=== PATIENT | male | born 1955 | race Caucasian/White ===

== ENCOUNTER 2019-03-30 08:07 | Outpatient (RCR) | payer BC, SELFPAY ==
--- NOTE | 2019-03-30 10:40 | PTOPEVAL ---
Thank you for referring this patient to [facility]. Please review, sign, date and return this plan of care [facility]. I agree with and certify that the following plan of care is medically necessary. Referring Physician Date Admitting Provider: Attending Provider: PHYSICIAN NOT ON STAFF Referring Provider: *PT Outpatient Evaluation Start: 03/30/19 08:18 Freq: Status: Active Protocol: Document 03/30/19 08:18 JOSE ROBERTOELMER (Rec: 03/30/19 09:00 CLARIBEL [email or web address]) Therapy Assessment Status Assessment Status Assessment Status Evaluation Evaluation Information Problem Diagnosis right sided low back pain Onset 02/12/19 Subjective Information Pt. reports that on 02/12/19 Query Text:As Reported By Patient/ he woke up with initial back Family pain that had gotten progressively worse. He describes pain from the right side down the entire right leg . He does note constant numbness. Pain Assessment Pain Scale Pain Scale Used Numeric (1 - 10) Self Report Pain Assessment Right Leg(s) Reported Pain Level 6 Pain Frequency Continuous Current Pain Intensity 6 Lowest Pain Intensity 6 Greatest Pain Intensity 10 Other Pain Aggravating Factors nothing particular activity increases pain, as pain is constant Pain Relief Interventions Used By Inactivity/Rest Patient Pain Score Pain Score 6: Self Report Lower Extremity Muscle Strength Testing General Lower Extremity Strength Gross Lower Extremity Strength right hip flexion 3+/5, left hip flexion 5/5, right knee flexion 3+/5, left knee flexion 5/5, right knee extension 3+/5, left knee extension 5/5, bilateral ankle dorsiflexion 5/5, right ankle PF 3+/5, left ankle PF 5/5 Posture Posture Standing Position Thoracic Spine Posture Increased Kyphosis Lumbar Spine Posture Flattened,Flexed Special Test-Spine Lumbar Spine Special Tests Crossed Straight Leg Raise Test Positive Left Straight Leg Raise Test Positive Right Reflexes Reflexes Location Left Patellar Tendon (L3,L4) Normal +2 Gastrocnemius (S1,S2) Normal +2 Right Patellar Tendon (L3,L4) Dull/Diminished +1 Gastrocnemius (S1,S2) Normal +2 Gait Assessment Gait Assessment Ambulation Assistive Dev
== END 2019-03-30 15:22 | disposition home or self-care (01) ==
LOC: CHSPT 08:07
DX: M54.41 Lumbago with sciatica, right side (principal)
CPT/HCPCS: 97110; 97161

== ENCOUNTER 2020-02-18 10:05 | Outpatient (CLI) | payer BC, SELFPAY ==
[2020-02-18 10:20] LABS: Basophils Absolute Auto 0.03 K/mm3 (0.00-0.10); Basophils Percent Auto 0.5 % (0.0-1.0); Eosinophils Absolute Auto 0.15 K/mm3 (0.02-0.50); Eosinophils Percent Auto 2.3 % (1.0-6.0); Hematocrit 47.5 % (40.0-54.0); Immature Granulocyte Absolute 0.01 K/mm3 (0.00-0.00); Immature Granulocyte Percent A 0.2 % (0.0-0.0); Immature Platelet Fraction Pct 7.8 % (1.0-7.0); Lymphocytes Absolute Auto 2.97 K/mm3 (1.10-4.50); Lymphocytes Percent Auto 45.1 % (18.0-42.0); Mean Corpuscular HGB Conc 33.7 g/dL (32.0-36.0); Mean Corpuscular Hemoglobin 30.8 pg (27.0-31.0); Mean Corpuscular Volume 91.5 fL (78.0-102.0); Mean Platelet Volume 11.5 fl (8.7-11.0); Monocytes Absolute Auto 0.54 K/mm3 (0.10-0.90); Monocytes Percent Auto 8.2 % (2.0-11.0); Neutrophils Absolute Auto 2.9 K/mm3 (1.7-7.2); Neutrophils Percent Auto 43.7 % (50.0-70.0); Platelet Count Result 74 K/mm3 (150-420); Red Blood Count 5.19 M/mm3 (4.70-6.10); Red Cell Distribution Width 12.3 % (11.6-14.4); White Blood Count 6.6 K/mm3 (4.8-10.8)
[2020-02-18 10:35] LABS: INR 1.1; Prothrombin Time 11.8 Seconds (9.64-11.0)
[2020-02-18 11:07] LABS: Alanine Aminotransferase 46 U/L (16-63); Alkaline Phosphatase 88 U/L (46-116); Anion Gap 8 mmol/L (8-16); Aspartate Amino Transferase 30 U/L (15-37); Bilirubin,Total 0.8 mg/dL (0.00-1.00); Blood Urea Nitrogen 12 mg/dL (7-18); Calcium 9.2 mg/dL (8.5-10.1); Carbon Dioxide 29 mmol/L (21-32); Chloride 102 mmol/L (98-108); Estimated Glomerular Filt Rate > 60; Glucose 132 mg/dL (70-99); Osmolality Calculated 289 mOsm/kg (285-295); Potassium 4.1 mmol/L (3.5-5.1); Sodium 139 mmol/L (136-145); Total Protein 8.4 g/dL (6.4-8.2)
[2020-02-24 23:26] LABS: Alpha Fetoprotein Tumor Marker 9.6 ng/mL (<6.1)
== END 2020-02-18 10:06 | disposition home or self-care (01) ==
DX: B19.20 Unspecified viral hepatitis C without hepatic coma (principal)
CPT/HCPCS: 36415; 80053; 82105; 85025; 85055; 85610

== ENCOUNTER 2020-03-08 08:01 | Outpatient (RCR) | payer BC, SELFPAY ==
--- NOTE | 2020-03-08 08:54 | PTOPEVAL ---
Thank you for referring Rowdy Jesus to [facility].? The patient is scheduled to be seen for therapy? ____x/week for ___ weeks. Please review, sign, date and return this plan of care MARCELINO. I agree with and certify that the following plan of care is medically necessary. Referring Physician Date Admitting Provider: Attending Provider: PHYSICIAN NOT ON STAFF Referring Provider: *PT Outpatient Evaluation Start: 03/08/20 08:06 Freq: Status: Active Protocol: Document 03/08/20 08:05 REMINGTON (Rec: 03/08/20 08:53 RUST [email or web address]) Therapy Assessment Status Assessment Status Assessment Status Evaluation Evaluation Information Problem Diagnosis low back pain Onset 03/03/20 Additional Evaluation Detail oswestry = 62% Subjective Information patient reports he was here Query Text:As Reported By Patient/ around this time last year for Family back pain. he reports he eventually had surgery for an HNP in april of this year. he reports he had extensive nerve damage in the R leg that took a while to begin to recover. he reports prior to surgery he was getting so bad he was falling. he reports now (about 2 weeks ago), he was pulling a garbage can out to his gate and somehow caused new back pain. he reports he is strugglign still with getting out of bed. he reports his pain is reduced with standing and walking. he reports he has increased pain in the back with sitting too long, standing, walking, and driving. however, increased time standing and walking will loosen up his back. he reports he has pain in the upper thigh/groin of the R hip . he reports he has noticed some progression of pain down the R LE. Prior Level of Function Comments Additional Prior Level of Function he reports a long history of Comments back pain, but has been improving up until recently since his surgery back in april of this year. Pain Assessment
--- NOTE | 2020-04-20 13:22 | PCPTNOTE ---
04/20/20 - patient has been called and reports he is not coming back to therapy and would like to be DC'd. as of this date, all progress towards goals will be taken from his most recent evaluation/note. REMINGTON
== END 2020-03-14 14:55 | disposition home or self-care (01) ==
LOC: CHSPT 08:01
DX: M54.9 Dorsalgia, unspecified (principal)
CPT/HCPCS: 97014; 97110; 97140; 97161; G0283

== ENCOUNTER 2020-08-29 07:51 | Outpatient (RCR) | payer BC, SELFPAY ==
--- NOTE | 2020-08-29 14:12 | PTOPEVAL ---
Thank you for referring Rowdy Sherry Jesus to [facility].? The patient is scheduled to be seen for therapy? ____x/week for ___ weeks. Please review, sign, date and return this plan of care MARCELINO. I agree with and certify that the following plan of care is medically necessary. Referring Physician Date Admitting Provider: Attending Provider: ROWDY VELASQUEZ Referring Provider: [facility] Evaluation Start: 08/29/20 08:00 Freq: Status: Active Protocol: Document 08/29/20 08:00 ACR (Rec: 08/29/20 09:08 ACR [email or web address]) Evaluation Information Problem Diagnosis LBP Onset 05/11/19 Subjective Information Patient states that he got Query Text:As Reported By Patient/ surgery in April for a Family herniated disc and has been having difficulty since. 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 Patient states the epidural helped him a bit. Patient states that before the herniated disc repair, he had radicular symptoms down the R leg, and still has some numbness in the lower leg. He states that he fell right before the surgery and thinks he overstretched something in his knee, but the MD said there was nothing wrong with it. He states that he has difficulty with walking and standing too long. He also has difficulty getting out of a chair, navigating stairs, and has spasms in both bottock. Prior Level of Function Activity Level (Last 3 Months) Occupation retired Hand Dominance Right Activity of Daily Living Ability Independent Indoor/Home Mobility Independent Community Mobility Independent Stairs Ability Independent Functional Cognition (Planning, Shopping Independent , Taking Medications) Cooking Yes Cleaning Yes Laundry Yes Shopping Yes Driving Yes Pain Assessment Timing of Pain Assessment Timing of Pain Assessment Assessment Pain Scale Pain Scale Used Numeric (1 - 10)
--- NOTE | 2020-11-07 08:49 | PCPTNOTE ---
Patient is a 65 year old male that participated in 2 vists for LBP s/p herniated disc surgery. The patient was called and he states he continues to do his HEP and his pain has gotten a lot better. So, the patient will be discharged from therapy at this time. Please refer to last therapy note for discharge status. Thank you, CHILO MadisonT
== END 2020-09-27 09:33 | disposition home or self-care (01) ==
LOC: CHSPT 07:51
DX: M54.9 Dorsalgia, unspecified (principal); M54.16 Radiculopathy, lumbar region
CPT/HCPCS: 97014; 97110; 97161; G0283

== ENCOUNTER 2020-12-20 09:26 | Outpatient (CLI) | payer BC, SELFPAY ==
[2020-12-20 09:45] LABS: Basophils Absolute Auto 0.04 K/mm3 (0.00-0.10); Basophils Percent Auto 0.6 % (0.0-1.0); Eosinophils Absolute Auto 0.14 K/mm3 (0.02-0.50); Eosinophils Percent Auto 2.2 % (1.0-6.0); Hematocrit 48.3 % (40.0-54.0); Hemoglobin 16.2 g/dL (14.0-18.0); Immature Granulocyte Absolute 0.02 K/mm3 (0.00-0.00); Immature Granulocyte Percent A 0.3 % (0.0-0.0); Lymphocytes Percent Auto 38.8 % (18.0-42.0); Mean Corpuscular HGB Conc 33.5 g/dL (32.0-36.0); Mean Corpuscular Hemoglobin 30.3 pg (27.0-31.0); Mean Corpuscular Volume 90.4 fL (78.0-102.0); Mean Platelet Volume 11.5 fl (8.7-11.0); Monocytes Absolute Auto 0.42 K/mm3 (0.10-0.90); Monocytes Percent Auto 6.5 % (2.0-11.0); Neutrophils Absolute Auto 3.3 K/mm3 (1.7-7.2); Neutrophils Percent Auto 51.6 % (50.0-70.0); Platelet Count Result 78 K/mm3 (150-420); Red Blood Count 5.34 M/mm3 (4.70-6.10); Red Cell Distribution Width 12.2 % (11.6-14.4); White Blood Count 6.5 K/mm3 (4.8-10.8)
[2020-12-20 09:57] LABS: INR 1.1; Prothrombin Time 11.6 Seconds (9.50-12.10)
[2020-12-20 10:28] LABS: Anion Gap 10 mmol/L (8-16); Blood Urea Nitrogen 10 mg/dL (7-18); Calcium 9.2 mg/dL (8.5-10.1); Carbon Dioxide 28 mmol/L (21-32); Chloride 101 mmol/L (98-108); Estimated Glomerular Filt Rate > 60; Glucose 140 mg/dL (70-99); Osmolality Calculated 289 mOsm/kg (285-295); Potassium 4.1 mmol/L (3.5-5.1); Sodium 139 mmol/L (136-145)
[2020-12-24 18:51] LABS: Alpha Fetoprotein Tumor Marker 8.6 ng/mL (<6.1)
== END 2020-12-20 09:27 | disposition home or self-care (01) ==
DX: K74.60 Unspecified cirrhosis of liver (principal)
CPT/HCPCS: 36415; 80048; 82105; 85025; 85055; 85610

== ENCOUNTER 2021-02-08 07:43 | Outpatient (CLI) | payer BC, SELFPAY ==
--- NOTE | ~2021-02-08 | US_ITS ---
EXAMINATION: US abdomen limited DATE: 02/08/2021 08:22 INDICATION: Cirrhosis of the liver. TECHNIQUE: Multiple grayscale and Doppler ultrasound images of the abdomen were obtained. COMPARISON: None FINDINGS: The spleen is normal in size. Calcifications in the spleen are consistent with old granulom atous disease. The liver demonstrates coarsened echotexture and surface nodularity, consistent with c irrhosis. There are multiple hypoechoic masses in the liver measuring up to 2.6 cm. There is normal f low in main portal vein. The gallbladder is normal in size. No gallstones or gallbladder wall thicken ing. There is no sonographic Morel sign. The common duct is normal and measures 5 mm. IMPRESSION: 1. Multiple liver masses measuring up to 2.6 cm, which is indeterminate for malignancy. Abdomen MRI w ithout and with contrast is recommended. 2. Cirrhosis of the liver. Reviewed, dictated and finalized at location A. IMPRESSION: 1. Multiple liver masses measuring up to 2.6 cm, which is indeterminate for mal ignancy. Abdomen MRI without and with contrast is recommended. 2. Cirrhosis of the liver.
== END 2021-02-08 07:44 | disposition home or self-care (01) ==
LOC: CHSIMG 07:47
DX: K74.69 Other cirrhosis of liver (principal)
CPT/HCPCS: 76705

== ENCOUNTER 2021-05-22 10:20 | Outpatient (CLI) | payer BC, SELFPAY ==
[2021-05-22 10:44] LABS: Basophils Absolute Auto 0.04 K/mm3 (0.00-0.10); Basophils Percent Auto 0.5 % (0.0-1.0); Eosinophils Absolute Auto 0.15 K/mm3 (0.02-0.50); Hematocrit 48.6 % (40.0-54.0); Hemoglobin 16.4 g/dL (14.0-18.0); Immature Granulocyte Absolute 0.02 K/mm3 (0.00-0.00); Immature Granulocyte Percent A 0.3 % (0.0-0.0); Immature Platelet Fraction Pct 9.1 % (1.0-7.0); Lymphocytes Absolute Auto 2.87 K/mm3 (1.10-4.50); Lymphocytes Percent Auto 39.2 % (18.0-42.0); Mean Corpuscular HGB Conc 33.7 g/dL (32.0-36.0); Mean Corpuscular Hemoglobin 30.1 pg (27.0-31.0); Mean Corpuscular Volume 89.2 fL (78.0-102.0); Mean Platelet Volume 11.8 fl (8.7-11.0); Monocytes Absolute Auto 0.58 K/mm3 (0.10-0.90); Monocytes Percent Auto 7.9 % (2.0-11.0); Neutrophils Absolute Auto 3.7 K/mm3 (1.7-7.2); Neutrophils Percent Auto 50.1 % (50.0-70.0); Platelet Count Result 95 K/mm3 (150-420); Red Blood Count 5.45 M/mm3 (4.70-6.10); Red Cell Distribution Width 12.1 % (11.6-14.4); White Blood Count 7.3 K/mm3 (4.8-10.8)
[2021-05-22 10:55] LABS: INR 1.1; Prothrombin Time 11.5 Seconds (9.50-12.10)
[2021-05-22 11:21] LABS: Alanine Aminotransferase 36 U/L (16-63); Alkaline Phosphatase 76 U/L (46-116); Anion Gap 10 mmol/L (8-16); Aspartate Amino Transferase 27 U/L (15-37); Bilirubin,Total 0.7 mg/dL (0.00-1.00); Blood Urea Nitrogen 16 mg/dL (7-18); Calcium 9.6 mg/dL (8.5-10.1); Carbon Dioxide 26 mmol/L (21-32); Chloride 97 mmol/L (98-108); Estimated Glomerular Filt Rate > 60; Glucose 124 mg/dL (70-99); Osmolality Calculated 278 mOsm/kg (285-295); Potassium 4.2 mmol/L (3.5-5.1); Sodium 133 mmol/L (136-145); Total Protein 8.5 g/dL (6.4-8.2)
[2021-05-26 20:57] LABS: Alpha Fetoprotein Tumor Marker 7.2 ng/mL (<6.1)
== END 2021-05-22 10:21 | disposition home or self-care (01) ==
LOC: CHSLAB 10:24
PROVIDERS: Visit Provider Internal Medicine Gastroenterology
DX: B18.2 Chronic viral hepatitis C (principal)
CPT/HCPCS: 36415; 80053; 82105; 85025; 85055; 85610

== ENCOUNTER 2021-07-19 08:04 | Outpatient (CLI) | payer BC, SELFPAY ==
[2021-07-19 08:22] LABS: Basophils Absolute Auto 0.03 K/mm3 (0.00-0.10); Basophils Percent Auto 0.4 % (0.0-1.0); Eosinophils Absolute Auto 0.14 K/mm3 (0.02-0.50); Eosinophils Percent Auto 2.1 % (1.0-6.0); Hematocrit 45.6 % (40.0-54.0); Hemoglobin 15.5 g/dL (14.0-18.0); Immature Granulocyte Absolute 0.03 K/mm3 (0.00-0.00); Immature Granulocyte Percent A 0.4 % (0.0-0.0); Lymphocytes Absolute Auto 2.62 K/mm3 (1.10-4.50); Lymphocytes Percent Auto 38.9 % (18.0-42.0); Mean Corpuscular Hemoglobin 30.6 pg (27.0-31.0); Mean Corpuscular Volume 89.9 fL (78.0-102.0); Mean Platelet Volume 11.7 fl (8.7-11.0); Monocytes Absolute Auto 0.35 K/mm3 (0.10-0.90); Monocytes Percent Auto 5.2 % (2.0-11.0); Neutrophils Absolute Auto 3.6 K/mm3 (1.7-7.2); Platelet Count Result 86 K/mm3 (150-420); Red Blood Count 5.07 M/mm3 (4.70-6.10); Red Cell Distribution Width 12.4 % (11.6-14.4); White Blood Count 6.7 K/mm3 (4.8-10.8)
[2021-07-19 08:39] LABS: INR 1.2; Prothrombin Time 12.2 Seconds (9.50-12.10)
[2021-07-19 09:04] LABS: Alanine Aminotransferase 32 U/L (16-63); Alkaline Phosphatase 63 U/L (46-116); Anion Gap 9 mmol/L (8-16); Aspartate Amino Transferase 44 U/L (15-37); Bilirubin,Total 0.7 mg/dL (0.00-1.00); Blood Urea Nitrogen 16 mg/dL (7-18); Calcium 9.1 mg/dL (8.5-10.1); Carbon Dioxide 28 mmol/L (21-32); Chloride 99 mmol/L (98-108); Estimated Glomerular Filt Rate 59; Glucose 180 mg/dL (70-99); Osmolality Calculated 288 mOsm/kg (285-295); Potassium 4.2 mmol/L (3.5-5.1); Sodium 136 mmol/L (136-145)
[2021-07-23 15:52] LABS: Alpha Fetoprotein Tumor Marker 6.6 ng/mL (<6.1)
== END 2021-07-19 08:05 | disposition home or self-care (01) ==
LOC: CHSLAB 08:10
DX: C22.0 Liver cell carcinoma (principal)
CPT/HCPCS: 36415; 80053; 82105; 85025; 85610

== ENCOUNTER 2022-04-09 07:55 | Outpatient (CLI) | payer BC, SELFPAY ==
[2022-04-09 08:35] LABS: Basophils Absolute Auto 0.04 K/mm3 (0.00-0.10); Basophils Percent Auto 0.5 % (0.0-1.0); Eosinophils Absolute Auto 0.28 K/mm3 (0.02-0.50); Eosinophils Percent Auto 3.7 % (1.0-6.0); Hematocrit 41.1 % (40.0-54.0); Hemoglobin 13.7 g/dL (14.0-18.0); Immature Granulocyte Absolute 0.03 K/mm3 (0.00-0.00); Immature Granulocyte Percent A 0.4 % (0.0-0.0); Lymphocytes Absolute Auto 2.01 K/mm3 (1.10-4.50); Lymphocytes Percent Auto 26.4 % (18.0-42.0); Mean Corpuscular HGB Conc 33.3 g/dL (32.0-36.0); Mean Corpuscular Hemoglobin 29.8 pg (27.0-31.0); Mean Corpuscular Volume 89.5 fL (78.0-102.0); Mean Platelet Volume 10.2 fl (8.7-11.0); Monocytes Absolute Auto 0.48 K/mm3 (0.10-0.90); Monocytes Percent Auto 6.3 % (2.0-11.0); Neutrophils Absolute Auto 4.8 K/mm3 (1.7-7.2); Neutrophils Percent Auto 62.7 % (50.0-70.0); Platelet Count Result 160 K/mm3 (150-420); Red Blood Count 4.59 M/mm3 (4.70-6.10); White Blood Count 7.6 K/mm3 (4.8-10.8)
[2022-04-09 08:52] LABS: Total Protein Urine Random 69.4 mg/dL (0.0-11.9)
[2022-04-09 09:08] LABS: Creatinine Urine 459.05 mg/dL (40-278); Ur Ttl Prot Creatinine Ratio 0.15 mg/mg (0-0.20)
[2022-04-09 09:12] LABS: Alanine Aminotransferase 34 U/L (16-63); Albumin Level 4.2 g/dL (3.4-5.0); Alkaline Phosphatase 91 U/L (46-116); Anion Gap 7 mmol/L (8-16); Aspartate Amino Transferase 15 U/L (15-37); Bilirubin,Total 0.5 mg/dL (0.00-1.00); Blood Urea Nitrogen 20 mg/dL (7-18); Calcium 9.5 mg/dL (8.5-10.1); Carbon Dioxide 30 mmol/L (21-32); Chloride 104 mmol/L (98-108); Cholesterol 179 mg/dL (0-200); Estimated Glomerular Filt Rate 45; GGT 56 U/L (15-85); Glucose 121 mg/dL (70-99); HDL Direct 45 mg/dL (40-60); LDL Cholesterol Calculated 108 mg/dL (<130); Magnesium 1.4 mg/dL (1.8-2.4); Osmolality Calculated 295 mOsm/kg (285-295); Phosphorus 3.7 mg/dL (2.6-4.7); Potassium 4.1 mmol/L (3.5-5.1); Sodium 141 mmol/L (136-145); Total Protein 7.4 g/dL (6.4-8.2); Triglycerides 131 mg/dL (0-150)
[2022-04-12 06:54] LABS: Hepatitis C RNA, Quant PCR <15 IU/mL
[2022-04-12 17:36] LABS: Hepatitis B DNA PCR <1.00 Log IU/mL; Hepatitis B DNA PCR <10 IU/mL
[2022-04-12 17:57] LABS: HIV 1 RNA PCR Not Detected Copies/mL; HIV 1 RNA PCR Not Detected Log cps/mL
== END 2022-04-09 07:56 | disposition home or self-care (01) ==
LOC: CHSLAB 08:00
DX: Z79.899 Other long term (current) drug therapy (principal); Z77.21 Contact with and (suspected) exposure to potentially hazardous body fluids; Z94.4 Liver transplant status
CPT/HCPCS: 36415; 80053; 80061; 80197; 82570; 82977; 83735; 84100; 84156; 85025; 87517; 87522; 87536

== ENCOUNTER 2022-05-28 07:41 | Outpatient (CLI) | payer MEDICARE, SELFPAY ==
[2022-05-28 08:17] LABS: Hematocrit 42.7 % (40.0-54.0); Hemoglobin 14.2 g/dL (14.0-18.0); Immature Platelet Fraction Pct 3.6 % (1.0-7.0); Mean Corpuscular HGB Conc 33.3 g/dL (32.0-36.0); Mean Corpuscular Hemoglobin 28.8 pg (27.0-31.0); Mean Corpuscular Volume 86.6 fL (78.0-102.0); Mean Platelet Volume 10.6 fl (8.7-11.0); Platelet Count Result 126 K/mm3 (150-420); Red Blood Count 4.93 M/mm3 (4.70-6.10); Red Cell Distribution Width 12.6 % (11.6-14.4); White Blood Count 4.9 K/mm3 (4.8-10.8)
[2022-05-28 08:46] LABS: Band Neutrophils Percent 1 % (0-6); Neutrophils Absolute Manual 3.28 K/mm3 (1.3-6.7); Neutrophils Percent Manual 66 % (46-73); Total Cells Counted 100
[2022-05-28 08:47] LABS: Eosinophils Absolute Manual 0.14 K/mm3 (0.02-0.5); Eosinophils Percent Manual 3 % (1-6); Lymphocytes Absolute Manual 1.17 K/mm3 (1.1-4.5); Lymphocytes Percent Manual 24 % (18-44); Metamyelocytes Percent 1 %; Monocytes Absolute Manual 0.24 K/mm3 (0.1-0.90); Monocytes Percent Manual 5 % (3-9); Platelet Estimate Adequate (Adequate)
[2022-05-28 08:55] LABS: Alanine Aminotransferase 24 U/L (16-63); Albumin Level 4.1 g/dL (3.4-5.0); Alkaline Phosphatase 97 U/L (46-116); Anion Gap 7 mmol/L (8-16); Aspartate Amino Transferase 17 U/L (15-37); Bilirubin,Total 0.5 mg/dL (0.00-1.00); Blood Urea Nitrogen 15 mg/dL (7-18); Calcium 9.3 mg/dL (8.5-10.1); Carbon Dioxide 30 mmol/L (21-32); Chloride 106 mmol/L (98-108); Estimated Glomerular Filt Rate 52; GGT 31 U/L (15-85); Glucose 120 mg/dL (70-99); Magnesium 1.7 mg/dL (1.8-2.4); Osmolality Calculated 297 mOsm/kg (285-295); Phosphorus 3.8 mg/dL (2.6-4.7); Sodium 143 mmol/L (136-145); Total Protein 7.2 g/dL (6.4-8.2)
[2022-05-30 13:45] LABS: Tacrolimus Prograf 4.6 mcg/L
[2022-06-02 16:53] LABS: Alpha Fetoprotein Tumor Marker 4.8 ng/mL (<6.1)
== END 2022-05-28 07:42 | disposition home or self-care (01) ==
LOC: CHSLAB 07:50
DX: Z94.4 Liver transplant status (principal); Z85.05 Personal history of malignant neoplasm of liver; Z79.899 Other long term (current) drug therapy
CPT/HCPCS: 36415; 80053; 80197; 82105; 82977; 83735; 84100; 85025; 85055

== ENCOUNTER 2022-06-04 07:32 | Outpatient (RCR) | payer BC, MEDICARE, SELFPAY ==
[2022-03-12 08:24] LABS: Hematocrit 37.4 % (40.0-54.0); Hemoglobin 12.7 g/dL (14.0-18.0); Mean Corpuscular Hemoglobin 30.6 pg (27.0-31.0); Mean Corpuscular Volume 90.1 fL (78.0-102.0); Platelet Count Result 183 K/mm3 (150-420); Red Blood Count 4.15 M/mm3 (4.70-6.10); Red Cell Distribution Width 13.3 % (11.6-14.4); White Blood Count 12.6 K/mm3 (4.8-10.8)
[2022-03-12 09:03] LABS: Band Neutrophils Percent 0 % (0-6); Eosinophils Absolute Manual 0.37 K/mm3 (0.02-0.5); Eosinophils Percent Manual 3 % (1-6); Lymphocytes Absolute Manual 2.52 K/mm3 (1.1-4.5); Lymphocytes Percent Manual 20 % (18-44); Monocytes Absolute Manual 1.26 K/mm3 (0.1-0.90); Monocytes Percent Manual 10 % (3-9); Neutrophils Absolute Manual 8.44 K/mm3 (1.3-6.7); Neutrophils Percent Manual 67 % (46-73); Platelet Estimate Adequate (Adequate); Total Cells Counted 100
[2022-03-12 09:12] LABS: Alanine Aminotransferase 178 U/L (16-63); Albumin Level 3.8 g/dL (3.4-5.0); Alkaline Phosphatase 154 U/L (46-116); Anion Gap 9 mmol/L (8-16); Aspartate Amino Transferase 50 U/L (15-37); Bilirubin,Total 0.7 mg/dL (0.00-1.00); Blood Urea Nitrogen 22 mg/dL (7-18); Calcium 9.2 mg/dL (8.5-10.1); Carbon Dioxide 29 mmol/L (21-32); Chloride 103 mmol/L (98-108); Estimated Glomerular Filt Rate > 60; GGT 318 U/L (15-85); Glucose 133 mg/dL (70-99); Magnesium 1.4 mg/dL (1.8-2.4); Osmolality Calculated 297 mOsm/kg (285-295); Phosphorus 4.3 mg/dL (2.6-4.7); Potassium 4.3 mmol/L (3.5-5.1); Sodium 141 mmol/L (136-145); Total Protein 7.1 g/dL (6.4-8.2)
[2022-03-14 08:21] LABS: Basophils Absolute Auto 0.12 K/mm3 (0.00-0.10); Eosinophils Absolute Auto 0.19 K/mm3 (0.02-0.50); Eosinophils Percent Auto 1.5 % (1.0-6.0); Hematocrit 37.9 % (40.0-54.0); Hemoglobin 12.5 g/dL (14.0-18.0); Immature Granulocyte Absolute 0.16 K/mm3 (0.00-0.00); Immature Granulocyte Percent A 1.3 % (0.0-0.0); Lymphocytes Absolute Auto 2.66 K/mm3 (1.10-4.50); Lymphocytes Percent Auto 21.4 % (18.0-42.0); Mean Corpuscular Hemoglobin 30.7 pg (27.0-31.0); Mean Corpuscular Volume 93.1 fL (78.0-102.0); Mean Platelet Volume 10.3 fl (8.7-11.0); Monocytes Absolute Auto 0.87 K/mm3 (0.10-0.90); Neutrophils Absolute Auto 8.5 K/mm3 (1.7-7.2); Neutrophils Percent Auto 67.8 % (50.0-70.0); Platelet Count Result 206 K/mm3 (150-420); Red Blood Count 4.07 M/mm3 (4.70-6.10); Red Cell Distribution Width 13.4 % (11.6-14.4); White Blood Count 12.5 K/mm3 (4.8-10.8)
[2022-03-14 08:57] LABS: Alanine Aminotransferase 142 U/L (16-63); Albumin Level 3.8 g/dL (3.4-5.0); Alkaline Phosphatase 150 U/L (46-116); Anion Gap 10 mmol/L (8-16); Aspartate Amino Transferase 39 U/L (15-37); Bilirubin,Total 0.6 mg/dL (0.00-1.00); Blood Urea Nitrogen 21 mg/dL (7-18); Carbon Dioxide 30 mmol/L (21-32); Chloride 103 mmol/L (98-108); Estimated Glomerular Filt Rate 59; GGT 243 U/L (15-85); Glucose 157 mg/dL (70-99); Magnesium 1.4 mg/dL (1.8-2.4); Osmolality Calculated 302 mOsm/kg (285-295); Phosphorus 3.9 mg/dL (2.6-4.7); Potassium 4.4 mmol/L (3.5-5.1); Sodium 143 mmol/L (136-145); Total Protein 7.1 g/dL (6.4-8.2)
[2022-03-15 13:12] LABS: Tacrolimus Prograf 6.5 mcg/L
[2022-03-19 07:54] LABS: Basophils Absolute Auto 0.15 K/mm3 (0.00-0.10); Basophils Percent Auto 1.5 % (0.0-1.0); Eosinophils Absolute Auto 0.35 K/mm3 (0.02-0.50); Eosinophils Percent Auto 3.6 % (1.0-6.0); Hemoglobin 12.9 g/dL (14.0-18.0); Immature Granulocyte Absolute 0.05 K/mm3 (0.00-0.00); Immature Granulocyte Percent A 0.5 % (0.0-0.0); Lymphocytes Absolute Auto 2.38 K/mm3 (1.10-4.50); Lymphocytes Percent Auto 24.5 % (18.0-42.0); Mean Corpuscular HGB Conc 33.9 g/dL (32.0-36.0); Mean Corpuscular Hemoglobin 30.8 pg (27.0-31.0); Mean Corpuscular Volume 90.7 fL (78.0-102.0); Monocytes Absolute Auto 0.74 K/mm3 (0.10-0.90); Monocytes Percent Auto 7.6 % (2.0-11.0); Neutrophils Percent Auto 62.3 % (50.0-70.0); Platelet Count Result 203 K/mm3 (150-420); Red Blood Count 4.19 M/mm3 (4.70-6.10); Red Cell Distribution Width 13.2 % (11.6-14.4); White Blood Count 9.7 K/mm3 (4.8-10.8)
[2022-03-19 09:08] LABS: GGT 154 U/L (15-85); Phosphorus 4.1 mg/dL (2.6-4.7)
[2022-03-19 09:31] LABS: Magnesium 1.5 mg/dL (1.8-2.4)
[2022-03-21 07:57] LABS: Alanine Aminotransferase 78 U/L (16-63); Albumin Level 4.2 g/dL (3.4-5.0); Alkaline Phosphatase 119 U/L (46-116); Anion Gap 15 mmol/L (8-16); Aspartate Amino Transferase 25 U/L (15-37); Bilirubin,Total 0.6 mg/dL (0.00-1.00); Blood Urea Nitrogen 26 mg/dL (7-18); Calcium 9.3 mg/dL (8.5-10.1); Carbon Dioxide 24 mmol/L (21-32); Chloride 102 mmol/L (98-108); Estimated Glomerular Filt Rate 46; Glucose 168 mg/dL (70-99); Osmolality Calculated 300 mOsm/kg (285-295); Potassium 4.4 mmol/L (3.5-5.1); Sodium 141 mmol/L (136-145); Total Protein 7.5 g/dL (6.4-8.2)
[2022-03-21 16:02] LABS: Tacrolimus Prograf 8.8 mcg/L
[2022-03-22 08:25] LABS: Basophils Absolute Auto 0.11 K/mm3 (0.00-0.10); Basophils Percent Auto 1.2 % (0.0-1.0); Eosinophils Absolute Auto 0.23 K/mm3 (0.02-0.50); Eosinophils Percent Auto 2.5 % (1.0-6.0); Hematocrit 38.9 % (40.0-54.0); Hemoglobin 13.5 g/dL (14.0-18.0); Immature Granulocyte Absolute 0.05 K/mm3 (0.00-0.00); Immature Granulocyte Percent A 0.5 % (0.0-0.0); Lymphocytes Absolute Auto 2.49 K/mm3 (1.10-4.50); Lymphocytes Percent Auto 26.9 % (18.0-42.0); Mean Corpuscular HGB Conc 34.7 g/dL (32.0-36.0); Mean Corpuscular Volume 89.2 fL (78.0-102.0); Mean Platelet Volume 10.2 fl (8.7-11.0); Monocytes Absolute Auto 0.67 K/mm3 (0.10-0.90); Monocytes Percent Auto 7.2 % (2.0-11.0); Neutrophils Absolute Auto 5.7 K/mm3 (1.7-7.2); Neutrophils Percent Auto 61.7 % (50.0-70.0); Platelet Count Result 210 K/mm3 (150-420); Red Blood Count 4.36 M/mm3 (4.70-6.10); Red Cell Distribution Width 12.9 % (11.6-14.4); White Blood Count 9.3 K/mm3 (4.8-10.8)
[2022-03-22 09:14] LABS: Alanine Aminotransferase 38 U/L (16-63); Albumin Level 4.3 g/dL (3.4-5.0); Alkaline Phosphatase 116 U/L (46-116); Anion Gap 12 mmol/L (8-16); Aspartate Amino Transferase 21 U/L (15-37); Bilirubin,Total 0.7 mg/dL (0.00-1.00); Blood Urea Nitrogen 23 mg/dL (7-18); Calcium 9.5 mg/dL (8.5-10.1); Carbon Dioxide 26 mmol/L (21-32); Chloride 101 mmol/L (98-108); Estimated Glomerular Filt Rate 46; GGT 122 U/L (15-85); Glucose 159 mg/dL (70-99); Magnesium 1.2 mg/dL (1.8-2.4); Osmolality Calculated 294 mOsm/kg (285-295); Phosphorus 3.9 mg/dL (2.6-4.7); Potassium 4.2 mmol/L (3.5-5.1); Sodium 139 mmol/L (136-145); Total Protein 7.7 g/dL (6.4-8.2)
[2022-03-25 02:21] LABS: Tacrolimus Prograf 8.7 mcg/L
[2022-03-26 08:15] LABS: Basophils Absolute Auto 0.06 K/mm3 (0.00-0.10); Basophils Percent Auto 0.7 % (0.0-1.0); Eosinophils Absolute Auto 0.19 K/mm3 (0.02-0.50); Eosinophils Percent Auto 2.2 % (1.0-6.0); Hematocrit 39.1 % (40.0-54.0); Hemoglobin 13.3 g/dL (14.0-18.0); Immature Granulocyte Absolute 0.02 K/mm3 (0.00-0.00); Immature Granulocyte Percent A 0.2 % (0.0-0.0); Lymphocytes Absolute Auto 1.68 K/mm3 (1.10-4.50); Lymphocytes Percent Auto 19.4 % (18.0-42.0); Mean Corpuscular Hemoglobin 30.6 pg (27.0-31.0); Mean Corpuscular Volume 89.9 fL (78.0-102.0); Mean Platelet Volume 10.1 fl (8.7-11.0); Monocytes Absolute Auto 0.54 K/mm3 (0.10-0.90); Monocytes Percent Auto 6.2 % (2.0-11.0); Neutrophils Absolute Auto 6.2 K/mm3 (1.7-7.2); Neutrophils Percent Auto 71.3 % (50.0-70.0); Platelet Count Result 185 K/mm3 (150-420); Red Blood Count 4.35 M/mm3 (4.70-6.10); Red Cell Distribution Width 12.9 % (11.6-14.4); White Blood Count 8.7 K/mm3 (4.8-10.8)
[2022-03-26 08:50] LABS: Alanine Aminotransferase 42 U/L (16-63); Albumin Level 4.2 g/dL (3.4-5.0); Alkaline Phosphatase 103 U/L (46-116); Anion Gap 13 mmol/L (8-16); Aspartate Amino Transferase 19 U/L (15-37); Bilirubin,Total 0.5 mg/dL (0.00-1.00); Blood Urea Nitrogen 23 mg/dL (7-18); Calcium 9.4 mg/dL (8.5-10.1); Carbon Dioxide 26 mmol/L (21-32); Chloride 103 mmol/L (98-108); Estimated Glomerular Filt Rate 46; GGT 96 U/L (15-85); Glucose 141 mg/dL (70-99); Magnesium 1.2 mg/dL (1.8-2.4); Osmolality Calculated 299 mOsm/kg (285-295); Phosphorus 4.1 mg/dL (2.6-4.7); Potassium 3.9 mmol/L (3.5-5.1); Sodium 142 mmol/L (136-145); Total Protein 7.4 g/dL (6.4-8.2)
[2022-03-29 08:04] LABS: Basophils Absolute Auto 0.06 K/mm3 (0.00-0.10); Basophils Percent Auto 0.7 % (0.0-1.0); Eosinophils Absolute Auto 0.34 K/mm3 (0.02-0.50); Eosinophils Percent Auto 3.8 % (1.0-6.0); Hematocrit 39.8 % (40.0-54.0); Hemoglobin 13.5 g/dL (14.0-18.0); Immature Granulocyte Absolute 0.04 K/mm3 (0.00-0.00); Immature Granulocyte Percent A 0.4 % (0.0-0.0); Lymphocytes Absolute Auto 2.46 K/mm3 (1.10-4.50); Lymphocytes Percent Auto 27.5 % (18.0-42.0); Mean Corpuscular HGB Conc 33.9 g/dL (32.0-36.0); Mean Corpuscular Volume 91.3 fL (78.0-102.0); Mean Platelet Volume 10.2 fl (8.7-11.0); Monocytes Absolute Auto 0.59 K/mm3 (0.10-0.90); Monocytes Percent Auto 6.6 % (2.0-11.0); Neutrophils Absolute Auto 5.4 K/mm3 (1.7-7.2); Platelet Count Result 149 K/mm3 (150-420); Red Blood Count 4.36 M/mm3 (4.70-6.10); White Blood Count 8.9 K/mm3 (4.8-10.8)
[2022-03-29 08:04] LABS: Tacrolimus Prograf 7.6 mcg/L
[2022-03-29 08:57] LABS: Alanine Aminotransferase 44 U/L (16-63); Albumin Level 4.2 g/dL (3.4-5.0); Alkaline Phosphatase 94 U/L (46-116); Anion Gap 9 mmol/L (8-16); Aspartate Amino Transferase 20 U/L (15-37); Bilirubin,Total 0.5 mg/dL (0.00-1.00); Blood Urea Nitrogen 21 mg/dL (7-18); Calcium 9.6 mg/dL (8.5-10.1); Carbon Dioxide 31 mmol/L (21-32); Chloride 104 mmol/L (98-108); Estimated Glomerular Filt Rate 55; GGT 82 U/L (15-85); Glucose 123 mg/dL (70-99); Magnesium 1.3 mg/dL (1.8-2.4); Osmolality Calculated 302 mOsm/kg (285-295); Phosphorus 3.8 mg/dL (2.6-4.7); Sodium 144 mmol/L (136-145); Total Protein 7.4 g/dL (6.4-8.2)
[2022-04-01 16:18] LABS: Tacrolimus Prograf 6.9 mcg/L
[2022-04-02 08:13] LABS: Basophils Absolute Auto 0.03 K/mm3 (0.00-0.10); Basophils Percent Auto 0.3 % (0.0-1.0); Eosinophils Percent Auto 4.6 % (1.0-6.0); Hematocrit 39.6 % (40.0-54.0); Hemoglobin 13.6 g/dL (14.0-18.0); Immature Granulocyte Absolute 0.03 K/mm3 (0.00-0.00); Immature Granulocyte Percent A 0.3 % (0.0-0.0); Immature Platelet Fraction Pct 2.7 % (1.0-7.0); Lymphocytes Absolute Auto 1.96 K/mm3 (1.10-4.50); Lymphocytes Percent Auto 22.8 % (18.0-42.0); Mean Corpuscular HGB Conc 34.3 g/dL (32.0-36.0); Mean Corpuscular Hemoglobin 30.8 pg (27.0-31.0); Mean Corpuscular Volume 89.6 fL (78.0-102.0); Mean Platelet Volume 10.3 fl (8.7-11.0); Monocytes Absolute Auto 0.56 K/mm3 (0.10-0.90); Monocytes Percent Auto 6.5 % (2.0-11.0); Neutrophils Absolute Auto 5.6 K/mm3 (1.7-7.2); Neutrophils Percent Auto 65.5 % (50.0-70.0); Platelet Count Result 133 K/mm3 (150-420); Red Blood Count 4.42 M/mm3 (4.70-6.10); Red Cell Distribution Width 12.9 % (11.6-14.4); White Blood Count 8.6 K/mm3 (4.8-10.8)
[2022-04-02 09:50] LABS: Alanine Aminotransferase 37 U/L (16-63); Albumin Level 4.2 g/dL (3.4-5.0); Alkaline Phosphatase 96 U/L (46-116); Anion Gap 11 mmol/L (8-16); Aspartate Amino Transferase 18 U/L (15-37); Bilirubin,Total 0.5 mg/dL (0.00-1.00); Blood Urea Nitrogen 24 mg/dL (7-18); Calcium 9.3 mg/dL (8.5-10.1); Carbon Dioxide 29 mmol/L (21-32); Chloride 101 mmol/L (98-108); Estimated Glomerular Filt Rate 44; GGT 70 U/L (15-85); Glucose 166 mg/dL (70-99); Magnesium 1.4 mg/dL (1.8-2.4); Osmolality Calculated 300 mOsm/kg (285-295); Phosphorus 3.7 mg/dL (2.6-4.7); Sodium 141 mmol/L (136-145); Total Protein 7.3 g/dL (6.4-8.2)
[2022-04-04 22:11] LABS: Tacrolimus Prograf 6.4 mcg/L
[2022-04-05 07:55] LABS: Basophils Absolute Auto 0.04 K/mm3 (0.00-0.10); Basophils Percent Auto 0.5 % (0.0-1.0); Eosinophils Absolute Auto 0.44 K/mm3 (0.02-0.50); Eosinophils Percent Auto 5.2 % (1.0-6.0); Hematocrit 40.9 % (40.0-54.0); Hemoglobin 13.7 g/dL (14.0-18.0); Immature Granulocyte Absolute 0.03 K/mm3 (0.00-0.00); Immature Granulocyte Percent A 0.4 % (0.0-0.0); Lymphocytes Absolute Auto 2.88 K/mm3 (1.10-4.50); Lymphocytes Percent Auto 33.8 % (18.0-42.0); Mean Corpuscular HGB Conc 33.5 g/dL (32.0-36.0); Mean Corpuscular Volume 89.7 fL (78.0-102.0); Monocytes Absolute Auto 0.58 K/mm3 (0.10-0.90); Monocytes Percent Auto 6.8 % (2.0-11.0); Neutrophils Absolute Auto 4.6 K/mm3 (1.7-7.2); Neutrophils Percent Auto 53.3 % (50.0-70.0); Platelet Count Result 145 K/mm3 (150-420); Red Blood Count 4.56 M/mm3 (4.70-6.10); Red Cell Distribution Width 13.1 % (11.6-14.4); White Blood Count 8.5 K/mm3 (4.8-10.8)
[2022-04-05 08:49] LABS: Alanine Aminotransferase 37 U/L (16-63); Albumin Level 4.2 g/dL (3.4-5.0); Alkaline Phosphatase 100 U/L (46-116); Anion Gap 8 mmol/L (8-16); Aspartate Amino Transferase 17 U/L (15-37); Bilirubin,Total 0.5 mg/dL (0.00-1.00); Blood Urea Nitrogen 17 mg/dL (7-18); Calcium 9.6 mg/dL (8.5-10.1); Carbon Dioxide 31 mmol/L (21-32); Chloride 102 mmol/L (98-108); Estimated Glomerular Filt Rate 51; GGT 64 U/L (15-85); Glucose 133 mg/dL (70-99); Magnesium 1.5 mg/dL (1.8-2.4); Osmolality Calculated 295 mOsm/kg (285-295); Potassium 3.9 mmol/L (3.5-5.1); Sodium 141 mmol/L (136-145); Total Protein 7.5 g/dL (6.4-8.2)
[2022-04-07 07:49] LABS: Tacrolimus Prograf 6.4 mcg/L
[2022-04-12 08:28] LABS: Basophils Absolute Auto 0.05 K/mm3 (0.00-0.10); Basophils Percent Auto 0.6 % (0.0-1.0); Eosinophils Absolute Auto 0.23 K/mm3 (0.02-0.50); Eosinophils Percent Auto 2.9 % (1.0-6.0); Hematocrit 40.8 % (40.0-54.0); Hemoglobin 13.9 g/dL (14.0-18.0); Immature Granulocyte Absolute 0.03 K/mm3 (0.00-0.00); Immature Granulocyte Percent A 0.4 % (0.0-0.0); Lymphocytes Absolute Auto 2.36 K/mm3 (1.10-4.50); Lymphocytes Percent Auto 29.6 % (18.0-42.0); Mean Corpuscular HGB Conc 34.1 g/dL (32.0-36.0); Mean Corpuscular Hemoglobin 30.4 pg (27.0-31.0); Mean Corpuscular Volume 89.3 fL (78.0-102.0); Mean Platelet Volume 10.2 fl (8.7-11.0); Monocytes Absolute Auto 0.56 K/mm3 (0.10-0.90); Neutrophils Absolute Auto 4.7 K/mm3 (1.7-7.2); Neutrophils Percent Auto 59.5 % (50.0-70.0); Platelet Count Result 159 K/mm3 (150-420); Red Blood Count 4.57 M/mm3 (4.70-6.10); Red Cell Distribution Width 13.2 % (11.6-14.4)
[2022-04-12 09:54] LABS: Alanine Aminotransferase 30 U/L (16-63); Albumin Level 4.3 g/dL (3.4-5.0); Alkaline Phosphatase 89 U/L (46-116); Anion Gap 11 mmol/L (8-16); Aspartate Amino Transferase 16 U/L (15-37); Bilirubin,Total 0.6 mg/dL (0.00-1.00); Blood Urea Nitrogen 14 mg/dL (7-18); Calcium 9.5 mg/dL (8.5-10.1); Carbon Dioxide 27 mmol/L (21-32); Chloride 105 mmol/L (98-108); Estimated Glomerular Filt Rate 49; GGT 50 U/L (15-85); Glucose 127 mg/dL (70-99); Magnesium 1.5 mg/dL (1.8-2.4); Osmolality Calculated 298 mOsm/kg (285-295); Phosphorus 4.1 mg/dL (2.6-4.7); Potassium 4.1 mmol/L (3.5-5.1); Sodium 143 mmol/L (136-145); Total Protein 7.4 g/dL (6.4-8.2)
[2022-04-14 18:04] LABS: Tacrolimus Prograf 4.7 mcg/L
[2022-04-16 08:02] LABS: Basophils Absolute Auto 0.03 K/mm3 (0.00-0.10); Basophils Percent Auto 0.4 % (0.0-1.0); Eosinophils Absolute Auto 0.17 K/mm3 (0.02-0.50); Eosinophils Percent Auto 2.2 % (1.0-6.0); Hematocrit 40.7 % (40.0-54.0); Hemoglobin 13.8 g/dL (14.0-18.0); Immature Granulocyte Absolute 0.05 K/mm3 (0.00-0.00); Immature Granulocyte Percent A 0.7 % (0.0-0.0); Lymphocytes Absolute Auto 2.17 K/mm3 (1.10-4.50); Lymphocytes Percent Auto 28.4 % (18.0-42.0); Mean Corpuscular HGB Conc 33.9 g/dL (32.0-36.0); Mean Corpuscular Hemoglobin 30.2 pg (27.0-31.0); Mean Corpuscular Volume 89.1 fL (78.0-102.0); Mean Platelet Volume 10.1 fl (8.7-11.0); Monocytes Absolute Auto 0.48 K/mm3 (0.10-0.90); Monocytes Percent Auto 6.3 % (2.0-11.0); Neutrophils Absolute Auto 4.7 K/mm3 (1.7-7.2); Platelet Count Result 161 K/mm3 (150-420); Red Blood Count 4.57 M/mm3 (4.70-6.10); White Blood Count 7.6 K/mm3 (4.8-10.8)
[2022-04-16 08:53] LABS: Alanine Aminotransferase 26 U/L (16-63); Albumin Level 4.3 g/dL (3.4-5.0); Alkaline Phosphatase 87 U/L (46-116); Anion Gap 9 mmol/L (8-16); Aspartate Amino Transferase 17 U/L (15-37); Bilirubin,Total 0.5 mg/dL (0.00-1.00); Blood Urea Nitrogen 19 mg/dL (7-18); Calcium 9.5 mg/dL (8.5-10.1); Carbon Dioxide 28 mmol/L (21-32); Chloride 105 mmol/L (98-108); Estimated Glomerular Filt Rate 52; GGT 46 U/L (15-85); Glucose 137 mg/dL (70-99); Magnesium 1.5 mg/dL (1.8-2.4); Osmolality Calculated 298 mOsm/kg (285-295); Phosphorus 3.9 mg/dL (2.6-4.7); Potassium 4.1 mmol/L (3.5-5.1); Sodium 142 mmol/L (136-145); Total Protein 7.3 g/dL (6.4-8.2)
[2022-04-19 08:26] LABS: Basophils Absolute Auto 0.05 K/mm3 (0.00-0.10); Basophils Percent Auto 0.7 % (0.0-1.0); Eosinophils Absolute Auto 0.15 K/mm3 (0.02-0.50); Hemoglobin 13.7 g/dL (14.0-18.0); Immature Granulocyte Absolute 0.22 K/mm3 (0.00-0.00); Lymphocytes Absolute Auto 1.66 K/mm3 (1.10-4.50); Lymphocytes Percent Auto 22.4 % (18.0-42.0); Mean Corpuscular HGB Conc 32.6 g/dL (32.0-36.0); Mean Corpuscular Volume 88.8 fL (78.0-102.0); Mean Platelet Volume 10.4 fl (8.7-11.0); Monocytes Absolute Auto 0.48 K/mm3 (0.10-0.90); Monocytes Percent Auto 6.5 % (2.0-11.0); Neutrophils Absolute Auto 4.9 K/mm3 (1.7-7.2); Neutrophils Percent Auto 65.4 % (50.0-70.0); Platelet Count Result 159 K/mm3 (150-420); Red Blood Count 4.73 M/mm3 (4.70-6.10); Red Cell Distribution Width 12.8 % (11.6-14.4); White Blood Count 7.4 K/mm3 (4.8-10.8)
[2022-04-19 09:23] LABS: Alanine Aminotransferase 28 U/L (16-63); Albumin Level 4.2 g/dL (3.4-5.0); Alkaline Phosphatase 88 U/L (46-116); Anion Gap 9 mmol/L (8-16); Aspartate Amino Transferase 18 U/L (15-37); Bilirubin,Total 0.5 mg/dL (0.00-1.00); Blood Urea Nitrogen 16 mg/dL (7-18); Calcium 9.2 mg/dL (8.5-10.1); Carbon Dioxide 27 mmol/L (21-32); Chloride 104 mmol/L (98-108); Estimated Glomerular Filt Rate 52; GGT 44 U/L (15-85); Glucose 126 mg/dL (70-99); Magnesium 1.7 mg/dL (1.8-2.4); Osmolality Calculated 293 mOsm/kg (285-295); Phosphorus 3.8 mg/dL (2.6-4.7); Potassium 4.2 mmol/L (3.5-5.1); Sodium 140 mmol/L (136-145); Total Protein 7.3 g/dL (6.4-8.2)
[2022-04-23 08:03] LABS: Basophils Absolute Auto 0.03 K/mm3 (0.00-0.10); Basophils Percent Auto 0.4 % (0.0-1.0); Eosinophils Absolute Auto 0.15 K/mm3 (0.02-0.50); Eosinophils Percent Auto 2.2 % (1.0-6.0); Hematocrit 41.1 % (40.0-54.0); Hemoglobin 13.8 g/dL (14.0-18.0); Immature Granulocyte Absolute 0.19 K/mm3 (0.00-0.00); Immature Granulocyte Percent A 2.8 % (0.0-0.0); Lymphocytes Absolute Auto 1.65 K/mm3 (1.10-4.50); Lymphocytes Percent Auto 23.9 % (18.0-42.0); Mean Corpuscular HGB Conc 33.6 g/dL (32.0-36.0); Mean Corpuscular Hemoglobin 29.9 pg (27.0-31.0); Mean Corpuscular Volume 89.2 fL (78.0-102.0); Mean Platelet Volume 10.3 fl (8.7-11.0); Monocytes Absolute Auto 0.46 K/mm3 (0.10-0.90); Monocytes Percent Auto 6.7 % (2.0-11.0); Neutrophils Absolute Auto 4.4 K/mm3 (1.7-7.2); Platelet Count Result 142 K/mm3 (150-420); Red Blood Count 4.61 M/mm3 (4.70-6.10); Red Cell Distribution Width 12.9 % (11.6-14.4); White Blood Count 6.9 K/mm3 (4.8-10.8)
[2022-04-23 08:33] LABS: Alanine Aminotransferase 23 U/L (16-63); Albumin Level 4.2 g/dL (3.4-5.0); Alkaline Phosphatase 88 U/L (46-116); Anion Gap 10 mmol/L (8-16); Aspartate Amino Transferase 18 U/L (15-37); Bilirubin,Total 0.7 mg/dL (0.00-1.00); Blood Urea Nitrogen 14 mg/dL (7-18); Calcium 9.2 mg/dL (8.5-10.1); Carbon Dioxide 26 mmol/L (21-32); Chloride 104 mmol/L (98-108); Estimated Glomerular Filt Rate 48; GGT 40 U/L (15-85); Glucose 144 mg/dL (70-99); Magnesium 1.5 mg/dL (1.8-2.4); Osmolality Calculated 293 mOsm/kg (285-295); Phosphorus 3.5 mg/dL (2.6-4.7); Potassium 4.1 mmol/L (3.5-5.1); Sodium 140 mmol/L (136-145); Total Protein 7.3 g/dL (6.4-8.2)
[2022-04-25 09:09] LABS: Tacrolimus Prograf 6.7 mcg/L
[2022-04-30 08:14] LABS: Hematocrit 41.2 % (40.0-54.0); Hemoglobin 14.1 g/dL (14.0-18.0); Immature Platelet Fraction Pct 4.1 % (1.0-7.0); Mean Corpuscular HGB Conc 34.2 g/dL (32.0-36.0); Mean Corpuscular Volume 87.7 fL (78.0-102.0); Mean Platelet Volume 10.6 fl (8.7-11.0); Platelet Count Result 142 K/mm3 (150-420); Red Cell Distribution Width 12.7 % (11.6-14.4); White Blood Count 5.9 K/mm3 (4.8-10.8)
[2022-04-30 08:32] LABS: Band Neutrophils Percent 1 % (0-6); Neutrophils Absolute Manual 2.95 K/mm3 (1.3-6.7); Neutrophils Percent Manual 49 % (46-73); Total Cells Counted 100
[2022-04-30 08:33] LABS: Eosinophils Absolute Manual 0.23 K/mm3 (0.02-0.5); Eosinophils Percent Manual 4 % (1-6); Lymphocytes Absolute Manual 2.24 K/mm3 (1.1-4.5); Lymphocytes Percent Manual 38 % (18-44); Monocytes Absolute Manual 0.47 K/mm3 (0.1-0.90); Monocytes Percent Manual 8 % (3-9); Platelet Estimate Adequate (Adequate)
[2022-04-30 09:02] LABS: Alanine Aminotransferase 22 U/L (16-63); Albumin Level 4.2 g/dL (3.4-5.0); Alkaline Phosphatase 98 U/L (46-116); Anion Gap 9 mmol/L (8-16); Aspartate Amino Transferase 18 U/L (15-37); Bilirubin,Total 0.5 mg/dL (0.00-1.00); Blood Urea Nitrogen 19 mg/dL (7-18); Carbon Dioxide 26 mmol/L (21-32); Chloride 103 mmol/L (98-108); Estimated Glomerular Filt Rate 48; GGT 36 U/L (15-85); Glucose 126 mg/dL (70-99); Magnesium 1.4 mg/dL (1.8-2.4); Osmolality Calculated 290 mOsm/kg (285-295); Phosphorus 3.6 mg/dL (2.6-4.7); Potassium 3.9 mmol/L (3.5-5.1); Sodium 138 mmol/L (136-145); Total Protein 7.3 g/dL (6.4-8.2)
[2022-05-02 19:56] LABS: Tacrolimus Prograf 11.4 mcg/L
[2022-05-07 08:08] LABS: Hematocrit 42.2 % (40.0-54.0); Hemoglobin 14.1 g/dL (14.0-18.0); Mean Corpuscular HGB Conc 33.4 g/dL (32.0-36.0); Mean Corpuscular Hemoglobin 29.3 pg (27.0-31.0); Mean Corpuscular Volume 87.6 fL (78.0-102.0); Mean Platelet Volume 10.6 fl (8.7-11.0); Platelet Count Result 148 K/mm3 (150-420); Red Blood Count 4.82 M/mm3 (4.70-6.10); Red Cell Distribution Width 12.8 % (11.6-14.4); White Blood Count 6.9 K/mm3 (4.8-10.8)
[2022-05-07 08:27] LABS: Band Neutrophils Percent 1 % (0-6); Basophils Absolute Manual 0.06 K/mm3 (0-0.1); Basophils Percent Manual 1 % (0-1); Eosinophils Absolute Manual 0.06 K/mm3 (0.02-0.5); Eosinophils Percent Manual 1 % (1-6); Lymphocytes Absolute Manual 2.62 K/mm3 (1.1-4.5); Lymphocytes Percent Manual 38 % (18-44); Monocytes Absolute Manual 0.69 K/mm3 (0.1-0.90); Monocytes Percent Manual 10 % (3-9); Neutrophils Absolute Manual 3.45 K/mm3 (1.3-6.7); Neutrophils Percent Manual 49 % (46-73); Platelet Estimate Adequate (Adequate); Total Cells Counted 100
[2022-05-07 09:00] LABS: Alanine Aminotransferase 27 U/L (16-63); Alkaline Phosphatase 97 U/L (46-116); Anion Gap 12 mmol/L (8-16); Aspartate Amino Transferase 21 U/L (15-37); Bilirubin,Total 0.6 mg/dL (0.00-1.00); Blood Urea Nitrogen 16 mg/dL (7-18); Calcium 8.9 mg/dL (8.5-10.1); Carbon Dioxide 25 mmol/L (21-32); Chloride 103 mmol/L (98-108); Estimated Glomerular Filt Rate 52; GGT 32 U/L (15-85); Glucose 141 mg/dL (70-99); Magnesium 1.4 mg/dL (1.8-2.4); Osmolality Calculated 293 mOsm/kg (285-295); Phosphorus 3.8 mg/dL (2.6-4.7); Sodium 140 mmol/L (136-145); Total Protein 6.9 g/dL (6.4-8.2)
[2022-05-10] LABS: Tacrolimus Prograf 10.4 mcg/L
[2022-05-14 07:55] LABS: Hematocrit 42.4 % (40.0-54.0); Hemoglobin 14.3 g/dL (14.0-18.0); Mean Corpuscular HGB Conc 33.7 g/dL (32.0-36.0); Mean Corpuscular Hemoglobin 29.6 pg (27.0-31.0); Mean Corpuscular Volume 87.8 fL (78.0-102.0); Mean Platelet Volume 10.5 fl (8.7-11.0); Platelet Count Result 146 K/mm3 (150-420); Red Blood Count 4.83 M/mm3 (4.70-6.10); Red Cell Distribution Width 12.9 % (11.6-14.4); White Blood Count 7.4 K/mm3 (4.8-10.8)
[2022-05-14 08:24] LABS: Band Neutrophils Percent 1 % (0-6); Eosinophils Absolute Manual 0.14 K/mm3 (0.02-0.5); Eosinophils Percent Manual 2 % (1-6); Lymphocytes Absolute Manual 2.88 K/mm3 (1.1-4.5); Lymphocytes Percent Manual 39 % (18-44); Monocytes Absolute Manual 0.51 K/mm3 (0.1-0.90); Monocytes Percent Manual 7 % (3-9); Neutrophils Absolute Manual 3.84 K/mm3 (1.3-6.7); Neutrophils Percent Manual 51 % (46-73); Platelet Estimate Adequate (Adequate); Total Cells Counted 100
[2022-05-14 08:29] LABS: Alanine Aminotransferase 22 U/L (16-63); Albumin Level 4.1 g/dL (3.4-5.0); Alkaline Phosphatase 94 U/L (46-116); Anion Gap 10 mmol/L (8-16); Aspartate Amino Transferase 18 U/L (15-37); Bilirubin,Total 0.5 mg/dL (0.00-1.00); Blood Urea Nitrogen 17 mg/dL (7-18); Calcium 9.2 mg/dL (8.5-10.1); Carbon Dioxide 28 mmol/L (21-32); Chloride 105 mmol/L (98-108); Estimated Glomerular Filt Rate 52; GGT 30 U/L (15-85); Glucose 128 mg/dL (70-99); Magnesium 1.5 mg/dL (1.8-2.4); Osmolality Calculated 299 mOsm/kg (285-295); Phosphorus 3.5 mg/dL (2.6-4.7); Sodium 143 mmol/L (136-145); Total Protein 7.1 g/dL (6.4-8.2)
[2022-05-16 19:33] LABS: Tacrolimus Prograf 6.7 mcg/L
[2022-05-21 08:01] LABS: Hematocrit 43.4 % (40.0-54.0); Hemoglobin 14.5 g/dL (14.0-18.0); Mean Corpuscular HGB Conc 33.4 g/dL (32.0-36.0); Mean Corpuscular Hemoglobin 29.4 pg (27.0-31.0); Mean Corpuscular Volume 87.9 fL (78.0-102.0); Mean Platelet Volume 10.5 fl (8.7-11.0); Platelet Count Result 150 K/mm3 (150-420); Red Blood Count 4.94 M/mm3 (4.70-6.10); Red Cell Distribution Width 12.7 % (11.6-14.4); White Blood Count 6.4 K/mm3 (4.8-10.8)
[2022-05-21 08:31] LABS: Alanine Aminotransferase 25 U/L (16-63); Albumin Level 4.2 g/dL (3.4-5.0); Alkaline Phosphatase 102 U/L (46-116); Anion Gap 11 mmol/L (8-16); Aspartate Amino Transferase 19 U/L (15-37); Bilirubin,Total 0.5 mg/dL (0.00-1.00); Blood Urea Nitrogen 14 mg/dL (7-18); Calcium 9.5 mg/dL (8.5-10.1); Carbon Dioxide 27 mmol/L (21-32); Chloride 106 mmol/L (98-108); Estimated Glomerular Filt Rate 49; GGT 32 U/L (15-85); Glucose 129 mg/dL (70-99); Magnesium 1.8 mg/dL (1.8-2.4); Osmolality Calculated 300 mOsm/kg (285-295); Phosphorus 3.8 mg/dL (2.6-4.7); Potassium 4.1 mmol/L (3.5-5.1); Sodium 144 mmol/L (136-145); Total Protein 7.2 g/dL (6.4-8.2)
[2022-05-21 08:32] LABS: Band Neutrophils Percent 0 % (0-6); Eosinophils Absolute Manual 0.06 K/mm3 (0.02-0.5); Eosinophils Percent Manual 1 % (1-6); Lymphocytes Absolute Manual 1.92 K/mm3 (1.1-4.5); Lymphocytes Percent Manual 30 % (18-44); Monocytes Absolute Manual 0.51 K/mm3 (0.1-0.90); Monocytes Percent Manual 8 % (3-9); Neutrophils Absolute Manual 3.64 K/mm3 (1.3-6.7); Neutrophils Percent Manual 57 % (46-73); Platelet Estimate Adequate (Adequate); Total Cells Counted 100
[2022-05-23 14:27] LABS: Tacrolimus Prograf 4.2 mcg/L
[2022-06-04 08:03] LABS: Hematocrit 42.2 % (40.0-54.0); Hemoglobin 14.1 g/dL (14.0-18.0); Immature Platelet Fraction Pct 2.8 % (1.0-7.0); Mean Corpuscular HGB Conc 33.4 g/dL (32.0-36.0); Mean Corpuscular Volume 86.7 fL (78.0-102.0); Mean Platelet Volume 10.3 fl (8.7-11.0); Platelet Count Result 129 K/mm3 (150-420); Red Blood Count 4.87 M/mm3 (4.70-6.10); Red Cell Distribution Width 12.8 % (11.6-14.4); White Blood Count 3.6 K/mm3 (4.8-10.8)
[2022-06-04 08:34] LABS: Band Neutrophils Percent 2 % (0-6); Eosinophils Absolute Manual 0.18 K/mm3 (0.02-0.5); Eosinophils Percent Manual 5 % (1-6); Lymphocytes Absolute Manual 1.29 K/mm3 (1.1-4.5); Lymphocytes Percent Manual 36 % (18-44); Metamyelocytes Percent 1 %; Monocytes Absolute Manual 0.21 K/mm3 (0.1-0.90); Monocytes Percent Manual 6 % (3-9); Neutrophils Absolute Manual 1.87 K/mm3 (1.3-6.7); Neutrophils Percent Manual 50 % (46-73); Platelet Estimate Adequate (Adequate); Total Cells Counted 100
[2022-06-04 08:41] LABS: Alanine Aminotransferase 12 U/L (16-63); Albumin Level 4.2 g/dL (3.4-5.0); Alkaline Phosphatase 97 U/L (46-116); Anion Gap 9 mmol/L (8-16); Aspartate Amino Transferase 21 U/L (15-37); Bilirubin,Total 0.5 mg/dL (0.00-1.00); Blood Urea Nitrogen 13 mg/dL (7-18); Calcium 9.1 mg/dL (8.5-10.1); Carbon Dioxide 27 mmol/L (21-32); Chloride 102 mmol/L (98-108); Estimated Glomerular Filt Rate 52; GGT 32 U/L (15-85); Glucose 128 mg/dL (70-99); Magnesium 1.5 mg/dL (1.8-2.4); Osmolality Calculated 288 mOsm/kg (285-295); Phosphorus 3.7 mg/dL (2.6-4.7); Potassium 3.9 mmol/L (3.5-5.1); Sodium 138 mmol/L (136-145); Total Protein 7.3 g/dL (6.4-8.2)
[2022-06-07 06:30] LABS: Tacrolimus Prograf 6.2 mcg/L
== END 2022-06-10 23:59 | disposition home or self-care (01) ==
LOC: CHSLAB 07:32
PROVIDERS: PCP Family Medicine
DX: Z94.4 Liver transplant status (principal); Z79.899 Other long term (current) drug therapy
CPT/HCPCS: 36415; 80053; 80197; 82977; 83735; 84100; 85025; 85055

== ENCOUNTER 2022-06-18 07:36 | Outpatient (CLI) | payer MEDICARE, SELFPAY ==
[2022-06-18 07:54] LABS: Basophils Absolute Auto 0.04 K/mm3 (0.00-0.10); Basophils Percent Auto 0.6 % (0.0-1.0); Eosinophils Absolute Auto 0.13 K/mm3 (0.02-0.50); Eosinophils Percent Auto 2.1 % (1.0-6.0); Hematocrit 43.7 % (37.0-46.0); Hemoglobin 14.4 g/dL (12.4-15.3); Immature Granulocyte Absolute 0.05 K/mm3 (0.00-0.00); Immature Granulocyte Percent A 0.8 % (0.0-0.0); Lymphocytes Absolute Auto 2.33 K/mm3 (1.10-4.50); Lymphocytes Percent Auto 37.6 % (18.0-42.0); Mean Platelet Volume 10.1 fl (8.7-11.0); Monocytes Absolute Auto 0.67 K/mm3 (0.10-0.90); Monocytes Percent Auto 10.8 % (2.0-11.0); Neutrophils Percent Auto 48.1 % (50.0-70.0); Platelet Count Result 167 K/mm3 (150-420); Red Blood Count 5.14 M/mm3 (4.70-6.10); Red Cell Distribution Width 12.2 % (11.6-14.4); White Blood Count 6.2 K/mm3 (4.8-10.8)
[2022-06-18 08:03] LABS: Hemoglobin A1C 5.5 % (<5.7)
[2022-06-18 08:21] LABS: Alanine Aminotransferase 27 U/L (16-63); Albumin Level 4.2 g/dL (3.4-5.0); Alkaline Phosphatase 98 U/L (46-116); Anion Gap 12 mmol/L (8-16); Aspartate Amino Transferase 20 U/L (15-37); Bilirubin,Total 0.6 mg/dL (0.00-1.00); Blood Urea Nitrogen 12 mg/dL (7-18); Calcium 9.5 mg/dL (8.5-10.1); Carbon Dioxide 28 mmol/L (21-32); Chloride 103 mmol/L (98-108); Estimated Glomerular Filt Rate 49; GGT 32 U/L (15-85); Glucose 121 mg/dL (70-99); Magnesium 1.7 mg/dL (1.8-2.4); Osmolality Calculated 296 mOsm/kg (285-295); Phosphorus 3.6 mg/dL (2.6-4.7); Potassium 4.1 mmol/L (3.5-5.1); Sodium 143 mmol/L (136-145)
[2022-06-20 18:39] LABS: Tacrolimus Prograf 4.8 mcg/L
== END 2022-06-18 07:37 | disposition home or self-care (01) ==
LOC: CHSLAB 07:39
DX: Z79.899 Other long term (current) drug therapy (principal); Z94.4 Liver transplant status
CPT/HCPCS: 36415; 80053; 80197; 82977; 83036; 83735; 84100; 85025

== ENCOUNTER 2022-07-02 07:29 | Outpatient (CLI) | payer MEDICARE, SELFPAY ==
[2022-07-02 07:49] LABS: Basophils Absolute Auto 0.03 K/mm3 (0.00-0.10); Basophils Percent Auto 0.4 % (0.0-1.0); Eosinophils Absolute Auto 0.18 K/mm3 (0.02-0.50); Eosinophils Percent Auto 2.6 % (1.0-6.0); Hematocrit 42.6 % (37.0-46.0); Hemoglobin 14.3 g/dL (12.4-15.3); Immature Granulocyte Absolute 0.02 K/mm3 (0.00-0.00); Immature Granulocyte Percent A 0.3 % (0.0-0.0); Immature Platelet Fraction Pct 5.8 % (1.0-7.0); Lymphocytes Absolute Auto 1.74 K/mm3 (1.10-4.50); Lymphocytes Percent Auto 24.7 % (18.0-42.0); Mean Corpuscular HGB Conc 33.6 g/dL (32.0-36.0); Mean Corpuscular Hemoglobin 28.9 pg (27.0-31.0); Mean Corpuscular Volume 86.1 fL (78.0-102.0); Monocytes Absolute Auto 0.68 K/mm3 (0.10-0.90); Monocytes Percent Auto 9.7 % (2.0-11.0); Neutrophils Absolute Auto 4.4 K/mm3 (1.7-7.2); Neutrophils Percent Auto 62.3 % (50.0-70.0); Platelet Count Result 120 K/mm3 (150-420); Red Blood Count 4.95 M/mm3 (4.70-6.10); Red Cell Distribution Width 12.4 % (11.6-14.4)
[2022-07-02 07:53] LABS: Creatinine Urine 180.67 mg/dL (40-278); Total Protein Urine Random 29.3 mg/dL (0.0-11.9); Ur Ttl Prot Creatinine Ratio 0.16 mg/mg (0-0.20)
[2022-07-02 08:33] LABS: Alanine Aminotransferase 24 U/L (16-63); Albumin Level 4.1 g/dL (3.4-5.0); Alkaline Phosphatase 105 U/L (46-116); Anion Gap 8 mmol/L (8-16); Aspartate Amino Transferase 19 U/L (15-37); Bilirubin,Total 0.4 mg/dL (0.00-1.00); Blood Urea Nitrogen 19 mg/dL (7-18); Calcium 9.5 mg/dL (8.5-10.1); Carbon Dioxide 30 mmol/L (21-32); Chloride 106 mmol/L (98-108); Estimated Glomerular Filt Rate 54; GGT 32 U/L (15-85); Glucose 123 mg/dL (70-99); Magnesium 1.8 mg/dL (1.8-2.4); Osmolality Calculated 301 mOsm/kg (285-295); Phosphorus 4.1 mg/dL (2.6-4.7); Potassium 4.1 mmol/L (3.5-5.1); Sodium 144 mmol/L (136-145); Total Protein 7.4 g/dL (6.4-8.2)
[2022-07-04 20:56] LABS: Tacrolimus Prograf 4.8 mcg/L
== END 2022-07-02 07:30 | disposition home or self-care (01) ==
LOC: CHSLAB 07:33
DX: Z94.4 Liver transplant status (principal); Z79.69 Long term (current) use of other immunomodulators and immunosuppressants
CPT/HCPCS: 36415; 80053; 80197; 82570; 82977; 83735; 84100; 84156; 85025; 85055

== ENCOUNTER 2022-08-13 07:39 | Outpatient (RCR) | payer MEDICARE, SELFPAY ==
[2022-06-11 07:54] LABS: Hematocrit 45.2 % (37.0-46.0); Hemoglobin 14.5 g/dL (12.4-15.3); Mean Corpuscular HGB Conc 32.1 g/dL (32.0-36.0); Mean Corpuscular Hemoglobin 27.7 pg (27.0-31.0); Mean Corpuscular Volume 86.3 fL (78.0-102.0); Mean Platelet Volume 10.3 fl (8.7-11.0); Platelet Count Result 141 K/mm3 (150-420); Red Blood Count 5.24 M/mm3 (4.70-6.10); Red Cell Distribution Width 12.6 % (11.6-14.4); White Blood Count 4.2 K/mm3 (4.8-10.8)
[2022-06-11 08:56] LABS: Alanine Aminotransferase 23 U/L (16-63); Albumin Level 4.5 g/dL (3.4-5.0); Alkaline Phosphatase 104 U/L (46-116); Anion Gap 7 mmol/L (8-16); Aspartate Amino Transferase 22 U/L (15-37); Bilirubin,Total 0.4 mg/dL (0.00-1.00); Blood Urea Nitrogen 17 mg/dL (7-18); Calcium 9.2 mg/dL (8.5-10.1); Carbon Dioxide 30 mmol/L (21-32); Chloride 104 mmol/L (98-108); Estimated Glomerular Filt Rate 54; GGT 35 U/L (15-85); Glucose 132 mg/dL (70-99); Magnesium 1.5 mg/dL (1.8-2.4); Osmolality Calculated 295 mOsm/kg (285-295); Phosphorus 3.3 mg/dL (2.6-4.7); Potassium 3.8 mmol/L (3.5-5.1); Sodium 141 mmol/L (136-145); Total Protein 7.9 g/dL (6.4-8.2)
[2022-06-11 08:57] LABS: Band Neutrophils Percent 0 % (0-6); Basophils Absolute Manual 0.04 K/mm3 (0-0.1); Basophils Percent Manual 1 % (0-1); Eosinophils Absolute Manual 0.12 K/mm3 (0.02-0.5); Eosinophils Percent Manual 3 % (1-6); Lymphocytes Absolute Manual 1.51 K/mm3 (1.1-4.5); Lymphocytes Percent Manual 36 % (18-44); Monocytes Absolute Manual 0.67 K/mm3 (0.1-0.90); Monocytes Percent Manual 16 % (3-9); Neutrophils Absolute Manual 1.84 K/mm3 (1.3-6.7); Neutrophils Percent Manual 44 % (46-73); Total Cells Counted 100
[2022-06-11 09:39] LABS: Platelet Estimate Adequate (Adequate)
[2022-06-13 20:46] LABS: Tacrolimus Prograf 5.7 mcg/L
[2022-07-16 08:09] LABS: Basophils Absolute Auto 0.03 K/mm3 (0.00-0.10); Basophils Percent Auto 0.6 % (0.0-1.0); Eosinophils Absolute Auto 0.11 K/mm3 (0.02-0.50); Eosinophils Percent Auto 2.1 % (1.0-6.0); Hematocrit 41.5 % (37.0-46.0); Hemoglobin 13.8 g/dL (12.4-15.3); Immature Granulocyte Absolute 0.02 K/mm3 (0.00-0.00); Immature Granulocyte Percent A 0.4 % (0.0-0.0); Immature Platelet Fraction Pct 3.5 % (1.0-7.0); Lymphocytes Absolute Auto 1.42 K/mm3 (1.10-4.50); Lymphocytes Percent Auto 27.4 % (18.0-42.0); Mean Corpuscular HGB Conc 33.3 g/dL (32.0-36.0); Mean Corpuscular Hemoglobin 27.9 pg (27.0-31.0); Mean Platelet Volume 10.5 fl (8.7-11.0); Monocytes Absolute Auto 0.57 K/mm3 (0.10-0.90); Neutrophils Percent Auto 58.5 % (50.0-70.0); Platelet Count Result 115 K/mm3 (150-420); Red Blood Count 4.94 M/mm3 (4.70-6.10); White Blood Count 5.2 K/mm3 (4.8-10.8)
[2022-07-16 08:40] LABS: Alanine Aminotransferase 26 U/L (16-63); Albumin Level 4.2 g/dL (3.4-5.0); Alkaline Phosphatase 103 U/L (46-116); Anion Gap 6 mmol/L (8-16); Aspartate Amino Transferase 21 U/L (15-37); Bilirubin,Total 0.7 mg/dL (0.00-1.00); Blood Urea Nitrogen 17 mg/dL (7-18); Calcium 9.3 mg/dL (8.5-10.1); Carbon Dioxide 27 mmol/L (21-32); Chloride 106 mmol/L (98-108); Estimated Glomerular Filt Rate 50; GGT 29 U/L (15-85); Glucose 120 mg/dL (70-99); Magnesium 1.5 mg/dL (1.8-2.4); Osmolality Calculated 290 mOsm/kg (285-295); Phosphorus 3.7 mg/dL (2.6-4.7); Sodium 139 mmol/L (136-145); Total Protein 7.7 g/dL (6.4-8.2)
[2022-07-30 08:12] LABS: Basophils Absolute Auto 0.02 K/mm3 (0.00-0.10); Basophils Percent Auto 0.4 % (0.0-1.0); Eosinophils Absolute Auto 0.08 K/mm3 (0.02-0.50); Eosinophils Percent Auto 1.5 % (1.0-6.0); Hematocrit 42.5 % (37.0-46.0); Hemoglobin 14.3 g/dL (12.4-15.3); Immature Granulocyte Absolute 0.01 K/mm3 (0.00-0.00); Immature Granulocyte Percent A 0.2 % (0.0-0.0); Immature Platelet Fraction Pct 4.5 % (1.0-7.0); Lymphocytes Absolute Auto 1.28 K/mm3 (1.10-4.50); Lymphocytes Percent Auto 23.9 % (18.0-42.0); Mean Corpuscular HGB Conc 33.6 g/dL (32.0-36.0); Mean Corpuscular Hemoglobin 28.2 pg (27.0-31.0); Mean Corpuscular Volume 83.8 fL (78.0-102.0); Mean Platelet Volume 10.6 fl (8.7-11.0); Monocytes Absolute Auto 0.63 K/mm3 (0.10-0.90); Monocytes Percent Auto 11.8 % (2.0-11.0); Neutrophils Absolute Auto 3.3 K/mm3 (1.7-7.2); Neutrophils Percent Auto 62.2 % (50.0-70.0); Platelet Count Result 128 K/mm3 (150-420); Red Blood Count 5.07 M/mm3 (4.70-6.10); Red Cell Distribution Width 13.7 % (11.6-14.4); White Blood Count 5.4 K/mm3 (4.8-10.8)
[2022-07-30 08:44] LABS: Alanine Aminotransferase 27 U/L (16-63); Albumin Level 4.4 g/dL (3.4-5.0); Alkaline Phosphatase 114 U/L (46-116); Anion Gap 9 mmol/L (8-16); Aspartate Amino Transferase 19 U/L (15-37); Bilirubin,Total 0.7 mg/dL (0.00-1.00); Blood Urea Nitrogen 16 mg/dL (7-18); Calcium 9.4 mg/dL (8.5-10.1); Carbon Dioxide 29 mmol/L (21-32); Chloride 105 mmol/L (98-108); Estimated Glomerular Filt Rate 51; GGT 30 U/L (15-85); Glucose 132 mg/dL (70-99); Magnesium 1.7 mg/dL (1.8-2.4); Osmolality Calculated 299 mOsm/kg (285-295); Phosphorus 3.6 mg/dL (2.6-4.7); Potassium 4.4 mmol/L (3.5-5.1); Sodium 143 mmol/L (136-145); Total Protein 8.3 g/dL (6.4-8.2)
[2022-08-01 19:50] LABS: Tacrolimus Prograf 5.1 mcg/L
[2022-08-13 07:58] LABS: Basophils Absolute Auto 0.03 K/mm3 (0.00-0.10); Basophils Percent Auto 0.5 % (0.0-1.0); Eosinophils Absolute Auto 0.11 K/mm3 (0.02-0.50); Eosinophils Percent Auto 1.8 % (1.0-6.0); Hematocrit 42.6 % (37.0-46.0); Hemoglobin 14.6 g/dL (12.4-15.3); Immature Granulocyte Absolute 0.03 K/mm3 (0.00-0.00); Immature Granulocyte Percent A 0.5 % (0.0-0.0); Immature Platelet Fraction Pct 3.7 % (1.0-7.0); Lymphocytes Absolute Auto 2.05 K/mm3 (1.10-4.50); Lymphocytes Percent Auto 33.3 % (18.0-42.0); Mean Corpuscular HGB Conc 34.3 g/dL (32.0-36.0); Mean Corpuscular Hemoglobin 28.7 pg (27.0-31.0); Mean Corpuscular Volume 83.9 fL (78.0-102.0); Mean Platelet Volume 10.2 fl (8.7-11.0); Monocytes Absolute Auto 0.65 K/mm3 (0.10-0.90); Monocytes Percent Auto 10.6 % (2.0-11.0); Neutrophils Absolute Auto 3.3 K/mm3 (1.7-7.2); Neutrophils Percent Auto 53.3 % (50.0-70.0); Platelet Count Result 136 K/mm3 (150-420); Red Blood Count 5.08 M/mm3 (4.70-6.10); Red Cell Distribution Width 13.8 % (11.6-14.4); White Blood Count 6.2 K/mm3 (4.8-10.8)
[2022-08-13 08:37] LABS: Alanine Aminotransferase 15 U/L (16-63); Albumin Level 4.4 g/dL (3.4-5.0); Alkaline Phosphatase 114 U/L (46-116); Anion Gap 10 mmol/L (8-16); Aspartate Amino Transferase 21 U/L (15-37); Bilirubin,Total 0.7 mg/dL (0.00-1.00); Blood Urea Nitrogen 18 mg/dL (7-18); Calcium 9.4 mg/dL (8.5-10.1); Carbon Dioxide 28 mmol/L (21-32); Chloride 103 mmol/L (98-108); Estimated Glomerular Filt Rate 53; GGT 31 U/L (15-85); Glucose 128 mg/dL (70-99); Magnesium 1.7 mg/dL (1.8-2.4); Osmolality Calculated 295 mOsm/kg (285-295); Phosphorus 3.4 mg/dL (2.6-4.7); Potassium 4.1 mmol/L (3.5-5.1); Sodium 141 mmol/L (136-145); Total Protein 7.9 g/dL (6.4-8.2)
[2022-08-16 08:57] LABS: Tacrolimus Prograf 6.8 mcg/L
== END 2022-09-09 23:59 | disposition home or self-care (01) ==
LOC: CHSLAB 07:39
DX: Z94.4 Liver transplant status (principal); Z79.899 Other long term (current) drug therapy
CPT/HCPCS: 36415; 80053; 80197; 82977; 83735; 84100; 85025; 85055

== ENCOUNTER 2022-08-27 08:05 | Outpatient (CLI) | payer MEDICARE, SELFPAY ==
[2022-08-27 08:29] LABS: Basophils Absolute Auto 0.03 K/mm3 (0.00-0.10); Basophils Percent Auto 0.5 % (0.0-1.0); Eosinophils Absolute Auto 0.09 K/mm3 (0.02-0.50); Eosinophils Percent Auto 1.5 % (1.0-6.0); Hematocrit 41.5 % (37.0-46.0); Hemoglobin 13.9 g/dL (12.4-15.3); Immature Granulocyte Absolute 0.02 K/mm3 (0.00-0.00); Immature Granulocyte Percent A 0.3 % (0.0-0.0); Immature Platelet Fraction Pct 3.5 % (1.0-7.0); Lymphocytes Absolute Auto 2.07 K/mm3 (1.10-4.50); Lymphocytes Percent Auto 34.2 % (18.0-42.0); Mean Corpuscular HGB Conc 33.5 g/dL (32.0-36.0); Mean Corpuscular Volume 83.7 fL (78.0-102.0); Mean Platelet Volume 10.2 fl (8.7-11.0); Monocytes Percent Auto 9.9 % (2.0-11.0); Neutrophils Absolute Auto 3.3 K/mm3 (1.7-7.2); Neutrophils Percent Auto 53.6 % (50.0-70.0); Platelet Count Result 137 K/mm3 (150-420); Red Blood Count 4.96 M/mm3 (4.70-6.10); Red Cell Distribution Width 14.2 % (11.6-14.4); White Blood Count 6.1 K/mm3 (4.8-10.8)
[2022-08-27 09:02] LABS: Alanine Aminotransferase 23 U/L (16-63); Albumin Level 4.3 g/dL (3.4-5.0); Alkaline Phosphatase 115 U/L (46-116); Anion Gap 10 mmol/L (8-16); Aspartate Amino Transferase 30 U/L (15-37); Bilirubin,Total 0.5 mg/dL (0.00-1.00); Blood Urea Nitrogen 18 mg/dL (7-18); Calcium 9.2 mg/dL (8.5-10.1); Carbon Dioxide 26 mmol/L (21-32); Chloride 105 mmol/L (98-108); Estimated Glomerular Filt Rate 52; GGT 30 U/L (15-85); Glucose 121 mg/dL (70-99); Magnesium 1.9 mg/dL (1.8-2.4); Osmolality Calculated 294 mOsm/kg (285-295); Phosphorus 3.2 mg/dL (2.6-4.7); Potassium 4.5 mmol/L (3.5-5.1); Sodium 141 mmol/L (136-145); Total Protein 7.6 g/dL (6.4-8.2)
[2022-08-30 16:58] LABS: Tacrolimus Prograf 4.8 mcg/L
[2022-09-03 15:08] LABS: Alpha Fetoprotein Tumor Marker 5.3 ng/mL (<6.1)
== END 2022-08-27 08:06 | disposition home or self-care (01) ==
LOC: CHSLAB 08:11
DX: C22.0 Liver cell carcinoma (principal); Z94.4 Liver transplant status; Z79.899 Other long term (current) drug therapy
CPT/HCPCS: 36415; 80053; 80197; 82105; 82977; 83735; 84100; 85025; 85055

== ENCOUNTER 2022-10-22 07:57 | Outpatient (CLI) | payer MEDICARE, SELFPAY ==
[2022-10-22 08:25] LABS: Basophils Absolute Auto 0.03 K/mm3 (0.00-0.10); Basophils Percent Auto 0.4 % (0.0-1.0); Eosinophils Percent Auto 1.5 % (1.0-6.0); Hematocrit 45.7 % (37.0-46.0); Hemoglobin 15.3 g/dL (12.4-15.3); Immature Granulocyte Absolute 0.04 K/mm3 (0.00-0.00); Immature Granulocyte Percent A 0.6 % (0.0-0.0); Immature Platelet Fraction Pct 4.3 % (1.0-7.0); Lymphocytes Absolute Auto 2.26 K/mm3 (1.10-4.50); Lymphocytes Percent Auto 32.9 % (18.0-42.0); Mean Corpuscular HGB Conc 33.5 g/dL (32.0-36.0); Mean Corpuscular Hemoglobin 28.1 pg (27.0-31.0); Mean Corpuscular Volume 83.9 fL (78.0-102.0); Mean Platelet Volume 10.7 fl (8.7-11.0); Monocytes Absolute Auto 0.53 K/mm3 (0.10-0.90); Monocytes Percent Auto 7.7 % (2.0-11.0); Neutrophils Absolute Auto 3.9 K/mm3 (1.7-7.2); Neutrophils Percent Auto 56.9 % (50.0-70.0); Platelet Count Result 132 K/mm3 (150-420); Red Blood Count 5.45 M/mm3 (4.70-6.10); White Blood Count 6.9 K/mm3 (4.8-10.8)
[2022-10-22 09:20] LABS: Alanine Aminotransferase 27 U/L (16-63); Albumin Level 4.3 g/dL (3.4-5.0); Alkaline Phosphatase 96 U/L (46-116); Anion Gap 9 mmol/L (8-16); Aspartate Amino Transferase 16 U/L (15-37); Bilirubin,Total 0.5 mg/dL (0.00-1.00); Blood Urea Nitrogen 15 mg/dL (7-18); Calcium 9.3 mg/dL (8.5-10.1); Carbon Dioxide 29 mmol/L (21-32); Chloride 104 mmol/L (98-108); Cholesterol 186 mg/dL (0-200); Estimated Glomerular Filt Rate 55; GGT 34 U/L (15-85); Glucose 109 mg/dL (70-99); HDL Direct 45 mg/dL (40-60); LDL Cholesterol Calculated 113 mg/dL (<130); Magnesium 1.7 mg/dL (1.8-2.4); Osmolality Calculated 295 mOsm/kg (285-295); Phosphorus 3.5 mg/dL (2.6-4.7); Potassium 4.1 mmol/L (3.5-5.1); Sodium 142 mmol/L (136-145); Total Protein 7.7 g/dL (6.4-8.2); Triglycerides 142 mg/dL (0-150)
[2022-10-22 09:21] LABS: Thyroid Stimulating Hormone Reflex 3.12 u/IU/mL (0.36-3.74)
[2022-10-25 00:19] LABS: Tacrolimus Prograf 5.3 mcg/L
== END 2022-10-22 07:58 | disposition home or self-care (01) ==
LOC: CHSLAB 08:00
PROVIDERS: PCP Family Medicine; Visit Provider Family Medicine
DX: I10 Essential (primary) hypertension (principal); E11.9 Type 2 diabetes mellitus without complications; Z94.4 Liver transplant status; Z79.899 Other long term (current) drug therapy
CPT/HCPCS: 36415; 80053; 80061; 80197; 82977; 83735; 84100; 84443; 85025; 85055

== ENCOUNTER 2022-12-03 07:49 | Outpatient (RCR) | payer MEDICARE, SELFPAY ==
[2022-09-10 07:39] LABS: Basophils Absolute Auto 0.02 K/mm3 (0.00-0.10); Basophils Percent Auto 0.4 % (0.0-1.0); Eosinophils Absolute Auto 0.11 K/mm3 (0.02-0.50); Eosinophils Percent Auto 1.9 % (1.0-6.0); Hematocrit 42.4 % (37.0-46.0); Hemoglobin 14.2 g/dL (12.4-15.3); Immature Granulocyte Absolute 0.03 K/mm3 (0.00-0.00); Immature Granulocyte Percent A 0.5 % (0.0-0.0); Immature Platelet Fraction Pct 4.5 % (1.0-7.0); Lymphocytes Absolute Auto 1.95 K/mm3 (1.10-4.50); Lymphocytes Percent Auto 34.3 % (18.0-42.0); Mean Corpuscular HGB Conc 33.5 g/dL (32.0-36.0); Mean Corpuscular Hemoglobin 28.3 pg (27.0-31.0); Mean Corpuscular Volume 84.6 fL (78.0-102.0); Mean Platelet Volume 10.3 fl (8.7-11.0); Monocytes Absolute Auto 0.46 K/mm3 (0.10-0.90); Monocytes Percent Auto 8.1 % (2.0-11.0); Neutrophils Absolute Auto 3.1 K/mm3 (1.7-7.2); Neutrophils Percent Auto 54.8 % (50.0-70.0); Platelet Count Result 122 K/mm3 (150-420); Red Blood Count 5.01 M/mm3 (4.70-6.10); Red Cell Distribution Width 13.7 % (11.6-14.4); White Blood Count 5.7 K/mm3 (4.8-10.8)
[2022-09-10 09:46] LABS: Albumin Level 4.2 g/dL (3.4-5.0); Alkaline Phosphatase 106 U/L (46-116); Anion Gap 9 mmol/L (8-16); Aspartate Amino Transferase 24 U/L (15-37); Blood Urea Nitrogen 15 mg/dL (7-18); Carbon Dioxide 29 mmol/L (21-32); Chloride 103 mmol/L (98-108); Estimated Glomerular Filt Rate 52; Glucose 122 mg/dL (70-99); Magnesium 1.5 mg/dL (1.8-2.4); Osmolality Calculated 293 mOsm/kg (285-295); Phosphorus 3.3 mg/dL (2.6-4.7); Sodium 141 mmol/L (136-145); Total Protein 7.4 g/dL (6.4-8.2)
[2022-09-10 10:05] LABS: Alanine Aminotransferase 30 U/L (16-63); Bilirubin,Total 0.6 mg/dL (0.00-1.00); GGT 31 U/L (15-85)
[2022-09-13 21:04] LABS: Tacrolimus Prograf 9.9 mcg/L
[2022-09-20 14:50] LABS: Tacrolimus Prograf 5.2 mcg/L
[2022-09-24 08:11] LABS: Basophils Absolute Auto 0.04 K/mm3 (0.00-0.10); Basophils Percent Auto 0.6 % (0.0-1.0); Eosinophils Absolute Auto 0.11 K/mm3 (0.02-0.50); Eosinophils Percent Auto 1.7 % (1.0-6.0); Hematocrit 45.7 % (37.0-46.0); Hemoglobin 15.1 g/dL (12.4-15.3); Immature Granulocyte Absolute 0.03 K/mm3 (0.00-0.00); Immature Granulocyte Percent A 0.5 % (0.0-0.0); Lymphocytes Absolute Auto 2.26 K/mm3 (1.10-4.50); Lymphocytes Percent Auto 34.1 % (18.0-42.0); Mean Corpuscular Volume 84.8 fL (78.0-102.0); Mean Platelet Volume 10.1 fl (8.7-11.0); Monocytes Absolute Auto 0.56 K/mm3 (0.10-0.90); Monocytes Percent Auto 8.4 % (2.0-11.0); Neutrophils Absolute Auto 3.6 K/mm3 (1.7-7.2); Neutrophils Percent Auto 54.7 % (50.0-70.0); Platelet Count Result 126 K/mm3 (150-420); Red Blood Count 5.39 M/mm3 (4.70-6.10); Red Cell Distribution Width 13.4 % (11.6-14.4); White Blood Count 6.6 K/mm3 (4.8-10.8)
[2022-09-24 09:01] LABS: Alanine Aminotransferase 27 U/L (16-63); Albumin Level 4.3 g/dL (3.4-5.0); Alkaline Phosphatase 108 U/L (46-116); Anion Gap 11 mmol/L (8-16); Aspartate Amino Transferase 23 U/L (15-37); Bilirubin,Total 0.6 mg/dL (0.00-1.00); Blood Urea Nitrogen 18 mg/dL (7-18); Calcium 9.2 mg/dL (8.5-10.1); Carbon Dioxide 28 mmol/L (21-32); Chloride 103 mmol/L (98-108); Estimated Glomerular Filt Rate 52; GGT 31 U/L (15-85); Glucose 113 mg/dL (70-99); Magnesium 1.8 mg/dL (1.8-2.4); Osmolality Calculated 296 mOsm/kg (285-295); Phosphorus 3.4 mg/dL (2.6-4.7); Potassium 4.1 mmol/L (3.5-5.1); Sodium 142 mmol/L (136-145); Total Protein 7.7 g/dL (6.4-8.2)
[2022-09-27 07:13] LABS: Tacrolimus Prograf 5.5 mcg/L
[2022-10-08 08:36] LABS: Basophils Absolute Auto 0.02 K/mm3 (0.00-0.10); Basophils Percent Auto 0.3 % (0.0-1.0); Eosinophils Absolute Auto 0.09 K/mm3 (0.02-0.50); Eosinophils Percent Auto 1.4 % (1.0-6.0); Hematocrit 44.1 % (37.0-46.0); Hemoglobin 14.7 g/dL (12.4-15.3); Immature Granulocyte Absolute 0.02 K/mm3 (0.00-0.00); Immature Granulocyte Percent A 0.3 % (0.0-0.0); Immature Platelet Fraction Pct 4.3 % (1.0-7.0); Lymphocytes Absolute Auto 1.95 K/mm3 (1.10-4.50); Lymphocytes Percent Auto 31.1 % (18.0-42.0); Mean Corpuscular HGB Conc 33.3 g/dL (32.0-36.0); Mean Corpuscular Hemoglobin 27.9 pg (27.0-31.0); Mean Corpuscular Volume 83.8 fL (78.0-102.0); Mean Platelet Volume 10.9 fl (8.7-11.0); Monocytes Absolute Auto 0.52 K/mm3 (0.10-0.90); Monocytes Percent Auto 8.3 % (2.0-11.0); Neutrophils Absolute Auto 3.7 K/mm3 (1.7-7.2); Neutrophils Percent Auto 58.6 % (50.0-70.0); Platelet Count Result 123 K/mm3 (150-420); Red Blood Count 5.26 M/mm3 (4.70-6.10); Red Cell Distribution Width 13.2 % (11.6-14.4); White Blood Count 6.3 K/mm3 (4.8-10.8)
[2022-10-08 09:31] LABS: Alanine Aminotransferase 23 U/L (16-63); Albumin Level 4.1 g/dL (3.4-5.0); Alkaline Phosphatase 102 U/L (46-116); Anion Gap 8 mmol/L (8-16); Aspartate Amino Transferase 17 U/L (15-37); Bilirubin,Total 0.5 mg/dL (0.00-1.00); Blood Urea Nitrogen 18 mg/dL (7-18); Calcium 9.2 mg/dL (8.5-10.1); Carbon Dioxide 28 mmol/L (21-32); Chloride 105 mmol/L (98-108); Estimated Glomerular Filt Rate 56; GGT 33 U/L (15-85); Glucose 123 mg/dL (70-99); Magnesium 1.6 mg/dL (1.8-2.4); Osmolality Calculated 294 mOsm/kg (285-295); Phosphorus 3.4 mg/dL (2.6-4.7); Potassium 4.2 mmol/L (3.5-5.1); Sodium 141 mmol/L (136-145); Total Protein 7.5 g/dL (6.4-8.2)
[2022-10-11 13:11] LABS: Tacrolimus Prograf 4.7 mcg/L
[2022-11-05 07:35] LABS: Basophils Absolute Auto 0.02 K/mm3 (0.00-0.10); Basophils Percent Auto 0.3 % (0.0-1.0); Eosinophils Absolute Auto 0.11 K/mm3 (0.02-0.50); Eosinophils Percent Auto 1.7 % (1.0-6.0); Hematocrit 44.6 % (37.0-46.0); Hemoglobin 14.8 g/dL (12.4-15.3); Immature Granulocyte Absolute 0.03 K/mm3 (0.00-0.00); Immature Granulocyte Percent A 0.5 % (0.0-0.0); Lymphocytes Absolute Auto 2.16 K/mm3 (1.10-4.50); Lymphocytes Percent Auto 33.1 % (18.0-42.0); Mean Corpuscular HGB Conc 33.2 g/dL (32.0-36.0); Mean Corpuscular Volume 84.3 fL (78.0-102.0); Mean Platelet Volume 10.7 fl (8.7-11.0); Monocytes Absolute Auto 0.56 K/mm3 (0.10-0.90); Monocytes Percent Auto 8.6 % (2.0-11.0); Neutrophils Absolute Auto 3.6 K/mm3 (1.7-7.2); Neutrophils Percent Auto 55.8 % (50.0-70.0); Platelet Count Result 117 K/mm3 (150-420); Red Blood Count 5.29 M/mm3 (4.70-6.10); Red Cell Distribution Width 13.1 % (11.6-14.4); White Blood Count 6.5 K/mm3 (4.8-10.8)
[2022-11-05 08:23] LABS: Alanine Aminotransferase 28 U/L (16-63); Albumin Level 4.4 g/dL (3.4-5.0); Alkaline Phosphatase 100 U/L (46-116); Anion Gap 8 mmol/L (8-16); Aspartate Amino Transferase 21 U/L (15-37); Bilirubin,Total 0.5 mg/dL (0.00-1.00); Blood Urea Nitrogen 16 mg/dL (7-18); Carbon Dioxide 28 mmol/L (21-32); Chloride 105 mmol/L (98-108); Estimated Glomerular Filt Rate 54; GGT 31 U/L (15-85); Glucose 119 mg/dL (70-99); Magnesium 1.8 mg/dL (1.8-2.4); Osmolality Calculated 294 mOsm/kg (285-295); Phosphorus 3.4 mg/dL (2.6-4.7); Potassium 4.1 mmol/L (3.5-5.1); Sodium 141 mmol/L (136-145); Total Protein 7.4 g/dL (6.4-8.2)
[2022-11-08 07:19] LABS: Tacrolimus Prograf 4.5 mcg/L
[2022-11-19 07:48] LABS: Basophils Absolute Auto 0.01 K/mm3 (0.00-0.10); Basophils Percent Auto 0.2 % (0.0-1.0); Eosinophils Absolute Auto 0.09 K/mm3 (0.02-0.50); Eosinophils Percent Auto 1.4 % (1.0-6.0); Hematocrit 44.6 % (37.0-46.0); Immature Granulocyte Absolute 0.02 K/mm3 (0.00-0.00); Immature Granulocyte Percent A 0.3 % (0.0-0.0); Immature Platelet Fraction Pct 5.4 % (1.0-7.0); Lymphocytes Absolute Auto 2.16 K/mm3 (1.10-4.50); Lymphocytes Percent Auto 32.7 % (18.0-42.0); Mean Corpuscular HGB Conc 33.6 g/dL (32.0-36.0); Mean Corpuscular Hemoglobin 28.1 pg (27.0-31.0); Mean Corpuscular Volume 83.7 fL (78.0-102.0); Mean Platelet Volume 10.9 fl (8.7-11.0); Monocytes Absolute Auto 0.56 K/mm3 (0.10-0.90); Monocytes Percent Auto 8.5 % (2.0-11.0); Neutrophils Absolute Auto 3.8 K/mm3 (1.7-7.2); Neutrophils Percent Auto 56.9 % (50.0-70.0); Platelet Count Result 132 K/mm3 (150-420); Red Blood Count 5.33 M/mm3 (4.70-6.10); Red Cell Distribution Width 13.2 % (11.6-14.4); White Blood Count 6.6 K/mm3 (4.8-10.8)
[2022-11-19 08:31] LABS: Alanine Aminotransferase 28 U/L (16-63); Albumin Level 4.2 g/dL (3.4-5.0); Alkaline Phosphatase 100 U/L (46-116); Anion Gap 10 mmol/L (8-16); Aspartate Amino Transferase 20 U/L (15-37); Bilirubin,Total 0.5 mg/dL (0.00-1.00); Blood Urea Nitrogen 16 mg/dL (7-18); Calcium 9.2 mg/dL (8.5-10.1); Carbon Dioxide 28 mmol/L (21-32); Chloride 105 mmol/L (98-108); Estimated Glomerular Filt Rate 50; GGT 33 U/L (15-85); Glucose 127 mg/dL (70-99); Magnesium 1.9 mg/dL (1.8-2.4); Osmolality Calculated 299 mOsm/kg (285-295); Phosphorus 3.4 mg/dL (2.6-4.7); Potassium 4.3 mmol/L (3.5-5.1); Sodium 143 mmol/L (136-145); Total Protein 7.3 g/dL (6.4-8.2)
[2022-11-21 22:34] LABS: Tacrolimus Prograf 4.5 mcg/L
[2022-12-03 08:07] LABS: Basophils Absolute Auto 0.02 K/mm3 (0.00-0.10); Basophils Percent Auto 0.3 % (0.0-1.0); Eosinophils Absolute Auto 0.09 K/mm3 (0.02-0.50); Eosinophils Percent Auto 1.2 % (1.0-6.0); Hematocrit 44.2 % (37.0-46.0); Hemoglobin 14.6 g/dL (12.4-15.3); Immature Granulocyte Absolute 0.03 K/mm3 (0.00-0.00); Immature Granulocyte Percent A 0.4 % (0.0-0.0); Immature Platelet Fraction Pct 5.4 % (1.0-7.0); Lymphocytes Absolute Auto 2.21 K/mm3 (1.10-4.50); Lymphocytes Percent Auto 30.3 % (18.0-42.0); Mean Corpuscular Volume 84.8 fL (78.0-102.0); Mean Platelet Volume 10.7 fl (8.7-11.0); Monocytes Absolute Auto 0.57 K/mm3 (0.10-0.90); Monocytes Percent Auto 7.8 % (2.0-11.0); Neutrophils Absolute Auto 4.4 K/mm3 (1.7-7.2); Platelet Count Result 132 K/mm3 (150-420); Red Blood Count 5.21 M/mm3 (4.70-6.10); Red Cell Distribution Width 13.3 % (11.6-14.4); White Blood Count 7.3 K/mm3 (4.8-10.8)
[2022-12-03 08:49] LABS: Alanine Aminotransferase 15 U/L (16-63); Albumin Level 4.2 g/dL (3.4-5.0); Alkaline Phosphatase 93 U/L (46-116); Anion Gap 10 mmol/L (8-16); Aspartate Amino Transferase 19 U/L (15-37); Bilirubin,Total 0.7 mg/dL (0.00-1.00); Blood Urea Nitrogen 18 mg/dL (7-18); Calcium 9.3 mg/dL (8.5-10.1); Carbon Dioxide 27 mmol/L (21-32); Chloride 106 mmol/L (98-108); Estimated Glomerular Filt Rate 53; GGT 30 U/L (15-85); Glucose 110 mg/dL (70-99); Magnesium 1.9 mg/dL (1.8-2.4); Osmolality Calculated 298 mOsm/kg (285-295); Phosphorus 3.2 mg/dL (2.6-4.7); Potassium 4.2 mmol/L (3.5-5.1); Sodium 143 mmol/L (136-145); Total Protein 7.3 g/dL (6.4-8.2)
== END 2022-12-09 23:59 | disposition home or self-care (01) ==
LOC: CHSLAB 07:49
PROVIDERS: PCP Family Medicine
DX: Z51.81 Encounter for therapeutic drug level monitoring (principal); Z94.4 Liver transplant status; Z79.899 Other long term (current) drug therapy
CPT/HCPCS: 36415; 80053; 80197; 82977; 83735; 84100; 85025; 85055

== ENCOUNTER 2023-02-25 07:45 | Outpatient (CLI) | payer MEDICARE, SELFPAY ==
[2023-02-25 08:06] LABS: Basophils Absolute Auto 0.03 K/mm3 (0.00-0.10); Basophils Percent Auto 0.4 % (0.0-1.0); Eosinophils Absolute Auto 0.11 K/mm3 (0.02-0.50); Eosinophils Percent Auto 1.5 % (1.0-6.0); Hematocrit 44.4 % (37.0-46.0); Hemoglobin 14.9 g/dL (12.4-15.3); Immature Granulocyte Absolute 0.02 K/mm3 (0.00-0.00); Immature Granulocyte Percent A 0.3 % (0.0-0.0); Immature Platelet Fraction Pct 5.6 % (1.0-7.0); Lymphocytes Absolute Auto 2.05 K/mm3 (1.10-4.50); Lymphocytes Percent Auto 28.3 % (18.0-42.0); Mean Corpuscular HGB Conc 33.6 g/dL (32.0-36.0); Mean Corpuscular Hemoglobin 28.7 pg (27.0-31.0); Mean Corpuscular Volume 85.5 fL (78.0-102.0); Mean Platelet Volume 10.7 fl (8.7-11.0); Monocytes Absolute Auto 0.59 K/mm3 (0.10-0.90); Monocytes Percent Auto 8.1 % (2.0-11.0); Neutrophils Absolute Auto 4.5 K/mm3 (1.7-7.2); Neutrophils Percent Auto 61.4 % (50.0-70.0); Platelet Count Result 135 K/mm3 (150-420); Red Blood Count 5.19 M/mm3 (4.70-6.10); Red Cell Distribution Width 13.1 % (11.6-14.4); White Blood Count 7.3 K/mm3 (4.8-10.8)
[2023-02-25 08:40] LABS: Alanine Aminotransferase 24 U/L (16-63); Albumin Level 4.1 g/dL (3.4-5.0); Alkaline Phosphatase 94 U/L (46-116); Anion Gap 11 mmol/L (8-16); Aspartate Amino Transferase 17 U/L (15-37); Bilirubin,Total 0.5 mg/dL (0.00-1.00); Blood Urea Nitrogen 17 mg/dL (7-18); Calcium 9.5 mg/dL (8.5-10.1); Carbon Dioxide 26 mmol/L (21-32); Chloride 104 mmol/L (98-108); Estimated Glomerular Filt Rate 55; GGT 28 U/L (15-85); Glucose 133 mg/dL (70-99); Magnesium 1.8 mg/dL (1.8-2.4); Osmolality Calculated 295 mOsm/kg (285-295); Phosphorus 3.7 mg/dL (2.6-4.7); Sodium 141 mmol/L (136-145); Total Protein 7.3 g/dL (6.4-8.2)
[2023-02-27 15:48] LABS: Tacrolimus Prograf 4.8 mcg/L
[2023-03-01 08:21] LABS: Hepatitis B DNA PCR Not Detected
[2023-03-01 08:22] LABS: Hepatitis B DNA PCR Not Detected
== END 2023-02-25 07:46 | disposition home or self-care (01) ==
LOC: CHSLAB 07:50
PROVIDERS: PCP Family Medicine
DX: Z79.899 Other long term (current) drug therapy (principal); Z94.4 Liver transplant status; Z77.21 Contact with and (suspected) exposure to potentially hazardous body fluids; C22.9 Malignant neoplasm of liver, not specified as primary or secondary
CPT/HCPCS: 36415; 80053; 80197; 82105; 82977; 83735; 84100; 85025; 85055; 87517

== ENCOUNTER 2023-03-11 07:52 | Outpatient (RCR) | payer MEDICARE, SELFPAY ==
[2022-12-17 08:21] LABS: Basophils Absolute Auto 0.04 K/mm3 (0.00-0.10); Basophils Percent Auto 0.6 % (0.0-1.0); Eosinophils Absolute Auto 0.08 K/mm3 (0.02-0.50); Eosinophils Percent Auto 1.1 % (1.0-6.0); Hematocrit 44.3 % (37.0-46.0); Hemoglobin 14.9 g/dL (12.4-15.3); Immature Granulocyte Absolute 0.03 K/mm3 (0.00-0.00); Immature Granulocyte Percent A 0.4 % (0.0-0.0); Immature Platelet Fraction Pct 4.9 % (1.0-7.0); Lymphocytes Percent Auto 31.6 % (18.0-42.0); Mean Corpuscular HGB Conc 33.6 g/dL (32.0-36.0); Mean Corpuscular Hemoglobin 28.5 pg (27.0-31.0); Mean Corpuscular Volume 84.7 fL (78.0-102.0); Monocytes Absolute Auto 0.53 K/mm3 (0.10-0.90); Monocytes Percent Auto 7.6 % (2.0-11.0); Neutrophils Absolute Auto 4.1 K/mm3 (1.7-7.2); Neutrophils Percent Auto 58.7 % (50.0-70.0); Platelet Count Result 127 K/mm3 (150-420); Red Blood Count 5.23 M/mm3 (4.70-6.10); Red Cell Distribution Width 13.3 % (11.6-14.4)
[2022-12-17 08:33] LABS: Alanine Aminotransferase 26 U/L (16-63); Albumin Level 4.2 g/dL (3.4-5.0); Alkaline Phosphatase 107 U/L (46-116); Anion Gap 9 mmol/L (8-16); Aspartate Amino Transferase 16 U/L (15-37); Bilirubin,Total 0.7 mg/dL (0.00-1.00); Blood Urea Nitrogen 13 mg/dL (7-18); Calcium 9.3 mg/dL (8.5-10.1); Carbon Dioxide 29 mmol/L (21-32); Chloride 105 mmol/L (98-108); Estimated Glomerular Filt Rate 51; GGT 32 U/L (15-85); Glucose 124 mg/dL (70-99); Magnesium 1.6 mg/dL (1.8-2.4); Osmolality Calculated 297 mOsm/kg (285-295); Phosphorus 3.5 mg/dL (2.6-4.7); Potassium 3.9 mmol/L (3.5-5.1); Sodium 143 mmol/L (136-145); Total Protein 7.4 g/dL (6.4-8.2)
[2022-12-19 19:19] LABS: Tacrolimus Prograf 5.7 mcg/L
[2022-12-31 07:46] LABS: Basophils Absolute Auto 0.04 K/mm3 (0.00-0.10); Basophils Percent Auto 0.5 % (0.0-1.0); Eosinophils Absolute Auto 0.11 K/mm3 (0.02-0.50); Eosinophils Percent Auto 1.5 % (1.0-6.0); Hematocrit 44.7 % (37.0-46.0); Hemoglobin 14.9 g/dL (12.4-15.3); Immature Granulocyte Absolute 0.03 K/mm3 (0.00-0.00); Immature Granulocyte Percent A 0.4 % (0.0-0.0); Lymphocytes Absolute Auto 2.41 K/mm3 (1.10-4.50); Lymphocytes Percent Auto 32.9 % (18.0-42.0); Mean Corpuscular HGB Conc 33.3 g/dL (32.0-36.0); Mean Corpuscular Hemoglobin 28.2 pg (27.0-31.0); Mean Corpuscular Volume 84.5 fL (78.0-102.0); Mean Platelet Volume 10.6 fl (8.7-11.0); Monocytes Absolute Auto 0.55 K/mm3 (0.10-0.90); Monocytes Percent Auto 7.5 % (2.0-11.0); Neutrophils Absolute Auto 4.2 K/mm3 (1.7-7.2); Neutrophils Percent Auto 57.2 % (50.0-70.0); Platelet Count Result 145 K/mm3 (150-420); Red Blood Count 5.29 M/mm3 (4.70-6.10); Red Cell Distribution Width 13.4 % (11.6-14.4); White Blood Count 7.3 K/mm3 (4.8-10.8)
[2022-12-31 08:25] LABS: Alanine Aminotransferase 25 U/L (16-63); Albumin Level 4.2 g/dL (3.4-5.0); Alkaline Phosphatase 103 U/L (46-116); Anion Gap 9 mmol/L (8-16); Aspartate Amino Transferase 17 U/L (15-37); Bilirubin,Total 0.6 mg/dL (0.00-1.00); Blood Urea Nitrogen 17 mg/dL (7-18); Calcium 9.5 mg/dL (8.5-10.1); Carbon Dioxide 28 mmol/L (21-32); Chloride 105 mmol/L (98-108); Estimated Glomerular Filt Rate 52; GGT 33 U/L (15-85); Glucose 124 mg/dL (70-99); Magnesium 1.8 mg/dL (1.8-2.4); Osmolality Calculated 296 mOsm/kg (285-295); Phosphorus 3.7 mg/dL (2.6-4.7); Potassium 4.4 mmol/L (3.5-5.1); Sodium 142 mmol/L (136-145)
[2023-01-03 01:43] LABS: Tacrolimus Prograf 4.1 mcg/L
[2023-01-07 08:18] LABS: Basophils Absolute Auto 0.03 K/mm3 (0.00-0.10); Basophils Percent Auto 0.4 % (0.0-1.0); Eosinophils Percent Auto 1.4 % (1.0-6.0); Hematocrit 45.6 % (37.0-46.0); Hemoglobin 15.1 g/dL (12.4-15.3); Immature Granulocyte Absolute 0.03 K/mm3 (0.00-0.00); Immature Granulocyte Percent A 0.4 % (0.0-0.0); Lymphocytes Percent Auto 35.4 % (18.0-42.0); Mean Corpuscular HGB Conc 33.1 g/dL (32.0-36.0); Mean Corpuscular Hemoglobin 28.2 pg (27.0-31.0); Mean Corpuscular Volume 85.1 fL (78.0-102.0); Mean Platelet Volume 10.3 fl (8.7-11.0); Monocytes Absolute Auto 0.57 K/mm3 (0.10-0.90); Monocytes Percent Auto 7.8 % (2.0-11.0); Neutrophils Percent Auto 54.6 % (50.0-70.0); Platelet Count Result 147 K/mm3 (150-420); Red Blood Count 5.36 M/mm3 (4.70-6.10); Red Cell Distribution Width 13.6 % (11.6-14.4); White Blood Count 7.3 K/mm3 (4.8-10.8)
[2023-01-07 08:54] LABS: Alanine Aminotransferase 9 U/L (16-63); Albumin Level 4.3 g/dL (3.4-5.0); Alkaline Phosphatase 98 U/L (46-116); Anion Gap 7 mmol/L (8-16); Aspartate Amino Transferase 17 U/L (15-37); Bilirubin,Total 0.6 mg/dL (0.00-1.00); Blood Urea Nitrogen 16 mg/dL (7-18); Calcium 9.3 mg/dL (8.5-10.1); Carbon Dioxide 32 mmol/L (21-32); Chloride 102 mmol/L (98-108); Estimated Glomerular Filt Rate 59; GGT 34 U/L (15-85); Glucose 119 mg/dL (70-99); Osmolality Calculated 294 mOsm/kg (285-295); Phosphorus 3.2 mg/dL (2.6-4.7); Potassium 4.1 mmol/L (3.5-5.1); Sodium 141 mmol/L (136-145); Total Protein 7.6 g/dL (6.4-8.2)
[2023-01-11 15:47] LABS: Tacrolimus Prograf 4.2 mcg/L
[2023-01-14 08:47] LABS: Basophils Absolute Auto 0.03 K/mm3 (0.00-0.10); Basophils Percent Auto 0.4 % (0.0-1.0); Eosinophils Absolute Auto 0.14 K/mm3 (0.02-0.50); Eosinophils Percent Auto 1.9 % (1.0-6.0); Hematocrit 44.9 % (37.0-46.0); Immature Granulocyte Absolute 0.02 K/mm3 (0.00-0.00); Immature Granulocyte Percent A 0.3 % (0.0-0.0); Lymphocytes Percent Auto 32.3 % (18.0-42.0); Mean Corpuscular HGB Conc 33.4 g/dL (32.0-36.0); Mean Corpuscular Hemoglobin 28.6 pg (27.0-31.0); Mean Corpuscular Volume 85.5 fL (78.0-102.0); Mean Platelet Volume 11.2 fl (8.7-11.0); Monocytes Absolute Auto 0.67 K/mm3 (0.10-0.90); Neutrophils Absolute Auto 4.2 K/mm3 (1.7-7.2); Neutrophils Percent Auto 56.1 % (50.0-70.0); Platelet Count Result 149 K/mm3 (150-420); Red Blood Count 5.25 M/mm3 (4.70-6.10); Red Cell Distribution Width 13.5 % (11.6-14.4); White Blood Count 7.4 K/mm3 (4.8-10.8)
[2023-01-14 09:06] LABS: Alanine Aminotransferase 21 U/L (16-63); Albumin Level 4.4 g/dL (3.4-5.0); Alkaline Phosphatase 98 U/L (46-116); Anion Gap 10 mmol/L (8-16); Aspartate Amino Transferase 22 U/L (15-37); Bilirubin,Total 0.7 mg/dL (0.00-1.00); Blood Urea Nitrogen 17 mg/dL (7-18); Calcium 9.7 mg/dL (8.5-10.1); Carbon Dioxide 29 mmol/L (21-32); Chloride 102 mmol/L (98-108); Estimated Glomerular Filt Rate 50; GGT 30 U/L (15-85); Glucose 120 mg/dL (70-99); Magnesium 2.1 mg/dL (1.8-2.4); Osmolality Calculated 294 mOsm/kg (285-295); Phosphorus 3.7 mg/dL (2.6-4.7); Potassium 4.1 mmol/L (3.5-5.1); Sodium 141 mmol/L (136-145); Total Protein 7.7 g/dL (6.4-8.2)
[2023-01-28 07:34] LABS: Basophils Absolute Auto 0.02 K/mm3 (0.00-0.10); Basophils Percent Auto 0.3 % (0.0-1.0); Eosinophils Absolute Auto 0.09 K/mm3 (0.02-0.50); Eosinophils Percent Auto 1.4 % (1.0-6.0); Hemoglobin 14.8 g/dL (12.4-15.3); Immature Granulocyte Absolute 0.02 K/mm3 (0.00-0.00); Immature Granulocyte Percent A 0.3 % (0.0-0.0); Immature Platelet Fraction Pct 5.2 % (1.0-7.0); Lymphocytes Absolute Auto 2.13 K/mm3 (1.10-4.50); Lymphocytes Percent Auto 32.6 % (18.0-42.0); Mean Corpuscular HGB Conc 33.6 g/dL (32.0-36.0); Mean Corpuscular Hemoglobin 28.4 pg (27.0-31.0); Mean Corpuscular Volume 84.3 fL (78.0-102.0); Mean Platelet Volume 10.7 fl (8.7-11.0); Monocytes Absolute Auto 0.52 K/mm3 (0.10-0.90); Neutrophils Absolute Auto 3.8 K/mm3 (1.7-7.2); Neutrophils Percent Auto 57.4 % (50.0-70.0); Platelet Count Result 134 K/mm3 (150-420); Red Blood Count 5.22 M/mm3 (4.70-6.10); Red Cell Distribution Width 13.2 % (11.6-14.4); White Blood Count 6.5 K/mm3 (4.8-10.8)
[2023-01-28 08:20] LABS: Alanine Aminotransferase 29 U/L (16-63); Albumin Level 4.3 g/dL (3.4-5.0); Alkaline Phosphatase 95 U/L (46-116); Anion Gap 13 mmol/L (8-16); Aspartate Amino Transferase 34 U/L (15-37); Bilirubin,Total 0.6 mg/dL (0.00-1.00); Blood Urea Nitrogen 18 mg/dL (7-18); Calcium 9.4 mg/dL (8.5-10.1); Carbon Dioxide 25 mmol/L (21-32); Chloride 103 mmol/L (98-108); Estimated Glomerular Filt Rate 52; GGT 31 U/L (15-85); Glucose 130 mg/dL (70-99); Magnesium 1.9 mg/dL (1.8-2.4); Osmolality Calculated 295 mOsm/kg (285-295); Phosphorus 3.5 mg/dL (2.6-4.7); Sodium 141 mmol/L (136-145); Total Protein 7.7 g/dL (6.4-8.2)
[2023-01-30 16:10] LABS: Tacrolimus Prograf 4.3 mcg/L
[2023-02-11 08:09] LABS: Basophils Absolute Auto 0.04 K/mm3 (0.00-0.10); Basophils Percent Auto 0.5 % (0.0-1.0); Eosinophils Absolute Auto 0.11 K/mm3 (0.02-0.50); Eosinophils Percent Auto 1.4 % (1.0-6.0); Hemoglobin 14.8 g/dL (12.4-15.3); Immature Granulocyte Absolute 0.04 K/mm3 (0.00-0.00); Immature Granulocyte Percent A 0.5 % (0.0-0.0); Lymphocytes Absolute Auto 2.38 K/mm3 (1.10-4.50); Lymphocytes Percent Auto 30.2 % (18.0-42.0); Mean Corpuscular HGB Conc 32.9 g/dL (32.0-36.0); Mean Corpuscular Hemoglobin 28.3 pg (27.0-31.0); Mean Platelet Volume 10.8 fl (8.7-11.0); Monocytes Absolute Auto 0.57 K/mm3 (0.10-0.90); Monocytes Percent Auto 7.2 % (2.0-11.0); Neutrophils Absolute Auto 4.7 K/mm3 (1.7-7.2); Neutrophils Percent Auto 60.2 % (50.0-70.0); Platelet Count Result 144 K/mm3 (150-420); Red Blood Count 5.23 M/mm3 (4.70-6.10); White Blood Count 7.9 K/mm3 (4.8-10.8)
[2023-02-11 08:31] LABS: Alanine Aminotransferase 21 U/L (16-63); Albumin Level 4.2 g/dL (3.4-5.0); Alkaline Phosphatase 97 U/L (46-116); Anion Gap 11 mmol/L (8-16); Aspartate Amino Transferase 34 U/L (15-37); Bilirubin,Total 0.5 mg/dL (0.00-1.00); Blood Urea Nitrogen 17 mg/dL (7-18); Calcium 9.4 mg/dL (8.5-10.1); Carbon Dioxide 28 mmol/L (21-32); Chloride 105 mmol/L (98-108); Estimated Glomerular Filt Rate 55; GGT 30 U/L (15-85); Glucose 118 mg/dL (70-99); Osmolality Calculated 300 mOsm/kg (285-295); Phosphorus 3.5 mg/dL (2.6-4.7); Potassium 4.2 mmol/L (3.5-5.1); Sodium 144 mmol/L (136-145); Total Protein 7.3 g/dL (6.4-8.2)
[2023-02-13 19:04] LABS: Tacrolimus Prograf 4.2 mcg/L
[2023-03-11 08:11] LABS: Basophils Absolute Auto 0.03 K/mm3 (0.00-0.10); Basophils Percent Auto 0.4 % (0.0-1.0); Eosinophils Absolute Auto 0.12 K/mm3 (0.02-0.50); Eosinophils Percent Auto 1.7 % (1.0-6.0); Hematocrit 44.4 % (37.0-46.0); Immature Granulocyte Absolute 0.02 K/mm3 (0.00-0.00); Immature Granulocyte Percent A 0.3 % (0.0-0.0); Immature Platelet Fraction Pct 5.6 % (1.0-7.0); Lymphocytes Absolute Auto 2.19 K/mm3 (1.10-4.50); Lymphocytes Percent Auto 30.4 % (18.0-42.0); Mean Corpuscular HGB Conc 33.8 g/dL (32.0-36.0); Mean Corpuscular Hemoglobin 28.7 pg (27.0-31.0); Mean Corpuscular Volume 84.9 fL (78.0-102.0); Mean Platelet Volume 10.8 fl (8.7-11.0); Monocytes Absolute Auto 0.66 K/mm3 (0.10-0.90); Monocytes Percent Auto 9.2 % (2.0-11.0); Neutrophils Absolute Auto 4.2 K/mm3 (1.7-7.2); Platelet Count Result 131 K/mm3 (150-420); Red Blood Count 5.23 M/mm3 (4.70-6.10); White Blood Count 7.2 K/mm3 (4.8-10.8)
[2023-03-11 08:40] LABS: Alanine Aminotransferase 30 U/L (16-63); Albumin Level 4.2 g/dL (3.4-5.0); Alkaline Phosphatase 90 U/L (46-116); Anion Gap 9 mmol/L (8-16); Aspartate Amino Transferase 20 U/L (15-37); Bilirubin,Total 0.8 mg/dL (0.00-1.00); Blood Urea Nitrogen 14 mg/dL (7-18); Calcium 9.2 mg/dL (8.5-10.1); Carbon Dioxide 30 mmol/L (21-32); Chloride 102 mmol/L (98-108); Estimated Glomerular Filt Rate 49; GGT 31 U/L (15-85); Glucose 129 mg/dL (70-99); Magnesium 1.5 mg/dL (1.8-2.4); Osmolality Calculated 294 mOsm/kg (285-295); Phosphorus 3.3 mg/dL (2.6-4.7); Sodium 141 mmol/L (136-145); Total Protein 7.4 g/dL (6.4-8.2)
[2023-03-13 14:32] LABS: Tacrolimus Prograf 6.3 mcg/L
== END 2023-03-17 23:59 | disposition home or self-care (01) ==
LOC: CHSLAB 07:52
PROVIDERS: PCP Family Medicine
DX: Z94.4 Liver transplant status (principal); Z79.899 Other long term (current) drug therapy
CPT/HCPCS: 36415; 80053; 80197; 82977; 83735; 84100; 85025; 85055

== ENCOUNTER 2023-03-25 07:35 | Outpatient (CLI) | payer MEDICARE, SELFPAY ==
[2023-03-25 08:00] LABS: Basophils Absolute Auto 0.02 K/mm3 (0.00-0.10); Basophils Percent Auto 0.3 % (0.0-1.0); Eosinophils Percent Auto 1.6 % (1.0-6.0); Hematocrit 43.5 % (37.0-46.0); Hemoglobin 14.5 g/dL (12.4-15.3); Immature Granulocyte Absolute 0.03 K/mm3 (0.00-0.00); Immature Granulocyte Percent A 0.5 % (0.0-0.0); Immature Platelet Fraction Pct 6.3 % (1.0-7.0); Lymphocytes Absolute Auto 1.76 K/mm3 (1.10-4.50); Lymphocytes Percent Auto 27.8 % (18.0-42.0); Mean Corpuscular HGB Conc 33.3 g/dL (32.0-36.0); Mean Corpuscular Hemoglobin 28.5 pg (27.0-31.0); Mean Corpuscular Volume 85.6 fL (78.0-102.0); Monocytes Absolute Auto 0.52 K/mm3 (0.10-0.90); Monocytes Percent Auto 8.2 % (2.0-11.0); Neutrophils Absolute Auto 3.9 K/mm3 (1.7-7.2); Neutrophils Percent Auto 61.6 % (50.0-70.0); Platelet Count Result 122 K/mm3 (150-420); Red Blood Count 5.08 M/mm3 (4.70-6.10); Red Cell Distribution Width 13.2 % (11.6-14.4); White Blood Count 6.3 K/mm3 (4.8-10.8)
[2023-03-25 08:11] LABS: Hemoglobin A1C 5.4 % (<5.7)
[2023-03-25 08:40] LABS: Alanine Aminotransferase 26 U/L (16-63); Albumin Level 4.1 g/dL (3.4-5.0); Alkaline Phosphatase 84 U/L (46-116); Anion Gap 7 mmol/L (8-16); Aspartate Amino Transferase 15 U/L (15-37); Bilirubin,Total 0.5 mg/dL (0.00-1.00); Blood Urea Nitrogen 13 mg/dL (7-18); Calcium 8.9 mg/dL (8.5-10.1); Carbon Dioxide 30 mmol/L (21-32); Chloride 104 mmol/L (98-108); Estimated Glomerular Filt Rate 52; GGT 28 U/L (15-85); Glucose 116 mg/dL (70-99); Magnesium 1.8 mg/dL (1.8-2.4); Osmolality Calculated 293 mOsm/kg (285-295); Phosphorus 3.6 mg/dL (2.6-4.7); Sodium 141 mmol/L (136-145); Total Protein 7.1 g/dL (6.4-8.2)
[2023-03-27 16:04] LABS: Tacrolimus Prograf 4.4 mcg/L
[2023-03-28 17:11] LABS: Vitamin D 1,25 (OH)2 Total 42 pg/mL (18-72); Vitamin D2 1,25 (OH)2 <8 pg/mL; Vitamin D3 1,25 (OH)2 42 pg/mL
== END 2023-03-25 07:36 | disposition home or self-care (01) ==
LOC: CHSLAB 07:37
PROVIDERS: PCP Family Medicine; Visit Provider Family Medicine
DX: E11.9 Type 2 diabetes mellitus without complications (principal); Z94.4 Liver transplant status; Z79.899 Other long term (current) drug therapy; M85.88 Other specified disorders of bone density and structure, other site; E55.9 Vitamin D deficiency, unspecified
CPT/HCPCS: 36415; 80053; 80197; 82652; 82977; 83036; 83735; 84100; 85025; 85055

== ENCOUNTER 2023-03-29 12:24 | Outpatient (CLI) | payer MEDICARE, SELFPAY ==
--- NOTE | ~2023-03-29 | DEXA_ITS ---
Bone Density Report Name: CASTILLO BLAKELY Age: 67 Sex: Male Ethnicity: White Date of : 1955 Indication: height loss; end stage renal disease; Referring Provider: Charles Gilbert Study: Bone densitometry was performed. Exam Date: March 29, 2023 Accession number: [id number] Bone Density: Region BMD T-score Z-score Classification AP Spine(L1-L4) 1.228 1.2 2.0 Normal Femoral Neck (Left) 0.865 -0.5 0.6 Normal Total Hip (Left) 1.120 0.6 1.1 Normal Femoral Neck (Right) 0.894 -0.3 0.8 Normal Total Hip (Right) 1.131 0.6 1.2 Normal Femoral Neck Mean 0.879 -0.4 0.7 Normal Total Hip Mean 1.125 0.6 1.1 Normal World Health Organization criteria for BMD impression classify patients as: Normal (T-score at or above -1.0), Osteopenia (T-score between -1.0 and -2.5), or Osteoporosis (T-score at or below -2.5). 10-year Fracture Risk: FRAX not reported because: All T-scores for Spine Total, Hip Total, Femoral Neck at or above -1.0 Clinical Information Provided by Patient: Has the following medical conditions: End stage renal disease Patient maximum height was 74 No regular weight bearing exercise Does not regularly consume dairy products Drinks caffeinated beverages Impression: The patient has normal bone mass. Discussion: BONE DENSITY IS ABOVE THE MINIMUM DESIRABLE LEVEL AT ALL SKELETAL SITES TESTED. This patient?s bone mineral density is above the minimum desirable level (T-score -1.0 or better) at all sites measured. The patient should follow a healthful lifestyle (good nutrition with adequate calcium and vitamin D, and appropriate weight-bearing exercise). Follow-Up: Consider repeating this study in 5 years or sooner if there is some new clinical indication. Reported by: Dr. Lukasz Lopez on 03/29/2023 12:48:00 PM. Reviewed, dictated and finalized at location A.
== END 2023-03-29 12:25 | disposition home or self-care (01) ==
PROVIDERS: PCP Family Medicine; Visit Provider Family Medicine
DX: M85.88 Other specified disorders of bone density and structure, other site (principal)
CPT/HCPCS: 77080

== ENCOUNTER 2023-06-17 07:34 | Outpatient (RCR) | payer MEDICARE, SELFPAY ==
[2023-04-08 08:31] LABS: Basophils Absolute Auto 0.03 K/mm3 (0.00-0.10); Basophils Percent Auto 0.4 % (0.0-1.0); Eosinophils Absolute Auto 0.08 K/mm3 (0.02-0.50); Hematocrit 45.4 % (37.0-46.0); Hemoglobin 15.1 g/dL (12.4-15.3); Immature Granulocyte Absolute 0.05 K/mm3 (0.00-0.00); Immature Granulocyte Percent A 0.6 % (0.0-0.0); Immature Platelet Fraction Pct 5.6 % (1.0-7.0); Lymphocytes Absolute Auto 2.16 K/mm3 (1.10-4.50); Lymphocytes Percent Auto 26.9 % (18.0-42.0); Mean Corpuscular HGB Conc 33.3 g/dL (32.0-36.0); Mean Corpuscular Hemoglobin 28.4 pg (27.0-31.0); Mean Corpuscular Volume 85.5 fL (78.0-102.0); Mean Platelet Volume 10.5 fl (8.7-11.0); Monocytes Absolute Auto 0.55 K/mm3 (0.10-0.90); Monocytes Percent Auto 6.9 % (2.0-11.0); Neutrophils Absolute Auto 5.2 K/mm3 (1.7-7.2); Neutrophils Percent Auto 64.2 % (50.0-70.0); Platelet Count Result 131 K/mm3 (150-420); Red Blood Count 5.31 M/mm3 (4.70-6.10); Red Cell Distribution Width 13.1 % (11.6-14.4)
[2023-04-08 08:57] LABS: Alanine Aminotransferase 31 U/L (16-63); Albumin Level 4.1 g/dL (3.4-5.0); Alkaline Phosphatase 90 U/L (46-116); Anion Gap 4 mmol/L (8-16); Aspartate Amino Transferase 17 U/L (15-37); Bilirubin,Total 0.6 mg/dL (0.00-1.00); Blood Urea Nitrogen 14 mg/dL (7-18); Calcium 8.9 mg/dL (8.5-10.1); Carbon Dioxide 30 mmol/L (21-32); Chloride 103 mmol/L (98-108); Estimated Glomerular Filt Rate 55; GGT 28 U/L (15-85); Glucose 95 mg/dL (70-99); Magnesium 1.6 mg/dL (1.8-2.4); Osmolality Calculated 284 mOsm/kg (285-295); Potassium 4.2 mmol/L (3.5-5.1); Sodium 137 mmol/L (136-145); Total Protein 7.6 g/dL (6.4-8.2)
[2023-04-10 18:53] LABS: Tacrolimus Prograf 5.9 mcg/L
[2023-04-22 08:26] LABS: Basophils Absolute Auto 0.02 K/mm3 (0.00-0.10); Basophils Percent Auto 0.3 % (0.0-1.0); Eosinophils Absolute Auto 0.12 K/mm3 (0.02-0.50); Eosinophils Percent Auto 1.9 % (1.0-6.0); Hematocrit 43.7 % (37.0-46.0); Hemoglobin 14.7 g/dL (12.4-15.3); Immature Granulocyte Absolute 0.03 K/mm3 (0.00-0.00); Immature Granulocyte Percent A 0.5 % (0.0-0.0); Immature Platelet Fraction Pct 5.2 % (1.0-7.0); Lymphocytes Absolute Auto 2.18 K/mm3 (1.10-4.50); Lymphocytes Percent Auto 33.7 % (18.0-42.0); Mean Corpuscular HGB Conc 33.6 g/dL (32.0-36.0); Mean Corpuscular Hemoglobin 28.6 pg (27.0-31.0); Mean Platelet Volume 10.9 fl (8.7-11.0); Monocytes Absolute Auto 0.52 K/mm3 (0.10-0.90); Neutrophils Absolute Auto 3.6 K/mm3 (1.7-7.2); Neutrophils Percent Auto 55.6 % (50.0-70.0); Platelet Count Result 123 K/mm3 (150-420); Red Blood Count 5.14 M/mm3 (4.70-6.10); White Blood Count 6.5 K/mm3 (4.8-10.8)
[2023-04-22 09:10] LABS: Alanine Aminotransferase 29 U/L (16-63); Albumin Level 4.2 g/dL (3.4-5.0); Alkaline Phosphatase 95 U/L (46-116); Anion Gap 8 mmol/L (8-16); Aspartate Amino Transferase 18 U/L (15-37); Bilirubin,Total 0.6 mg/dL (0.00-1.00); Blood Urea Nitrogen 26 mg/dL (7-18); Calcium 8.9 mg/dL (8.5-10.1); Carbon Dioxide 30 mmol/L (21-32); Chloride 103 mmol/L (98-108); Estimated Glomerular Filt Rate 50; GGT 30 U/L (15-85); Glucose 119 mg/dL (70-99); Osmolality Calculated 297 mOsm/kg (285-295); Potassium 4.1 mmol/L (3.5-5.1); Sodium 141 mmol/L (136-145); Total Protein 7.3 g/dL (6.4-8.2)
[2023-04-24 16:12] LABS: Tacrolimus Prograf 3.9 mcg/L
[2023-05-20 08:17] LABS: Basophils Absolute Auto 0.03 K/mm3 (0.00-0.10); Basophils Percent Auto 0.4 % (0.0-1.0); Eosinophils Absolute Auto 0.12 K/mm3 (0.02-0.50); Eosinophils Percent Auto 1.4 % (1.0-6.0); Hematocrit 45.1 % (37.0-46.0); Immature Granulocyte Absolute 0.04 K/mm3 (0.00-0.00); Immature Granulocyte Percent A 0.5 % (0.0-0.0); Lymphocytes Absolute Auto 2.29 K/mm3 (1.10-4.50); Mean Corpuscular HGB Conc 33.3 g/dL (32.0-36.0); Mean Corpuscular Volume 84.1 fL (78.0-102.0); Mean Platelet Volume 10.1 fl (8.7-11.0); Monocytes Absolute Auto 0.68 K/mm3 (0.10-0.90); Neutrophils Absolute Auto 5.3 K/mm3 (1.7-7.2); Neutrophils Percent Auto 62.7 % (50.0-70.0); Platelet Count Result 150 K/mm3 (150-420); Red Blood Count 5.36 M/mm3 (4.70-6.10); Red Cell Distribution Width 12.9 % (11.6-14.4); White Blood Count 8.5 K/mm3 (4.8-10.8)
[2023-05-20 08:55] LABS: Alanine Aminotransferase 33 U/L (16-63); Albumin Level 4.1 g/dL (3.4-5.0); Alkaline Phosphatase 102 U/L (46-116); Anion Gap 10 mmol/L (8-16); Aspartate Amino Transferase 21 U/L (15-37); Bilirubin,Total 0.5 mg/dL (0.00-1.00); Blood Urea Nitrogen 22 mg/dL (7-18); Calcium 9.1 mg/dL (8.5-10.1); Carbon Dioxide 29 mmol/L (21-32); Chloride 103 mmol/L (98-108); Estimated Glomerular Filt Rate 52; GGT 31 U/L (15-85); Glucose 123 mg/dL (70-99); Magnesium 1.9 mg/dL (1.8-2.4); Osmolality Calculated 298 mOsm/kg (285-295); Potassium 4.2 mmol/L (3.5-5.1); Sodium 142 mmol/L (136-145); Total Protein 7.6 g/dL (6.4-8.2)
[2023-05-22 22:27] LABS: Tacrolimus Prograf 4.7 mcg/L
[2023-06-17 08:00] LABS: Basophils Absolute Auto 0.03 K/mm3 (0.00-0.10); Basophils Percent Auto 0.4 % (0.0-1.0); Eosinophils Percent Auto 1.3 % (1.0-6.0); Hemoglobin 14.8 g/dL (12.4-15.3); Immature Granulocyte Absolute 0.02 K/mm3 (0.00-0.00); Immature Granulocyte Percent A 0.3 % (0.0-0.0); Lymphocytes Absolute Auto 2.15 K/mm3 (1.10-4.50); Lymphocytes Percent Auto 28.8 % (18.0-42.0); Mean Corpuscular HGB Conc 32.9 g/dL (32.0-36.0); Mean Corpuscular Hemoglobin 27.7 pg (27.0-31.0); Mean Corpuscular Volume 84.3 fL (78.0-102.0); Mean Platelet Volume 10.4 fl (8.7-11.0); Monocytes Absolute Auto 0.62 K/mm3 (0.10-0.90); Monocytes Percent Auto 8.3 % (2.0-11.0); Neutrophils Absolute Auto 4.6 K/mm3 (1.7-7.2); Neutrophils Percent Auto 60.9 % (50.0-70.0); Platelet Count Result 145 K/mm3 (150-420); Red Blood Count 5.34 M/mm3 (4.70-6.10); Red Cell Distribution Width 13.1 % (11.6-14.4); White Blood Count 7.5 K/mm3 (4.8-10.8)
[2023-06-17 08:52] LABS: Alanine Aminotransferase 28 U/L (16-63); Albumin Level 4.1 g/dL (3.4-5.0); Alkaline Phosphatase 97 U/L (46-116); Anion Gap 9 mmol/L (8-16); Aspartate Amino Transferase 20 U/L (15-37); Bilirubin,Total 0.7 mg/dL (0.00-1.00); Blood Urea Nitrogen 14 mg/dL (7-18); Calcium 9.2 mg/dL (8.5-10.1); Carbon Dioxide 30 mmol/L (21-32); Chloride 104 mmol/L (98-108); Estimated Glomerular Filt Rate > 60; GGT 30 U/L (15-85); Glucose 115 mg/dL (70-99); Magnesium 1.8 mg/dL (1.8-2.4); Osmolality Calculated 297 mOsm/kg (285-295); Potassium 4.1 mmol/L (3.5-5.1); Sodium 143 mmol/L (136-145); Total Protein 7.3 g/dL (6.4-8.2)
== END 2023-07-07 23:59 | disposition home or self-care (01) ==
LOC: CHSLAB 07:34
PROVIDERS: PCP Family Medicine; Visit Provider Internal Medicine Gastroenterology
DX: Z94.4 Liver transplant status (principal)
CPT/HCPCS: 36415; 80053; 80197; 82977; 83735; 85025; 85055

== ENCOUNTER 2023-07-18 00:06 | Day surgery (SDC) | payer MEDICARE, SELFPAY ==
[2023-07-11 09:16] VITALS: BMI 34.7
--- NOTE | 2023-07-16 08:23 | SUR.PREOP ---
Patient called regarding upcoming procedure. Spoke with spouse and reviewed preop instructions, appointment times, and procedure prep.
[2023-07-18 08:50] VITALS: BP 170/93; PULSE 72; RESP 16; TEMP 36.4; O2SAT 97
[2023-07-18] MEDS: LACTATED RINGERS 1,000 ML 150 ML IV CONT (08:59)
--- NOTE | 2023-07-18 09:18 | WPDANESEPPF ---
Anes - Initial Pre Proc Eval Procedure: Operation Date: 07/18/23 10:00 Proposed Procedures p Screening Colonoscopy - Henrry White DO Date/Time: 07/18/23 09:18 Surgeon: Henrry White DO Pre Op Diagnosis: colon polyps Patient Data Age: 68 Gender: M Height: 1.88 m Weight: 124.9 kg Last Vital Signs Temp 97.5 F L 07/18/23 08:50 Pulse 72 07/18/23 08:50 Resp 16 07/18/23 08:50 BP 170/93 H 07/18/23 08:50 Pulse Ox 97 07/18/23 08:50 O2 Del Method Room Air 07/18/23 08:50 Allergies Allergy/AdvReac Type Severity Reaction Status Date / Time Iodinated Contrast Media Allergy Intermediate Dizziness Verified 07/18/23 08:48 Penicillins Allergy Unknown Unknown Verified 07/18/23 08:48 Home Medications Medication Instructions Recorded Confirmed Type aspirin 81 mg tablet,delayed 81 mg PO DAILY 10/04/22 07/11/23 History release blood sugar diagnostic (Contour #10 ea 10/04/22 10/04/22 History Next Test Strips) lancets (Microlet Lancet) #100 ea 10/04/22 10/04/22 History magnesium carb,citrate,oxide See Rx Instructions PO .COMPLEX 10/04/22 07/11/23 History tacrolimus 1 mg tablet,extended 1 mg PO DAILY 10/04/22 07/11/23 History release 24 hr (Envarsus XR) tacrolimus 4 mg tablet,extended 4 mg PO DAILY 10/04/22 07/11/23 History release 24 hr (Envarsus XR) mycophenolate sodium 360 mg 360 mg PO BID 03/22/23 07/11/23 History tablet,delayed release (Myfortic) nifedipine 90 mg tablet,extended See Rx Instructions .Route 04/18/23 07/11/23 Rx release 24 hr .COMPLEX #90 tabs pantoprazole 40 mg tablet,delayed See Rx Instructions .Route 04/18/23 07/11/23 Rx release .COMPLEX #90 tabs alprazolam 0.25 mg tablet 0.25 mg PO HS PRN sleep 07/11/23 07/11/23 History sennosides 8.6 mg-docusate sodium 1 tab-cap PO BID 07/11/23 07/11/23 History 50 mg tablet (Senna Plus) Patient hx anesthesia problems: none Family hx anesthesia problems: none Results Review: All pre-operative results and documents have been reviewed as part of the pre-operative evaluation. REPLACED BY [facility] Past Medical History Medical History (Updated 05/23/23 @ 08:19 by Charles Gilbert DO) Hepatitis C Surgical History Surgical History (Updated 10/04/22 @ 09:35 by Sofia Oh MA) History of appendectomy History of back surgery Hx of tonsillectomy Liver transplant recipient Social History Social History (Updated 10/04/22 @ 09:46 by Sofia Oh MA) Smoking packs per day: 1 Smoking cigarettes per day: 20.0 Years smoked: 15 Smoking pack-years: 15.00 Smoking status: Former smoker Tobacco type: cigarettes Alcohol intake: current Substance use: never Substance use type: does not use Lack of Transportation: No Lack of Food: Never True Current Housing: I Have Housing Concerned About Future Housing: No Difficulty Paying Gas/Electric Bills: No Difficulty Paying for Meds: No Currently Unemployed: No Education: Trade/Vocational Certificate Difficulty w/ Childcare or Family Care: No Living arrangements: with family Occupation/Education: retired Spiritual care concerns: No Anes - Eval Final PreProcedure Day of Procedure 07/18/23 09:18 Patient weight: obese Heart: regular rate and rhythm Lungs: clear to auscultation Airway: Mallampati scale Neurological: alert and oriented Last oral intake: >/= 8 hours ASA classification: III Emergent: no Anesthetic plan: proceed Anesthesia type and monitoring: general GIVS and standard monitoring Results Review: All pre-operative results and documents have been reviewed as part of the pre-operative evaluation. Informed Consent: The patient's anesthetic plan and its attendant risks and benefits were discussed with the patient/family/POA. Questions were solicited and answers provided to the satisfaction of the patient/family/POA.
--- NOTE | 2023-07-18 09:59 | PM.IMHP ---
H&P: HPI History of Present Illness Date/Time: 07/18/23 09:59 Chief Complaint: history of colon polyps Narrative: this is a 68-year-old man who presents for colonoscopy. His last colonoscopy was about 3 years ago. States that he has had multiple polyps in the past and has total of 44 Polyps removed before. he denies any hematochezia or melena. He denies any family history of colon cancer. Patient did have a liver transplant in 2021. Review of Systems Review of Systems: All systems reviewed & are unremarkable except as noted in HPI and below Constitutional: Constitutional: Denies chills, Denies fever(s), Denies headache(s) and Denies weight loss Eyes: Eyes: Denies change in vision ENT: Denies dizziness, Denies headache(s), Denies neck mass and Denies throat swelling Cardiovascular: Cardiovascular: Denies chest pain, Denies lightheadedness and Denies dyspnea Respiratory: Respiratory: Denies cough, Denies dyspnea and Denies wheezing Gastrointestinal: Gastrointestinal: Denies abdominal pain, Denies change in bowel habits, Denies nausea and Denies vomiting Genitourinary: Genitourinary: Denies hematuria and Denies dysuria Musculoskeletal: Musculoskeletal: Reports as per HPI Integumentary/Breasts: Skin/Breast: Reports as per HPI Neurologic: Denies dizziness and Denies headache(s) Allergic/Immunologic: Allergic/Immunologic: Denies throat swelling and Denies wheezing [facility] Past Medical History Medical History (Updated 05/23/23 @ 08:19 by Charles Gilbert DO) Hepatitis C Surgical History Surgical History (Updated 10/04/22 @ 09:35 by Sofia Oh MA) History of appendectomy History of back surgery Hx of tonsillectomy Liver transplant recipient Social History Social History (Updated 10/04/22 @ 09:46 by Sofia Oh MA) Smoking packs per day: 1 Smoking cigarettes per day: 20.0 Years smoked: 15 Smoking pack-years: 15.00 Smoking status: Former smoker Tobacco type: cigarettes Alcohol intake: current Substance use: never Substance use type: does not use Lack of Transportation: No Lack of Food: Never True Current Housing: I Have Housing Concerned About Future Housing: No Difficulty Paying Gas/Electric Bills: No Difficulty Paying for Meds: No Currently Unemployed: No Education: Trade/Vocational Certificate Difficulty w/ Childcare or Family Care: No Living arrangements: with family Occupation/Education: retired Spiritual care concerns: No Meds Home Medications and Allergies Home Medications Medication Instructions Recorded Confirmed Type aspirin 81 mg tablet,delayed 81 mg PO DAILY 10/04/22 07/11/23 History release blood sugar diagnostic (Contour #10 ea 10/04/22 10/04/22 History Next Test Strips) lancets (Microlet Lancet) #100 ea 10/04/22 10/04/22 History magnesium carb,citrate,oxide See Rx Instructions PO .COMPLEX 10/04/22 07/11/23 History tacrolimus 1 mg tablet,extended 1 mg PO DAILY 10/04/22 07/11/23 History release 24 hr (Envarsus XR) tacrolimus 4 mg tablet,extended 4 mg PO DAILY 10/04/22 07/11/23 History release 24 hr (Envarsus XR) mycophenolate sodium 360 mg 360 mg PO BID 03/22/23 07/11/23 History tablet,delayed release (Myfortic) nifedipine 90 mg tablet,extended See Rx Instructions .Route 04/18/23 07/11/23 Rx release 24 hr .COMPLEX #90 tabs pantoprazole 40 mg tablet,delayed See Rx Instructions .Route 04/18/23 07/11/23 Rx release .COMPLEX #90 tabs alprazolam 0.25 mg tablet 0.25 mg PO HS PRN sleep 07/11/23 07/11/23 History sennosides 8.6 mg-docusate sodium 1 tab-cap PO BID 07/11/23 07/11/23 History 50 mg tablet (Senna Plus) Allergies Allergy/AdvReac Type Severity Reaction Status Date / Time Iodinated Contrast Media Allergy Intermediate Dizziness Verified 07/18/23 08:48 Penicillins Allergy Unknown Unknown Verified 07/18/23 08:48 Vital Signs Vital Signs - 24 hr 07/18/23 08:50 Temperature 36.4 C L
[2023-07-18 10:54] VITALS: BP 133/86; PULSE 72; RESP 27; O2SAT 96
[2023-07-18 11:04] VITALS: BP 125/82; PULSE 70; RESP 19; O2SAT 99
[2023-07-18 11:14] VITALS: BP 136/82; PULSE 73; RESP 23; O2SAT 99
== END 2023-07-18 11:15 | disposition home or self-care (01) ==
PROVIDERS: PCP Family Medicine; Visit Provider Surgery
PROC: 0DJD8ZZ Inspection of Lower Intestinal Tract, Via Natural or Artificial Opening Endoscopic (ICD-10-PCS; CPT 45378; principal; 2023-07-18 10:00)
DX: Z12.11 Encounter for screening for malignant neoplasm of colon (principal); D12.5 Benign neoplasm of sigmoid colon; K64.8 Other hemorrhoids; E66.9 Obesity, unspecified; Z68.35 Body mass index [BMI] 35.0-35.9, adult; Z79.82 Long term (current) use of aspirin; Z98.890 Other specified postprocedural states; Z98.1 Arthrodesis status; Z94.4 Liver transplant status; Z87.891 Personal history of nicotine dependence
CPT/HCPCS: 45380; 45382; 88305; J2704; J7120

== ENCOUNTER 2023-10-07 07:23 | Outpatient (RCR) | payer MEDICARE, SELFPAY ==
[2023-07-15 08:11] LABS: Basophils Absolute Auto 0.03 K/mm3 (0.00-0.10); Basophils Percent Auto 0.4 % (0.0-1.0); Eosinophils Absolute Auto 0.08 K/mm3 (0.02-0.50); Eosinophils Percent Auto 1.1 % (1.0-6.0); Hematocrit 45.1 % (37.0-46.0); Hemoglobin 15.3 g/dL (12.4-15.3); Immature Granulocyte Absolute 0.03 K/mm3 (0.00-0.00); Immature Granulocyte Percent A 0.4 % (0.0-0.0); Lymphocytes Percent Auto 29.4 % (18.0-42.0); Mean Corpuscular HGB Conc 33.9 g/dL (32-36); Mean Corpuscular Hemoglobin 28.5 pg (27.0-31.0); Mean Platelet Volume 10.5 fl (8.7-11.0); Monocytes Absolute Auto 0.61 K/mm3 (0.10-0.90); Monocytes Percent Auto 8.2 % (2.0-11.0); Neutrophils Absolute Auto 4.53 K/mm3 (1.70-7.20); Neutrophils Percent Auto 60.5 % (50.0-70.0); Platelet Count Result 150 K/mm3 (150-420); Red Blood Count 5.37 M/mm3 (4.70-6.10); Red Cell Distribution Width 13.1 % (11.6-14.4); White Blood Count 7.5 K/mm3 (4.8-10.8)
[2023-07-15 10:17] LABS: Alanine Aminotransferase 24 U/L (16-63); Albumin Level 4.2 g/dL (3.4-5.0); Alkaline Phosphatase 92 U/L (46-116); Anion Gap 13 mmol/L (8-16); Aspartate Amino Transferase 20 U/L (15-37); Bilirubin,Total 0.8 mg/dL (0.00-1.00); Blood Urea Nitrogen 18 mg/dL (7-18); Calcium 9.3 mg/dL (8.5-10.1); Carbon Dioxide 26 mmol/L (21-32); Chloride 103 mmol/L (98-108); Estimated Glomerular Filt Rate 59; GGT 26 U/L (15-85); Glucose 112 mg/dL (70-99); Magnesium 1.9 mg/dL (1.8-2.4); Osmolality Calculated 296 mOsm/kg (285-295); Potassium 4.3 mmol/L (3.5-5.1); Sodium 142 mmol/L (136-145); Total Protein 7.3 g/dL (6.4-8.2)
[2023-07-17 22:35] LABS: Tacrolimus Prograf 4.9 mcg/L
[2023-08-12 08:11] LABS: Basophils Absolute Auto 0.02 K/mm3 (0.00-0.10); Basophils Percent Auto 0.3 % (0.0-1.0); Eosinophils Percent Auto 1.4 % (1.0-6.0); Hematocrit 44.5 % (37.0-46.0); Immature Granulocyte Absolute 0.03 K/mm3 (0.00-0.00); Immature Granulocyte Percent A 0.4 % (0.0-0.0); Immature Platelet Fraction Pct 5.6 % (1.0-7.0); Lymphocytes Absolute Auto 2.03 K/mm3 (1.10-4.50); Lymphocytes Percent Auto 28.3 % (18.0-42.0); Mean Corpuscular HGB Conc 33.7 g/dL (32-36); Mean Corpuscular Hemoglobin 28.5 pg (27.0-31.0); Mean Corpuscular Volume 84.6 fL (78.0-102.0); Mean Platelet Volume 10.6 fl (8.7-11.0); Monocytes Absolute Auto 0.57 K/mm3 (0.10-0.90); Monocytes Percent Auto 7.9 % (2.0-11.0); Neutrophils Absolute Auto 4.43 K/mm3 (1.70-7.20); Neutrophils Percent Auto 61.7 % (50.0-70.0); Platelet Count Result 131 K/mm3 (150-420); Red Blood Count 5.26 M/mm3 (4.70-6.10); White Blood Count 7.2 K/mm3 (4.8-10.8)
[2023-08-12 08:55] LABS: Alanine Aminotransferase 30 U/L (16-63); Albumin Level 4.3 g/dL (3.4-5.0); Alkaline Phosphatase 98 U/L (46-116); Anion Gap 12 mmol/L (4-12); Aspartate Amino Transferase 20 U/L (15-37); Bilirubin,Total 0.7 mg/dL (0.00-1.00); Blood Urea Nitrogen 17 mg/dL (7-18); Calcium 8.8 mg/dL (8.5-10.1); Carbon Dioxide 27 mmol/L (21-32); Chloride 103 mmol/L (98-108); Estimated Glomerular Filt Rate 55; GGT 31 U/L (15-85); Glucose 123 mg/dL (70-99); Magnesium 1.9 mg/dL (1.8-2.4); Osmolality Calculated 296 mOsm/kg (285-295); Potassium 4.2 mmol/L (3.5-5.1); Sodium 142 mmol/L (136-145); Total Protein 7.3 g/dL (6.4-8.2)
[2023-08-13 15:13] LABS: Tacrolimus Prograf 4.5 mcg/L
[2023-09-09 09:12] LABS: Basophils Absolute Auto 0.02 K/mm3 (0.00-0.10); Basophils Percent Auto 0.3 % (0.0-1.0); Eosinophils Absolute Auto 0.08 K/mm3 (0.02-0.50); Eosinophils Percent Auto 1.2 % (1.0-6.0); Hemoglobin 14.8 g/dL (12.4-15.3); Immature Granulocyte Absolute 0.01 K/mm3 (0.00-0.00); Immature Granulocyte Percent A 0.1 % (0.0-0.0); Lymphocytes Absolute Auto 1.86 K/mm3 (1.10-4.50); Lymphocytes Percent Auto 27.4 % (18.0-42.0); Mean Corpuscular HGB Conc 32.9 g/dL (32-36); Mean Corpuscular Hemoglobin 28.1 pg (27.0-31.0); Mean Corpuscular Volume 85.6 fL (78.0-102.0); Mean Platelet Volume 11.1 fl (8.7-11.0); Monocytes Absolute Auto 0.58 K/mm3 (0.10-0.90); Monocytes Percent Auto 8.6 % (2.0-11.0); Neutrophils Absolute Auto 4.23 K/mm3 (1.70-7.20); Neutrophils Percent Auto 62.4 % (50.0-70.0); Platelet Count Result 144 K/mm3 (150-420); Red Blood Count 5.26 M/mm3 (4.70-6.10); White Blood Count 6.8 K/mm3 (4.8-10.8)
[2023-09-09 23:04] LABS: Alanine Aminotransferase 32 U/L (16-63); Albumin Level 4.1 g/dL (3.4-5.0); Alkaline Phosphatase 90 U/L (46-116); Anion Gap 10 mmol/L (4-12); Aspartate Amino Transferase 31 U/L (15-37); Blood Urea Nitrogen 15 mg/dL (7-18); Carbon Dioxide 27 mmol/L (21-32); Chloride 102 mmol/L (98-108); Estimated Glomerular Filt Rate > 60; GGT 31 U/L (15-85); Glucose 97 mg/dL (70-99); Osmolality Calculated 288 mOsm/kg (285-295); Potassium 4.2 mmol/L (3.5-5.1); Sodium 139 mmol/L (136-145); Total Protein 7.4 g/dL (6.4-8.2)
[2023-10-07 07:43] LABS: Basophils Absolute Auto 0.03 K/mm3 (0.00-0.10); Basophils Percent Auto 0.5 % (0.0-1.0); Eosinophils Absolute Auto 0.11 K/mm3 (0.02-0.50); Eosinophils Percent Auto 1.8 % (1.0-6.0); Hematocrit 43.8 % (37.0-46.0); Immature Granulocyte Absolute 0.01 K/mm3 (0.00-0.00); Immature Granulocyte Percent A 0.2 % (0.0-0.0); Immature Platelet Fraction Pct 5.4 % (1.0-7.0); Lymphocytes Absolute Auto 1.98 K/mm3 (1.10-4.50); Lymphocytes Percent Auto 32.6 % (18.0-42.0); Mean Corpuscular HGB Conc 34.2 g/dL (32-36); Mean Corpuscular Hemoglobin 29.4 pg (27.0-31.0); Mean Corpuscular Volume 85.7 fL (78.0-102.0); Mean Platelet Volume 10.9 fl (8.7-11.0); Monocytes Percent Auto 8.2 % (2.0-11.0); Neutrophils Absolute Auto 3.45 K/mm3 (1.70-7.20); Neutrophils Percent Auto 56.7 % (50.0-70.0); Platelet Count Result 125 K/mm3 (150-420); Red Blood Count 5.11 M/mm3 (4.70-6.10); White Blood Count 6.1 K/mm3 (4.8-10.8)
[2023-10-07 08:18] LABS: Alanine Aminotransferase 26 U/L (16-63); Alkaline Phosphatase 83 U/L (46-116); Anion Gap 9 mmol/L (4-12); Aspartate Amino Transferase 19 U/L (15-37); Bilirubin,Total 0.6 mg/dL (0.00-1.00); Blood Urea Nitrogen 16 mg/dL (7-18); Calcium 8.9 mg/dL (8.5-10.1); Carbon Dioxide 28 mmol/L (21-32); Chloride 104 mmol/L (98-108); Estimated Glomerular Filt Rate 58; GGT 26 U/L (15-85); Glucose 130 mg/dL (70-99); Osmolality Calculated 295 mOsm/kg (285-295); Potassium 4.3 mmol/L (3.5-5.1); Sodium 141 mmol/L (136-145); Total Protein 7.1 g/dL (6.4-8.2)
[2023-10-09 15:33] LABS: Tacrolimus Prograf 3.9 mcg/L
== END 2023-10-13 23:59 | disposition home or self-care (01) ==
LOC: CHSLAB 07:23
PROVIDERS: PCP Family Medicine; Visit Provider Internal Medicine Gastroenterology
DX: Z94.4 Liver transplant status (principal)
CPT/HCPCS: 36415; 80053; 80197; 82977; 83735; 85025; 85055

== ENCOUNTER 2024-01-27 07:49 | Outpatient (RCR) | payer MEDICARE, SELFPAY ==
[2023-11-04 08:08] LABS: Basophils Absolute Auto 0.02 K/mm3 (0.00-0.10); Basophils Percent Auto 0.3 % (0.0-1.0); Eosinophils Absolute Auto 0.09 K/mm3 (0.02-0.50); Eosinophils Percent Auto 1.4 % (1.0-6.0); Hematocrit 43.3 % (37.0-46.0); Hemoglobin 14.7 g/dL (12.4-15.3); Immature Granulocyte Absolute 0.01 K/mm3 (0.00-0.00); Immature Granulocyte Percent A 0.2 % (0.0-0.0); Lymphocytes Absolute Auto 2.06 K/mm3 (1.10-4.50); Lymphocytes Percent Auto 31.5 % (18.0-42.0); Mean Corpuscular HGB Conc 33.9 g/dL (32-36); Mean Corpuscular Hemoglobin 29.1 pg (27.0-31.0); Mean Corpuscular Volume 85.6 fL (78.0-102.0); Mean Platelet Volume 10.3 fl (8.7-11.0); Monocytes Absolute Auto 0.55 K/mm3 (0.10-0.90); Monocytes Percent Auto 8.4 % (2.0-11.0); Neutrophils Absolute Auto 3.81 K/mm3 (1.70-7.20); Neutrophils Percent Auto 58.2 % (50.0-70.0); Platelet Count Result 123 K/mm3 (150-420); Red Blood Count 5.06 M/mm3 (4.70-6.10); White Blood Count 6.5 K/mm3 (4.8-10.8)
[2023-11-04 08:50] LABS: Alanine Aminotransferase 30 U/L (16-63); Albumin Level 4.2 g/dL (3.4-5.0); Alkaline Phosphatase 86 U/L (46-116); Anion Gap 11 mmol/L (4-12); Aspartate Amino Transferase 20 U/L (15-37); Bilirubin,Total 0.6 mg/dL (0.00-1.00); Blood Urea Nitrogen 15 mg/dL (7-18); Carbon Dioxide 25 mmol/L (21-32); Chloride 103 mmol/L (98-108); Estimated Glomerular Filt Rate 59; GGT 29 U/L (15-85); Glucose 122 mg/dL (70-99); Osmolality Calculated 289 mOsm/kg (285-295); Sodium 139 mmol/L (136-145); Total Protein 7.1 g/dL (6.4-8.2)
[2023-11-06 10:02] LABS: Tacrolimus Prograf 2.6 mcg/L
[2023-12-02 08:11] LABS: Basophils Absolute Auto 0.02 K/mm3 (0.00-0.10); Basophils Percent Auto 0.2 % (0.0-1.0); Eosinophils Absolute Auto 0.11 K/mm3 (0.02-0.50); Eosinophils Percent Auto 1.4 % (1.0-6.0); Hematocrit 45.5 % (37.0-46.0); Hemoglobin 15.3 g/dL (12.4-15.3); Immature Granulocyte Absolute 0.03 K/mm3 (0.00-0.00); Immature Granulocyte Percent A 0.4 % (0.0-0.0); Lymphocytes Absolute Auto 2.49 K/mm3 (1.10-4.50); Mean Corpuscular HGB Conc 33.6 g/dL (32-36); Mean Corpuscular Hemoglobin 28.7 pg (27.0-31.0); Mean Corpuscular Volume 85.2 fL (78.0-102.0); Mean Platelet Volume 11.1 fl (8.7-11.0); Monocytes Absolute Auto 0.62 K/mm3 (0.10-0.90); Monocytes Percent Auto 7.7 % (2.0-11.0); Neutrophils Absolute Auto 4.76 K/mm3 (1.70-7.20); Neutrophils Percent Auto 59.3 % (50.0-70.0); Platelet Count Result 144 K/mm3 (150-420); Red Blood Count 5.34 M/mm3 (4.70-6.10); Red Cell Distribution Width 13.1 % (11.6-14.4)
[2023-12-02 09:43] LABS: Alanine Aminotransferase 34 U/L (16-63); Albumin Level 4.1 g/dL (3.4-5.0); Alkaline Phosphatase 99 U/L (46-116); Anion Gap 10 mmol/L (4-12); Aspartate Amino Transferase 22 U/L (15-37); Bilirubin,Total 0.6 mg/dL (0.00-1.00); Blood Urea Nitrogen 16 mg/dL (7-18); Calcium 9.1 mg/dL (8.5-10.1); Carbon Dioxide 28 mmol/L (21-32); Chloride 102 mmol/L (98-108); Estimated Glomerular Filt Rate > 60; GGT 27 U/L (15-85); Glucose 134 mg/dL (70-99); Osmolality Calculated 293 mOsm/kg (285-295); Potassium 4.1 mmol/L (3.5-5.1); Sodium 140 mmol/L (136-145); Total Protein 7.3 g/dL (6.4-8.2)
[2023-12-04 16:20] LABS: Tacrolimus Prograf 3.5 mcg/L
[2023-12-30 08:22] LABS: Basophils Absolute Auto 0.02 K/mm3 (0.00-0.10); Basophils Percent Auto 0.3 % (0.0-1.0); Eosinophils Percent Auto 1.3 % (1.0-6.0); Hematocrit 45.8 % (37.0-46.0); Hemoglobin 15.3 g/dL (12.4-15.3); Immature Granulocyte Absolute 0.03 K/mm3 (0.00-0.00); Immature Granulocyte Percent A 0.4 % (0.0-0.0); Immature Platelet Fraction Pct 7.6 % (1.0-7.0); Lymphocytes Absolute Auto 2.33 K/mm3 (1.10-4.50); Lymphocytes Percent Auto 30.8 % (18.0-42.0); Mean Corpuscular HGB Conc 33.4 g/dL (32-36); Mean Corpuscular Hemoglobin 28.6 pg (27.0-31.0); Mean Corpuscular Volume 85.6 fL (78.0-102.0); Mean Platelet Volume 11.1 fl (8.7-11.0); Monocytes Absolute Auto 0.65 K/mm3 (0.10-0.90); Monocytes Percent Auto 8.6 % (2.0-11.0); Neutrophils Absolute Auto 4.44 K/mm3 (1.70-7.20); Neutrophils Percent Auto 58.6 % (50.0-70.0); Platelet Count Result 132 K/mm3 (150-420); Red Blood Count 5.35 M/mm3 (4.70-6.10); Red Cell Distribution Width 13.1 % (11.6-14.4); White Blood Count 7.6 K/mm3 (4.8-10.8)
[2023-12-30 16:49] LABS: Alanine Aminotransferase 33 U/L (16-63); Albumin Level 4.5 g/dL (3.4-5.0); Alkaline Phosphatase 95 U/L (46-116); Anion Gap 9 mmol/L (4-12); Aspartate Amino Transferase 24 U/L (15-37); Bilirubin,Total 0.8 mg/dL (0.00-1.00); Blood Urea Nitrogen 20 mg/dL (7-18); Calcium 9.5 mg/dL (8.5-10.1); Carbon Dioxide 29 mmol/L (21-32); Chloride 103 mmol/L (98-108); Estimated Glomerular Filt Rate 56; GGT 24 U/L (15-85); Glucose 112 mg/dL (70-99); Osmolality Calculated 295 mOsm/kg (285-295); Potassium 4.2 mmol/L (3.5-5.1); Sodium 141 mmol/L (136-145); Total Protein 7.6 g/dL (6.4-8.2)
[2024-01-01 16:00] LABS: Tacrolimus Prograf 7.7 mcg/L
[2024-01-27 08:01] LABS: Basophils Absolute Auto 0.02 K/mm3 (0.00-0.10); Basophils Percent Auto 0.2 % (0.0-1.0); Eosinophils Absolute Auto 0.11 K/mm3 (0.02-0.50); Eosinophils Percent Auto 1.3 % (1.0-6.0); Hematocrit 46.5 % (37.0-46.0); Hemoglobin 15.3 g/dL (12.4-15.3); Immature Granulocyte Absolute 0.04 K/mm3 (0.00-0.00); Immature Granulocyte Percent A 0.5 % (0.0-0.0); Lymphocytes Absolute Auto 2.29 K/mm3 (1.10-4.50); Lymphocytes Percent Auto 27.7 % (18.0-42.0); Mean Corpuscular HGB Conc 32.9 g/dL (32-36); Mean Corpuscular Hemoglobin 28.1 pg (27.0-31.0); Mean Corpuscular Volume 85.3 fL (78.0-102.0); Monocytes Absolute Auto 0.64 K/mm3 (0.10-0.90); Monocytes Percent Auto 7.7 % (2.0-11.0); Neutrophils Absolute Auto 5.18 K/mm3 (1.70-7.20); Neutrophils Percent Auto 62.6 % (50.0-70.0); Platelet Count Result 151 K/mm3 (150-420); Red Blood Count 5.45 M/mm3 (4.70-6.10); Red Cell Distribution Width 13.2 % (11.6-14.4); White Blood Count 8.3 K/mm3 (4.8-10.8)
[2024-01-27 08:32] LABS: Alanine Aminotransferase 27 U/L (16-63); Albumin Level 4.2 g/dL (3.4-5.0); Alkaline Phosphatase 100 U/L (46-116); Anion Gap 7 mmol/L (4-12); Aspartate Amino Transferase 17 U/L (15-37); Bilirubin,Total 0.7 mg/dL (0.00-1.00); Blood Urea Nitrogen 16 mg/dL (7-18); Calcium 9.4 mg/dL (8.5-10.1); Carbon Dioxide 30 mmol/L (21-32); Chloride 104 mmol/L (98-108); Estimated Glomerular Filt Rate 53; GGT 25 U/L (15-85); Glucose 122 mg/dL (70-99); Osmolality Calculated 294 mOsm/kg (285-295); Potassium 3.9 mmol/L (3.5-5.1); Sodium 141 mmol/L (136-145); Total Protein 7.6 g/dL (6.4-8.2)
== END 2024-02-02 23:59 | disposition home or self-care (01) ==
LOC: CHSLAB 07:49
PROVIDERS: PCP Internal Medicine; Visit Provider Internal Medicine Gastroenterology
DX: Z94.4 Liver transplant status (principal)
CPT/HCPCS: 36415; 80053; 80197; 82977; 85025; 85055

== ENCOUNTER 2024-05-18 07:50 | Outpatient (RCR) | payer MEDICARE, SELFPAY ==
[2024-02-24 08:33] LABS: Basophils Absolute Auto 0.03 K/mm3 (0.00-0.10); Basophils Percent Auto 0.4 % (0.0-1.0); Eosinophils Percent Auto 1.3 % (1.0-6.0); Hematocrit 43.7 % (37.0-46.0); Immature Granulocyte Absolute 0.02 K/mm3 (0.00-0.00); Immature Granulocyte Percent A 0.3 % (0.0-0.0); Immature Platelet Fraction Pct 5.9 % (1.0-7.0); Lymphocytes Absolute Auto 2.18 K/mm3 (1.10-4.50); Lymphocytes Percent Auto 28.3 % (18.0-42.0); Mean Corpuscular HGB Conc 34.3 g/dL (32-36); Mean Corpuscular Hemoglobin 29.2 pg (27.0-31.0); Mean Corpuscular Volume 85.2 fL (78.0-102.0); Monocytes Absolute Auto 0.57 K/mm3 (0.10-0.90); Monocytes Percent Auto 7.4 % (2.0-11.0); Neutrophils Absolute Auto 4.81 K/mm3 (1.70-7.20); Neutrophils Percent Auto 62.3 % (50.0-70.0); Platelet Count Result 135 K/mm3 (150-420); Red Blood Count 5.13 M/mm3 (4.70-6.10); Red Cell Distribution Width 12.9 % (11.6-14.4); White Blood Count 7.7 K/mm3 (4.8-10.8)
[2024-02-24 09:53] LABS: Alanine Aminotransferase 25 U/L (16-63); Albumin Level 3.9 g/dL (3.4-5.0); Alkaline Phosphatase 103 U/L (46-116); Anion Gap 10 mmol/L (4-12); Aspartate Amino Transferase 16 U/L (15-37); Bilirubin,Total 0.7 mg/dL (0.00-1.00); Blood Urea Nitrogen 15 mg/dL (7-18); Calcium 9.3 mg/dL (8.5-10.1); Carbon Dioxide 26 mmol/L (21-32); Chloride 105 mmol/L (98-108); Estimated Glomerular Filt Rate > 60; GGT 23 U/L (15-85); Glucose 111 mg/dL (70-99); Osmolality Calculated 293 mOsm/kg (285-295); Potassium 4.1 mmol/L (3.5-5.1); Sodium 141 mmol/L (136-145); Total Protein 7.1 g/dL (6.4-8.2)
[2024-02-28 07:53] LABS: Tacrolimus Prograf 3.2 mcg/L
[2024-03-23 07:59] LABS: Basophils Absolute Auto 0.02 K/mm3 (0.00-0.10); Basophils Percent Auto 0.2 % (0.0-1.0); Eosinophils Absolute Auto 0.14 K/mm3 (0.02-0.50); Eosinophils Percent Auto 1.6 % (1.0-6.0); Hematocrit 45.1 % (37.0-46.0); Hemoglobin 15.3 g/dL (12.4-15.3); Immature Granulocyte Absolute 0.04 K/mm3 (0.00-0.00); Immature Granulocyte Percent A 0.5 % (0.0-0.0); Lymphocytes Absolute Auto 2.37 K/mm3 (1.10-4.50); Lymphocytes Percent Auto 27.8 % (18.0-42.0); Mean Corpuscular HGB Conc 33.9 g/dL (32-36); Mean Corpuscular Hemoglobin 28.9 pg (27.0-31.0); Mean Corpuscular Volume 85.3 fL (78.0-102.0); Mean Platelet Volume 10.8 fl (8.7-11.0); Monocytes Absolute Auto 0.69 K/mm3 (0.10-0.90); Monocytes Percent Auto 8.1 % (2.0-11.0); Neutrophils Absolute Auto 5.26 K/mm3 (1.70-7.20); Neutrophils Percent Auto 61.8 % (50.0-70.0); Platelet Count Result 141 K/mm3 (150-420); Red Blood Count 5.29 M/mm3 (4.70-6.10); White Blood Count 8.5 K/mm3 (4.8-10.8)
[2024-03-23 08:37] LABS: Alanine Aminotransferase 34 U/L (16-63); Albumin Level 4.1 g/dL (3.4-5.0); Alkaline Phosphatase 117 U/L (46-116); Anion Gap 10 mmol/L (4-12); Aspartate Amino Transferase 16 U/L (15-37); Bilirubin,Total 0.8 mg/dL (0.00-1.00); Blood Urea Nitrogen 17 mg/dL (7-18); Calcium 9.3 mg/dL (8.5-10.1); Carbon Dioxide 29 mmol/L (21-32); Chloride 104 mmol/L (98-108); Estimated Glomerular Filt Rate 59; GGT 36 U/L (15-85); Glucose 119 mg/dL (70-99); Osmolality Calculated 298 mOsm/kg (285-295); Potassium 4.1 mmol/L (3.5-5.1); Sodium 143 mmol/L (136-145); Total Protein 7.5 g/dL (6.4-8.2)
[2024-03-26 09:23] LABS: Tacrolimus Prograf 5.1 mcg/L
[2024-04-20 07:37] LABS: Basophils Absolute Auto 0.04 K/mm3 (0.00-0.10); Basophils Percent Auto 0.5 % (0.0-1.0); Eosinophils Absolute Auto 0.14 K/mm3 (0.02-0.50); Eosinophils Percent Auto 1.7 % (1.0-6.0); Hematocrit 44.1 % (37.0-46.0); Immature Granulocyte Absolute 0.05 K/mm3 (0.00-0.00); Immature Granulocyte Percent A 0.6 % (0.0-0.0); Lymphocytes Absolute Auto 2.31 K/mm3 (1.10-4.50); Lymphocytes Percent Auto 28.4 % (18.0-42.0); Mean Corpuscular Volume 85.1 fL (78.0-102.0); Mean Platelet Volume 10.3 fl (8.7-11.0); Monocytes Absolute Auto 0.68 K/mm3 (0.10-0.90); Monocytes Percent Auto 8.4 % (2.0-11.0); Neutrophils Absolute Auto 4.91 K/mm3 (1.70-7.20); Neutrophils Percent Auto 60.4 % (50.0-70.0); Platelet Count Result 144 K/mm3 (150-420); Red Blood Count 5.18 M/mm3 (4.70-6.10); Red Cell Distribution Width 12.9 % (11.6-14.4); White Blood Count 8.1 K/mm3 (4.8-10.8)
[2024-04-20 08:25] LABS: Alanine Aminotransferase 27 U/L (16-63); Albumin Level 4.1 g/dL (3.4-5.0); Alkaline Phosphatase 109 U/L (46-116); Anion Gap 4 mmol/L (4-12); Aspartate Amino Transferase 17 U/L (15-37); Bilirubin,Total 0.5 mg/dL (0.00-1.00); Blood Urea Nitrogen 21 mg/dL (7-18); Calcium 9.2 mg/dL (8.5-10.1); Carbon Dioxide 28 mmol/L (21-32); Chloride 102 mmol/L (98-108); Estimated Glomerular Filt Rate 48; GGT 34 U/L (15-85); Glucose 118 mg/dL (70-99); Osmolality Calculated 282 mOsm/kg (285-295); Potassium 3.8 mmol/L (3.5-5.1); Sodium 134 mmol/L (136-145); Total Protein 7.1 g/dL (6.4-8.2)
[2024-04-24 08:33] LABS: Tacrolimus Prograf 3.5 mcg/L
[2024-05-18 08:04] LABS: Basophils Absolute Auto 0.02 K/mm3 (0.00-0.10); Basophils Percent Auto 0.3 % (0.0-1.0); Eosinophils Absolute Auto 0.13 K/mm3 (0.02-0.50); Eosinophils Percent Auto 1.7 % (1.0-6.0); Hematocrit 46.5 % (37.0-46.0); Hemoglobin 15.1 g/dL (12.4-15.3); Immature Granulocyte Absolute 0.03 K/mm3 (0.00-0.00); Immature Granulocyte Percent A 0.4 % (0.0-0.0); Lymphocytes Absolute Auto 2.23 K/mm3 (1.10-4.50); Lymphocytes Percent Auto 28.7 % (18.0-42.0); Mean Corpuscular HGB Conc 32.5 g/dL (32-36); Mean Corpuscular Hemoglobin 28.2 pg (27.0-31.0); Mean Corpuscular Volume 86.8 fL (78.0-102.0); Mean Platelet Volume 10.5 fl (8.7-11.0); Monocytes Absolute Auto 0.62 K/mm3 (0.10-0.90); Neutrophils Absolute Auto 4.74 K/mm3 (1.70-7.20); Neutrophils Percent Auto 60.9 % (50.0-70.0); Platelet Count Result 145 K/mm3 (150-420); Red Blood Count 5.36 M/mm3 (4.70-6.10); White Blood Count 7.8 K/mm3 (4.8-10.8)
[2024-05-18 08:36] LABS: Alanine Aminotransferase 24 U/L (16-63); Albumin Level 4.2 g/dL (3.4-5.0); Alkaline Phosphatase 96 U/L (46-116); Anion Gap 11 mmol/L (4-12); Aspartate Amino Transferase 17 U/L (15-37); Bilirubin,Total 0.7 mg/dL (0.00-1.00); Blood Urea Nitrogen 13 mg/dL (7-18); Calcium 9.2 mg/dL (8.5-10.1); Carbon Dioxide 29 mmol/L (21-32); Chloride 104 mmol/L (98-108); Estimated Glomerular Filt Rate 54; GGT 28 U/L (15-85); Glucose 126 mg/dL (70-99); Osmolality Calculated 300 mOsm/kg (285-295); Potassium 4.2 mmol/L (3.5-5.1); Sodium 144 mmol/L (136-145); Total Protein 7.2 g/dL (6.4-8.2)
[2024-05-20 15:19] LABS: Tacrolimus Prograf 4.8 mcg/L
== END 2024-05-24 23:59 | disposition home or self-care (01) ==
LOC: CHSLAB 07:50
PROVIDERS: PCP Family Medicine; Visit Provider Internal Medicine Gastroenterology
DX: Z94.4 Liver transplant status (principal)
CPT/HCPCS: 36415; 80053; 80197; 82977; 85025; 85055

== ENCOUNTER 2024-06-08 15:30 | Outpatient (CLI) | payer MEDICARE, SELFPAY ==
[2024-06-08 16:25] LABS: SARS-CoV-2 RNA PCR Negative (Negative)
[2024-06-08 16:26] LABS: Influenza A QL RT-PCR Positive (Negative); Influenza B QL RT-PCR Negative (Negative); RSV RNA, RT-PCR Negative (Negative)
--- OUTSIDE RECORDS SUMMARY | 2024-06-08 18:06 | XMS_ITS | Encounter Summary ---
Author Organization [facility] Address [facility] [place] [address] Care Team Providers Care Talent Agent Name Role Phone Angie Kim MD Primary Care Provider [phone] Keyona Cardona NP Primary Care Provider + [phone] Danielito Rollins MD Primary Care Provider [phone] Encounter Details Date Type Department Care Team (Late st Contact Info) Description 09/18/2021 [facility] Message Enc [facility] Family Medicine [place] [id number] [facility] [place] [address] Angie Kim MD [address] [place] [id number] Metformin Social History Tobacco Use Types Packs/Day Years Used Date Smoking Tobacco: Former Cigarettes 982014 Smokeless Tobacco: Never Alcohol Use Standard Drinks/Week Comments No 0 (1 standard drink = 0.6 oz pur e alcohol) AUDIT-C Answer Date Recorded Frequency of Alcohol Consumption Never 04/07/2018 Average Number of Drinks Not on file 018 Frequency of Binge Drinking Not on file 03/22 PHQ-2 Answer Date Recorded PHQ-2 Score - If the patient scores above 3, please move on to questions 3-9 0 02/04/2020 Sex and Gender Information Value Date Recorded Sex Assigned at Not on file Legal Sex Male 8:03 PM CDT Gender Identity Male 05/12/2021 5:38 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 Angie Silva Sent: 09/18/2021 8:20 PM CDT Subject: Metformin Bill needs a prescription for Metformin. He has an upcoming appointment with you, however, he had acall from [place] this morning, ended up going there, but the liver wasn't good enough, so he came back home, but they said, it could now be a matter of a couple days, since he's on top of list. If that is the case, I will contact you and cancel the appointment. Thank you in advance, Asya Jesus documented in this encounter Plan of Treatment Not on file documented as of this encounter Visit Diagnoses Diagnosis Elevated glucose Other abnormal glucose documented in this encounter Care Teams Talent Agent Relationship Specialty Start Date End Date Angie Kim MD PCP - General FAMILY PRACTICE 04/04/18 06/03/22 Keyona Cardona NP PCP - General Nurse Practitioner Family 06/04/2209/20 Danielito Rollins MD [address] [place] [address] [place] [address] PCP - General FAMILY PRACTICE 10/06/22 10/08/22 documented as of this encounter
--- OUTSIDE RECORDS SUMMARY | 2024-06-08 18:06 | XMS_ITS | Referral Summary ---
Author Organization [place] [id number] [facility] Address [address] [place] [address] Care Team Providers Care Pediatric Assistant Name Role Phone Angei Kim MD Unavailable La Chun MD Unavailable [phone] Mattie Giron RN Unavailable [phone] Arelis Helm RN Unavailable [phone] Benny Galarza MD Unavailable [phone] Charles Gilbert DO Primary Care Provider Encounters Date Type Department Care Team Description 04/24/2024 Telephone [facility] Transplant Liver [address] [facility] [address] [phone] [place] [address] Becky Balderas 03/26/2024 Orders Only [facility] Transplant Liver [address] [facility] [address] [phone] [place] [address] Mattie Giron, NITA History of liver transplant (CMS/HCC) (HCC) (Primary Dx) 03/13/2024 Telephone [facility] Transplant Liver [address] [facility] [address] [phone] [place] [address] Mattie Giron RN 03/11/2024 Telephone [facility] Transplant Liver [address] [facility] [address] [phone] [place] [address] Mattie Giron RN 03/11/2024 7:29 AM INSURANCE AGENCY SALES MANAGER - 03/11/2024 11:59 PM INSURANCE AGENCY SALES MANAGER Hospital Encounter [facility] [address] [place] [address] HCC (hepatocellular carcinoma) (HCC); History of liver transplant (CMS/HCC) (HCC); senior care (current) use of calcineurin inhibitor Discharge Disposition: Discharge to home or self care 03/11/2024 10:00 AM INSURANCE AGENCY SALES MANAGER Office Visit [facility] [address] [facility] 12th [place] [address] [place] [id number] Tay Mathews MD History of liver transplant (CMS/HCC) (HCC) (Primary Dx); CKD (chronic kidney disease) stage 2, GFR 60-89 ml/min from Last 3 Months Allergies Active Allergy Reactions Criticality Noted Date Comments Cephalexin Rash Medium 11/24/2018 Iodinated Contrast Media Mental status changes Low 04/20/2021 Legs numb and lightheadedness Penicillins Hives,Itching Medium 03/26/2019 Sulfa (Sulfonamide Antibiotics) Other (See comments),Unknown Low 03/26/2019 As a child 02/2022 tolerates bactrim Medications ALPRAZolam (XANAX) 0.25 mg tabletIndicatio ns:anxiety Take 0.5 tablets (0.125 mg total) by mouth nightly 0.5 tablet 0 9 Active aspirin 81 mg enteric coated tablet Take 1 tablet (81 mg total) by mouth daily 30 tablet 2 Active Additional Information Patient taking differently:81 mg oralEvery morning, Last dose 11/12/23, on hold for surgery, Indications: Myocardial Reinfarction Prevention, prevention of thrombosis, Informant: Self, Reported on 11/13/2023 blood-glucose meter misc 1 applicator 3 (three) times a day 1 meter 1 each 2 Active blood glucose diagnostic strip 1 strip TID with meals. Max 21/week 100 each 2 Active lancets 30 gauge misc 1 lancet TID with meals. Max of 100 each [address] (PROTONIX) 40 mg EC tablet TAKE 1 TABLET (40MG TOTAL) BY MOUTH DAILY PLEASE CONTACT YOUR PRIMARY CARE PROVIDER FOR FUTURE REFILLS OF THE MEDICATION AND MANAGEMENT AND MONITORING OF ACID REFLUX 90 tablet 3 Active Additional Information Patient taking differently: 40 mg oral Every morning, Indications: acid reflux, Informant: Self, Reported on 03/11/2024 magnesium gluconate 200 mg tabletIndicatio ns:supplement Take 3 tablets (600 mg total) by mouth nightly Active senna-docusate (Senna Plus) 8.6-50 mg Take 1 tablet by mouth 2 (two) times a day as needed for constipation 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 Thanks! 60 tablet 4 Active Additional Information Patient taking differently:1 tablet oral2 times daily, 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 Thanks!,Indications: constipation, Informant: Self, Reported on 01/23/2024 Envarsus XR 4 mg tablet extended release 24 hr TAKE ONE TABLET BY MOUTH EVERY DAY. TAKE WITH ONE 1MG TABLET FOR TOTAL DAILY DOSE OF 5MG 30 tablet 11 4 Active Envarsus XR 1 mg tablet extended release 24 hr TAKE ONE TABLET BY MOUTH EVERY DAY. 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 Labs at [facility] (starting 03/12) Option 6 FAX: Best fax per lab is [phone] alt fax [phone] Problem Noted Date Diagnosed Date CKD (chronic kidney disease) stage 2, GFR 60-89 ml/min 03/11/2024 Assessment & Plan (03/11/2024 10:13 AM INSURANCE AGENCY SALES MANAGER): Multifactorial; in part secondary to use of a calcineurin inhibitor. I will continue to follow the serum creatinine in his regular labs. Decreased peripheral vision, right 01/19/2024 Myogenic ptosis of right eyelid 01/19/2024 Decreased peripheral vision, left 11/13/2023 Myogenic ptosis of left eyelid 11/13/2023 Removal of staple 03/28/2022 Immunosuppression 03/28/2022 History of liver transplant (CMS/HCC) 01/07/2022 Assessment & Plan (03/11/2024 10:13 AM INSURANCE AGENCY SALES MANAGER): He has excellent allograft function. I saw no reason to change his current doses of immunosuppression. I will continue to monitor his labs closely with attention to liver tests, renal function, and tacrolimus trough levels. I will review the MRI done earlier today. Previously, he had an LR-3 lesion measuring 0.8 cm. Depending on the appearance of this lesion on today's study, I will determine whether or not the MRI should be repeated in 6 months versus 1 year. He will return for an office visit in 1 year or when clinically indicated. Assessment & Plan (03/13/2023 10:52 AM INSURANCE AGENCY SALES MANAGER): S/p liver transplant - Mr. 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 He has enjoyed an overall smooth post transplant course with eradication of his Hepatitis C pre transplant. He enjoys normal allograft function with normal liver functions. He has stable tacrolimus troughs. He remains on duel immunosuppression with Tacrolimus XR 5 mg daily, Myfortic 720 mg Twice daily. I will decrease his Myfortic to 360 mg twice daily. Repeat lab work in 2 weeks. History of hepatocellular carcinoma - MRI 11/2022 shows a stable LR 3 lesion. MRI pending today. Will continue HCC surveillance imaging for 5 years. MRI ordered today, same day as 2 year follow up. Hypertension - Blood pressure today is elevated, he reports normal home blood pressures. Remains on Nicardipine 90 mg daily. Truncal obesity- Discussed efforts with weight loss, diet and exercise. Follow up in 1 year. MRI same day. Labs every 2 weeks. Class 2 obesity due to exces s calories with body mass index (BMI) of 39.0 to 39.9 in adult 12/06/2021 Type 2 diabetes mellitus with other specified co mplication 10/18/2021 Actinic keratoses 10/03/2021 Overview (12/06/2021): Has numerous on scalp, does not want to treatment this time until liver has been addressed A&P: Plan for 5-FU when ready. 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 Voices understanding of the risk of inappropriate treatment, declines referral to dermatology or urology, wants to continue Diflucan and nystatin Primary hypertension 04/24/2021 Rosacea 04/07/2018 Overview (12/06/2021): Has MetroGel at home, not on med list Insomnia 01/06/2016 Overview (12/06/2021): Has had anxiety with panic attacks in the past but feels that problems under control Still struggles with insomnia and Xanax works Decline switch in therapy A&P: Continue Xanax, CSA and UDS to be updated today Functional dyspepsia 09/30/2012 Resolved Problems Problem Noted Date Diagnosed Date Resolved Date Decompensated cirrhosis rela armando to hepatitis C virus (HCV) 01/05/2022 03/13/2023 Cirrhosis 11/20/2021 03/11/2024 Compensated cirrhosis relate d to hepatitis C virus (HCV) 10/18/2021 03/13/2023 Assessment & Plan (10/18/2021 4:57 PM CDT): Well compensated and without obvious complications of portal hypertension or a decrease in hepatic synthetic dysfunction. Hepatitis C eradicated with antiviral therapy. I saw no need to make changes in his current medical management. I did stress the importance of ongoing efforts at weight loss. He will return in 6 months or when clinically indicated. Liver transplant candidate 09/18/2021 1 05/13/2022 Esophageal varices 04/24/2021 Overview (12/06/2021): On nadolol, no SE A&P: no changes HCC (hepatocellular carcinoma) 03/03/2021 03/11/2024 Overview (03/03/2021): Added automatically from request for surgery [id number] Assessment & Plan (10/18/2021 4:57 PM CDT): Good response to loco-regional therapy. Continue to monitor imaging studies on a regular basis. Encounter for pre-transplant evaluation for liver transplant 03/13/2023 Immunizations Immunization Administration Dates Next Due Hep A, Adult 06/22/2019,12/23/2018 Hep B Vaccine 06/22/2019,01/20/2019,12/23/2018 Influenza, Quadrivalent, Spl it, Intramuscular 01/26/2019 Influenza, Quadrivalent, Spl it, Preservative Free, Intramuscular 01/26/2019 Tdap 12/09/2016 Social History Tobacco Use Types Packs/Day Years Used Date Smoking Tobacco: Never Passive Smoke Exposure: Never Smokeless Tobacco: Former Chew Quit: 04/20/1998 Tobacco Cessation:Counseling Given: Not Answered Social Connection and Isolat ion Panel [NHANES] Answer Date Recorded In a typical week, how many times do you talk on the phone with family, friends, or neighbors? More than three times a week 03/03/2022 How often do you get togethe r with friends or relatives? More than three times a week 03/03/2022 How often do you attend chur ch or mormonism services? More than 4 times per year 03/03/2022 Do you belong to any clubs o r organizations such as yarsanism groups, unions, fraternal or athletic groups, or school groups? Yes 03/03/2022 How often do you attend meet ings of the clubs or organizations you belong to? More than 4 times per year 03/03/2022 Are you , , di vorced, , never , or living with a partner? 03/03/2022 AUDIT-C Answer Date Recorded Q1: How often do you have a drink containing alcohol? Never 02/13/2024 Q2: How many drinks containi ng alcohol do you have on a typical day when you are drinking? Patient does not drink Q3: How often do you have si x or more drinks on one occasion? Never 02/13/2024 Overall Financial Resource Strain (CARDIA) Answe r Date Recorded How hard is it for you to pa y for the very basics like food, housing, medical care, and heating? Not hard at all 03/03/2022 Hunger Vital Sign Answer Date Recorded Within the past 12 months, y ou worried that your food would run out before you got the money to buy more. Never true 03/03/20 22 Within the past 12 months, t he food you bought just didn't last and you didn't have money to get more. Never true 03/03/2022 PRAPARE - Transportation Answer Date Re corded In the past 12 months, has l ack of transportation kept you from medical appointments or from getting medications? No 02/20 In the past 12 months, has l ack of transportation kept you from meetings, work, or from getting things needed for daily living? No 03/03/2022 Housing Stability Vital Sign Answer Nino e Recorded In the last 12 months, was t here a time when you were not able to pay the mortgage or rent on time? No 03/03/2022 In the last 12 months, how many places have you lived? 1 03/03/2022 In the last 12 months, was t here a time when you did not have a steady place to sleep or slept in a snf (including now)? No 03/03/2022 Personal Safety Answer Date Recorded Have you ever been in or are you currently in a harmful physical or emotional relationship or is someone making you feel afraid or unsafe? Denies 02/13/2024 Sex and Gender Information Value Date Recorded Sex Assigned at Not on file Legal Sex Male 8:26 AM CDT Gender Identity Not on file Sexual Orientation Not on file Last Filed Vital Signs Vital Sign Reading Time Taken Comments Blood Pressure 148/84 03/11/2024 9:27 AM INSURANCE AGENCY SALES MANAGER Pulse 76 03/11/2024 9:27 AM INSURANCE AGENCY SALES MANAGER Temperature 36.4 C (97.5 F) 03/11/2024 9:27 AM INSURANCE AGENCY SALES MANAGER Respiratory Rate 25 02/13/2024 11:05 AM CDT Oxygen Saturation 92% 02/13/2024 11:05 AM CDT Inhaled Oxygen Concentration - - Weight 119.7 kg (264 lb) 03/11/2024 9:27 AM INSURANCE AGENCY SALES MANAGER Height 188 cm (6' 2 ) 03/11/2024 9:27 AM INSURANCE AGENCY SALES MANAGER Body Mass Index 33.9 03/11/2024 9:27 AM INSURANCE AGENCY SALES MANAGER Plan of Treatment Not on file Medical Devices Implanted Type Area Director Perioperative Device Identifier Shelf Expiration Date Model / Serial / Lot TitanFile Embosphere Prefill Saline Syringe Compressible Nonaggregate [id number] - [id number] Implanted:Qty: 1 on 08/18/2021 at [facility] TitanFile 01/19/2022 [id number] / / [id number] Angio-Seal Vip 6fr Closere Device [id number] - [id number] Implanted:Qty: 1 on 08/18/2021 at [facility] [employer]um[employer]pt Bipin 05/22/2022 [id number] / / [id number] Procedures Procedure Name Priority Date/Time Associated Diagnosis Comments TACROLIMUS LEVEL, TROUGH Routine 05/18/2024 GAMMA GT Routine 05/18/2024 COMPREHENSIVE METABOLIC PANEL Routine 05/18/2024 CBC WITH AUTO DIFFERENTIAL Routine 05/18/2024 TACROLIMUS LEVEL, TROUGH Routine 04/20/2024 CBC WITH AUTO DIFFERENTIAL Routine 04/20/2024 GAMMA GLUTAMYL TRANSPEPTIDASE (GGTP) Routine 04/20/2024 COMPREHENSIVE METABOLIC PANEL Routine 04/20/2024 TACROLIMUS LEVEL, TROUGH Routine 03/23/2024 GAMMA GLUTAMYL TRANSPEPTIDASE (GGTP) Routine 03/23/2024 COMPREHENSIVE METABOLIC PANEL Routine 03/23/2024 CBC WITH AUTO DIFFERENTIAL Routine 03/23/2024 MRI ABDOMEN LIVER W WO CONTRAST Schedule Routine, Read Routine (OP Routine) 03/11/2024 8:21 AM INSURANCE AGENCY SALES MANAGER HCC (hepatocellular carcinoma) (HCC) History of liver transplant (CMS/HCC) (HCC) senior care (current) use of calcineurin inhibitor HEMOGLOBIN A1C Routine 03/25/2023 HEPATITIS C RNA, QUANTITATIVE, PCR Routine 04/09/2022 LIPID PANEL Routine 04/09/2022 EGFR Routine 03/08/2022 4:18 AM INSURANCE AGENCY SALES MANAGER PSA SCREEN Routine 04/19/2021 7:30 AM INSURANCE AGENCY SALES MANAGER Encounter for pre-transplant evaluation for liver transplant Hepatocellular carcinoma (CMS/HCC) (HCC) from Last 3 Months or Most Recently Relevant to Health Maintenance Results * (ABNORMAL) Tacrolimus level trough (05/18/2024) SCRIBED Tacrolimus, trough 4.8(A) 5.0 - 20.[address] [facility] Blood 05/18/2024 Historical Provider LAB BLOOD ORDERABLES Katrin l Result Performing Organization Address City/[facility]/ZIP Co de Phone Number [address] [phone] * (ABNORMAL) CBC with auto differential (05/18/2024) SCRIBED WBC 7.8 4.8 - 10.8 k/[facility] Hemoglobin 15.1 12.4 - 15.3 g/dL [facility] Hematocrit 46.5(A) 37.0 - 46.0 % [facility] Platelets 145(A) 150 - 420 k/cumm [facility] Lymphocytes 28.7 18.0 - 42.0 % [facility] Monocytes 8.0 2.0 - 11.0 % [facility] Neutrophils 60.9 50.0 - 70.0 % [facility] Eosinophils 1.7 1.0 - 5.0 % [facility] Basophils 0.3 0.0 - 1.0 % [facility] Blood 05/18/2024 Historical Provider LAB BLOOD ORDERABLES Edit ed Result - Final Performing Organization Address City/[facility]/ZIP Co de Phone Number [address] [phone] * Gamma GT (05/18/2024) SCRIBED GGT 28 15 - [address] [facility] Blood 05/18/2024 Historical Provider MD LAB BLOOD ORDERABLES Edit ed Result - Final Performing Organization Address City/[facility] Co de Phone Number [facility] [address] [phone] * (ABNORMAL) Comprehensive metabolic panel (05/18/2024) SCRIBED Sodium 144 136 - 145 mmol/L [facility] Potassium 4.2 3.5 - 5.1 mmol/L [facility] Chloride 104 98 - 108 mmol/L [facility] Carbon Dioxide 28 21 - 32 mmol/L [facility] Urea Nitrogen (BUN) 13 7 - 18 mg/dl [facility] Creatinine 1.32(A) 0.70 - 1.30 mg/dl [facility] Glucose 126(A) 70 - 99 mg/dl [facility] Calcium 9.2 8.5 - 10.1 mg/dl [facility] Bilirubin 0.7 0.00 - 1.00 mg/dl [facility] Plasma Protein 7.2 6.4 - 8.2 g/dl [facility] Albumin 4.2 3.4 - 5.0 g/dl [facility] Alkaline Phosphatase 96 46 - 116 Units/L [facility] Alanine Transaminase (ALT) 24 16 - 63 Units/L [facility] Aspartate Transaminase (AST) 17 15 - 37 Units/L [facility] Blood 05/18/2024 us Historical Provider LAB BLOOD ORDERABLES Katrin garcia Result [facility] [address] [phone] * Gamma glutamyl transpeptidase (GGTP) (04/20/2024) SCRIBED GGTP 34 15 - 85 IUnit/mL [facility] Blood 04/20/2024 Historical Provider MD LAB BLOOD ORDERABLES Edit ed Result - Final Performing Organization Address City/[facility]/ZIP Co de Phone Number [address] [phone] * (ABNORMAL) Tacrolimus level trough (04/20/2024) SCRIBED Tacrolimus, trough 3.5(A) 5.0 - 20.[address] [facility] Blood 04/20/2024 Historical Provider MD LAB BLOOD ORDERABLES Edit ed Result - Final Performing Organization Address [facility] Co de Phone Number [address] [phone] * (ABNORMAL) CBC with auto differential (04/20/2024) SCRIBED WBC 8.1 4.8 - 10.8 k/cumm [facility] SCRIB Hemoglobin 15.0 12.4 - 15.3 g/dL [facility] Hematocrit 44.1 37.0 - 46.0 % [facility] SCRIB Platelets 144(A) 150 - 420 k/cumm [facility] SCRIBED Lymphocytes 28.4 18.0 - 42.0 % [facility] SCRIBED Monocytes 8.4 2.0 - 11.0 % [facility] SCRIB Neutrophils 50.4 50.0 - 70.0 % [facility] SCRIBED Eosinophils 1.7 1.0 - 5.0 % [facility] SCRIBED Basophils 0.5 0.0 - 1.0 % [facility] Blood 04/20/2024 Historical Provider LAB BLOOD ORDERABLES Edit ed Result - Final Performing Organization Address City/[facility]/ZIP Co de Phone Number [address] [phone] * (ABNORMAL) Comprehensive metabolic panel (04/20/2024) SCRIBED Sodium 134(A) 136 - 145 mmol/L [facility] Potassium 3.8 3.5 - 5.1 mmol/L [facility] Chloride 102 98 - 108 mmol/L [facility] Carbon Dioxide 28 21 - 32 mmol/L [facility] SCRED Urea Nitrogen (BUN) 21(A) 7 - 18 mg/dl [facility] SCRED Creatinine 1.47(A) 0.70 - 1.30 mg/dl [facility] SCRED Glucose 118(A) 70 - 99 mg/dl [facility] SCRED Calcium 9.2 8.5 - 10.1 mg/dl [facility] SCRED Bilirubin 0.5 0.00 - 1.00 mg/dl [facility] SCRED Plasma Protein 7.1 6.4 - 8.2 g/dl [facility] SCRED Albumin 4.1 3.4 - 5.0 g/dl [facility] SCRIBED Alkaline Phosphatase 109 46 - 116 Units/L [facility] SCRED Alanine Transaminase (ALT) 27 16 - 63 Units/L [facility] Aspartate Transaminase (AST) 17 15 - 37 Units/L [facility] Blood 04/20/2024 Historical Provider LAB BLOOD ORDERABLES Katrin l Result [facility] [address] [phone] * Gamma glutamyl transpeptidase (GGTP) (03/23/2024) SCRIBED GGTP 36 15 - 85 IUnit/mL [facility] Blood 03/23/2024 Historical Provider MD LAB BLOOD ORDERABLES Katrin l Result [address] [phone] * Tacrolimus level trough (03/23/2024) SCRIBED Tacrolimus, trough 5.1 5.0 - 20.[address] [facility] Blood 03/23/2024 Historical Provider MD LAB BLOOD ORDERABLES Edit ed Result - Final [address] [phone] * (ABNORMAL) CBC with auto differential (03/23/2024) SCRIBED WBC 8.5 4.8 - 10.8 k/cumm [facility] SCRIB Hemoglobin 15.3 12.4 - 15.3 g/dL [facility] Hematocrit 45.1 37.0 - 46.0 % [facility] Platelets 141(A) 150 - 420 k/cumm [facility] SCRIB Lymphocytes 27.8 18.0 - 42.0 % [facility] SCRIBED Monocytes 8.1 2.0 - 11.0 % [facility] SCRIBED Neutrophils 61.8 50.0 - 70.0 % [facility] SCRIBED Eosinophils 1.6 1.0 - 6.0 % [facility] SCRIBED Basophils 0.2 0.0 - 1.0 % [facility] Blood 03/23/2024 us Historical Provider LAB BLOOD ORDERABLES Edit ed Result - Final Performing Organization Address City/State/[facility] Co de Phone Number [address] [phone] * (ABNORMAL) Comprehensive metabolic panel (03/23/2024) SCRIBED Sodium 143 136 - 145 mmol/L [facility] Potassium 4.1 3.5 - 5.1 mmol/L [facility] Chloride 104 98 - 108 mmol/L [facility] Carbon Dioxide 29 21 - 32 mmol/L [facility] SCRED Urea Nitrogen (BUN) 17 7 - 18 mg/dl [facility] Creatinine 1.23 0.70 - 1.30 mg/dl [facility] Glucose 119(A) 70 - 99 mg/dl [facility] SCRED Calcium 9.3 8.5 - 10.1 mg/dl [facility] Bilirubin 0.8 0.00 - 1.00 mg/dl [facility] SCRED Plasma Protein 7.5 6.4 - 8.2 g/dl [facility] SCRED Albumin 4.1 3.4 - 5.0 g/dl [facility] SCRED Alkaline Phosphatase 117(A) 46 - 116 Units/[facility] Alanine Transaminase (ALT) 34 16 - 63 Units/L [facility] Aspartate Transaminase (AST) 16 15 - 37 Units/L [facility] Blood 03/23/2024 us Historical Provider MD LAB BLOOD ORDERABLES Edit ed Result - Final [facility] [place] [address], [facility] [phone] * MRI Abdomen Liver W WO Contrast (03/11/2024 8:21 AM INSURANCE AGENCY SALES MANAGER) Anatomical Region Laterality Modality Body N/A Magnetic Resonan ce 03/11/2024 11:0 1 AM INSURANCE AGENCY SALES MANAGER Impressions 03/11/2024 12:00 PM INSURANCE AGENCY SALES MANAGER Postoperative changes of liver transplantation. Similar 1.0 cm segment 8 LR 3 lesion. Dictated by: Andres Livingston M.D. The radiology attending physician has personally reviewed this study, and had reviewed and/or edited this written report and agrees with it. Electronically signed by: Arya Sheppard M.D. Narrative 03/11/2024 12:00 PM INSURANCE AGENCY SALES MANAGER EXAMINATION: MAGNETIC RESONANCE IMAGING OF THE ABDOMEN WITH AND WITHOUT CONTRAST HISTORY: Liver transplantation, hepatocellular carcinoma screening TECHNIQUE: Magnetic resonance imaging of the abdomen was performed prior to and following the uneventful administration of intravenous Gadolinium contrast. Protocol: Liver Dual Contrast Contrast: Gadoterate 24 mL; Eovist 10 mL COMPARISON: 08/22/2023 FINDINGS: Liver: Changes of liver transplantation. Hepatic steatosis. No iron deposition. - Bile ducts: Nondilated - Focal liver lesions: Unchanged 1.0 cm lesion in segment 8 which demonstrates persistent enhancement with subsequent hyperintensity on hepatobiliary phase imaging. No new suspicious hepatic lesion. - Vasculature: Patent portal and hepatic veins. Retroaortic left renal vein. 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 No suspicious features. The main pancreatic duct is normal in caliber. Spleen: Normal Adrenals: Unchanged adenomatous hyperplasia residual glands. Kidneys: Intrinsic T1 hyperintensity and no definite enhancement noted in left upper pole renal lesion, likely a hemorrhagic or proteinaceous cyst. No hydronephrosis. Other Findings: Mild bibasilar atelectasis. No abdominal lymphadenopathy. No suspicious osseous lesion. Unchanged abdominal aortic aneurysm measuring 3.4 cm. Procedure Note Arya Sheppard MD - 03/11/2024 EXAMINATION: MAGNETIC RESONANCE IMAGING OF THE ABDOMEN WITH AND WITHOUT CONTRAST HISTORY: Liver transplantation, hepatocellular carcinoma screening TECHNIQUE: Magnetic resonance imaging of the abdomen was performed prior to and following the uneventful administration of intravenous Gadolinium contrast. Protocol: Liver Dual Contrast Contrast: Gadoterate 24 mL; Eovist 10 mL COMPARISON: 08/22/2023 FINDINGS: Liver: Changes of liver transplantation. Hepatic steatosis. No iron deposition. - Bile ducts: Nondilated - Focal liver lesions: Unchanged 1.0 cm lesion in segment 8 which demonstrates persistent enhancement with subsequent hyperintensity on hepatobiliary phase imaging. No new suspicious hepatic lesion. - Vasculature: Patent portal and hepatic veins. Retroaortic left renal vein. 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 No suspicious features. The main pancreatic duct is normal in caliber. Spleen: Normal Adrenals: Unchanged adenomatous hyperplasia residual glands. Kidneys: Intrinsic T1 hyperintensity and no definite enhancement noted in left upper pole renal lesion, likely a hemorrhagic or proteinaceous cyst. No hydronephrosis. Other Findings: Mild bibasilar atelectasis. No abdominal lymphadenopathy. No suspicious osseous lesion. Unchanged abdominal aortic aneurysm measuring 3.4 cm. IMPRESSION: Postoperative changes of liver transplantation. Similar 1.0 cm segment 8 LR 3 lesion. Dictated by: Andres Livingston M.D. The radiology attending physician has personally reviewed this study, and had reviewed and/or edited this written report and agrees with it. Electronically signed by: Arya Sheppard M.D. us Ruth Romano NP IMG MRI PROCEDURES Final R esult * Hemoglobin A1c (03/25/2023) SCRIBED Hemoglobin A1c 5.4 <5.7 - <5.7 % [facility] Blood 03/25/2023 us Historical Provider LAB BLOOD ORDERABLES Katrin garcia Result [address] [place] [address], [place] [phone] * Hepatitis C (HCV) RNA PCR, quantitative (04/09/2022) Pathologist [facility] SCRIBED HCV RNA <15 - - - IUnit/mL [facility] Comment:Not Detected Blood 04/09/2022 Historical Provider MD LAB MICROBIOLOGY - GENERA L ORDERABLES Final Result [address] [phone] * Lipid panel (04/09/2022) [facility] SCRIBED Cholesterol, Total 179 0 - [address] [facility] SCRIBED HDL 45 40 - 60 [facility] SCRIBED LDL 108 <130 - <[address] [facility] SCRIBED Triglycerides 131 0 - [address] [facility] Blood 04/09/2022 Historical Provider MD LAB BLOOD ORDERABLES Katrin l Result Performing Organization Address City/[facility]/ZIP Co de Phone Number [address] [phone] * (ABNORMAL) eGFR (03/08/2022 4:18 AM INSURANCE AGENCY SALES MANAGER) Pathologist [facility] eGFR 87(L) 90 - 130 mL/min/1. 73 m2 [facility] Comment: Interpretive Data Reference Interval Normal >/= 90 mL/min/1.73m2 Mildly decreased* 60 - 89 mL/min/1.73m2 Mildly to moderately decreased 45 - 59 mL/min/1.73m2 Moderately to severely decreased 30 - 44 mL/min/1.73m2 Severely decreased 15 - 29 mL/min/1.73m2 Kidney Failure < 15 mL/min/1.73m2 *Relative to young adult level Estimated glomerular filtration rate is determined by the 2021 CKD-EPI equation recommended by the National Kidney Foundation (A Unifying Approach to GFR Estimation: Recommendations of the NKF-ASK Task Force on Reassessing the Inclusion of Race in Diagnosing Kidney Disease, JASN 2020). The CKD-EPI equation should not be used for patients with unstable renal function and has not been validated in children and those over 70. Current interpretive data was last reviewed 2021. Blood 03/08/2022 4:18 AM INSURANCE AGENCY SALES MANAGER 03/08/2022 4:50 AM INSURANCE AGENCY SALES MANAGER Moira BUTCHER LAB BLOOD ORDERABLES Final Result Performing Organization Address City/[facility] Co de Phone Number [facility] [place] [address] * PSA screen (04/19/2021 7:30 AM INSURANCE AGENCY SALES MANAGER) PSA-Total 1.23 <=5.40 ng/mL [facility] Comment: Interpretive Data AGE SEX REFERENCE INTERVAL 0 minutes-150 years Female None 0 minutes-49 years Male None 50-59 years Male 0-3.90 60-69 years Male 0-5.40 70-79 years Male 0-6.20 80-150 years Male 0-6.20 Current interpretive data last revised 2017. Blood 04/19/2021 7:30 AM INSURANCE AGENCY SALES MANAGER 04/19/2021 8:16 AM INSURANCE AGENCY SALES MANAGER Tay Mathews MD LAB BLOOD ORDERABLES F inal Result [facility] [place] [address] from Last 3 Months or Most Recently Relevant to Health Maintenance Insurance [facility] [address] [address] MEDICARE [facility] MEDICARE SUPPLEMENT MEDICARE [facility] MEDICARE SUPPLEMENT Advance Directives For more information, please contact: [phone] Documents on File Type Date Recorded Patient [facility] Expl anation ADVANCE DIRECTIVE 03/09/2022 11:07 AM P[facility] OF [facility] MAKER-MEDICAL ADVANCE DIRECTIVE 02/15/2022 10:56 AM WApple atkins [email or web address] ADVANCE DIRECTIVE 04/19/2021 1:26 PM Will santos [email or web address] * Full Code (Latest Code Status on File) Date Activated Date Inactivated Comments 03/02/2022 8:54 PM 03/08/2022 6:43 PM * Full Code Date Activated Date Inactivated Comments 03/02/2022 8:16 AM 03/02/2022 8:54 PM * Full Code Date Activated Date Inactivated Comments 02/13/2022 12:05 AM 02/13/2022 1:04 PM * Full Code Date Activated Date Inactivated Comments 01/07/2022 1:50 AM 01/07/2022 3:02 PM * Full Code Date Activated Date Inactivated Comments 01/04/2022 10:52 PM 01/05/2022 11:29 AM Care Teams Pediatric Assistant Relationship Specialty Start Date End Date Charles Gilbert DO [address] [place] [address] PCP - General Family Medicine 10/02/22 Angie Kim MD Referring Physician Family Practice 03/02/21 La Chun MD [address] [place] [address] Resident Anesthesiology 03/02/22 Mattie Giron, NITA Grounds Restoration Specialist 03/05/22 rAelis Helm RN [address] [facility] [address] [place] [address] Secondary Coordinator 03/05/22 Benny Galarza MD [facility] [address] Gastroenterology 07/11/22
--- OUTSIDE RECORDS SUMMARY | 2024-06-08 18:06 | XMS_ITS ---
Author Organization [place] [id number] [facility] Address [address] [place] [address] Care Team Providers Care Director Of Advertising Sales Name Role Phone Angie Kim MD Unavailable La Chun MD Unavailable [phone] Mattie Giron RN Unavailable [phone]- [phone] Arelis Helm RN Unavailable [phone] Benny Galarza MD Unavailable [phone] Charles Gilbert DO Primary Care Provider Active Problems Patient Care Coordination No te Formatting of this note migh t be different from the original. Labs at [facility] (starting 03/12) Option 6 FAX: Best fax per lab is [phone] alt fax [phone] Problem Noted Date Diagnosed Date CKD (chronic kidney disease) stage 2, GFR 60-89 ml/min 03/11/2024 Assessment & Plan (03/11/2024 10:13 AM BIODIESEL PROCESS CONTROL TECHNICIAN): Multifactorial; in part secondary to use of a calcineurin inhibitor. I will continue to follow the serum creatinine in his regular labs. Decreased peripheral vision, right 01/19/2024 Myogenic ptosis of right eyelid 01/19/2024 Decreased peripheral vision, left 11/13/2023 Myogenic ptosis of left eyelid 11/13/2023 Removal of staple 03/28/2022 Immunosuppression 03/28/2022 History of liver transplant (CMS/HCC) 01/07/2022 Assessment & Plan (03/11/2024 10:13 AM BIODIESEL PROCESS CONTROL TECHNICIAN): He has excellent allograft function. I saw [...] indicated. Assessment & Plan (03/13/2023 10:52 AM BIODIESEL PROCESS CONTROL TECHNICIAN): S/p liver transplant - Mr. Jesus is [...] to be updated today Functional dyspepsia 09/30/2012 Current Treatment and Therapy Plans No current plan information found. Past Treatment and Therapy Plans No past plan information found. Lifetime Dose Tracking * Chemical Lifetime Dose Automatic Entry Manual Entr y doxorubicin 18.315 mg/m2 (50 mg) 18.315 mg/m2 (50 mg) 0 mg/m2 (0 mg) Fluoro Time 28.5 minutes 28.5 minutes 0 minutes doxorubicin isotoxic equivalent (Please manually verify calculation) 18.315 mg/m2 (50 mg) 18.315 mg/m2 (50 mg) 0 mg/m2 (0 mg) Air kerma at the reference point (Ka,r) 4,049 mGy 4,049 mGy 0 mGy DLP 1,739 mGycm 1,739 mGycm 0 mGycm Resolved Problems Problem Noted Date Diagnosed Date [...] (03/03/2021): Added automatically from request for surgery [id number] Assessment & Plan (10/18/2021 4:57 PM CDT): Good response to loco-regional therapy. Continue to monitor imaging studies on a regular basis. Encounter for pre-transplant evaluation for liver transplant 03/13/2023
--- OUTSIDE RECORDS SUMMARY | 2024-06-08 18:06 | XMS_ITS | Encounter Summary ---
Author Organization [facility] Address [address] [place] [address] Care Team Providers Care General Dentist/Owner Name Role Phone Angie Kim MD Unavailable [phone] Mojgan Leonardo RN Unavailable [phone] Angie Kim MD Primary Care Provide r La Chun MD Unavailable [phone] Mattie Giron RN Unavailable [phone] Arelis Helm RN Unavailable [phone] Benny Galarza MD Unavailable [phone] Charles Gilbert DO Primary Care Provider Encounter Details Date Type Department Care Team (Late st Contact Info) Description 02/06/2022 Orders Only [facility] Surgeon [address] [place], [place] [id number] Randal Weinstein MD [address] [place], [place] [id number] Pre-operative exam (Primary Dx) Social History Tobacco Use Types Packs/Day Years Used Date Smoking Tobacco: Never Smokeless Tobacco: Former Chew Quit: 04/20/1998 AUDIT-C Answer Date Recorded Q1: How often do you have a drink containing alc ohol? Never 04/20/2021 Average Number of Drinks Not on file Q3: How often do you have si x or more drinks on one occasion? Never 04/20/2021 Sex and Gender Information Value Date Recorded Sex Assigned at Not on file Legal Sex Male 8:26 AM CDT Gender Identity Not on file Sexual Orientation Not on file documented as of this encounter Plan of Treatment Not on file documented as of this encounter Visit Diagnoses Diagnosis Pre-operative exam- Primary Unspecified pre-operative examination documented in this encounter Care Teams General Dentist/Owner Relationship Specialty Start Date End Date Angie Kim MD PCP - General Family Practice 10/18/21 10/01/22 Charles Gilbert DO [address] [place] [address] PCP - General Family Medicine 10/02/22 Angie Kim MD Referring Physician Family Practice 03/02/21 Mojgan Leonardo RN [address] [place] [address] Conceptor 03/03/2103/04 La Chun MD [address] [place] [address] Resident Anesthesiology 03/02/22 Mattie Giron RN Conceptor 03/05/22 Arelis Helm RN [address] [place], [place] [id number] Secondary Coordinator 03/05/22 Benny Galarza MD [address] [place] [address] Gastroenterology 07/11/22 documented as of this encounter
--- OUTSIDE RECORDS SUMMARY | 2024-06-08 18:06 | XMS_ITS | Patient Health Summary ---
Author Organization [facility] Address [address] [place] [address] Care Team Providers Care Drone Operator Name Role Phone Unavailable Primary Care Provider Unavailabl e Note from [facility],non-owned Affiliates and Associated Physician Practices is amultiple site organization consisting of ambulatory clinics and hospital sitesin [place], [place], [place] and [place]. This disclosure is being madepursuant to the Care Everywhere program and may not contain all information available regarding this patient. Last updated 18.[employer] Social History Tobacco Use Types Packs/Day Years Used Date Smoking Tobacco: Never Assessed Sex and Gender Information Value Date Recorded Sex Assigned at Not on file Gender Identity Not on file Sexual Orientation Not on file Procedures * GROSS + MICRO EXAM(Performed 09/25/2004) * GROSS + MICRO EXAM(Performed 08/24/2004) * GROSS + MICRO EXAM(Performed 09/22/1999) * GROSS + MICRO EXAM(Performed 07/06/1999) Results * GROSS + MICRO EXAM (09/25/2004 4:55 PM CDT) Only the most recent of4 resultswithin the time period is included. Result CASE NUMBER [id number] Comment: ORDERING PHYSICIAN JOHN HERNANDEZ SPECIMEN TYPE Lesion-rt. lower eyelid Date 09/25/2004 Physician Riya Hernandez Gross Description The specimen is received in one container of formalin labeled with the patient's name, Rowdy Jesus, lesion, right lower eyelid, suture medial and consists of an ellipse of skin that measures 2.5 cm x 1 cm. It has a black suture indicating the medial apex. A slightly raised, irregular lesion measuring 1.1 cm x 7 mm is noted on the surface. The suture is considered to be at the 12 o'clock position. The 12, 3, 6 o'clock margin is inked black. The 6, 9, 12 o'clock margin is inked blue. The medial half of the specimen is submitted in cassette A and the lateral half in cassette B. A total of two cassettes is submitted. AM/na Microscopic Exam Sections show skin with mild chronic inflammation around the hair follicles. The upper dermis also shows vascular ectasia. Solar change and focal scar with fibrosis is noted. No evidence of malignancy is seen. MC/bk Diagnosis I. Skin, right lower eyelid, biopsy -- Perifolliculitis, chronic, mild. -- Vascular ectasia. -- No evidence of malignancy. MC/bk Air Vice Marshal bk Pathologist Mark Gomez M.D. Snomed. 09/27/2004 0929 <2> CPT code 83152 MISCELLANEOUS SAMPLES / Unknown 09/25/2004 4:55 PM CDT 09/25/2004 4:55 PM CDT Historical Provider LAB - PATHOLOGY/C YTOLOGY ORDERABLES
--- OUTSIDE RECORDS SUMMARY | 2024-06-08 18:06 | XMS_ITS | Referral Summary ---
Author Organization [facility] Address [address] [place] [address] Care Team Providers Care Digital Photographer Name Role Phone Unavailable Primary Care Provider Unavailabl e Source Comments [facility],non-owned Affiliates and Associated Physician Practices is amultiple site organization consisting of ambulatory clinics and hospital sitesin [place], [place], [place] and [place]. This disclosure is being madepursuant to the Care Everywhere program and may not contain all information available regarding this patient. Last updated 18.[facility] [employer] Social History Tobacco Use Types Packs/Day Years Used Date Smoking Tobacco: Never Assessed Sex and Gender Information Value Date Recorded Sex Assigned at Not on file Gender Identity Not on file Sexual Orientation Not on file Plan of Treatment Not on file CASTILLO JESUS Personal/[place] [address] [place] [address] CASTILLO JESUS Personal/Family [place] [address] [place] [address]
--- OUTSIDE RECORDS SUMMARY | 2024-06-08 18:06 | XMS_ITS | Encounter Summary ---
Author Organization [facility] Address [facility] [place] [address] Care Team Providers Care Rehabilitation Therapy Technician Name Role Phone Angie Kim MD Primary Care Provider [phone] Keyona Cardona NP Primary Care Provider [phone] Danielito Rollins MD Primary Care Provider [phone] Encounter Details Date Type Department Care Team (Late st Contact Info) Description 05/24/2021 MyChart Message Enc [facility] Medical [facility] Family Medicine - [place] [address] [place] [address] [place] [address] Angie Kim MD [address] [place] [id number] blood test ordered by [facility]. Social History Tobacco Use Types Packs/Day Years Used Date Smoking Tobacco: Former Cigarettes 5 2014 Smokeless Tobacco: Never Alcohol Use Standard Drinks/Week [...] CDT Gender Identity Male 05/12/2021 5:38 AM COMPUTER TEACHER Sexual Orientation Not on file COVID-19 Exposure Response Date Recorded In the last month, have you been in contact with someone who was confirmed or suspected to have Coronavirus / COVID-19? No / Unsure 05/18/2021 3:47 PM COMPUTER TEACHER documented as of this encounter Plan of Treatment Not on file documented as of this encounter Visit Diagnoses Not on filedocumented in this encounter Additional Health Concerns Infection Onset Date Last Indicated Resolved Time COVID-19 Rule Out 07/10/2021 07/10/2021 07/17/2021 12:32 AM CDT documented as of this encounter Care Teams Rehabilitation Therapy Technician Relationship Specialty Start Date End Date Angie Kim MD PCP - General FAMILY PRACTICE 04/04/18 06/03/22 Keyona Cardona NP PCP - General Nurse Practitioner Family 06/04/2209/20 Danielito Rollins MD [address] [place] [address] [place] [address] PCP - General FAMILY PRACTICE 10/06/22 10/08/22 documented as of this encounter
--- OUTSIDE RECORDS SUMMARY | 2024-06-08 18:06 | XMS_ITS | Encounter Summary ---
Author Organization [facility] Address [address] [place] [address] Phone Care Team Providers Care Core Setter Name Role Phone Angie Kim MD Unavailable La Chun MD Unavailable [phone] Mattie Giron RN Unavailable [phone] Arelis Helm RN Unavailable [phone] Benny Galarza MD Unavailable [phone] Charles Gilbert DO Primary Care Provider Encounter Details Date Type Department Care Team (Late st Contact Info) Description 12/03/2023 Orders Only [facility] Ophthalmology [address] [facility] [address] [place] [address] Prieto Limon MD [address] [place] [address] [address] [place] [address] Ptosis of right eyelid (Primary Dx) Social History Tobacco Use Types Packs/Day Years Used Date Smoking Tobacco: Never Smokeless Tobacco: Former Chew Quit: 04/20/1998 Social Connection and Isolat ion Panel [NHANES] Answer Date Recorded In a typical week, how many times do you talk on the phone with family, friends, or neighbors? More than three times a week 03/03/2022 How often do you get togethe r with friends or relatives? More than three times a week 03/03/2022 How often do you attend chur ch or worship services? More than 4 times per year 03/03/2022 Do you belong to any clubs o r organizations such as sabianism groups, unions, fraternal or athletic groups, or school groups? Yes 03/03/2022 How often do you attend meet ings of the clubs or organizations you belong to? More than 4 times per year 03/03/2022 Are you , , di vorced, , never , or living with a partner? 03/03/2022 AUDIT-C Answer Date Recorded Q1: How often do you have a drink containing alcohol? Never 11/20/2023 Q2: How many drinks containi ng alcohol do you have on a typical day when you are drinking? Patient does not drink Q3: How often do you have si x or more drinks on one occasion? Never 11/20/2023 Overall Financial Resource Strain (CARDIA) Answe r [...] place to sleep or slept in a alf (including now)? No 03/03/2022 Personal Safety Answer Date Recorded Have you ever been in or are you currently in a harmful physical or emotional relationship or is someone making you feel afraid or unsafe? Denies 11/20/2023 Sex and Gender Information Value Date Recorded Sex Assigned at Not on file Legal Sex Male 8:26 AM CDT Gender Identity Not on file Sexual Orientation Not on file documented as of this encounter Plan of Treatment Not on file documented as of this encounter Procedures Procedure Name Priority Date/Time Associated Diagnosis Comments GVF LIMITED/PTOSIS - OD - RIGHT EYE Routine 12/03/2023 9:33 AM CDT Ptosis of right eyelid documented in this encounter Results * GVF Limited/Ptosis - OD - Right Eye (12/03/2023 9:33 AM CDT) Anatomical Region Laterality Modality Head Visual Field Narrative 12/16/2023 10:48 PM CDT Findings: Right eye (OD): Untaped superior meridian at 10 degrees and taped superior meridian at 50 degrees. Impression: Significant improvement in superior visual field with elevation, right side. us Prieto Limon MD OPHTH ELECTRORETINOGRAPH Y Final Result documented in this encounter Visit Diagnoses Diagnosis Ptosis of right eyelid- Primary Unspecified ptosis of eyelid documented in this encounter Care Teams Core Setter Relationship Specialty Start Date End Date Charles Gilbert DO [address] [place] [address] PCP - General Family Medicine 10/02/22 Angie Kim MD Referring Physician Family Practice 03/02/21 La Chun MD [address] [place] [address] Resident Anesthesiology 03/02/22 Mattie Giron, RN Software Designer 03/05/22 Arelis Helm RN [address] [facility] [address] [place] [address] Secondary Coordinator 03/05/22 Benny Galarza MD [address] [place] [address] Gastroenterology 07/11/22 documented as of this encounter
--- OUTSIDE RECORDS SUMMARY | 2024-06-08 18:06 | XMS_ITS | Encounter Summary ---
Author Organization [facility] Address [address] [place] [address] Phone Care Team Providers Care Baker Bread Name Role Phone Benny Galarza MD Primary Care Provider [phone] Angie Kim MD Unavailable [phone] Mojgan Leonardo RN Unavailable [phone] Miscellaneous, Not In File Primary Care Provider Unavailable Angie Kim MD Primary Care Provide r La Chun MD Unavailable [phone] Mattie Giron RN Unavailable [phone] Arelis Helm RN Unavailable [phone] Benny Galarza MD Unavailable [phone] Charles Gilbert DO Primary Care Provider Encounter Details Date Type Department Care Team (Late st Contact Info) Description 02/18/2020 Orders Only [facility] Scanning, Provider Social History Tobacco Use Types Packs/Day Years Used Date Smoking Tobacco: Never Sex and Gender Information Value Date Recorded Sex Assigned at Not on file Legal Sex Male 8:26 AM CDT Gender Identity Not on file Sexual Orientation Not on file documented as of this encounter Plan of Treatment Not on file documented as of this encounter Procedures Procedure Name Priority Date/Time Associated Diagnosis Comments SCAN - LABS 02/18/2020 documented in this encounter Results * SCAN - LABS (02/18/2020) us Provider Scanning Final Result documented in this encounter Visit Diagnoses Not on filedocumented in this encounter Care Teams Baker Bread Relationship Specialty Start Date End Date Benny Galarza MD [address] [place] [id number] PCP - General Gastroenterology 12/31/18 04/18/21 Miscellaneous, Not In File PCP - General 04/19/21 10/17/21 Angie Kim MD [address] [place] [address] PCP - General Family Practice 10/18/21 10/01/22 Charles Gilbert DO [address], [place] [id number] PCP - General Family Medicine 10/02/22 Angie Kim MD [address] [place] [address] Referring Physician Family Practice 03/02/21 Mojgan Leonardo, NITA [address] [place], [place] [id number] Client Program Manager 03/03/2103/04 La Chun MD [address] [place] [address] Resident Anesthesiology 03/02/22 Mattie Giron RN Client Program Manager 03/05/22 Arelis Helm RN [address] [place] [address] Secondary Coordinator 03/05/22 Benny Galarza MD [address] [place] [id number] Gastroenterology 07/11/22 documented as of this encounter
--- OUTSIDE RECORDS SUMMARY | 2024-06-08 18:06 | XMS_ITS ---
Author Organization [place] [id number] Address [address] [place] [address] Care Team Providers Care Machine Cloth Examiner Name Role Phone Angie Kim MD Unavailable La Chun MD Unavailable [phone] Mattie Giron RN Unavailable [phone] Arelis Helm RN Unavailable [phone] Benny Galarza MD Unavailable [phone] Charles Gilbert DO Primary Care Provider Transplant Episode Liver Recipient [facility] ([place], [place]) [facility] Organ Received: Liver Transplanted on 03/02/2022 Marked as Active Follow-up on 03/02/2022 Reason: Transplanted at [facility] Liver CoordinatorMattie Giron RN Fax: N/A Email: N/A [place] Organ Diagnosis Organ Primary Contributory Liver Primary Liver Malignancy: Hepato ma, Hepatocellular Carcinoma (HCC) Infection History Noted Survival Infection Treatment Organism Resolved 01/05/2022 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) 03/13/2023 10/18/2021 Compensated cirr hosis related to hepatitis C virus (HCV) (HCC) 03/13/2023 Donor Information Organ ABO Source Meets Risk Criteria HLA Match Mismatches Cross Match Liver Transplanted O DBD No A: B: DR: Liver Donor Serology Results Anti-CMV CMV IgG: Positive EBV IgG EBV VCA IgG: Positive Anti-HBcAb HBC Total: Negative HBsAg HBsAg: Negative HBV DNA No results on file Anti-HCV HCV: Negative Anti-HIV I/II No results on file Anti-HTLV I/II HTLV: Not Done RPR/VDRL RPR: Negative EBV IgM EBV VCA IgM: Negative HBsAb HBsAb: Not Done EBNA No results on file Toxoplasma Toxoplasma IgG: Negative SARS CoV-2 No results on file Care Team Name Role Phone Fax Email Mattie Giron RN Liver Coordinator [phone] N/A N/A Kike Montoya MD Referring Physician [phone] N/A Events Post-Transplant Pre-Transplant Admitted: 03/02/2022 Referred: 01/01/2019 Transplanted: 03/02/2022 Evaluation began: 1 Discharged: 03/08/2022 Committee: 07/18/2021 Center waitlisted: 2
--- OUTSIDE RECORDS SUMMARY | 2024-06-08 18:06 | XMS_ITS | Clinical Summary ---
Author Organization [place] [id number] [facility] Address [address] [place] [address] Care Team Providers Care Production Utility Worker Name Role Phone Angie Kim MD Unavailable La Chun MD Unavailable [phone] Mattie Giron RN Unavailable [phone] Arelis Helm RN Unavailable [phone] Benny Galarza MD Unavailable [phone] Charles Gilbert DO Primary Care Provider Allergies Active Allergy Reactions Criticality Noted Date [...] mg total) by mouth daily 30 tablet 11 2 Active Additional Information Patient taking differently:81 mg oralEvery morning, Last dose 11/12/23, on hold for surgery, Indications: Myocardial Reinfarction Prevention, prevention of thrombosis, Informant: Self, Reported on 11/13/2023 blood-glucose meter misc 1 applicator 3 (three) times a day 1 meter 1 each 2 Active blood glucose diagnostic strip 1 strip TID with meals. Max 100 each 11 2 Active lancets 30 gauge misc 1 [...] a day as needed for constipation Please poultry picker over the counter or contact PCP for future refills. Thanks! 60 tablet 4 Active Additional Information Patient taking differently:1 tablet oral2 times daily, Please poultry picker over the counter or contact PCP for future refills. Thanks!,Indications: constipation, Informant: Self, Reported on 01/23/2024 Envarsus XR 4 mg tablet extended release 24 hr TAKE ONE TABLET BY MOUTH EVERY DAY. TAKE WITH ONE 1MG TABLET FOR TOTAL DAILY DOSE OF 5MG 30 tablet 4 Active Envarsus XR 1 mg tablet extended release 24 hr TAKE ONE TABLET BY MOUTH EVERY DAY. TAKE WITH ONE 4MG TABLET FOR TOTAL DOSE OF 5MG DAILY 30 tablet 4 Active NIFEdipine (NIFEdipine CC) 90 mg 24 hr tabletIndicatio ns:hypertension Take 1 tablet (90 mg total) by mouth every morning Active melatonin 5 mg tabletIndicatio ns:sleep Take 1 tablet (5 mg total) by mouth nightly Active mycophenolate sodium DR (MYFORTIC) 360 mg EC tabletIndicatio ns:HCC (hepatocellular carcinoma) (HCC),History of liver transplant (CMS/HCC) (HCC),group home (current) use of calcineurin inhibitor Take 1 tablet (360 mg total) by mouth 2 (two) times a day 180 tablet 3 4 04/09/20 25 Active Active Problems Patient Care Coordination No te Formatting of this note migh t be different from the original. Labs at [facility] (starting 03/12) Option 6 FAX: Best fax per lab is [phone] alt fax [phone] Problem Noted Date Diagnosed Date CKD (chronic kidney disease) stage 2, GFR 60-89 ml/min 03/11/2024 Assessment & Plan (03/11/2024 10:13 AM MENTAL HEALTH PROGRAM DIRECTOR): Multifactorial; in part secondary to use of a calcineurin inhibitor. I will continue to follow the serum creatinine in his regular labs. Decreased peripheral vision, right 01/19/2024 Myogenic ptosis of right eyelid 01/19/2024 Decreased peripheral vision, left 11/13/2023 Myogenic ptosis of left eyelid 11/13/2023 Removal of staple 03/28/2022 Immunosuppression 03/28/2022 History of liver transplant (CMS/HCC) 01/07/2022 Assessment & Plan (03/11/2024 10:13 AM MENTAL HEALTH PROGRAM DIRECTOR): He has excellent allograft function. I saw [...] indicated. Assessment & Plan (03/13/2023 10:52 AM MENTAL HEALTH PROGRAM DIRECTOR): S/p liver transplant - Mr. Jesus is [...] (03/03/2021): Added automatically from request for surgery [id number] Assessment & Plan (10/18/2021 4:57 PM CDT): Good response to loco-regional therapy. Continue to monitor imaging studies on a regular basis. Encounter for pre-transplant evaluation for liver transplant 03/13/2023 Encounters Date Type Department Care Team Description 04/24/2024 Telephone [facility] Transplant Liver [address] [facility] [address] [id number] [place] [address] Becky Balderas 03/26/2024 Orders Only [facility] Transplant Liver [address] [facility] [address] [phone] [place] [address] Mattie Giron RN History of liver transplant (CMS/HCC) (HCC) (Primary Dx) 03/13/2024 Telephone [facility] Transplant Liver [address] [facility] [address] [phone] [place] [address] Mattie Giron RN 03/11/2024 10:00 AM MENTAL HEALTH PROGRAM DIRECTOR Office Visit [facility] [address] [facility] Advanced [facility] 12th [place] [address] [place] [address] Tay Mathews MD History of liver transplant (CMS/HCC) (HCC) (Primary Dx); CKD (chronic kidney disease) stage 2, GFR 60-89 ml/min 03/11/2024 7:29 AM MENTAL HEALTH PROGRAM DIRECTOR - 03/11/2024 11:59 PM MENTAL HEALTH PROGRAM DIRECTOR Hospital Encounter [facility] [address] [place] [address] HCC (hepatocellular carcinoma) (HCC); History of liver transplant (CMS/HCC) (HCC); group home (current) use of calcineurin inhibitor Discharge Disposition: Discharge to home or self care 03/11/2024 Telephone [facility] Transplant Liver [address] [facility] [address] [id number] [place] [address] Mattie Giron RN from Last 3 Months Immunizations Immunization Administration Dates Next Due Hep A, Adult 06/22/2019,12/23/2018 Hep B Vaccine 06/22/2019,01/20/2019,12/23/2018 Influenza, Quadrivalent, Spl it, Intramuscular 01/26/2019 Influenza, Quadrivalent, Spl it, Preservative Free, Intramuscular 01/26/2019 Tdap 12/09/2016 Surgical History Surgery Date Site/Laterality Comments BACK SURGERY 04/22/2013 - 04/21/2014 EMBOLIZATION ORGAN ISCHEMIA OR INFARCTION 08/18/2021 N/A APPENDECTOMY 04/22/1960 - 04/21/1961 COLONOSCOPY 07/21/2021 - 08/19/2021 LIVER TRANSPLANT 03/02/2022 ESOPHAGOGASTRODUODENOSCOPY 05/11/2019 ESOPHAGOGASTRODUODENOSCOPY 07/21/2021 - 08/19/2021 BLEPHAROPTOSIS REPAIR 11/20/2023 Left Left internal ptosis repair ([place]) MICRODISCECTOMY 04/22/2019 - 05/22/2019 BLEPHAROPTOSIS REPAIR 02/13/2024 Right Medical History Medical History Date Comments Hepatitis C GERD (gastroesophageal reflu x disease) Type 2 diabetes mellitus (HCC) Cirrhosis (HCC) Low back pain Obesity Sleep apnea uses cpap ninoska e Ptosis of left eyelid ARCADIO - Foll ows with Dr. Limon Diabetes mellitus type II, n on insulin dependent (CMS/HCC) (HCC) Diet and exercise co ntrolled Esophageal varices (HCC) 04/24/2021 Formatt ing of this note might be different from the original. On nadolol, no SE A&P: no changes HCC (hepatocellular carcinoma) (HCC) 03/03/2021 Added automatically from request for surgery [id number] Family History Medical History Relation Name Comments Cancer Father Damon Jesus Cancer Mother Christina Jesus Cystic fibrosis Other Anesthesia problems Neg Hx Relation Name Status Comments Father Damon Jesus Mother Christina Jesus Other Social History Tobacco Use Types Packs/Day Years [...] often do you attend chur ch or zoroastrianism services? More than 4 times per year 03/03/2022 Do you belong to any clubs o r organizations such as holiness groups, unions, fraternal or athletic groups, or [...] place to sleep or slept in a fpc (including now)? No 03/03/2022 Personal Safety Answer [...] on file Sexual Orientation Not on file Obstetrics History Last Filed Vital Signs Vital Sign Reading Time Taken Comments Blood Pressure 148/84 03/11/2024 9:27 AM MENTAL HEALTH PROGRAM DIRECTOR Pulse 76 03/11/2024 9:27 AM MENTAL HEALTH PROGRAM DIRECTOR Temperature 36.4 C (97.5 F) 03/11/2024 9:27 AM MENTAL HEALTH PROGRAM DIRECTOR Respiratory Rate 25 02/13/2024 11:05 AM CDT Oxygen Saturation 92% 02/13/2024 11:05 AM CDT Inhaled Oxygen Concentration - - Weight 119.7 kg (264 lb) 03/11/2024 9:27 AM MENTAL HEALTH PROGRAM DIRECTOR Height 188 cm (6' 2 ) 03/11/2024 9:27 AM MENTAL HEALTH PROGRAM DIRECTOR Body Mass Index 33.9 03/11/2024 9:27 AM MENTAL HEALTH PROGRAM DIRECTOR Plan of Treatment Health Maintenance Due Date Last Done Comments Albumin Creatinine Ratio, Urine 1957 Colon Cancer Screening-Colonoscopy 1957 Depression Screening 1957 Dilated Eye Exam 1957 Foot Exam 1957 Pneumococcal vaccine 65+ (1 of 2 - PCV) 1976 Zoster Vaccine (1 of 2) 1976 Well Visit 65+ 2022 eGFR 03/08/2023 03/08/2022, 02/20, 03/06/2022, Additional history exists Lipid Panel 04/09/2023 04/09/2022, 02/20, 11/19/2021, Additional history exists Prostate Cancer Screening-PSA 04/19/2023 04/19/2021 Hemoglobin A1C 09/24/2023 03/25/2023, 05/24, 03/03/2022, Additional history exists Influenza Vaccine (#1) 2023 01/26/2019, 2018 Fall Risk Assessment 02/12/2025 02/13/2024 DTaP/Tdap/Td Vaccine (2 - Td or Tdap) 12/09/2026 12/09/2016 Hepatitis C Screening Completed 03/13/2023 , 03/13/2023, 04/09/2022, Additional history exists Medical Devices Implanted Type Area Industrial Relations Manager Device Identifier Shelf Expiration Date Model / Serial / Lot [employer] Embosphere Prefill Saline Syringe Compressible Nonaggregate [id number] - [id number] Implanted:Qty: 1 on 08/18/2021 at [facility] [employer] 01/19/2022 [id number] / / [id number] Angio-Seal Vip 6fr Closere Device [id number] - [id number] Implanted:Qty: 1 on 08/18/2021 at [facility] Move In History [facility] 05/22/2022 [id number] / / [id number] Procedures Procedure Name Priority Date/Time Associated Diagnosis [...] Read Routine (OP Routine) 03/11/2024 8:21 AM MENTAL HEALTH PROGRAM DIRECTOR HCC (hepatocellular carcinoma) (HCC) History of liver transplant (CMS/HCC) (HCC) group home (current) use of calcineurin inhibitor HEMOGLOBIN A1C Routine 03/25/2023 HEPATITIS C RNA, QUANTITATIVE, PCR Routine 04/09/2022 LIPID PANEL Routine 04/09/2022 EGFR Routine 03/08/2022 4:18 AM MENTAL HEALTH PROGRAM DIRECTOR PSA SCREEN Routine 04/19/2021 7:30 AM MENTAL HEALTH PROGRAM DIRECTOR Encounter for pre-transplant evaluation for liver transplant Hepatocellular carcinoma (CMS/HCC) (HCC) from Last 3 Months or Most Recently Relevant to Health Maintenance Results * (ABNORMAL) Tacrolimus level trough (05/18/2024) [facility] SCRIBED Tacrolimus, trough 4.8(A) 5.0 - 20.0 [facility] Blood 05/18/2024 Historical Provider MD LAB BLOOD ORDERABLES Katrin l Result Performing Organization Address [facility]/ZIP Co de Phone Number [address] [phone] * (ABNORMAL) CBC with auto differential (05/18/2024) [facility] SCRIBED WBC 7.8 4.8 - 10.8 k/cumm [facility] Hemoglobin 15.1 12.4 - 15.3 g/dL [facility] Hematocrit 46.5(A) 37.0 - 46.0 % [facility] Platelets 145(A) 150 - 420 k/cumm [facility] Lymphocytes 28.7 18.0 - 42.0 % [facility] Monocytes 8.0 2.0 - 11.0 % [facility] Neutrophils 60.9 50.0 - 70.0 % [facility] SCRED Eosinophils 1.7 1.0 - 5.0 % [facility] Basophils 0.3 0.0 - 1.0 % [facility] Blood 05/18/2024 us Historical Provider MD LAB BLOOD ORDERABLES Edit ed Result - Final [facility] [address] [place], [place] [id number] [place] [address] * Gamma GT (05/18/2024) SCRIBED GGT 28 15 - 85 [facility] Blood 05/18/2024 us Historical Provider LAB BLOOD ORDERABLES Edit ed Result - Final [id number] [place] [address] * (ABNORMAL) Comprehensive metabolic panel (05/18/2024) [facility] SCRIBED Sodium 144 136 - 145 mmol/L [facility] Potassium 4.2 3.5 - 5.1 mmol/L [facility] Chloride 104 98 - 108 mmol/L [facility] Carbon Dioxide 28 21 - 32 mmol/L [facility] Urea Nitrogen (BUN) 13 7 - 18 mg/dl [facility] Creatinine 1.32(A) 0.70 - 1.30 mg/dl [facility] Glucose 126(A) 70 - 99 mg/dl [facility] Calcium 9.2 8.5 - 10.1 mg/dl [facility] Bilirubin 0.7 0.00 - 1.00 mg/dl [facility] Plasma Protein 7.2 6.4 - 8.2 g/dl [facility] Albumin 4.2 3.4 - 5.0 g/dl [facility] Alkaline Phosphatase 96 46 - 116 Units/L [facility] Alanine Transaminase (ALT) 24 16 - 63 Units/L [facility] Aspartate Transaminase (AST) 17 15 - 37 Units/L [facility] Blood 05/18/2024 Historical Provider MD LAB BLOOD ORDERABLES Katrin l Result Performing Organization Address [facility]/ZIP Co de Phone Number [address] [phone] * Gamma glutamyl transpeptidase (GGTP) (04/20/2024) SCRIBED GGTP 34 15 - 85 IUnit/mL [facility] Blood 04/20/2024 Historical Provider MD LAB BLOOD ORDERABLES Edit ed Result - Final Performing Organization Address [facility] Co de Phone Number [address] [phone] * (ABNORMAL) Tacrolimus level trough (04/20/2024) SCRIBED Tacrolimus, trough 3.5(A) 5.0 - 20.0 [facility] Blood 04/20/2024 Historical Provider MD LAB BLOOD ORDERABLES Edit ed Result - Final Performing Organization Address [facility] Co de Phone Number [address] [phone] * (ABNORMAL) CBC with auto differential (04/20/2024) SCRIBED WBC 8.1 4.8 - 10.8 k/cumm [facility] SCRIBED Hemoglobin 15.0 12.4 - 15.3 g/dL [facility] SCRIBED Hematocrit 44.1 37.0 - 46.0 % [facility] SCRIBED Platelets 144(A) 150 - 420 k/cumm [facility] SCRIB Lymphocytes 28.4 18.0 - 42.0 % [facility] SCRED Monocytes 8.4 2.0 - 11.0 % [facility] Neutrophils 50.4 50.0 - 70.0 % [facility] SCRED Eosinophils 1.7 1.0 - 5.0 % [facility] Basophils 0.5 0.0 - 1.0 % [facility] Blood 04/20/2024 us Historical Provider LAB BLOOD ORDERABLES Edit ed Result - Final Performing Organization Address City/State/[facility] Co de Phone Number [address] [phone] * (ABNORMAL) Comprehensive metabolic panel (04/20/2024) SCRIBED Sodium 134(A) 136 - 145 mmol/L [facility] Potassium 3.8 3.5 - 5.1 mmol/L [facility] Chloride 102 98 - 108 mmol/L [facility] Carbon Dioxide 28 21 - 32 mmol/L [facility] Urea Nitrogen (BUN) 21(A) 7 - 18 mg/dl [facility] Creatinine 1.47(A) 0.70 - 1.30 mg/dl [facility] Glucose 118(A) 70 - 99 mg/dl [facility] Calcium 9.2 8.5 - 10.1 mg/dl [facility] SCRED Bilirubin 0.5 0.00 - 1.00 mg/dl [facility] Plasma Protein 7.1 6.4 - 8.2 g/dl [facility] Albumin 4.1 3.4 - 5.0 g/dl [facility] SCRIBED Alkaline Phosphatase 109 46 - 116 Units/L [facility] SCRIBED Alanine Transaminase (ALT) 27 16 - 63 Units/L [facility] SCRIBED Aspartate Transaminase (AST) 17 15 - 37 Units/L [facility] Blood 04/20/2024 Historical Provider MD LAB BLOOD ORDERABLES Katrin l Result Performing Organization Address City/[facility]/ZIP Co de Phone Number [address] [phone] * Gamma glutamyl transpeptidase (GGTP) (03/23/2024) SCRIBED GGTP 36 15 - 85 IUnit/mL [facility] Blood 03/23/2024 Historical Provider MD LAB BLOOD ORDERABLES Katrin l Result Performing Organization Address [facility] Co de Phone Number [address] [phone] * Tacrolimus level trough (03/23/2024) SCRIBED Tacrolimus, trough 5.1 5.0 - 20.0 [facility] Blood 03/23/2024 Historical Provider MD LAB BLOOD ORDERABLES Edit ed Result - Final Performing Organization Address [facility]/ZIP Co de Phone Number [address] [phone] * (ABNORMAL) CBC with auto differential (03/23/2024) SCRIBED WBC 8.5 4.8 - 10.8 k/cumm [facility] SCRIBED Hemoglobin 15.3 12.4 - 15.3 g/dL [facility] Hematocrit 45.1 37.0 - 46.0 % [facility] Platelets 141(A) 150 - 420 k/cumm [facility] Lymphocytes 27.8 18.0 - 42.0 % [facility] Monocytes 8.1 2.0 - 11.0 % [facility] Neutrophils 61.8 50.0 - 70.0 % [facility] Eosinophils 1.6 1.0 - 6.0 % [facility] Basophils 0.2 0.0 - 1.0 % [facility] Blood 03/23/2024 us Historical Provider LAB BLOOD ORDERABLES Edit ed Result - Final Performing Organization Address City/State/[facility] Co de Phone Number [address] [phone] * (ABNORMAL) Comprehensive metabolic panel (03/23/2024) SCRIBED Sodium 143 136 - 145 mmol/L [facility] Potassium 4.1 3.5 - 5.1 mmol/L [facility] Chloride 104 98 - 108 mmol/L [facility] Carbon Dioxide 29 21 - 32 mmol/L [facility] Urea Nitrogen (BUN) 17 7 - 18 mg/dl [facility] Creatinine 1.23 0.70 - 1.30 mg/dl [facility] Glucose 119(A) 70 - 99 mg/dl [facility] Calcium 9.3 8.5 - 10.1 mg/dl [facility] Bilirubin 0.8 0.00 - 1.00 mg/dl [facility] Plasma Protein 7.5 6.4 - 8.2 g/dl [facility] SCRIBED Albumin 4.1 3.4 - 5.0 g/dl [facility] SCRIBED Alkaline Phosphatase 117(A) 46 - 116 Units/L [facility] SCRIBED Alanine Transaminase (ALT) 34 16 - 63 Units/L [facility] SCRIB Aspartate Transaminase (AST) 16 15 - 37 Units/L [facility] Blood 03/23/2024 us Historical Provider LAB BLOOD ORDERABLES Edit ed Result - Final [address] [phone] * MRI Abdomen Liver W WO Contrast (03/11/2024 8:21 AM MENTAL HEALTH PROGRAM DIRECTOR) Anatomical Region Laterality Modality Body N/A Magnetic Resonan ce 03/11/2024 11:0 1 AM MENTAL HEALTH PROGRAM DIRECTOR Impressions 03/11/2024 12:00 PM MENTAL HEALTH PROGRAM DIRECTOR Postoperative changes of liver transplantation. Similar 1.0 cm segment 8 LR 3 lesion. Dictated by: Andres Livingston M.D. The radiology attending physician has personally reviewed this study, and had reviewed and/or edited this written report and agrees with it. Electronically signed by: Arya Sheppard M.D. Narrative 03/11/2024 12:00 PM MENTAL HEALTH PROGRAM DIRECTOR EXAMINATION: MAGNETIC RESONANCE IMAGING OF THE ABDOMEN [...] by: Arya Sheppard M.D. us Ruth Romano LABORATORY WORKER IMG MRI PROCEDURES Final R esult * Hemoglobin A1c (03/25/2023) [facility] SCRIBED Hemoglobin A1c 5.4 <5.7 - <5.7 % [facility] Blood 03/25/2023 Historical Provider MD LAB BLOOD ORDERABLES Katrin l Result Performing Organization Address City/[facility]/ZIP Co de Phone Number [address] [phone] * Hepatitis C (HCV) RNA PCR, quantitative (04/09/2022) [facility] SCRIBED HCV RNA <15 - - - IUnit/mL [facility] Comment:Not Detected Blood 04/09/2022 Historical Provider LAB MICROBIOLOGY - GENERA L ORDERABLES Final Result Performing Organization Address [facility] [place] [address], [facility] [phone] * Lipid panel (04/09/2022) [facility] SCRIBED Cholesterol, Total 179 0 - 200 [facility] SCRIBED HDL 45 40 - [facility] SCRIBED LDL 108 <130 - <130 [facility] SCRIBED Triglycerides 131 0 - 150 [facility] Blood 04/09/2022 Historical Provider MD LAB BLOOD ORDERABLES Katrin l Result Performing Organization Address [facility] Co de Phone Number [address] [phone] * (ABNORMAL) eGFR (03/08/2022 4:18 AM MENTAL HEALTH PROGRAM DIRECTOR) eGFR 87(L) 90 - 130 mL/min/1. 73 m2 [facility] Comment: Interpretive Data Reference Interval Normal >/= 90 mL/min/1.73m2 Mildly decreased* 60 - 89 mL/min/1.73m2 Mildly to moderately decreased 45 - 59 mL/min/1.73m2 Moderately to severely decreased 30 - 44 mL/min/1.73m2 Severely decreased 15 - 29 mL/min/1.73m2 Kidney Failure < 15 mL/min/1.73m2 *Relative to young adult level Estimated glomerular filtration rate is determined by the 2020 CKD-EPI equation recommended by the National Kidney [...] last reviewed 2021. Blood 03/08/2022 4:18 AM MENTAL HEALTH PROGRAM DIRECTOR 03/08/2022 4:50 AM MENTAL HEALTH PROGRAM DIRECTOR us Moira BUTCHER LAB BLOOD ORDERABLES Final Result [facility] Department [place] [address] * PSA screen (04/19/2021 7:30 AM MENTAL HEALTH PROGRAM DIRECTOR) PSA-Total 1.23 <=5.40 ng/mL [facility] Comment: Interpretive Data AGE SEX REFERENCE INTERVAL 0 minutes-150 years Female None 0 minutes-49 years Male None 50-59 years Male 0-3.90 60-69 years Male 0-5.40 70-79 years Male 0-6.20 80-150 years Male 0-6.20 Current interpretive data last revised 2017. Blood 04/19/2021 7:30 AM MENTAL HEALTH PROGRAM DIRECTOR 04/19/2021 8:16 AM MENTAL HEALTH PROGRAM DIRECTOR us Tay Mathews MD LAB BLOOD ORDERABLES F inal Result [facility] Department [place] [address] from Last 3 Months or Most Recently Relevant to Health Maintenance Insurance MEDICARE [facility] MEDICARE SUPPLEMENT MEDICARE [facility] MEDICARE SUPPLEMENT Advance Directives For more information, please contact: [phone] Documents on File Type Date Recorded Patient Customer Facilities Supervisor Expl anation ADVANCE DIRECTIVE 03/09/2022 11:07 AM [facility] [employer]-MEDICAL ADVANCE DIRECTIVE 02/15/2022 10:56 AM Maria Luz atkins [email or web address] ADVANCE DIRECTIVE 04/19/2021 1:26 PM [...] 10:52 PM 01/05/2022 11:29 AM Care Teams Production Utility Worker Relationship Specialty Start Date End Date Charles Gilbert DO [address] [place] [address] PCP - General Family Medicine 10/02/22 Angie Kim MD Referring Physician Family Practice 03/02/21 La Chun MD [address] [place] [address] Resident Anesthesiology 03/02/22 Mattie Giron RN Hydrochloric Manufacturing Supervisor 03/05/22 Arelis Helm, RN [address] [facility] [address] [place], [place] [id number] Secondary Coordinator 03/05/22 Benny Galarza MD [address] [place] [address] Gastroenterology 07/11/22
--- OUTSIDE RECORDS SUMMARY | 2024-06-08 18:06 | XMS_ITS | Clinical Summary ---
Author Organization [facility] Address [address] [place] [address] Care Team Providers Care Chemistry Instructor Name Role Phone Unavailable Primary Care Provider Unavailabl e Source Comments [facility],non-owned Affiliates and Associated Physician Practices is amultiple site organization consisting of ambulatory clinics and hospital sitesin [place], [place], [place] and [place]. This disclosure is being madepursuant to the Care Everywhere program and may not contain all information available regarding this patient. Last updated 18.[facility] Social History Tobacco Use Types Packs/Day Years Used Date Smoking Tobacco: Never Assessed Sex and Gender Information Value Date Recorded Sex Assigned at Not on file Gender Identity Not on file Sexual Orientation Not on file Plan of Treatment Health Maintenance Due Date Last Done Comments COLOGUARD (AGES 45-75) - COL ON CA SCREENING 1957 COLON MONITORING 1957 COLONOSCOPY - COLON CA SCREENING 1957 CT COLONOGRAPHY - COLON CA SCREENING 1957 Colorectal Cancer Screening 1957 FIT - COLON CA SCREENING 1957 FLEX SIG - COLON CA SCREENING 1957 LIPID TESTING 1957 MEDICARE AWV 12 MONTHS 1957 HEPATITIS C SCREENING 06/03/1975 DTAP/TDAP/TD VACCINES (1 - Tdap) 1976 PNEUMOCOCCAL VACCINE 50+ (1 of 1 - PCV) 2007 ZOSTER VACCINE (1 of 2) 2007 COVID-19 VACCINE ( - 2023-2 5 season) 2023 INFLUENZA VACCINE (#1) 2023 DEPRESSION SCREENING 04/22/2024 Respiratory Syncytial Virus (RSV) Vaccine Pt: or over 60 yrs (1 - 1-dose 75+ series) 2032 HEPATITIS B VACCINE Aged Out No longe r eligible based on patient's age to complete this topic HIB VACCINE Aged Out No longer eligi ble based on patient's age to complete this topic HPV VACCINE Aged Out No longer eligi ble based on patient's age to complete this topic MENINGOCOCCAL (Group B) VACCINE Aged Out No longer eligible based on patient's age to complete this topic MENINGOCOCCAL VACCINE Aged Out No erin salud eligible based on patient's age to complete this topic ROWDY JESUS Personal/[place] [address] [address] ROWDY JESUS Personal/Family [place] [address] [place] [address]
--- OUTSIDE RECORDS SUMMARY | 2024-06-08 18:06 | XMS_ITS | Clinical Summary ---
Author Organization [facility] Address [address] [place] [address] Care Team Providers Care Data Processing Specialist Name Role Phone Unavailable Primary Care Provider Unavailabl e Allergies Active Allergy Reactions Criticality Noted Date Comments Amlodipine Hyperactive 05/08/2021 Iodine Other (see comment) Low 04/20/2021 Leg numb, lightheaded Cephalexin Rash Low 11/24/2018 Penicillins Hives High 05/06/2019 All over body no sob Sulfa Antibiotics Other (see comment),Unknown Medium 03/26/2019 When he was a child his mom stated he cannot process When he was a child his mom stated he cannot process - willing to trial Bactrim if needed Acetaminophen Other (see comment) High 05/06/2019 Hx of hepatitis C but cleared and has cirrhosis of liver Medications Blood Glucose Monitoring Suppl (D-CARE GLUCOMETER) w/Device KitIndications: Type 2 diabetes mellitus without complication, without long-term current use of insulin ([facility]) Please dispense one device for testing sugars once daily 1 kit 05/18/2021 Active fluconazole (DIFLUCAN) 150 MG tabletIndicatio ns:Yeast infection TAKE 1 TABLET BY MOUTH TODAY. REPEAT IN 72 HOURS NEEDED 2 tablet 01/22/2022 Active Microlet Lancets MiscIndications :Type 2 diabetes mellitus without complication, without long-term current use of insulin ([facility]) USE TO TEST BLOOD SUGAR DAILY 100 each 04/03/2022 Active Acetaminophen 500 MG Cap Take 1,000 mg by mouth 4 (four) times daily. 03/08/2022 Active predniSONE (DELTASONE) 5 mg tablet Take 5 mg by mouth daily. 03/29/2022 Active tacrolimus (PROGRAF) 1 MG capsule Take 1 mg by mouth daily with breakfast. 03/08/2022 Active tacrolimus (PROGRAF) 5 MG capsule 5 mg 2 (two) times daily. 03/13/2022 Active Glucose Blood (CONTOUR NEXT TEST) test stripIndication s:Type 2 diabetes mellitus without complication, without long-term current use of insulin ([facility]) USE TO TEST ONCE DAILY 100 strip 1 04/06/2022 Active ALPRAZolam (XANAX) 0.25 MG tabletIndicatio ns:Anxiety 1-2 tabs at night 90 tablet 09/25/2022 Active Active Problems Problem Noted Date Diagnosed Date History of herniated intervertebral disc 022 Overview (02/27/2022): S/p discectomy around 2017 Has chronic neuropathy on the R side Request disability derrek A&P: Derrek paperwork filled out 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 Also has numerous SKs on his back, stomach irregular, declines dermatology referral, we will monitor Primary hypertension 04/24/2021 Overview (04/06/2022): Was on nadalol for varices, now off and an amlodipine Monitoring at home A&P: RTC in 3 months for in person check; call if pressures at home go up Cirrhosis ([facility]) 04/24/2021 Overview (04/06/2022): Dr. 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 Overview (04/06/2022): Status post liver transplant, off nadolol Type 2 diabetes mellitus wit hout complication, without long-term current use of insulin ([facility]) 04/07/2018 Overview (04/06/2022): A1c trend: 6.2>6.2>5.4 Meds: metformin 500mng daily Lipids: - pt has previously declined statin Microalb: Ophtho: Neuro: PNA: declines Off metformin since liver transplant, wants to know what to do with checking sugars A&P: Continue checking sugars once a day but can rotate when he does it, fasting and postprandial, goals discussed, follow-up in 3 months Rosacea 04/07/2018 Overview (10/03/2021): Has MetroGel at home, not on med list Class 3 severe obesity due t o excess calories with serious comorbidity and body mass index (BMI) of 40.0 to 44.9 in adult ([facility]) 04/07/2018 Overview (04/06/2022): Max weight 326, 263 this a.m. Continues to use Nutrisystem A&P: Congratulated him on his efforts! Controlled substance agreement signed 10/15/2017 Overview (10/03/2021): UDS CSA today Insomnia 01/06/2016 Overview (04/06/2022): Has had anxiety with panic attacks in the past but feels that problems under control Still struggles with insomnia and Xanax works Decline switch in therapy CSA UDS A&P: No changes Functional dyspepsia 09/30/2012 Immunizations Name Administration Dates Next Due Afluria 36 MONTHS+ (Prefilled Syringe IIV4) 10/2018 Tdap (Adacel) 12/09/2016 Tdap (Generic) 12/09/2016 Family History Medical History Relation Comments Cancer Father Cancer Mother Relation Status Comments Father Mother Social History Tobacco Use Types Packs/Day Years Used Date Smoking Tobacco: Former Cigarettes 1 30 0 04/22/1984 - 04/22/2014 Smokeless Tobacco: Never Alcohol Use Standard Drinks/Week Comments No 0 (1 standard drink = 0.6 oz pur e alcohol) AUDIT-C Answer Date Recorded Frequency of Alcohol Consumption Never 04/07/2018 Average Number of Drinks Not on file 018 Frequency of Binge Drinking Not on file 03/22 PHQ-2 Answer Date Recorded Patient Health Questionnaire-2 Score 0 04/06/2022 Sex and Gender Information Value Date Recorded Sex Assigned at Not on file Legal Sex Male 8:03 PM CDT Gender Identity Male 05/12/2021 5:38 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 Sexual Orientation Not on file Last Filed Vital Signs Vital Sign Reading Time Taken Comments Blood Pressure 116/82 02/27/2022 9:27 AM FLATWORK SUPERVISOR Pulse 53 02/27/2022 9:27 AM FLATWORK SUPERVISOR Temperature 36.9 C (98.5 F) 10/03/2021 9:48 AM CDT Respiratory Rate 16 02/27/2022 9:27 AM FLATWORK SUPERVISOR Oxygen Saturation 95% 02/27/2022 9:27 AM FLATWORK SUPERVISOR Inhaled Oxygen Concentration - - Weight 131.5 kg (290 lb) 02/27/2022 9:27 AM FLATWORK SUPERVISOR Height 188 cm (6' 2 ) 02/27/2022 9:27 AM FLATWORK SUPERVISOR Body Mass Index 37.23 02/27/2022 9:27 AM FLATWORK SUPERVISOR Plan of Treatment Health Maintenance Due Date Last Done Comments Kidney Health Evaluation 1957 COVID-19 Vaccine (#1) 1962 Pneumococcal Vaccine: 65+ Years (1 of 2 - PCV) 1963 PHQ-2 (Physician [place]) 1969 Diabetes: Retinopathy Eye Exam 1975 Zoster Vaccines (1 of 2) 1976 Lipid Panel 09/17/2013 09/17/2012 RSV Immunization or 60+ Years (1 - Risk 60-74 years 1-dose series) 2017 Hemoglobin A1C 12/16/2022 06/18/2022, 02/20, 02/27/2022, Additional history exists Influenza Adult (#1) 2024 01/26/2019 PHQ-2 (Physician [place]) 04/22/2024 DTaP, Tdap and Td Vaccines (3 - Td or Tdap) 12/09/2026 12/09/2016, 12/09/2016 Colorectal Cancer Screening Colonoscopy (10 Years) 07/25/2031 07/24/2021, 07/24/2021, 11/30/2019, Additional history exists Hepatitis C Completed 03/03/2022, 02/20, 03/02/2022, Additional history exists Meningococcal B Vaccine Aged Out No l onger eligible based on patient's age to complete this topic Meningococcal Vaccine Aged Out No erin salud eligible based on patient's age to complete this topic RSV Immunizations Under 20 Months Aged Out No longer eligible based on patient's age to complete this topic Medical Devices Explanted Type Area Collections Officer Device Identifier Shelf Expiration Date Model / Serial / Lot Tissue Surgiflo 8ml - [id number] Explanted:Qty: 1 on 05/11/2019 by Rowdy Harmon MD at [facility] Right: Spine Lumbar [employer] 04/21/2020 [id number] / / [id number] Procedures Procedure Name Priority Date/Time Associated Diagnosis Comments OUTSIDE LAB (SCAN ORDER) Routine 06/18/2022 COLONOSCOPY Routine 07/24/2021 7:06 AM CDT LIPID PANEL Routine 09/17/2012 12:00 AM CDT from Last 3 Months or Most Recently Relevant to Health Maintenance Results * OUTSIDE LAB (SCAN) (06/18/2022) HGB A1C 5.5 % HS ONBASE 06/18/2022 [facility] Scanned SCANNING Final Resu lt [facility] ON[facility] * Colonoscopy (07/24/2021 7:06 AM CDT) us Benny Galarza MD GI PROCEDURE ORDERABLES Final Result * LIPID PANEL (09/17/2012 12:00 AM CDT) TRIGLYCERIDES 113 0 - 150 mg/dl [employer] TO EPIC CONVERSION CHOLESTEROL 168 0 - 200 mg/dl [employer] TO EPIC CONVERSION HDL 34 40 - 59 mg/dl [employer] TO EPIC CONVERSION LDL CONVERSION 111 0 - 100 mg/dl [employer] TO EPIC CONVERSION 09/17/2012 09/17/2012 Narrative [employer]IN[employer] TO EPIC CONVERSION - 09/19/2012 9:44 AM CDT Reviewed by CARLOS Sep 19 2012 9:44:00:000AM us Generic Conversion Md [facility] Final R esult [employer]IN[employer] TO EPIC CONVERSION from Last 3 Months or Most Recently Relevant to Health Maintenance Insurance [facility]
== END 2024-06-08 15:31 | disposition home or self-care (01) ==
PROVIDERS: PCP Family Medicine; Visit Provider Family Medicine
DX: Z94.4 Liver transplant status (principal)
CPT/HCPCS: 87637

== ENCOUNTER 2024-08-10 07:36 | Outpatient (RCR) | payer MEDICARE, SELFPAY ==
[2024-06-15 08:20] LABS: Basophils Absolute Auto 0.02 K/mm3 (0.00-0.10); Basophils Percent Auto 0.3 % (0.0-1.0); Eosinophils Absolute Auto 0.06 K/mm3 (0.02-0.50); Eosinophils Percent Auto 0.9 % (1.0-6.0); Hemoglobin 14.7 g/dL (12.4-15.3); Immature Granulocyte Absolute 0.03 K/mm3 (0.00-0.00); Immature Granulocyte Percent A 0.5 % (0.0-0.0); Immature Platelet Fraction Pct 4.8 % (1.0-7.0); Lymphocytes Absolute Auto 2.11 K/mm3 (1.10-4.50); Lymphocytes Percent Auto 32.4 % (18.0-42.0); Mean Corpuscular HGB Conc 32.7 g/dL (32-36); Mean Corpuscular Hemoglobin 27.8 pg (27.0-31.0); Mean Corpuscular Volume 85.2 fL (78.0-102.0); Mean Platelet Volume 10.6 fl (8.7-11.0); Monocytes Absolute Auto 0.46 K/mm3 (0.10-0.90); Monocytes Percent Auto 7.1 % (2.0-11.0); Neutrophils Absolute Auto 3.84 K/mm3 (1.70-7.20); Neutrophils Percent Auto 58.8 % (50.0-70.0); Platelet Count Result 110 K/mm3 (150-420); Red Blood Count 5.28 M/mm3 (4.70-6.10); Red Cell Distribution Width 12.9 % (11.6-14.4); White Blood Count 6.5 K/mm3 (4.8-10.8)
[2024-06-15 11:08] LABS: Alanine Aminotransferase 40 U/L (16-63); Albumin Level 4.1 g/dL (3.4-5.0); Alkaline Phosphatase 96 U/L (46-116); Anion Gap 11 mmol/L (4-12); Aspartate Amino Transferase 37 U/L (15-37); Bilirubin,Total 0.6 mg/dL (0.00-1.00); Blood Urea Nitrogen 17 mg/dL (7-18); Calcium 8.7 mg/dL (8.5-10.1); Carbon Dioxide 28 mmol/L (21-32); Chloride 104 mmol/L (98-108); Estimated Glomerular Filt Rate 54; GGT 34 U/L (15-85); Glucose 119 mg/dL (70-99); Osmolality Calculated 298 mOsm/kg (285-295); Potassium 4.1 mmol/L (3.5-5.1); Sodium 143 mmol/L (136-145); Total Protein 7.4 g/dL (6.4-8.2)
[2024-06-18 08:24] LABS: Tacrolimus Prograf 2.6 mcg/L
[2024-07-13 08:46] LABS: Basophils Absolute Auto 0.04 K/mm3 (0.00-0.10); Basophils Percent Auto 0.5 % (0.0-1.0); Eosinophils Absolute Auto 0.12 K/mm3 (0.02-0.50); Eosinophils Percent Auto 1.5 % (1.0-6.0); Hematocrit 44.5 % (37.0-46.0); Hemoglobin 14.4 g/dL (12.4-15.3); Immature Granulocyte Absolute 0.03 K/mm3 (0.00-0.00); Immature Granulocyte Percent A 0.4 % (0.0-0.0); Lymphocytes Absolute Auto 1.64 K/mm3 (1.10-4.50); Lymphocytes Percent Auto 20.9 % (18.0-42.0); Mean Corpuscular HGB Conc 32.4 g/dL (32-36); Mean Corpuscular Hemoglobin 27.9 pg (27.0-31.0); Mean Corpuscular Volume 86.2 fL (78.0-102.0); Mean Platelet Volume 10.6 fl (8.7-11.0); Monocytes Absolute Auto 0.55 K/mm3 (0.10-0.90); Neutrophils Absolute Auto 5.45 K/mm3 (1.70-7.20); Neutrophils Percent Auto 69.7 % (50.0-70.0); Platelet Count Result 150 K/mm3 (150-420); Red Blood Count 5.16 M/mm3 (4.70-6.10); Red Cell Distribution Width 13.2 % (11.6-14.4); White Blood Count 7.8 K/mm3 (4.8-10.8)
[2024-07-13 09:48] LABS: Alanine Aminotransferase 21 U/L (16-63); Albumin Level 4.1 g/dL (3.4-5.0); Alkaline Phosphatase 102 U/L (46-116); Anion Gap 11 mmol/L (4-12); Aspartate Amino Transferase 16 U/L (15-37); Bilirubin,Total 0.6 mg/dL (0.00-1.00); Blood Urea Nitrogen 17 mg/dL (7-18); Calcium 9.2 mg/dL (8.5-10.1); Carbon Dioxide 28 mmol/L (21-32); Chloride 103 mmol/L (98-108); Estimated Glomerular Filt Rate 50; GGT 28 U/L (15-85); Glucose 119 mg/dL (70-99); Osmolality Calculated 296 mOsm/kg (285-295); Potassium 4.1 mmol/L (3.5-5.1); Sodium 142 mmol/L (136-145); Total Protein 7.6 g/dL (6.4-8.2)
[2024-07-15 16:08] LABS: Tacrolimus Prograf 3.1 mcg/L
[2024-08-10 07:58] LABS: Basophils Absolute Auto 0.03 K/mm3 (0.00-0.10); Basophils Percent Auto 0.4 % (0.0-1.0); Eosinophils Absolute Auto 0.14 K/mm3 (0.02-0.50); Eosinophils Percent Auto 1.7 % (1.0-6.0); Hematocrit 46.2 % (37.0-46.0); Immature Granulocyte Absolute 0.03 K/mm3 (0.00-0.00); Immature Granulocyte Percent A 0.4 % (0.0-0.0); Immature Platelet Fraction Pct 4.7 % (1.0-7.0); Lymphocytes Absolute Auto 2.01 K/mm3 (1.10-4.50); Lymphocytes Percent Auto 24.2 % (18.0-42.0); Mean Corpuscular HGB Conc 32.5 g/dL (32-36); Mean Corpuscular Hemoglobin 27.9 pg (27.0-31.0); Mean Platelet Volume 10.8 fl (8.7-11.0); Monocytes Absolute Auto 0.67 K/mm3 (0.10-0.90); Monocytes Percent Auto 8.1 % (2.0-11.0); Neutrophils Absolute Auto 5.42 K/mm3 (1.70-7.20); Neutrophils Percent Auto 65.2 % (50.0-70.0); Platelet Count Result 133 K/mm3 (150-420); Red Blood Count 5.37 M/mm3 (4.70-6.10); Red Cell Distribution Width 13.2 % (11.6-14.4); White Blood Count 8.3 K/mm3 (4.8-10.8)
[2024-08-10 08:27] LABS: Alanine Aminotransferase 35 U/L (16-63); Albumin Level 4.1 g/dL (3.4-5.0); Alkaline Phosphatase 107 U/L (46-116); Anion Gap 10 mmol/L (4-12); Aspartate Amino Transferase 20 U/L (15-37); Bilirubin,Total 0.7 mg/dL (0.00-1.00); Blood Urea Nitrogen 15 mg/dL (7-18); Calcium 9.3 mg/dL (8.5-10.1); Carbon Dioxide 29 mmol/L (21-32); Chloride 104 mmol/L (98-108); Estimated Glomerular Filt Rate 55; GGT 28 U/L (15-85); Glucose 121 mg/dL (70-99); Osmolality Calculated 297 mOsm/kg (285-295); Potassium 3.9 mmol/L (3.5-5.1); Sodium 143 mmol/L (136-145); Total Protein 7.7 g/dL (6.4-8.2)
[2024-08-12 14:44] LABS: Tacrolimus Prograf 4.1 mcg/L
== END 2024-09-13 23:59 | disposition home or self-care (01) ==
LOC: CHSLAB 07:36
PROVIDERS: PCP Family Medicine; Visit Provider Internal Medicine Gastroenterology
DX: Z94.4 Liver transplant status (principal)
CPT/HCPCS: 36415; 80053; 80197; 82977; 85025; 85055

== ENCOUNTER 2024-10-28 11:51 | Outpatient (CLI) | payer MEDICARE, SELFPAY ==
--- NOTE | ~2024-10-28 | XR_ITS ---
Clinical Indication: Lung nodule PA and lateral views of the chest: Comparison: None Findings: The lungs are clear, without evidence of focal consolidation or pleural effusion. Relative elevation of left hemidiaphragm noted. Cardiomediastinal silhouette is within normal limits. Bones an d soft tissues are unremarkable. Impression: Clear lungs. Reviewed, dictated and finalized at location . Impression: Clear lungs.
--- OUTSIDE RECORDS SUMMARY | 2024-10-28 11:57 | XMS_ITS | Encounter Summary ---
Author Organization [facility] Address [facility] [place] [address] Care Team Providers Care Painter Airbrush Name Role Phone Angie Kim MD Primary Care Provider [phone] Keyona Cardona NP Primary Care Provider [phone] Danielito Rollins MD Primary Care Provider [phone] Encounter Details Date Type Department Care Team (Late st Contact Info) Description 09/18/2021 MyCAndre Phillipet Message Enc [facility] Family Medicine [place] [id number] [place] [address] Angie Kim MD [address] [place] [phone] Metformin Social History Tobacco Use Types [...] CDT Gender Identity Male 05/12/2021 5:38 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 Angie Silva Sent: 09/18/2021 8:20 PM CDT Subject: Metformin Bill needs a prescription for Metformin. He has an upcoming appointment with you, however, he had acall from [place] this morning, ended up going there, but [...] glucose documented in this encounter Care Teams Painter Airbrush Relationship Specialty Start Date End Date Angie Kim MD PCP - General FAMILY PRACTICE 04/04/18 06/03/22 Keyona Cardona NP PCP - General Nurse Practitioner Family 06/04/2209/20 Danielito Rollins MD [address] [place] [address] [place] [address] PCP - General FAMILY PRACTICE 10/06/22 10/08/22 documented as of this encounter
--- OUTSIDE RECORDS SUMMARY | 2024-10-28 11:57 | XMS_ITS | Encounter Summary ---
Author Organization [facility] Address [address] [place] [address] Care Team Providers Care Human Resources Records Clerk Name Role Phone Angie Kim MD Unavailable [phone] aL Chun MD Unavailable [phone] Mattie Giron RN Unavailable + [phone] Arelis Helm RN Unavailable [phone] Benny Galarza MD Unavailable [phone] Charles Gilbert DO Primary Care Provider Encounter Details Date Type Department Care Team (Late st Contact Info) Description 09/01/2024 Results Follow-Up [facility] Transplant Liver [address] [facility] [address] [phone] [place] [address] Mattie Giron RN MRI Abdomen Liver W WO Contrast Social History Tobacco Use Types Packs/Day Years [...] week 03/03/2022 How often do you attend [facility] or jewish services? More than 4 times per year 03/03/2022 Do you belong to any clubs o r organizations such as mosque groups, unions, fraternal or athletic groups, or [...] place to sleep or slept in a usp (including now)? No 03/03/2022 Personal Safety Answer [...] on filedocumented in this encounter Care Teams Human Resources Records Clerk Relationship Specialty Start Date End Date Charles Gilbert DO [address] [place] [address] PCP - General Family Medicine 10/02/22 Angie Kim MD Referring Physician Family Practice 03/02/21 La Chun MD [address] [place] [address] Resident Anesthesiology 03/02/22 Mattie Giron RN Manager Brand 03/05/22 Arelis Helm, RN [address] [facility] [address] [place], [place] [id number] Secondary Coordinator 03/05/22 Benny Galarza MD [address] [place] [address] Gastroenterology 07/11/22 documented as of this encounter
--- OUTSIDE RECORDS SUMMARY | 2024-10-28 11:57 | XMS_ITS | Clinical Summary ---
Author Organization [facility] Address [address] [place] [address] Care Team Providers Care Can Closing Machine Tender Name Role Phone Unavailable Primary Care Provider Unavailabl e Source Comments [facility],non-owned Affiliates and Associated Physician Practices is amultiple site organization consisting of ambulatory clinics and hospital sitesin [place], [place], [place] and [place]. This disclosure is being madepursuant to the Care Everywhere program and may not contain all information available regarding this patient. 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
--- OUTSIDE RECORDS SUMMARY | 2024-10-28 11:57 | XMS_ITS | Encounter Summary ---
Author Organization [facility] Healthcare Address [address] [place] [address] Care Team Providers Care Licensing Specialist Name Role Phone Angie Kim MD Unavailable [phone] La Chun MD Unavailable [phone] Mattie Giron RN Unavailable [phone] Arelis Helm RN Unavailable [phone] Benny Galarza MD Unavailable [phone] Charles Gilbert DO Primary Care Provider Encounter Details Date Type Department Care Team (Late st Contact Info) Description 09/04/2024 Results Follow-Up [facility] Transplant Liver [address] [facility] [address] Mail[address] [phone] [place] [address] Chest W Contrast Social History Tobacco Use Types Packs/Day [...] week 03/03/2022 How often do you attend [facility] or mandaen services? More than 4 times per year 03/03/2022 Do you belong to any clubs o r organizations such as orthodox groups, unions, fraternal or athletic groups, or [...] place to sleep or slept in a long-term (including now)? No 03/03/2022 Personal Safety Answer [...] on filedocumented in this encounter Care Teams Licensing Specialist Relationship Specialty Start Date End Date Charles Gilbert DO [address] [place] [address] PCP - General Family Medicine 10/02/22 Angie Kim MD Referring Physician Family Practice 03/02/21 La Chun MD [address] [place] [address] Resident Anesthesiology 03/02/22 Mattie Giron RN Real Estate Agency Principal 03/05/22 Arelis Helm, RN [address] [facility] [address] [place] [address] Secondary Coordinator 03/05/22 Benny Galarza MD [address] [place] [address] Gastroenterology 07/11/22 documented as of this encounter
--- OUTSIDE RECORDS SUMMARY | 2024-10-28 11:58 | XMS_ITS | Encounter Summary ---
Author Organization [facility] Healthcare Address [address] [place] [address] Care Team Providers Care Mold Dumper Name Role Phone Angie Kim MD Unavailable La Chun MD Unavailable [phone] Mattie Giron RN Unavailable [phone] Arelis Helm RN Unavailable [phone] Benny Galarza MD Unavailable [phone] Charles Gilbert DO Primary Care Provider Encounter Details Date Type Department Care Team (Late st Contact Info) Description 09/23/2024 Results Follow-Up [facility] Transplant Liver [address] [facility]] [address] Mail[address] [phone] [place] [address] Mattie Giron RN PET/CT FDG Skull to Thigh Social History Tobacco Use Types Packs/Day Years [...] week 03/03/2022 How often do you attend [facility] or rastafari services? More than 4 times per year 03/03/2022 Do you belong to any clubs o r organizations such as mormon groups, unions, fraternal or athletic groups, or [...] place to sleep or slept in a custodial (including now)? No 03/03/2022 Personal Safety Answer [...] on filedocumented in this encounter Care Teams Mold Dumper Relationship Specialty Start Date End Date Charles Gilbert DO [address] [place] [address] PCP - General Family Medicine 10/02/22 Angie Kim MD Referring Physician Family Practice 03/02/21 La Chun MD [address] [place], [place] [id number] Resident Anesthesiology 03/02/22 Mattie Giron RN Sleeve Setter 03/05/22 Arelis Helm, RN [address] [facility] [address] [place], [place] [id number] Secondary Coordinator 03/05/22 Benny Galarza MD [address] [place] [address] Gastroenterology 07/11/22 documented as of this encounter
--- OUTSIDE RECORDS SUMMARY | 2024-10-28 11:58 | XMS_ITS | Referral Summary ---
Author Organization [facility] [address] [facility] Address [address] [place] [address] Care Team Providers Care Software Testing Specialist Name Role Phone Angie Kim MD Unavailable La Chun MD Unavailable [phone] Mattie Giron RN Unavailable [phone] Arelis Helm RN Unavailable [phone] Benny Galarza MD Unavailable [phone] Charles Gilbert DO Primary Care Provider Encounters Date Type Department Care Team Description 10/27/2024 Telephone [facility] Surgery [address] [facility] [address] [place] [phone] Jaocb Griffith RMA 10/22/2024 Orders Only [facility] Surgery [address] [facility] Floor 5 [place] [phone] Dayron Camara NP Lung nodule (Primary Dx) 10/21/2024 Orders Only [facility] Surgery [address] [facility] Floor 5 [place] [address] Dayron Camara NP Lung nodule (Primary Dx) 10/19/2024 7:30 AM CDT - 10/21/2024 9:05 PM CDT Hospital Encounter [facility] 1 [place] [address] Eva Funes MD Lung nodule Discharge Disposition: Discharge to home or self care 10/19/2024 11:35 AM CDT - 10/19/2024 2:45 PM CDT Surgery [facility] Operating Room 1 [place] [address] Eva Funes MD XI ROBOTIC ASSISTED THORACOSCOPIC SURGERY LEFT UPPER LOBECTOMY 10/19/2024 11:39 AM CDT Anesthesia Event [facility] Operating Room 1 [place] [address] Devin Villar MD PhD Mitzi Griffith NP 10/08/2024 Orders Only [facility] Surgery [facility] Floor 5 [place] [phone] Dayron Camara NP Gingivitis (Primary Dx) 10/08/2024 8:30 AM CDT Pre-Admission Testing [facility] ([facility]) [address] [place] [id number] Preoperative testing (Primary Dx) 10/07/2024 Documentation [facility] and [facility] Transplant Liver [address] [facility] [address] [phone] [place] [address] Linda Longo RN 10/07/2024 Results Follow-Up [facility] and [facility] Transplant Liver [address] [facility] [address] [phone] [place] [address] Linda Longo RN Cytology 10/02/2024 Telephone [facility] Surgery [facility] Floor 5 [place] [phone] Dayron Camara NP 10/02/2024 9:17 AM CDT Anesthesia Event [facility] Interventional Pulmonology [address] [place] [phone] Dayron Mccall MD 10/02/2024 9:00 AM CDT - 10/02/2024 10:00 AM CDT Surgery [facility] Interventional Pulmonology [address] [place] [phone] Damian Monaco MD BRONCHOSOPY WITH ENDOBRONCHIAL ULTRASOUND WITH GUIDE - PERIPHERAL LESION(S) 10/02/2024 6:05 AM CDT - 10/02/2024 10:55 AM CDT Hospital Encounter [facility] Interventional Pulmonology [facility] [place] [phone] Damian Monaco MD Abnormal chest CT Discharge Disposition: Discharge to home or self care 09/29/2024 Orders Only [facility] and [facility] Transplant Liver [address] [place] [address] [address] [phone] [place] [address] Mattie Giron, NITA HCC (hepatocellular carcinoma) (HCC); History of liver transplant (HCC); retirement (current) use of calcineurin inhibitor 09/24/2024 Telephone [facility] and [facility] Transplant Liver [address] [place] [address] 3403 Mailstop -[phone] [place] [address] Mattie Giron RN 09/23/2024 Results Follow-Up [facility] and [facility] Transplant Liver [address] [place] [address] 3406 Mailstop [phone] [place] [address] Mattie Giron, NITA PET/CT FDG Skull to Thigh 09/22/2024 Telephone [facility] Surgery [address] [facility] Floor 5 [place] [phone] Dayron Camara NP 09/22/2024 12:23 PM CDT - 09/22/2024 11:59 PM CDT Hospital Encounter [facility] Pulmonary [address] [facility] [address] [place] [phone] Lung nodule Discharge Disposition: Discharge to home or self care 09/22/2024 9:03 AM CDT - 09/22/2024 11:59 PM CDT Hospital Encounter [facility] - PET [address] [facility] Floor 8 [place] [address] Discharge Disposition: Discharge to home or self care 09/22/2024 9:03 AM CDT - 09/22/2024 11:59 PM CDT Hospital Encounter [facility] - PET [address] [facility] Floor 8 [place] [address] Lung nodule Discharge Disposition: Discharge to home or self care 09/15/2024 1:00 PM CDT Office Visit [facility] Surgery [address] [facility] Floor 5 [place] [phone] Eva Funes MD Lung nodule (Primary Dx); HCC (hepatocellular carcinoma) (HCC); History of liver transplant (HCC); Class 3 severe obesity due to excess calories with serious comorbidity and body mass index (BMI) of 40.0 to 44.9 in adult; Type 2 diabetes mellitus with other specified complication, unspecified whether watermelon inspector insulin use (HCC) 09/11/2024 Orders Only [facility] Cardiothoracic Surgery [address] [facility] 8th Floor [phone] [place] [phone] Dayron Camara NP Lung nodule (Primary Dx) 09/07/2024 Telephone [facility] Transplant Liver [address] [facility] 340 Mailstop [phone] [place] [address] Mattie Giron, NITA 09/04/2024 Telephone [facility] Transplant Liver [address] [facility] [address] Mail[address] [phone] [place] [address] Mattie Giron, NITA 09/04/2024 Results Follow-Up [facility] Transplant Liver [address] [facility] 340 Mailstop [phone] [place] [address] Mattie Giron, NITA CT Chest W Contrast 09/04/2024 1:20 PM CDT Lab [facility] Advanced [facility] ([facility]) [address] [place] [phone] HCC (hepatocellular carcinoma) (HCC); History of liver transplant (HCC); Lung nodule 09/04/2024 Orders Only [facility] and [facility] Transplant Liver [address] [facility] [address] Mail[address] [phone] [place] [address] Mattie Giron, NITA HCC (hepatocellular carcinoma) (HCC) (Primary Dx) 09/04/2024 10:32 AM CDT - 09/04/2024 11:59 PM CDT Hospital Encounter [facility] Radiology [facility]) [address] [place] [address] Lorie Santoyo MD HCC (hepatocellular carcinoma) (HCC); History of liver transplant (HCC); Lung nodule Discharge Disposition: Discharge to home or self care 09/01/2024 Telephone [facility] Transplant Liver [address] [place] [address] [address] Mail[address] [phone] [place] [address] Mattie Giron RN 09/01/2024 Telephone [facility] Transplant Liver [address] [place] [address] [address] Mail[address] [phone] [place] [address] Mattie Giron RN 09/01/2024 Results Follow-Up [facility] Transplant Liver [address] [place] [address] 340 Mail[address] [phone] [place] [address] Mattie Giron, NITA MRI Abdomen Liver W WO Contrast 09/01/2024 8:45 AM CDT - 09/01/2024 11:59 PM CDT Hospital Encounter [facility] Rad[facility]) [address] [place] [address] Tay Mathews MD History of liver transplant (HCC); HCC (hepatocellular carcinoma) (HCC); Liver lesion Discharge Disposition: Discharge to home or self care from Last 3 Months Allergies Active Allergy Reactions Criticality Noted Date Comments Adhesive Other (See comments),Redness Low 10/08/2024 Skin Tearing Pt states paper tape is tolerated better Cephalexin Rash Medium 11/24/2018 Iodinated Contrast Media Mental status changes Low 04/20/2021 Legs numb and lightheadedness Penicillins Hives,Itching Medium 03/26/2019 Sulfa (Sulfonamide Antibiotics) Other (See comments),Unknown Low 03/26/2019 As a child 02/2022 tolerates bactrim Medications ALPRAZolam (XANAX) 0.25 mg tabletIndicati ons:anxiety,Sl eep Take 0.5 tablets (0.125 mg total) by mouth nightly 0.5 tablet - 1 tablet nightly 0 12/09/19 Active aspirin 81 mg enteric coated tablet Take 1 tablet (81 mg total) by mouth daily 30 tablet 03/05/20 Active Additional Information Patient taking differently:81 mg oralEvery morning, Last dose 11/12/23, on hold for surgery, Indications: prevention of thrombosis, Informant: Self, Reported on 10/19/2024 blood-glucose meter misc 1 applicator 3 (three) times a day 1 meter 1 each 03/05/20 Active blood glucose diagnostic strip 1 strip TID with meals. Max / 100 each 03/05/20 Active lancets 30 gauge misc 1 lancet TID with meals. Max of 100 each 03/05/[address] (PROTONIX) 40 mg EC tablet TAKE 1 TABLET (40MG TOTAL) BY MOUTH DAILY PLEASE CONTACT YOUR PRIMARY CARE PROVIDER FOR FUTURE REFILLS OF THE MEDICATION AND MANAGEMENT AND MONITORING OF ACID REFLUX 90 tablet 09/29/19 Active Additional Information Patient taking differently: 40 mg oral Daily (early AM), Indications: GERD, Informant: Self, Reported on 10/19/2024 senna-docusate (Senna Plus) 8.6-50 mg Take 1 tablet by mouth 2 (two) times a day as needed for constipation Please molded goods spot picker over the counter or contact PCP for future refills. Thanks! 60 tablet 07/19/19 Active Additional Information Patient taking differently:1 tablet oral 2 times daily PRN, constipation, Please molded goods spot picker over the counter or contact PCP for future refills. Thanks!,Indications: constipation, Informant: Self, Reported on 10/08/2024 NIFEdipine (NIFEdipine CC) 90 mg 24 hr tabletIndicati ons:hypertensi on Take 1 tablet (90 mg total) by mouth every morning Active melatonin 5 mg tabletIndicati ons:sleep Take 1 tablet (5 mg total) by mouth nightly as needed (Sleep) Active Envarsus XR 1 mg tablet extended release 24 hr TAKE ONE TABLET BY MOUTH EVERY DAY. TAKE WITH ONE 4MG TABLET FOR TOTAL DOSE OF 5MG DAILY 30 tablet 09/05/19 Active Additional Information Patient taking differently: 1 mg oral Daily (early AM), Take with 4 mg tablet for a total of 5 mg, Indications: Prevention of Kidney Transplant Rejection, Informant: Self, Reported on 10/19/2024 Envarsus XR 4 mg tablet extended release 24 hr TAKE ONE TABLET BY MOUTH EVERY DAY. TAKE WITH ONE 1MG TABLET FOR TOTAL DAILY DOSE OF 5MG 30 tablet 09/05/19 Active Additional Information Patient taking differently: 4 mg oral Daily (early AM), Take with 1 mg tablet for a total of 5 mg, Indications: immunosuppression maintenance tx for lung transplant, Informant: Self, Reported on 10/19/[address] (MYFORTIC) 360 mg EC tabletIndicati ons:HCC (hepatocellula r carcinoma) (HCC),History of liver transplant (HCC),retirement (current) use of calcineurin inhibitor Take 1 tablet (360 mg total) by mouth daily 90 tablet 3 09/30/192025 Active Additional Information Patient taking differently:360 mg oralDaily (early AM), Indications: Prevention of Liver Transplant Rejection, Informant: Self, Reported on 10/19/2024 polyethylene glycol (MIRALAX) 17 gram packetIndicati ons:constipati on Take 1 packet (17 g total) by mouth daily as needed for constipation Pt reports he typically takes every am Active magnesium oxide 500 mg capsuleIndicat ions:Supplemen t Take 1 tablet by mouth nightly Active acetaminophen 500 mg capsuleIndicat ions:Pain Take 2 capsules (1,000 mg total) by mouth every 6 (six) hours as needed for pain 10/22/19 25 Active cyclobenzaprin e (FLEXERIL) 5 mg tabletIndicati ons:Muscle spasm Take 1 tablet (5 mg total) by mouth 3 (three) times a day as needed for muscle spasms 42 tablet 10/23/19 25 Active oxyCODONE (ROXICODONE) 5 mg immediate release tabletIndicati ons:Pain Take 1 tablet (5 mg total) by mouth every 4 (four) hours as needed for pain for up to 7 days 42 tablet 10/23/19 25 2024 Active magnesium gluconate 200 mg tabletIndicati ons:supplement Take 3 tablets (600 mg total) by mouth nightly 2024 Discontin ued(Alter kiera therapy) diphenhydrAMIN E (BENADRYL) 50 mg capsuleIndicat ions:HCC (hepatocellula r carcinoma) (HCC),History of liver transplant (HCC),Lung nodule,Contras t media allergy Take 1 capsule (50 mg total) by mouth once for 1 dose Take one hour prior to CT scan 1 capsule 09/02/19 25 2024 Discontin ued(Thera py completed ) mycophenolate sodium DR (MYFORTIC) 360 mg EC tabletIndicati ons:HCC (hepatocellula r carcinoma) (HCC),History of liver transplant (HCC),intermediate manager (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 225 mL 10/09/19 25 2024 cyclobenzaprin e (FLEXERIL) 5 mg tablet Take 1 tablet (5 mg total) by mouth 3 (three) times a day as needed for muscle spasms 30 tablet 10/22/19 25 2024 Discontin ued(Reord er) oxyCODONE (ROXICODONE) 5 mg immediate release tabletIndicati ons:Pain Take 1 tablet (5 mg total) by mouth every 4 (four) hours as needed for pain 20 tablet 10/22/19 25 2024 Discontin ued(Reord er) Active Problems Patient Care Coordination No te Formatting of this note migh t be different from the original. Labs at [facility] (starting 03/12) Option 6 FAX: Best fax per lab is [phone] alt fax [phone] This is a 69 year old male presenting to us at the request of Dr. Dae Sommer for an evaluation of a lung mass. He has a medical history significant for type 2 diabetes, hypertension, SANG on CPAP and chronic kidney disease, stage II. He is a never smoker. He has a history significant for HCV related cirrhosis and hepatocellular carcinoma and is status post liver transplant in 2021. He underwent an MRI of the abdomen/liver on 09/01/2024. This showed an unchanged 1.0 cm segment 8 LR-3 lesion. Multiple smaller new observations in segment 2/for our characterize as LR-3. Left mid lung 2.8 cm nodule, could be primary lung malignancy or metastatic disease. He underwent a chest CT on 09/04/2024. This showed a new 2.8 cm lingular pulmonary nodule with lobular contours and air bronchogram. No pneumothorax, edema, pleural effusion or pneumonia. No increasing thoracic lymphadenopathy. Heart size is unchanged. No pericardial effusion. Thickened left adrenal gland. Orthotopic liver transplantation. Previous LR-3 observations are not seen. Huy-en-Y hepaticojejunostomy. Abdominal aortic caliber is unchanged. No osseous lesions. He is scheduled for a PET scan and pulmonary function test on 09/22/2024. He is here for further surgical evaluation and discussion. Problem Noted Date Diagnosed Date Acute pain 10/19/2024 Assessment & Plan (10/21/2024 11:05 AM CDT): S/p robotic assisted lobectomy - PO multimodal - d/c HUMAN RESOURCES FILE CLERK GERD (gastroesophageal reflux disease) Assessment & Plan (10/19/2024 4:16 PM CDT): PPI SANG (obstructive sleep apnea) 10/19/2024 Assessment & Plan (10/20/2024 9:25 AM CDT): Previously compliant with home CPAP. Stop using with lung mass diagnosis - encourage CPAP once clear from a surgical standpoint - SANG precautions Abnormal chest CT 09/28/2024 Lung nodule 09/22/2024 Assessment & Plan (10/21/2024 11:10 AM CDT): 10/19 robotic assisted VATS for NSCLC - chest tube management, montior output and potential air leak - possibly remove chest tube this afternoon if chest tube output does not molded goods spot picker - fat challenge, monitor chest tube out - lasix - increase bowel reg - wean oxygen for saturation > 90, pulm hygiene - PT to eval and treat - dvt ppx with sequentials and lovenox Class 3 severe obesity due t o excess calories with serious comorbidity and body mass index (BMI) of 40.0 to 44.9 in adult 09/15/2024 CKD (chronic kidney disease) stage 2, GFR 60-89 ml/min 03/11/2024 Assessment & Plan (10/19/2024 4:17 PM CDT): - Avoid nephrotoxins, renally dose meds as appropriate - Optimize SBP for renal perfusion - trend renal function and UOP Assessment & Plan (03/11/2024 10:13 AM BAG MAKING MACHINE OPERATOR): Multifactorial; in part secondary to use of a calcineurin inhibitor. I will continue to follow the serum creatinine in his regular labs. Decreased peripheral vision, right 01/19/2024 Myogenic ptosis of right eyelid 01/19/2024 Decreased peripheral vision, left 11/13/2023 Myogenic ptosis of left eyelid 11/13/2023 Removal of staple 03/28/2022 Immunosuppression 03/28/2022 History of liver transplant 01/07/2022 Assessment & Plan (10/21/2024 11:05 AM CDT): - continue home immunosuppression - consult liver transplant for medication management Assessment & Plan (03/11/2024 10:13 AM BAG MAKING MACHINE OPERATOR): He has excellent allograft function. I saw [...] indicated. Assessment & Plan (03/13/2023 10:52 AM BAG MAKING MACHINE OPERATOR): S/p liver transplant - Mr. Jesus is [...] (03/03/2021): Added automatically from request for surgery [id number] Assessment & Plan (10/18/2021 4:57 PM CDT): [...] Never Passive Smoke Exposure: Never Smokeless Tobacco: Never Tobacco Cessation:Counseling Given: Not Answered Social Connection and Isolat ion Panel [NHANES] Answer Date Recorded In a typical week, how many times do you talk on the phone with family, friends, or neighbors? More than three times a week 03/03/2022 How often do you get togethe r with friends or relatives? More than three times a week 03/03/2022 How often do you attend [facility] or [facility] services? More than 4 times per year 03/03/2022 Do you belong to any clubs o r organizations such as gnosticism groups, unions, fraternal or athletic groups, or school groups? Yes 03/03/2022 How often do you attend meet ings of the clubs or organizations you belong to? More than 4 times per year 03/03/2022 Are you , , di vorced, , never , or living with a partner? 03/03/2022 AUDIT-C Answer Date Recorded Q1: How often do you have a drink containing alcohol? Never 10/08/2024 Q2: How many drinks containi ng alcohol do you have on a typical day when you are drinking? Patient does not drink Q3: How often do you have si x or more drinks on one occasion? Never 10/08/2024 Overall Financial Resource Strain (CARDIA) Answe r [...] place to sleep or slept in a longterm (including now)? No 03/03/2022 Personal Safety Answer Date Recorded Have you ever been in or are you currently in a harmful physical or emotional relationship or is someone making you feel afraid or unsafe? Denies 10/20/2024 Sex and Gender Information Value Date Recorded Sex Assigned at Not on file Legal Sex Male 8:26 AM CDT Gender Identity Not on file Sexual Orientation Not on file Last Filed Vital Signs Vital Sign Reading Time Taken Comments Blood Pressure 148/84 10/21/2024 7:47 PM CDT Pulse 106 10/21/2024 7:47 PM CDT Temperature 36.4 C (97.5 F) 10/21/2024 7:47 PM CDT Respiratory Rate 18 10/21/2024 7:47 PM CDT Oxygen Saturation 90% 10/21/2024 7:47 PM CDT Inhaled Oxygen Concentration - - Weight 128.8 kg (284 lb) 10/19/2024 7:00 PM CDT Height 188 cm (6' 2) 10/19/2024 7:00 PM CDT Body Mass Index 36.46 10/19/2024 7:00 PM CDT Plan of Treatment Not on file Medical Devices Implanted Type Area Community Services Coordinator Device Identifier Shelf Expiration Date Model / Serial / Lot [employer] [facility] [employer] Prefill Saline Syringe Compressible Nonaggregate [id number] - [id number] Implanted:Qty: 1 on 08/18/2021 at [facility] [employer] 01/19/2022 [id number] / / [id number] Angio-Seal Vip 6fr Closere Device [id number] - [id number] Implanted:Qty: 1 on 08/18/2021 at [facility] [employer] 05/22/2022 [id number] / / [id number] Procedures Procedure Name Priority Date/Time Associated Diagnosis Comments XR CHEST PA LATERAL 2 VIEWS Timed 10/21/2024 6:06 PM CDT TACROLIMUS LEVEL, TROUGH STAT 10/21/2024 9:29 AM CDT POCT GLUCOSE DEVICE Routine 10/19/2024 7 :57 PM CDT XR CHEST 1 VIEW ED Urgent/IP Urgent 10/19/2024 7:29 PM CDT LIPID PANEL Routine 10/19/2024 5:41 PM CDT EGFR Routine 10/19/2024 5:41 PM CDT CBC WITHOUT DIFFERENTIAL Routine 10/19/2024 5:41 PM CDT APTT Routine 10/19/2024 5:41 PM CDT PROTIME-INR Routine 10/19/2024 5:41 PM CDT COMPREHENSIVE METABOLIC PANEL Routine 10/19/2024 5:41 PM CDT XR CHEST 1 VIEW ED Urgent/IP Urgent 10/19/2024 5:37 PM CDT POCT GLUCOSE DEVICE Routine 10/19/2024 5 :18 PM CDT POCT GLUCOSE DEVICE Routine 10/19/2024 3 :15 PM CDT POCT GLUCOSE DEVICE Routine 10/19/2024 1 :12 PM CDT ND AN PROCEDURE PLACEHOLDER Routine 10/19/2024 12:09 PM CDT ND AN ELECTIVE ENDOTRACHEAL AIRWAY Routine 10/19/2024 12:09 PM CDT ND AN PROCEDURE PLACEHOLDER Routine 10/19/2024 12:09 PM CDT DISSECTION LYMPH NODE 10/19/2024 11:42 AM CDT Lung nodule VIDEO ASSISTED THORACOSCOPIC SURGERY LOBECTOMY - LAPAROSCOPIC ROBOTIC ASSISTED 10/19/2024 11:42 AM CDT Lung nodule POCT GLUCOSE DEVICE Routine 10/19/2024 1 0:34 AM CDT TACROLIMUS LEVEL, TROUGH Routine 10/16/2024 GAMMA GT Routine 10/16/2024 COMPREHENSIVE METABOLIC PANEL Routine 10/16/2024 CBC WITH AUTO DIFFERENTIAL Routine 10/16/2024 TYPE AND SCREEN 14 DAY Routine 10/08/2024 9:04 AM CDT Preoperative testing POCT HEMOGLOBIN A1C Routine 10/08/2024 8 :25 AM CDT PD-L1 IHC 22C3 PHARMDX, KEYTRUDA Routine 10/02/2024 3:18 PM CDT XR CHEST 1 VIEW ED Urgent/IP Urgent 10/02/2024 10:25 AM CDT CYTOLOGY Routine 10/02/2024 9:47 AM CDT Abnormal chest CT BRONCHOSCOPY NEEDLE ASPIRATION 10/02/2024 9:18 AM CDT Abnormal chest CT BRONCHOSOPY WITH ENDOBRONCHIAL ULTRASOUND WITH GUIDE - PERIPHERAL LESION(S) 10/02/2024 9:18 AM CDT Abnormal chest CT BRONCHOSCOPY 10/02/2024 7:39 AM CDT POCT GLUCOSE DEVICE Routine 10/02/2024 7 :05 AM CDT PULMONARY FUNCTION TEST (PFT) Routine 09/22/2024 1:40 PM CDT Lung nodule PET/CT FDG SKULL TO THIGH Schedule MARCELINO, Read MARCELINO (Appt Today, Awaiting Results) 09/22/2024 11:53 AM CDT Lung nodule TACROLIMUS LEVEL, TROUGH Routine 09/21/2024 COMPREHENSIVE METABOLIC PANEL Routine 09/21/2024 GAMMA GT Routine 09/21/2024 CBC WITH AUTO DIFFERENTIAL Routine 09/21/2024 EGFR Routine 09/04/2024 11:32 AM CDT HCC (hepatocellular carcinoma) (HCC) History of liver transplant (HCC) Lung nodule DIFFERENTIAL AUTO Routine 09/04/2024 11: 32 AM CDT HCC (hepatocellular carcinoma) (HCC) History of liver transplant (HCC) Lung nodule GAMMA GT Routine 09/04/2024 11:32 AM CDT HCC (hepatocellular carcinoma) (HCC) History of liver transplant (HCC) Lung nodule COMPREHENSIVE METABOLIC PANEL Routine 09/04/2024 11:32 AM CDT HCC (hepatocellular carcinoma) (HCC) History of liver transplant (HCC) Lung nodule CBC WITH AUTO DIFFERENTIAL Routine 09/04/2024 11:32 AM CDT HCC (hepatocellular carcinoma) (HCC) History of liver transplant (HCC) Lung nodule [id number], TUMOR MARKER Routine 09/04/2024 11:32 AM CDT HCC (hepatocellular carcinoma) (HCC) History of liver transplant (HCC) Lung nodule CT CHEST W CONTRAST Schedule Routine, Read Routine (OP Routine) 09/04/2024 11:10 AM CDT HCC (hepatocellular carcinoma) (HCC) History of liver transplant (HCC) Lung nodule MRI ABDOMEN LIVER W WO CONTRAST Schedule Routine, Read Routine (OP Routine) 09/01/2024 10:05 AM CDT History of liver transplant (HCC) HCC (hepatocellular carcinoma) (HCC) Liver lesion TACROLIMUS LEVEL, TROUGH Routine 08/10/2024 COMPREHENSIVE METABOLIC PANEL Routine 08/10/2024 GAMMA GT Routine 08/10/2024 CBC WITH AUTO DIFFERENTIAL Routine 08/10/2024 HEPATITIS C RNA, QUANTITATIVE, PCR Routine 04/09/2022 PSA SCREEN Routine 04/19/2021 7:30 AM BAG MAKING MACHINE OPERATOR Encounter for pre-transplant evaluation for liver transplant Hepatocellular carcinoma (HCC) from Last 3 Months or Most Recently Relevant to Health Maintenance Results * XR Chest Pa Lateral 2 Views (10/21/2024 6:06 PM CDT) Anatomical Region Laterality Modality Body, Chest N/A Computed Radiogr aphy 10/22/2024 8:24 AM CDT Impressions 10/22/2024 10:39 AM CDT The current study is compared with the prior radiograph dated 10/19/2024. Patient is status post left upper lobectomy. Mild left basilar atelectasis. Minimal right basilar atelectasis. Small left pneumothorax, new from prior. No right pneumothorax. Trace left pleural effusion. No right pleural effusion. Unchanged cardiomediastinal silhouette. Dictated by: Alcon Ferrell MD The radiology attending physician has personally reviewed this study, and had reviewed and/or edited this written report and agrees with it. Electronically signed by: Raudel Silva M.D. Narrative 10/22/2024 10:39 AM CDT EXAMINATION: 2 view chest radiograph Procedure Note Raudel Silva MD - 10/22/2024 EXAMINATION: 2 view chest radiograph IMPRESSION: The current study is compared with the prior radiograph dated 10/19/2024. Patient is status post left upper lobectomy. Mild left basilar atelectasis. Minimal right basilar atelectasis. Small left pneumothorax, new from prior. No right pneumothorax. Trace left pleural effusion. No right pleural effusion. Unchanged cardiomediastinal silhouette. Dictated by: Alcon Ferrell MD The radiology attending physician has personally reviewed this study, and had reviewed and/or edited this written report and agrees with it. Electronically signed by: Raudel Silva M.D. Erasto Antonio NP IMG XR PROCEDURES Final Resul t * Tacrolimus level trough (10/21/2024 9:29 AM CDT) Tacrolimus trough 7.6 ng/mL Comment: Interpretive Data Testing performed by liquid chromatography-tandem mass spectrometry. Therapeutic concentrations vary depending on type of transplanted organ and time elapsed since transplant. Typical trough concentrations range from 5-15 ng/mL. This test was developed and its performance characteristics determined by the [facility] consistent with CLIA requirements. This test has not been cleared or approved by the [place] Food and Drug administration. Current interpretive data last reviewed 2019. Blood 10/21/2024 9:29 AM CDT 10/21/2024 10:01 AM CDT Meryl Gar NP LAB BLOOD ORDERABLES nal Result [facility] Department of Laboratories [place], [place] [id number] * POCT glucose (10/19/2024 7:57 PM CDT) Glucose, POC 154 70 - 199 mg/dL Blood 10/19/2024 7:57 PM CDT 10/19/2024 7:57 PM CDT Eva Agata Funes MD LAB POCT ORDERABLES - DE VICE Final Result [facility] Department [place] [address] * XR Chest 1 View (10/19/2024 7:29 PM CDT) Anatomical Region Laterality Modality Body, Chest N/A Digital Radiogra phy 10/20/2024 8:31 AM CDT Impressions 10/20/2024 9:06 AM CDT First exam 10/19/2024 at 5:33 PM: The current study is compared with the prior radiograph dated 10/02/2024. There is a left chest tube in place. Patient is status post left upper lobectomy. No pleural effusion or pneumothorax. Mild opacities at the right lung base could represent atelectasis or aspiration. Stable cardiomediastinal silhouette. Second exam 10/19/2024 at 7:05 PM: No substantial interval change. Dictated by: Alcon Ferrell MD The radiology attending physician has personally reviewed this study, and had reviewed and/or edited this written report and agrees with it. Electronically signed by: Linh Jones M.D. Narrative 10/20/2024 9:06 AM CDT Examination: 2 portable chests Chest one view portable Chest one view portable Procedure Note Linh Jones MD - 10/20/2024 Examination: 2 portable chests Chest one view portable Chest one view portable IMPRESSION: First exam 10/19/2024 at 5:33 PM: The current study is compared with the prior radiograph dated 10/02/2024. There is a left chest tube in place. Patient is status post left upper lobectomy. No pleural effusion or pneumothorax. Mild opacities at the right lung base could represent atelectasis or aspiration. Stable cardiomediastinal silhouette. Second exam 10/19/2024 at 7:05 PM: No substantial interval change. Dictated by: Alcon Ferrell MD The radiology attending physician has personally reviewed this study, and had reviewed and/or edited this written report and agrees with it. Electronically signed by: Linh Jones M.D. Eva Funes MD IMG XR PROCEDURES Final Result * (ABNORMAL) eGFR (10/19/2024 5:41 PM CDT) eGFR 54(L) >=60 mL/min/1. 73 m2 Comment: Interpretive Data Reference Interval Normal >/= [...] interpretive data was last reviewed 2021. Blood 10/19/2024 5:41 PM CDT 10/19/2024 5:54 PM CDT Eva Funes MD LAB BLOOD ORDERABLES Fin al Result [facility] Department [place] [address] * aPTT (10/19/2024 5:41 PM CDT) aPTT 31 28 - 38 sec Comment: Interpretive Data Heparin therapeutic range: 66.0 - 100.0 seconds. Range based on correlation with therapeutic heparin activity range of 0.3 - 0.7 Units/mL. Current interpretive data was last revised on 2023. Blood 10/19/2024 5:41 PM CDT 10/19/2024 5:59 PM CDT Eva Funes MD LAB BLOOD ORDERABLES Fin al Result Performing Organization Address [facility] de Phone Number [facility] [place] [address] * Protime-INR (10/19/2024 5:41 PM CDT) [facility] PT 11.0 9.7 - 13.0 sec INR 1.02 0.90 - 1.20 [facility] Comment: Interpretive data Oral anticoagulant therapeutic ranges: Venous thromboembolism prophylaxis or treatment: 2.0-3.0 CARDIOLOGY Standard range: 2.0-3.0 High-intensity range: 2.5-3.5 Refer to indication-specific guidelines for appropriate target ranges for prosthetic heart valve replacement. Current interpretive data was last revised on 2019. Blood 10/19/2024 5:41 PM CDT 10/19/2024 5:59 PM CDT Eva Funes MD LAB BLOOD ORDERABLES Fin erma Result Performing Organization Address [facility] de Phone Number [facility] Department [place] [address] * (ABNORMAL) CBC without differential (10/19/2024 5:41 PM CDT) [facility] WBC 14.55(H) 3.80 - 9.90 K/cumm Hgb 14.1 13.0 - 17.5 g/dL [facility] Hct 43.1 38.9 - 50.3 % [facility] Plt 129(L) 150 - 400 K/cumm [facility] MPV 11.0 9.1 - 12.3 fL [facility] RBC 4.99 4.30 - 5.80 M/cumm [facility] MCV 86.4 81.3 - 96.4 fL [facility] MCH 28.3 27.1 - 33.3 pg [facility] MCHC 32.7 32.3 - 35.7 g/dL [facility] RDW CV 13.9 11.1 - 14.9 % [facility] RDW SD 43.4 35.7 - 48.1 fL [facility] NRBC abs 0.00 0.00 - 0.01 K/cumm [facility] Blood 10/19/2024 5:41 PM CDT 10/19/2024 5:53 PM CDT Eva Funes MD LAB BLOOD ORDERABLES Fin al Result [facility] Department [place] [address] * (ABNORMAL) Lipid panel (10/19/2024 5:41 PM CDT) Cholesterol 195 30 - 199 mg/dL Comment: Interpretive Data Ages < or = 19 years Acceptable: <170 mg/dL Borderline high: 170-199 mg/dL High: >or= 200 mg/dL Ages > or = 20 years Desirable: <200 mg/dL Borderline high: 200-239 mg/dL High: >or= 240 mg/dL Literature References: 1. Expert Panel on Integrated Guidelines for Cardiovascular Health and Risk Reduction in Children and Adolescents. Pediatrics 2011;128:S213 2. NCEP Expert Panel. Circulation 2004;110:227 Current Interpretive Data was last revised on 2017. Triglycerides 164(H) <=149 mg/dL [facility] Comment: Interpretive Data Ages < or = 9 years Acceptable: <75 mg/dL Borderline high: 75-99 mg/dL High: >or= 100 mg/dL Ages 10 to 20 years Acceptable: <90 mg/dL Borderline high: 90-129 mg/dL High: >or= 130 mg/dL Ages > or = 20 years Desirable: <150 mg/dL Borderline high: 150-199 mg/dL High: 200-499 mg/dL Very high: >or= 499 mg/dL Literature References: 1. Expert Panel on Integrated Guidelines for Cardiovascular Health and Risk Reduction in Children and Adolescents. Pediatrics 2011;128:S213 2. NCEP Expert Panel. Circulation 2004;110:227 Current Interpretive Data was last revised on 2017. HDL 41 >=40 mg/dL [facility] Comment: Interpretive Data Ages < or = 19 years Acceptable: >45 mg/dL Borderline low: 40-45 mg/dL Low: <40 mg/dL Ages > or = 20 years Desirable: >or= 60 mg/dL Low: <40 mg/dL Literature References: 1. Expert Panel on Integrated Guidelines for Cardiovascular Health and Risk Reduction in Children and Adolescents. Pediatrics 2011;128:S213 2. NCEP Expert Panel. Circulation 2004;110:227 Current Interpretive Data was last revised on 2017. LDL, calculated 125 <=129 mg/dL [facility] Comment: Interpretive Data Ages < or = 19 years Acceptable: <110 mg/dL Borderline high: 110-129 mg/dL High: >or= 130 mg/dL Ages > or = 20 years Optimal: <100 mg/dL Near optimal: 100-129 mg/dL Borderline high: 130-159 mg/dL High: >160 mg/dL Calculated using the Fernando LDL-C estimating equation. This equation was implemented on 2023. Prior to this date LDL-C was estimated using the Friedewald equation. Literature References: 1. Expert Panel on Integrated Guidelines for Cardiovascular Health and Risk Reduction in Children and Adolescents. Pediatrics 2011;128:S213 2. NCEP Expert Panel. Circulation 2004;110:227 3. Fernando Richards et al. WANDA Cardiol. 2020 August 20;5(5):540-548. doi: 10.1001/jamacardio.2020.0013 Current Interpretive Data was last revised on 2023. Non-HDL Cholesterol 154 mg/dL [facility] Comment: Interpretive Data Ages < or = 19 years Acceptable: <120 mg/dL Borderline high: 120-144 mg/dL High: >145 mg/dL Ages > or = 20 years When triglycerides are >200 mg/dL, Non-HDL cholesterol is a secondary target of therapy with treatment goals that are 30 mg/dL greater than the LDL cholesterol target. Literature References: 1. Expert Panel on Integrated Guidelines for Cardiovascular Health and Risk Reduction in Children and Adolescents. Pediatrics 2011;128:S213 2. NCEP Expert Panel. Circulation 2004;110:227 Current Interpretive Data was last revised on 2017. Chol/HDL ratio 5 [facility] Blood 10/19/2024 5:41 PM CDT 10/19/2024 5:54 PM CDT Narrative LEONILA ANNA - 10/20/2024 11:30 AM CDT Reflex Eva Funes MD LAB BLOOD ORDERABLES Fin al Result [facility] Department [place] [address] * (ABNORMAL) Comprehensive metabolic panel (10/19/2024 5:41 PM CDT) Sodium 142 135 - 145 mmol/L Potassium, pl 5.3(H) 3.3 - 4.9 mmol/L [facility] Chloride 106 97 - 110 mmol/L [facility] CO2 26 22 - 32 mmol/L [facility] Anion gap 10 2 - 15 mmol/L [facility] BUN 23 6 - 25 mg/dL [facility] Creatinine 1.43(H) 0.80 - 1.30 mg/dL [facility] Glucose 169 70 - 199 mg/dL [facility] Comment: Interpretive Data Fasting glucose >/= 126 mg/dl is diagnostic for diabetes. Fasting is defined as no caloric intake for at least 8 hours. Fasting glucose between 100 mg/dl to 125 mg/dl is diagnostic of prediabetes. In a patient with classic symptoms of hyperglycemia or hyperglycemic crisis, a random glucose >/= 200 mg/dl is diagnostic for diabetes. In the absence of unequivocal hyperglycemia, results should be confirmed by repeat testing. The classification and Diagnosis of Diabetes Diabetes Care 202; 46: S19-S40. Current interpretive data was last revised 2022. Calcium 8.9 8.5 - 10.3 mg/dL [facility] Bilirubin, total 0.3 0.1 - 1.2 mg/dL [facility] Protein, pl 7.5 6.5 - 8.5 g/dL [facility] Albumin 4.5 3.5 - 5.0 g/dL [facility] Alk phos 93 40 - 130 Units/L [facility] ALT 26 7 - 55 Units/L [facility] AST 36 10 - 50 Units/L [facility] Blood 10/19/2024 5:41 PM CDT 10/19/2024 5:54 PM CDT Eva Funes MD LAB BLOOD ORDERABLES Fin al Result [facility] Department [place] [address] * XR Chest 1 View - in ICU (10/19/2024 5:37 PM CDT) Anatomical Region Laterality Modality Body, Chest N/A Computed Radiogr aphy 10/20/2024 8:31 AM CDT Impressions 10/20/2024 9:06 AM CDT First exam 10/19/2024 at 5:33 PM: The current study is compared with the prior radiograph dated 10/02/2024. There is a left chest tube in place. Patient is status post left upper lobectomy. No pleural effusion or pneumothorax. Mild opacities at the right lung base could represent atelectasis or aspiration. Stable cardiomediastinal silhouette. Second exam 10/19/2024 at 7:05 PM: No substantial interval change. Dictated by: Alcon Ferrell MD The radiology attending physician has personally reviewed this study, and had reviewed and/or edited this written report and agrees with it. Electronically signed by: Linh Jones M.D. Narrative 10/20/2024 9:06 AM CDT Examination: 2 portable chests Chest one view portable Chest one view portable Procedure Note Linh Jones MD - 10/20/2024 Examination: 2 portable chests Chest one view portable Chest one view portable IMPRESSION: First exam 10/19/2024 at 5:33 PM: The current study is compared with the prior radiograph dated 10/02/2024. There is a left chest tube in place. Patient is status post left upper lobectomy. No pleural effusion or pneumothorax. Mild opacities at the right lung base could represent atelectasis or aspiration. Stable cardiomediastinal silhouette. Second exam 10/19/2024 at 7:05 PM: No substantial interval change. Dictated by: Alcon Ferrell MD The radiology attending physician has personally reviewed this study, and had reviewed and/or edited this written report and agrees with it. Electronically signed by: Linh Jones M.D. Eva Funes MD IMG XR PROCEDURES Final Result * POCT glucose (10/19/2024 5:18 PM CDT) Glucose, POC 164 70 - 199 mg/dL Blood 10/19/2024 5:18 PM CDT 10/19/2024 5:18 PM CDT Eva Funes MD LAB POCT ORDERABLES - DE VICE Final Result Performing Organization Address [facility] Co sd Phone Number [facility] [employer] [place] [address] * POCT glucose (10/19/2024 3:15 PM CDT) Glucose, POC 170 70 - 199 mg/dL Blood 10/19/2024 3:15 PM CDT 10/19/2024 3:15 PM CDT Eva Funes MD LAB POCT ORDERABLES - DE VICE Final Result Performing Organization Address [facility] Co sd Phone Number [facility] [employer] [place] [address] * POCT glucose (10/19/2024 1:12 PM CDT) Glucose, POC 156 70 - 199 mg/dL Blood 10/19/2024 1:12 PM CDT 10/19/2024 1:12 PM CDT Eva Funes MD LAB POCT ORDERABLES - DE VICE Final Result [facility] Department [place] [address] * ND AN ELECTIVE ENDOTRACHEAL AIRWAY, ND AN PROCEDURE PLACEHOLDER (10/19/2024 12:09 PM CDT) Narrative Ruth Bauman BSN - 10/19/2024 12:09 PM CDT Ruth Bauman BSN 10/19/2024 12:10 PM Airway Patient location: OR Urgency: elective Indications for airway management: anesthesia and airway protection Difficult airway: no Staff: Supervising provider: Pravin Valente MD PhD Placed by: Other staff: Ruth Bauman BSN Emergent airway documentation: Risks and benefits discussed: yes Consent obtained: yes Consent given by: patient Airway prep: Preoxygenated: yes Patient position: sniffing Spontaneous ventilation during airway: absent Sedation level during airway: GA Final airway details: Final airway type: endotracheal airway Tube type: ETT - double lumen left Cuffed: yes Technique used for successful ETT placement: video laryngoscopy Insertion site: oral Blade type: Alejandro Blade size: 4 Cormack-Lehane (video): grade I - full view of glottis Cuff inflated with: air Placement verified by: auscultation and CO2 detection Airway secured with: silk tape Number of attempts: 1 us Pravin Valente MD PhD ANESTHESIA ORDERABLES Katrin l Result * ND AN PROCEDURE PLACEHOLDER (10/19/2024 12:09 PM CDT) Ruth Worthington BSN - 10/19/2024 12:09 PM CDT Ruth Bauman BSN 10/19/2024 12:09 PM Peripheral IV Catheter Patient location: OR Staff: Supervising provider: Pravin Valente MD PhD Placed by: Anesthesiologist: Pravin Valente MD PhD Preprocedure prep: Prep solution: chlorhexadine PPE: gloves and provider hat/mask PIV line: Laterality: right Site: forearm Catheter size: 18 g Technique: direct visualization and palpatation Procedure details: good blood return and occlusive dressing applied Number of attempts: 2 Other sites attempted: 1st failed attempt at another right hand IV. Assessment: Events: patient tolerated procedure well with no complications us Pravin Valente MD PhD ANESTHESIA ORDERABLES Katrin l Result * POCT glucose (10/19/2024 10:34 AM CDT) Glucose, POC 108 70 - 199 mg/dL Blood 10/19/2024 10:3 4 AM CDT 10/19/2024 10:34 AM CDT us Eva Funes MD LAB POCT ORDERABLES - DE VICE Final Result [facility] Department [place] [address] * (ABNORMAL) Tacrolimus level trough (10/16/2024) SCRIBED Tacrolimus, trough 4.6(A) 5.0 - 20.0 [facility] Blood 10/16/2024 Manpreet Provider LAB BLOOD ORDERABLES Edit ed Result - Final [address] [phone] * (ABNORMAL) CBC with auto differential (10/16/2024) SCRIBED WBC 8.4 4.8 - 10.8 K/cumm [facility] SCRIBED Hemoglobin 15.1 12.4 - 15.3 g/dL [facility] SCRIB Hematocrit 45.2(A) 37.0 - 45.0 % [facility] SCRIBED Platelets 141(A) 150 - 420 K/cumm [facility] SCRIBED RBC [facility] Comment:- SCRIBED Neutrophils 61.0 50.0 70.0 [facility] SCRIBED Lymphocytes 30.6 18.0 42.0 [facility] SCRIBED Monocytes 6.4 2.0 11.0 [facility] SCRED Eosinophils 1.1 1.0 6.0 [facility] SCRED Basophils 0.5 0.0 1.0 [facility] Blood 10/16/2024 Historical Provider MD LAB BLOOD ORDERABLES Edit ed Result - Final Performing Organization Address [facility]/ZIP Co de Phone Number [address] [phone] * Gamma GT (10/16/2024) [facility] Signature SCRIBED GGT 19 15 - 73 [facility] Blood 10/16/2024 Historical Provider MD LAB BLOOD ORDERABLES Edit ed Result - Final Performing Organization Address [facility] Co de Phone Number [address] [phone] * (ABNORMAL) Comprehensive metabolic panel (10/16/2024) [facility] SCRIBED Sodium 142 137 - 145 mmol/L [facility] Potassium 4.4 3.4 - 5.0 mmol/L [facility] Chloride 110(A) 98 - 107 mmol/L [facility] Carbon Dioxide 25 22 - 30 mmol/L [facility] Urea Nitrogen (BUN) 15 9 - 20 mg/dl [facility] Creatinine 1.21 0.7 - 1.3 mg/dl [facility] Glucose 130(A) 65 - 110 mg/dl [facility] Calcium 9.4 8.4 - 10.2 mg/dl [facility] SCRIBED Bilirubin 0.8 0.2 - 1.3 mg/dl [facility] SCRIBED Plasma Protein 7.3 6.3 - 8.2 g/dl [facility] SCRED Albumin 4.6 3.5 - 5.1 g/dl [facility] SCRED Alkaline Phosphatase 76 38 - 126 Units/L [facility] SCRED Alanine Transaminase (ALT) 22 6 - 50 Units/L [facility] SCRED Aspartate Transaminase (AST) 28 17 - 59 Units/L [facility] Blood 10/16/2024 Historical Provider MD LAB BLOOD ORDERABLES Katrin l Result [address] [phone] * TYPE AND SCREEN 14 DAY (10/08/2024 9:04 AM CDT) Sri, indirect Negative ABO Rh O Positive [facility] Blood 10/08/2024 9:04 AM CDT 10/08/2024 9:51 AM CDT Narrative [facility] - 10/08/2024 11:26 AM CDT Is this test being ordered in advance for a procedure?->Yes Expected date of procedure:->10/19/24 Has the patient been transfused in the past 3 months?->No Steve Blandon NP LAB BLOOD BANK TEST ORDERABLES Final Result [facility] [place] [address] * (ABNORMAL) POCT hemoglobin A1c (10/08/2024 8:25 AM CDT) Hgb A1C, POC 5.9(H) 4.0 - 5.6 % Est Average Gluc POC 123 mg/dL [facility] Comment: The ADA recommends reporting an estimated Average Glucose (eAG) with all Hemoglobin A1c results using the equation derived from a study of 507 normal and diabetic adults. Minority populations were underrepresented and children were not included. (Diabetes Care 31:7686-9400, 2008). The eAG is not equivalent to a fasting glucose. Blood 10/08/2024 8:25 AM CDT 10/08/2024 8:25 AM CDT Eva Funes MD POINT OF CARE TEST ORDER MICAH Final Result [facility] Department [place] [address] * PD-L1 IHC 22C3 pharmDx, Keytruda (10/02/2024 3:18 PM CDT) PD-L1 IHC 22C3 Keytruda See scanned report Tissue 10/02/2024 3:18 PM CDT 10/07/2024 3:18 PM CDT Damian Monaco MD LAB PATHOLOGY ORDERABLE S Final Result [facility] [address] Department [place] [address] * XR Chest 1 View (10/02/2024 10:25 AM CDT) Anatomical Region Laterality Modality Body, Chest N/A Computed Radiogr aphy 10/02/2024 10:2 7 AM CDT Impressions 10/02/2024 10:27 AM CDT FINDINGS/IMPRESSION: No pleural effusion or pneumothorax. Left midlung mass corresponding to finding on PET CT 09/22/2024. Bibasilar subsegmental atelectasis. Heart is top normal in size. Thoracic aortic calcifications. No acute bony abnormality. Electronically signed by: James Christopher M.D. Narrative 10/02/2024 10:27 AM CDT EXAM: XR CHEST 1 VIEW INDICATION: Other (type) post bronch COMPARISON: Chest radiograph 03/02/2022, PET/CT 09/22/2024 Procedure Note James Christopher MD - 10/02/2024 EXAM: XR CHEST 1 VIEW INDICATION: Other (type) post bronch COMPARISON: Chest radiograph 03/02/2022, PET/CT 09/22/2024 IMPRESSION: FINDINGS/IMPRESSION: No pleural effusion or pneumothorax. Left midlung mass corresponding to finding on PET CT 09/22/2024. Bibasilar subsegmental atelectasis. Heart is top normal in size. Thoracic aortic calcifications. No acute bony abnormality. Electronically signed by: Jaems Christopher M.D. Damian Monaco MD IMG XR PROCEDURES Final Result * Cytology (10/02/2024 9:47 AM CDT) Fluid (Lung (Cytology)) 10/02/2024 9:47 AM CDT Narrative PATHOLOGY [facility] - 10/07/2024 9:48 AM CDT [address] [address] Tele: Manisha Ibrahim MD - Mask Layout Designer Note to Patients: This report may contain a detailed description of human tissue sent by a health care provider to the laboratory for pathologic evaluation. The content of this report is essential for diagnosis and may provide important critical findings. This information may be unfamiliar to patients to review without a medical professional present. It is advised that the patient review this report in the presence of a health care provider who can answer questions and explain the details. CYTOLOGY REPORT Patient Name: CASTILLO JESUS Address: [place] [address] Gender: M : 1955 (Age: 69) Service: Surgery Location: INTERV PULM [facility] #: [id number] Patient Type MBC SAME DAY SURGERY Taken: 10/02/2024 Reported: 10/07/2024 Physician(s): Antoine Upton D.O. 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 ADDENDA: Addendum Comment This field contains a PDF document (see scanned image which follows report). If your system does not support PDF viewing, please refer to [employer] or the original report to view the PDF document. Jody Valencia M.D. Date Ordered: 10/14/2024 Status: Signed Out Date Complete: 10/14/2024 By: Jody Valencia M.D. Date Reported: 10/26/2024 DIAGNOSIS COMMENT: This case will be sent for PD-L1 IHC with the results reported in an addendum. Additional testing is available upon request. SPECIMEN TYPE: A: ARCADIO IMMEDIATE ASSESSMENT: Lung, ARCADIO, FNA (pass #1): - Rare suspicious cells; look non-small cell and not lymphoid (RER) CLINICAL DIAGNOSIS AND HISTORY: Abnormal chest CT GROSS DESCRIPTION: Received is one air-dried and one alcohol-fixed glass slide, each labeled Sergey Jesus/57. One slide is submitted for Diff-Quik stain; one slide is submitted for Pap stain. Also received in CytoRich Red in a container labeled Castillo Jesus and ARCADIO are 20 ml of cloudy, dark red fluid with red fragments. Submitted for cell block. MICROSCOPIC DESCRIPTION: Microscopic evaluation shows rare scattered clusters of enlarged suspicious cells. The cells are present singly and clusters. The suspicious cells are not well represented on the Pap stained slide. The cell block shows scattered focal suspicious cells and background necrosis. Immunohistochemical stains for TTF-1, p40, p63, CD45, synaptophysin, pancytokeratin, and arginase are performed. In a single cluster of malignant cells there is positivity with p40, p63, and pancytokeratin. The same cluster is negative for TTF-1, CD45, synaptophysin, and arginase. These findings support the diagnosis of non-small cell carcinoma, favor squamous cell carcinoma. However, evaluation is hindered by the scant amount of material present. The staining controls are appropriately reactive. Clerical Data Follows A; 22489, 85670`, 23475, 52629, 05015(6) REPORT IMAGES AND/OR SCANNED DOCUMENTS ONLY VIEWABLE IN PDF FORMAT The immunohistochemical test(s) cited in this report, if any, was developed and its performance characteristics determined by [facility]ology Department. It has not been cleared or approved by the U.S. Food and Drug Administration. The FDA has determined that such clearance or approval is not necessary. This test is used for clinical purposes. It should not be regarded as investigational or for research. [facility] is certified under the Clinical Laboratory Improvement Amendments of 1988 (CLIA) as qualified to perform high complexity testing. Immunostains were performed on formalin-fixed paraffin embedded tissue using a polymer diaminobenzidine chromogen detection system. Antibodies used may include clone [id number] (mouse monoclonal, estrogen receptor), clone [id number] (mouse monoclonal progesterone receptor), MIB-1 (mouse monoclonal, Ki- 67), and CD117 (rabbit polyclonal, c-kit). In the event that immunohistochemistry or special stains have been performed, attending physician has confirmed appropriateness of controls. Frozen section, operating room consultation, gross examination and dissection, and case sign out may have been performed in part or completely in the following laboratories: [facility], [address] [place] [address], [address] [place] [address]. Damian Monaco MD LAB CYTOLOGY ORDERABLES Final Result PATHOLOGY [facility] Laboratory Receiving [address] [place] [address] * Bronchoscopy (10/02/2024 7:39 AM CDT) Anatomical Region Laterality Modality Other Narrative Procedure Note Damian Monaco MD - 10/02/2024 7:39 AM CDT Interventional Pulmonology Patient Name: Castillo Jesus Procedure Date: 10/02/2024 7:39 AM Admit Type: Outpatient Room: [place] [address] Date of : 1955 Instrument Name: [id number] Gender: Male Note Status: Finalized Procedure: Bronchoscopy Indications: Left upper lobe nodule Providers: Damian Monaco M.D. Referring MD: Eva Funes M.D. Medicines: General Anesthesia Complications: No immediate complications Procedure: Pre-Anesthesia Assessment: - The risks and benefits of the procedure and the sedation options and risks were discussed with the patient. All questions were answered and informed consent was obtained. - The anesthesia plan was to use generalanesthesia. After obtaining informed consent, the Bronchoscopewas introduced through the mouth, via laryngeal mask airway and advanced to the tracheobronchial tree of both lungs. The procedure was accomplished without difficulty. The patient tolerated the procedurewell. Findings: A peripheral radial ultrasound probe was utilized in order to better localize the lesion in the left upper lobe. An endobronchial ultrasound endoscope was utilized in order to better characterize the lesion in the left and right paratracheal and subcarinal areas. NO PATHOLOGIC APPEARING ADENOPATHY NOTED Transbronchial needle aspirations of a lesion were performed in theleft upper lobe using a Potts needle and sent for routine cytology. The procedure was guided by fluoroscopy. Impression: - Left upper lobe nodule - Radial ultrasound was performed. - Endobronchial ultrasound was performed. - A transbronchial needle aspiration wasperformed. Recommendation: - Await cytology results. Electronically signed by Damian Monaco MD Damian Monaco M.D. 10/02/2024 9:49:38 AM Number of Addenda: 0 Note Initiated On: 10/02/2024 7:39 AM Damian Monaco MD ENDOSCOPY PROCEDURES Fi nal Result * POCT glucose (10/02/2024 7:05 AM CDT) Glucose, POC 126 70 - 199 mg/dL Comment: For Glucose values <35 mg/dl when Hematocrit is >60 mg/dl,the test may not accurately detect significant hypoglycemia,and testing in the Laboratory should be considered if clinically indicated. POC Performer [phone] LEONILA [facility] Blood 10/02/2024 7:05 AM CDT 10/02/2024 7:05 AM CDT Damian Monaco MD LAB POCT ORDERABLES - D EVICE Final Result [facility] [address] Department [place] [address] * Pulmonary Function Test - (09/22/2024 1:40 PM CDT) FVC PRE 4.45 L [facility] FVC %PRE PRED 94 % [facility] FEV1 PRE 3.09 L [facility] FEV1 %PRE PRED 86 % [facility] FEV1/FVC PRE 69.4 % [facility] FRC PL PRE 5.[address] [facility] FRC PL %PRE PRED 128 % [facility] RV PRE 3.94 L [facility] RV %PRE PRED 152 % [facility] TLC PRE 8.54 L [facility] TLC %PRE PRED 110 % [facility] DLCO PRE 23.7 ml/min/mmH g [facility] DLCO %PRE PRED 81 % [facility] Anatomical Region Laterality Modality PFT 09/22/2024 1:25 PM CDT Narrative 09/24/2024 11:43 AM CDT PFT performed at:->[facility] Adult PFT [facility]- [id number] Procedure:->Complete/Full PFT Standard:->Spirometry, Spirometry w/bronchodilator, DLCO and Lung Volumes Pulmonary Function Test Interpretation SPIROMETRY: The FEV1 and FVC are normal. The FEV1 to FVC ratio is reduced. The inspiratory loop is suggestive of submaximal effort. LUNG VOLUMES: TLC measured by plethysmography is normal. The increased RV suggests air trapping. DLCO: The diffusing capacity is normal. Impression: There is a minimal obstructive defect. There is air trapping. There is no impairment of alveolar gas exchange by DLCO. Compared with most recent study, there has been significant interval improvement of the FVC. The attending pulmonary physician certifies a physician presence in the [facility] during the administration of aerosolized bronchodilator. The attending pulmonary physician certifies that he/she has reviewed and interpreted the graphic and numerical data of this pulmonary function study and agrees with the written final report. The lower limit of normal for PaO2 and %HbO2 is age dependent. However, the [facility] Pulmonary Function Laboratory defines hypoxemia as a PaO2 <56 mm Hg or a %HbO2 <89%. Starting on April of 2024 the [facility] Pulmonary Function Laboratory utilizes race neutral [employer] normative equations. us Dayron Camara NP PFT ORDERABLES Final Resul t * PET/CT FDG Skull to Thigh (09/22/2024 11:53 AM CDT) Anatomical Region Laterality Modality N/A Positron Emissio n Tomography (PET) 09/22/2024 3:20 PM CDT Impressions 09/22/2024 3:43 PM CDT 1. Markedly FDG avid, centrally necrotic left upper lobe/lingular mass measuring up to 4.2 x 3.6 cm, slightly increased in size compared to the CT chest dated 09/04/2024 and with progressive increase in size since at least 08/22/2023, likely malignant. The differential includes a primary pulmonary malignancy versus post transplant lymphoproliferative disorder. Recommend correlation with tissue sampling. 2. No PET/CT evidence of michelle or distant metastatic disease. 3. Mild focal FDG uptake at a subacute appearing L3 right transverse process fracture. Recommend correlation with history of trauma. Dictated by: Daniel Sahu MD The radiology attending physician has personally reviewed this study, and had reviewed and/or edited this written report and agrees with it. Electronically signed by: Leonidas Grigsby M.D. Narrative 09/22/2024 3:43 PM CDT EXAMINATION: TUMOR FDG-PET/CT IMAGING DATE OF STUDY: 09/22/2024 SCANNER: [employer] (SQ1). This is a high-resolution scanner, which can result in higher SUVs (and even detection of previously unrecognized small lesions) compared to older scanners. RADIOPHARMACEUTICAL: 10.0 mCi F-18 Fluorodeoxyglucose (FDG) i.v. Injection site: Left hand HISTORY: 69-year-old man with history of liver transplant for hepatitis C and hepatocellular carcinoma 2021. Incidental pulmonary nodule seen on MRI abdomen which was followed with CT. The study is requested for diagnosis. Initial treatment strategy. TECHNIQUE: The patient's fasting blood glucose level, measured by glucometer before injection of FDG, was 107 mg/dL. After intravenous administration of FDG, noncontrast CT images were obtained for attenuation correction and for fusion with emission PET images to allow for anatomical localization of PET findings. Emission PET images were then obtained. The study was interpreted on the [employer] workstation. The mean liver SUV (reported for quality assurance lab technician purposes) is 2.7. The total scanned area was skull base to proximal thighs. Images of the body were obtained starting 55 minutes after injection of tracer. All reported SUVs are maximum SUVs, unless otherwise specified. COMPARISON: CT chest 09/04/2024 DESCRIPTORS OF LESION FDG AVIDITY: Minimal: <= blood pool Mild: > blood pool and <= liver Moderate: > liver and <= 2x SUVmax liver Moderate to marked: >2x SUVmax liver and <= 3x SUVmax liver Marked: > 3x SUVmax liver FINDINGS: There is a markedly FDG avid left upper lobe and lingular mass with a lobulated contour and central photopenia which measures up to 4.2 x 3.6 cm, slightly increased in size compared to the CT dated 09/04/2024. The mass is misregistered as a maximum SUV is 11.3. The mass is increased in size when compared to prior MRA abdomen examinations dating back to 08/22/2023. There are no hypermetabolic mediastinal or hilar lymph nodes. There is no suspicious hypermetabolic lesion elsewhere. The liver and spleen are normal in uptake. There is an ununited subacute appearing mildly distracted right L3 transverse process fracture with associated mild uptake. Enhancement in this area can be seen on the MRI dated 09/01/2024, in keeping with a fracture. The marrow uptake is otherwise normal. Additional CT findings: Opacification of a posterior right ethmoid air cell. Old granulomatous disease in the mediastinum. Aortic valve calcifications. Coronary artery calcifications. Atherosclerotic aortic calcifications. Postoperative changes of liver transplantation. Infrarenal abdominal aortic aneurysm measuring up to 4.0 in orthogonal measurements, unchanged compared to the MRI dated 09/01/2024. Multilevel degenerative changes of the spine. Procedure Note Leonidas Grigsby MD - 09/22/2024 EXAMINATION: TUMOR FDG-PET/CT IMAGING DATE OF STUDY: 09/22/2024 SCANNER: [facility] [employer] (SQ1). This is a high-resolution scanner, which can result in higher SUVs (and even detection of previously unrecognized small lesions) compared to older scanners. RADIOPHARMACEUTICAL: 10.0 mCi F-18 Fluorodeoxyglucose (FDG) i.v. Injection site: Left hand HISTORY: 69-year-old man with history of liver transplant for hepatitis C and hepatocellular carcinoma 2021. Incidental pulmonary nodule seen on MRI abdomen which was followed with CT. The study is requested for diagnosis. Initial treatment strategy. TECHNIQUE: The patient's fasting blood glucose level, measured by glucometer before injection of FDG, was 107 mg/dL. After intravenous administration of FDG, noncontrast CT images were obtained for attenuation correction and for fusion with emission PET images to allow for anatomical localization of PET findings. Emission PET images were then obtained. The study was interpreted on the [employer] workstation. The mean liver SUV (reported for quality assurance lab technician purposes) is 2.7. The total scanned area was skull base to proximal thighs. Images of the body were obtained starting 55 minutes after injection of tracer. All reported SUVs are maximum SUVs, unless otherwise specified. COMPARISON: CT chest 09/04/2024 DESCRIPTORS OF LESION FDG AVIDITY: Minimal: <= blood pool Mild: > blood pool and <= liver Moderate: > liver and <= 2x SUVmax liver Moderate to marked: >2x SUVmax liver and <= 3x SUVmax liver Marked: > 3x SUVmax liver FINDINGS: There is a markedly FDG avid left upper lobe and lingular mass with a lobulated contour and central photopenia which measures up to 4.2 x 3.6 cm, slightly increased in size compared to the CT dated 09/04/2024. The mass is misregistered as a maximum SUV is 11.3. The mass is increased in size when compared to prior MRA abdomen examinations dating back to 08/22/2023. There are no hypermetabolic mediastinal or hilar lymph nodes. There is no suspicious hypermetabolic lesion elsewhere. The liver and spleen are normal in uptake. There is an ununited subacute appearing mildly distracted right L3 transverse process fracture with associated mild uptake. Enhancement in this area can be seen on the MRI dated 09/01/2024, in keeping with a fracture. The marrow uptake is otherwise normal. Additional CT findings: Opacification of a posterior right ethmoid air cell. Old granulomatous disease in the mediastinum. Aortic valve calcifications. Coronary artery calcifications. Atherosclerotic aortic calcifications. Postoperative changes of liver transplantation. Infrarenal abdominal aortic aneurysm measuring up to 4.0 in orthogonal measurements, unchanged compared to the MRI dated 09/01/2024. Multilevel degenerative changes of the spine. IMPRESSION: 1. Markedly FDG avid, centrally necrotic left upper lobe/lingular mass measuring up to 4.2 x 3.6 cm, slightly increased in size compared to the CT chest dated 09/04/2024 and with progressive increase in size since at least 08/22/2023, likely malignant. The differential includes a primary pulmonary malignancy versus post transplant lymphoproliferative disorder. Recommend correlation with tissue sampling. 2. No PET/CT evidence of michelle or distant metastatic disease. 3. Mild focal FDG uptake at a subacute appearing L3 right transverse process fracture. Recommend correlation with history of trauma. Dictated by: Daniel Sahu MD The radiology attending physician has personally reviewed this study, and had reviewed and/or edited this written report and agrees with it. Electronically signed by: Leonidas Grigsby M.D. us Dayron Camara BUSINESS PROCESS EXPERT IMG PET PROCEDURES Final Re sult * Tacrolimus level trough (09/21/2024) SCRIBED Tacrolimus, trough 5.4 5.0 - 20.0 [facility] Blood 09/21/2024 Historical Provider LAB BLOOD ORDERABLES Edit ed Result - Final Performing Organization Address City/[facility]/ZIP Co de Phone Number [address] [phone] * CBC with auto differential (09/21/2024) [facility] Signature SCRIBED WBC 7.6 4.8 - 10.8 k/cumm [facility] Hemoglobin 15.1 12.4 - 15.3 g/dL [facility] Hematocrit 45.5 37.0 - 46.0 % [facility] Platelets 155 150 - 420 k/cumm [facility] Lymphocytes 22.5 18.0 - 42.0 % [facility] Monocytes 7.8 2.0 - 11.0 % [facility] Neutrophils 67.4 50.0 - 70.0 % [facility] Eosinophils 1.5 1.0 - 6.0 % [facility] SCRIB Basophils 0.4 0.0 - 1.0 % [facility] Blood 09/21/2024 us Historical Provider LAB BLOOD ORDERABLES Edit ed Result - Final [facility] [address] [place], [place] [address] [phone] * Gamma GT (09/21/2024) Pathologist [facility] SCRIBED GGT 22.1 15 - 73 [facility] Blood 09/21/2024 us Historical Provider LAB BLOOD ORDERABLES Katrin l Result [address] [address] [phone] * (ABNORMAL) Comprehensive metabolic panel (09/21/2024) [facility] SCRIBED Sodium 139 137 - 145 mmol/L [facility] Potassium 4.2 3.4 - 5.0 mmol/L [facility] Chloride 108(A) 98 - 107 mmol/L [facility] Carbon Dioxide 14 9 - 20 mmol/L [facility] Urea Nitrogen (BUN) 14 9 - 20 mg/dl [facility] Creatinine 1.15 0.7 - 1.3 mg/dl [facility] Glucose 120(A) 65 - 110 mg/dl [facility] Calcium 9.5 8.4 - 10.2 mg/dl [facility] Bilirubin 0.9 0.2 - 1.3 mg/dl [facility] Plasma Protein 7.4 6.3 - 8.2 g/dl [facility] Albumin 4.5 3.5 - 5.1 g/dl [facility] Alkaline Phosphatase 78 38 - 125 Units/L [facility] Alanine Transaminase (ALT) 23 6 - 50 Units/L [facility] Aspartate Transaminase (AST) 28 17 - 59 Units/L [facility] Blood 09/21/2024 Historical Provider LAB BLOOD ORDERABLES Katrin l Result [address] [phone] * eGFR (09/04/2024 11:32 AM CDT) eGFR 63 >=60 mL/min/1. 73 m2 Comment: Interpretive Data Reference Interval Normal >/= [...] interpretive data was last reviewed 2021. Blood 09/04/2024 11:3 2 AM CDT 09/04/2024 12:25 PM CDT us Lorie Santoyo MD LAB BLOOD ORDERABLES Final Res ult [facility] Department [place] [address] * (ABNORMAL) Differential, auto (09/04/2024 11:32 AM CDT) Neutrophil abs 7.70(H) 1.50 - 6.50 K/cumm Imm gran abs 0.06 0.00 - 0.10 K/cumm [facility] Lymphocyte abs 1.25 0.80 - 3.30 K/cumm [facility] Monocyte abs 0.34 0.20 - 0.80 K/cumm [facility] Eosinophil abs 0.00 0.00 - 0.50 K/cumm [facility] Basophil abs 0.01 0.00 - 0.10 K/cumm [facility] Neutrophil pct 82.3 % [facility] Comment: Interpretive Data Percent cell count reference ranges are not reported, since discordance with absolute values may lead to misinterpretation of CBC data. Current Interpretive Data was last revised on 2017. Imm gran pct 0.6 % [facility] Comment: Interpretive Data Percent cell count reference ranges are not reported, since discordance with absolute values may lead to misinterpretation of CBC data. Current Interpretive Data was last revised on 2017. Lymphocyte pct 13.4 % [facility] Comment: Interpretive Data Percent cell count reference ranges are not reported, since discordance with absolute values may lead to misinterpretation of CBC data. Current Interpretive Data was last revised on 2017. Monocyte pct 3.6 % [facility] Comment: Interpretive Data Percent cell count reference ranges are not reported, since discordance with absolute values may lead to misinterpretation of CBC data. Current Interpretive Data was last revised on 2017. Eosinophil pct 0.0 % [facility] Comment: Interpretive Data Percent cell count reference ranges are not reported, since discordance with absolute values may lead to misinterpretation of CBC data. Current Interpretive Data was last revised on 2017. Basophil pct 0.1 % [facility] Comment: Interpretive Data Percent cell count reference ranges are not reported, since discordance with absolute values may lead to misinterpretation of CBC data. Current Interpretive Data was last revised on 2017. Blood 09/04/2024 11:3 2 AM CDT 09/04/2024 11:59 AM CDT us Lorie Santoyo MD LAB BLOOD ORDERABLES Final Res ult [facility] Department [place] [address] * CBC with auto differential (09/04/2024 11:32 AM CDT) Pathologist [facility] WBC 9.36 3.80 - 9.90 K/cumm Hgb 15.8 13.0 - 17.5 g/dL [facility] Hct 45.4 38.9 - 50.3 % [facility] Plt 151 150 - 400 K/cumm [facility] MPV 10.7 9.1 - 12.3 fL [facility] RBC 5.58 4.30 - 5.80 M/cumm [facility] MCV 81.4 81.3 - 96.4 fL [facility] MCH 28.3 27.1 - 33.3 pg [facility] MCHC 34.8 32.3 - 35.7 g/dL [facility] RDW CV 13.2 11.1 - 14.9 % [facility] RDW SD 38.5 35.7 - 48.1 fL [facility] NRBC abs 0.00 0.00 - 0.01 K/cumm [facility] Blood 09/04/2024 11:3 2 AM CDT 09/04/2024 11:59 AM CDT Narrative [facility] - 09/04/2024 12:06 PM CDT Please collect all four labs on 09/01/24 us Lorie Santoyo MD LAB BLOOD ORDERABLES Final Res ult [facility] Department [place] [address] * [id number], Tumor Marker (09/04/2024 11:32 AM CDT) [facility] alpha Fetoprotein 3.9 <=8.3 ng/mL Comment: Interpretive Data The Yana AFP assay procedure was used. Results from different manufacturers or methods may not be comparable. Serial testing should be performed using the same method. 0-1 month. AFP concentrations may reach or exceed 100,000 ng/mL after depending on gestational age and weight. 1-3 months 50 1000 ng/ml 3-6 months 10 500 ng/ml 6-12 months 3.0 100 ng/ml >1 year 0.0 8.3 ng/ml References Tari Y. et al. J. Ped Surg 1978;13:155-156 Jennifer Carrillo et al. Clin Chem Lab Med 2018;57:783-797 Cynthia Ron et al. Clin Chem 2014;[id number]. Current interpretive data was last revised 2021. Blood 09/04/2024 11:3 2 AM CDT 09/04/2024 12:20 PM CDT Narrative [facility] - 09/04/2024 1:07 PM CDT Please collect all four labs on 09/01/24 Lorie Santoyo MD LAB BLOOD ORDERABLES Final Res ult Performing Organization Address [facility] Co de Phone Number [facility] Department [place] [employer] [place] [address] * Gamma GT (09/04/2024 11:32 AM CDT) GGT 23 10 - 50 Units/L Blood 09/04/2024 11:3 2 AM CDT 09/04/2024 12:20 PM CDT Narrative [facility] - 09/04/2024 1:07 PM CDT Please collect all four labs on 09/01/24 Lorie Santoyo MD LAB BLOOD ORDERABLES Final Res ult Performing Organization Address [facility] Co de Phone Number [facility] [employer] [place] [place] [address] * Comprehensive metabolic panel (09/04/2024 11:32 AM CDT) Sodium 141 135 - 145 mmol/L Potassium, pl 4.6 3.3 - 4.9 mmol/L [facility] Chloride 104 97 - 110 mmol/L [facility] CO2 27 22 - 32 mmol/L [facility] Anion gap 10 2 - 15 mmol/L [facility] BUN 16 6 - 25 mg/dL [facility] Creatinine 1.26 0.80 - 1.30 mg/dL [facility] Glucose 138 70 - 199 mg/dL [facility] Comment: Interpretive Data Fasting glucose >/= 126 mg/dl is diagnostic for diabetes. Fasting is defined as no caloric intake for at least 8 hours. Fasting glucose between 100 mg/dl to 125 mg/dl is diagnostic of prediabetes. In a patient with classic symptoms of hyperglycemia or hyperglycemic crisis, a random glucose >/= 200 mg/dl is diagnostic for diabetes. In the absence of unequivocal hyperglycemia, results should be confirmed by repeat testing. The classification and Diagnosis of Diabetes Diabetes Care 2021; 46: S19-S40. Current interpretive data was last revised 2022. Calcium 10.3 8.5 - 10.3 mg/dL [facility] Bilirubin, total 0.5 0.1 - 1.2 mg/dL [facility] Protein, pl 8.2 6.5 - 8.5 g/dL [facility] Albumin 4.8 3.5 - 5.0 g/dL [facility] Alk phos 104 40 - 130 Units/L [facility] ALT 20 7 - 55 Units/L [facility] AST 24 10 - 50 Units/L [facility] Blood 09/04/2024 11:3 2 AM CDT 09/04/2024 12:20 PM CDT Narrative [facility] - 09/04/2024 1:07 PM CDT Please collect all four labs on 09/01/24 us Lorie Santoyo MD LAB BLOOD ORDERABLES Final Res ult [facility] Department of Laboratories [place], [place] [id number] * CT Chest W Contrast (09/04/2024 11:10 AM CDT) Anatomical Region Laterality Modality Body N/A Computed Tomogra phy 09/04/2024 11:5 5 AM CDT Impressions 09/04/2024 12:19 PM CDT Solitary lobular 2.8 cm lingular pulmonary nodule, new from 2021. Differential consideration includes post transplant lymphoproliferative disorder, metastatic disease, or primary lung malignancy. Recommend correlation with AFP and consider FDG PET-CT (which may also help guide best site for sampling). Dictated by: Gilmar De Jesus M.D. The radiology attending physician has personally reviewed this study, and had reviewed and/or edited this written report and agrees with it. Electronically signed by: Demetrio Nur M.D. Narrative 09/04/2024 12:19 PM CDT EXAMINATION: Computed tomography of the chest with intravenous contrast HISTORY: Orthotopic liver transplantation for hepatocellular carcinoma. Follow-up pulmonary nodule. TECHNIQUE: Transaxial computed tomographic images of the chest were obtained with intravenous contrast according to the standard protocol after the uneventful administration of 68 mL Opti-Ray 350 intravenous contrast. COMPARISON: MRI 09/01/2024. FINDINGS: New 2.8 cm lingular pulmonary nodule with lobular contours and air bronchogram (series 3, image 88). No pneumothorax, edema, pleural effusion or pneumonia. No increasing thoracic lymphadenopathy. Heart size is unchanged. No pericardial effusion. Thickened left adrenal gland. Orthotopic liver transplantion. Previous LR-3 observations are not seen. Huy en Y hepaticojejunostomy. Abdominal aortic caliber is unchanged. No suspicious osseous lesions. Procedure Note Demetrio Nur MD - 09/04/2024 EXAMINATION: Computed tomography of the chest with intravenous contrast HISTORY: Orthotopic liver transplantation for hepatocellular carcinoma. Follow-up pulmonary nodule. TECHNIQUE: Transaxial computed tomographic images of the chest were obtained with intravenous contrast according to the standard protocol after the uneventful administration of 68 mL Opti-Ray 350 intravenous contrast. COMPARISON: MRI 09/01/2024. FINDINGS: New 2.8 cm lingular pulmonary nodule with lobular contours and air bronchogram (series 3, image 88). No pneumothorax, edema, pleural effusion or pneumonia. No increasing thoracic lymphadenopathy. Heart size is unchanged. No pericardial effusion. Thickened left adrenal gland. Orthotopic liver transplantion. Previous LR-3 observations are not seen. Huy en Y hepaticojejunostomy. Abdominal aortic caliber is unchanged. No suspicious osseous lesions. IMPRESSION: Solitary lobular 2.8 cm lingular pulmonary nodule, new from 2021. Differential consideration includes post transplant lymphoproliferative disorder, metastatic disease, or primary lung malignancy. Recommend correlation with AFP and consider FDG PET-CT (which may also help guide best site for sampling). Dictated by: Gilmar De Jesus M.D. The radiology attending physician has personally reviewed this study, and had reviewed and/or edited this written report and agrees with it. Electronically signed by: Demetrio Nur M.D. Lorie Santoyo MD IMG CT PROCEDURES Final Result * MRI Abdomen Liver W WO Contrast (09/01/2024 10:05 AM CDT) Anatomical Region Laterality Modality Body N/A Magnetic Resonan ce 09/01/2024 11:5 7 AM CDT Addenda Addendum by Deniz Howard MD on 09/30/2024 12:23 PM CDT Follow up CT Chest done on 09/04/24. PET/CT done on 09/22/24. . Mattie HODGES, RN. Edited by: Mattie Vargas Electronically signed by: Deniz Howard M.D. Impressions 09/01/2024 12:01 PM CDT 1. Unchanged 1.0 cm segment 8 LR-3 lesion. Multiple smaller new observations in segment 2/4 are characterized as LR-3. Recommend attention on follow up. 2. Left midlung 2.8 cm nodule, could be primary lung malignancy or metastatic disease. Recommend follow up of the Incidental lung nodule Additional Imaging less than [address] with contrast. Dictated by: Wili Razo MD The radiology attending physician has personally reviewed this study, and had reviewed and/or edited this written report and agrees with it. Electronically signed by: Deniz Howard M.D. Narrative 09/01/2024 12:01 PM CDT EXAMINATION: MAGNETIC RESONANCE IMAGING OF THE ABDOMEN WITH AND WITHOUT CONTRAST HISTORY: Liver transplant 03/02/2022, follow-up liver lesion TECHNIQUE: Magnetic resonance imaging of the abdomen was performed prior to and following the uneventful administration of intravenous Gadolinium contrast. Protocol: Liver Contrast: gadoterate 24 mL COMPARISON: 03/11/2024 MRI FINDINGS: Liver: Status post liver transplantation. Mild diffuse hepatic steatosis. No surface nodularity or iron deposition. - Bile ducts: Normal - Focal liver lesions: Lesion 1: Location: Segment 8, series 33, image 25 Size: 1.0 x 1.0, unchanged Imaging features: Arterial hyperenhancement and mild unchanged diffusion restriction. No pseudocapsule, washout, or threshold growth. Characterization: LR-3 Multiple other areas of smaller nodular hyperenhancement are seen in segment 2/4, series 33 image 32. No other suspicious features are noted. These are new from prior and character as LR-3. - Vasculature: Retroaortic left renal vein. Unchanged abdominal aortic aneurysm measuring 3.6 cm. 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 Spleen: Normal Adrenals: Bilateral adrenal adenomatous hyperplasia, unchanged Kidneys: Cysts in the right kidney. No hydronephrosis. Other Findings: 2.8 x 2.4 cm left mid lung lesion with T2 intermediate signal. No abdominal adenopathy. Imaged bowel is normal. No suspicious osseous lesion. Procedure Note Deniz Howard MD - 09/01/2024 EXAMINATION: MAGNETIC RESONANCE IMAGING OF THE ABDOMEN WITH AND WITHOUT CONTRAST HISTORY: Liver transplant 03/02/2022, follow-up liver lesion TECHNIQUE: Magnetic resonance imaging of the abdomen was performed prior to and following the uneventful administration of intravenous Gadolinium contrast. Protocol: Liver Contrast: gadoterate 24 mL COMPARISON: 03/11/2024 MRI FINDINGS: Liver: Status post liver transplantation. Mild diffuse hepatic steatosis. No surface nodularity or iron deposition. - Bile ducts: Normal - Focal liver lesions: Lesion 1: Location: Segment 8, series 33, image 25 Size: 1.0 x 1.0, unchanged Imaging features: Arterial hyperenhancement and mild unchanged diffusion restriction. No pseudocapsule, washout, or threshold growth. Characterization: LR-3 Multiple other areas of smaller nodular hyperenhancement are seen in segment 2/4, series 33 image 32. No other suspicious features are noted. These are new from prior and character as LR-3. - Vasculature: Retroaortic left renal vein. Unchanged abdominal aortic aneurysm measuring 3.6 cm. 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 Spleen: Normal Adrenals: Bilateral adrenal adenomatous hyperplasia, unchanged Kidneys: Cysts in the right kidney. No hydronephrosis. Other Findings: 2.8 x 2.4 cm left mid lung lesion with T2 intermediate signal. No abdominal adenopathy. Imaged bowel is normal. No suspicious osseous lesion. IMPRESSION: 1. Unchanged 1.0 cm segment 8 LR-3 lesion. Multiple smaller new observations in segment 2/4 are characterized as LR-3. Recommend attention on follow up. 2. Left midlung 2.8 cm nodule, could be primary lung malignancy or metastatic disease. Recommend follow up of the Incidental lung nodule Additional Imaging less than [address] with contrast. Dictated by: Wili Razo MD The radiology attending physician has personally reviewed this study, and had reviewed and/or edited this written report and agrees with it. Electronically signed by: Deniz Howard M.D. Tay Mathews MD IMG MRI PROCEDURES Jayjay armando Result - Final * (ABNORMAL) Tacrolimus level trough (08/10/2024) SCRIBED Tacrolimus, trough 4.1(A) 5.0 - 20.0 [facility] Blood 08/10/2024 Historical Provider LAB BLOOD ORDERABLES Edit ed Result - Final Performing Organization Address City/State/[facility] Co de Phone Number [address] [phone] * (ABNORMAL) CBC with auto differential (08/10/2024) SCRIBED WBC 8.3 4.8 - 10.8 k/cumm [facility] SCRIBED Hemoglobin 15.0 12.4 - 15.3 g/dL [facility] SCRIBED Hematocrit 46.2(A) 37.0 - 46.0 % [facility] SCRIBED Platelets 133(A) 150 - 420 k/cumm [facility] SCRIBED Lymphocytes 24.2 18.0 - 42.0 % [facility] SCRED Monocytes 8.1 2.0 - 11.0 % [facility] SCRED Neutrophils 65.2 50.0 - 70.0 % [facility] SCRED Eosinophils 1.7 1.0 - 6.0 % [facility] SCRED Basophils 0.4 0.0 - 1.0 % [facility] Blood 08/10/2024 Historical Provider MD LAB BLOOD ORDERABLES Edit ed Result - Final Performing Organization Address [facility] Co de Phone Number [address] [phone] * Gamma GT (08/10/2024) SCRIBED GGT 28 15 - 85 [facility] Blood 08/10/2024 us Historical Provider MD LAB BLOOD ORDERABLES Katrin l Result Performing Organization Address [facility] de Phone Number [address] [phone] * (ABNORMAL) Comprehensive metabolic panel (08/10/2024) [facility] Sodium 143 136 - 145 mmol/L [facility] Potassium 3.9 3.5 - 5.1 mmol/L [facility] Chloride 104 98 - 108 mmol/L [facility] Carbon Dioxide 29 21 - 32 mmol/L [facility] Urea Nitrogen (BUN) 15 7 - 18 mg/dl [facility] Creatinine 1.31(A) 0.70 - 1.30 mg/dl [facility] Glucose 121(A) 70 - 99 mg/dl [facility] SCRIB Calcium 9.3 8.5 - 10.1 mg/dl [facility] Bilirubin 0.7 0.00 - 1.00 mg/dl [facility] SCRED Plasma Protein 7.7 6.4 - 8.2 g/dl [facility] Albumin 4.1 3.4 - 5.0 g/dl [facility] Alkaline Phosphatase 107 46 - 116 Units/L [facility] Alanine Transaminase (ALT) 35 16 - 63 Units/L [facility] Aspartate Transaminase (AST) 20 15 - 37 Units/L [facility] Blood 08/10/2024 Historical Provider MD LAB BLOOD ORDERABLES Katrin l Result Performing Organization Address City/[facility]/ZIP Co de Phone Number [address] [phone] * Hepatitis C (HCV) RNA PCR, quantitative (04/09/2022) Pathologist [facility] SCRIBED HCV RNA <15 - - - IUnit/mL [facility] Comment:Not Detected Blood 04/09/2022 Historical Provider LAB MICROBIOLOGY - GENERA L ORDERABLES Final Result Performing Organization Address [facility] Co de Phone Number [address] [phone] * PSA screen (04/19/2021 7:30 AM BAG MAKING MACHINE OPERATOR) Pathologist [facility] PSA-Total 1.23 <=5.40 ng/mL [facility] Comment: Interpretive Data AGE SEX REFERENCE INTERVAL 0 minutes-150 years Female None 0 minutes-49 years Male None 50-59 years Male 0-3.90 60-69 years Male 0-5.40 70-79 years Male 0-6.20 80-150 years Male 0-6.20 Current interpretive data last revised 2017. Blood 04/19/2021 7:30 AM BAG MAKING MACHINE OPERATOR 04/19/2021 8:16 AM BAG MAKING MACHINE OPERATOR Tay Mathews MD LAB BLOOD ORDERABLES F inal Result [facility] Department [place] [address] from Last 3 Months or Most Recently Relevant to Health Maintenance Insurance MEDICARE [facility] MEDICARE SUPPLEMENT MEDICARE [facility] MEDICARE SUPPLEMENT Advance Directives For more information, please contact: [phone] Documents on File Type Date Recorded Patient Groundskeeper Porter Expl anation ADVANCE DIRECTIVE 03/09/2022 11:07 AM [facility] OF BLOCK PILER-MEDICAL ADVANCE DIRECTIVE 02/15/2022 10:56 AM Maria Luz atkins [email or web address] ADVANCE DIRECTIVE 04/19/2021 1:26 PM Will [email or web address] [email or web address] * Full Code (Latest Code Status on File) Date Activated Date Inactivated Comments 10/19/2024 6:51 PM 10/22/2024 3:20 AM * Full Code Date Activated Date Inactivated Comments 03/02/2022 8:54 PM 03/08/2022 6:43 PM * Full Code Date Activated Date Inactivated Comments 03/02/2022 8:16 AM 03/02/2022 8:54 PM * Full Code Date Activated Date Inactivated Comments 02/13/2022 12:05 AM 02/13/2022 1:04 PM * Full Code Date Activated Date Inactivated Comments 01/07/2022 1:50 AM 01/07/2022 3:02 PM Care Teams Software Testing Specialist Relationship Specialty Start Date End Date Charles Gilbert DO [address] [place] [address] PCP - General Family Medicine 10/02/22 Angie Kim MD Referring Physician Family Practice 03/02/21 La Chun MD [address] [place], [place] [id number] Resident Anesthesiology 03/02/22 Mattie Giron, NITA Senior Planning Manager 03/05/22 Arelis Helm, RN [address] [facility] [address] [place] [address] Secondary Coordinator 03/05/22 Benny Galarza MD [address] [place] [id number] Gastroenterology 07/11/22
--- OUTSIDE RECORDS SUMMARY | 2024-10-28 11:58 | XMS_ITS | Encounter Summary ---
Author Organization [facility] Healthcare Address [address] [place] [address] Care Team Providers Care Tenter Name Role Phone Angie Kim MD Unavailable Mojgan Leonardo RN Unavailable [phone] Angie Kim MD Primary Care Provide r La Chun MD Unavailable [phone] Mattie Giron RN Unavailable [phone] Arelis Helm RN Unavailable Benny Galarza MD Unavailable [phone] Charles Gilbert DO Primary Care Provider Encounter Details Date Type Department Care Team (Late st Contact Info) Description 02/06/[address] [facility] Surgeon [address] [place] [address] Randal Weinstein MD [address] [place], [place] [id number] Pre-operative exam (Primary Dx) Social History Tobacco Use Types Packs/Day Years Used Date Smoking Tobacco: Never Smokeless Tobacco: Former Chew Quit: 04/20/1998 AUDIT-C Answer Date Recorded Q1: How often do you have a drink containing alc ohol? Never 04/20/2021 Average Number of Drinks Not on file 021 Q3: How often do you have si [...] examination documented in this encounter Care Teams Tenter Relationship Specialty Start Date End Date Angie Kim MD PCP - General Family Practice 10/18/21 10/01/22 Charles Gilbert DO [address] [place] [address] PCP - General Family Medicine 10/02/22 Angie Kim MD Referring Physician Family Practice 03/02/21 Mojgan Leonardo RN [address] [facility] [address] [place], [place] [id number] Resource Conservation Manager 03/03/2103/04 La Chun MD [address] [place] [address] Resident Anesthesiology 03/02/22 Mattie Giron RN Resource Conservation Manager 03/05/22 Arelis Helm RN [address] [facility] [address] [place], [place] [id number] Secondary Coordinator 03/05/22 Benny Galarza MD [address] [place] [id number] Gastroenterology 07/11/22 documented as of this encounter
--- OUTSIDE RECORDS SUMMARY | 2024-10-28 11:58 | XMS_ITS | Encounter Summary ---
Author Organization [facility] Address [address] [place] [address] Phone Care Team Providers Care Senior Bioinformatics Scientist Name Role Phone Angie Kim MD Unavailable La Chun MD Unavailable [phone] Mattie Giron RN Unavailable [phone] Arelis Helm RN Unavailable [phone] Benny Galarza MD Unavailable [phone] Charles Gilbert DO Primary Care Provider Encounter Details Date Type Department Care Team (Late st Contact Info) Description 12/03/2023 Orders Only [facility] Ophthalmology [address] [facility] Outpatient Health 6th [place] [address] Prieto Limon MD [facility]1 [facility] [address] [place] [address] Ptosis of right eyelid (Primary [...] often do you attend chur ch or adventism services? More than 4 times per year 03/03/2022 Do you belong to any clubs o r organizations such as congregational groups, unions, fraternal or athletic groups, or [...] place to sleep or slept in a prison (including now)? No 03/03/2022 Personal Safety Answer [...] eyelid documented in this encounter Care Teams Senior Bioinformatics Scientist Relationship Specialty Start Date End Date Charles Gilbert DO [address] [place] [address] PCP - General Family Medicine 10/02/22 Angie Kim MD Referring Physician Family Practice 03/02/21 La Chun MD [address] [place] [address] Resident Anesthesiology 03/02/22 Mattie Giron RN Propeller Mechanic 03/05/22 Arelis Helm, RN [address] [address] Secondary Coordinator 03/05/22 Benny Galarza MD [facility] [place] [address] Gastroenterology 07/11/22 documented as of this encounter
--- OUTSIDE RECORDS SUMMARY | 2024-10-28 11:58 | XMS_ITS | Clinical Summary ---
Author Organization [place] [id number] [facility] Address [address] [place] [address] Care Team Providers Care [employer] Fabricator Name Role Phone Angie Kim MD Unavailable La Chun MD Unavailable [phone] Mattie Giron RN Unavailable + [phone] Arelis Helm RN Unavailable [phone] Benny Galarza MD Unavailable [phone] Charles Gilbert DO Primary Care Provider [...] tablet - 1 tablet nightly 0 12/09/19 19 Active aspirin 81 mg enteric coated tablet Take 1 tablet (81 mg total) by mouth daily 30 tablet 11 03/05/20 22 Active Additional Information Patient taking differently:81 mg oralEvery morning, Last dose 11/12/23, on hold for surgery, Indications: prevention of thrombosis, Informant: Self, Reported on 10/19/2024 blood-glucose meter misc 1 applicator 3 (three) times a day 1 meter 1 each 03/05/20 22 Active blood glucose diagnostic strip 1 strip TID with meals. Max 100 each 03/05/20 22 Active lancets 30 gauge misc 1 lancet TID with meals. Max of 100 each 03/05/[address] (PROTONIX) 40 mg EC tablet TAKE 1 TABLET (40MG TOTAL) BY MOUTH DAILY PLEASE CONTACT YOUR PRIMARY CARE PROVIDER FOR FUTURE REFILLS OF THE MEDICATION AND MANAGEMENT AND MONITORING OF ACID REFLUX 90 tablet 09/29/19 23 Active Additional Information Patient taking differently: 40 mg oral Daily (early AM), Indications: GERD, Informant: Self, Reported on 10/19/2024 senna-docusate (Senna Plus) 8.6-50 mg Take 1 tablet by mouth 2 (two) times a day as needed for constipation Please chart picker over the counter or contact PCP for future refills. Thanks! 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 Labs at [facility] (starting 03/12) Option 6 FAX: Best fax per lab is [phone] alt fax [phone] This is a 69 year old male [...] assisted lobectomy - PO multimodal - d/c SAFETY INTERN GERD (gastroesophageal reflux disease) Assessment & Plan [...] afternoon if chest tube output does not chart picker - fat challenge, monitor chest tube [...] UOP Assessment & Plan (03/11/2024 10:13 AM OYSTER SORTER): Multifactorial; in part secondary to use of [...] management Assessment & Plan (03/11/2024 10:13 AM OYSTER SORTER): He has excellent allograft function. I saw [...] indicated. Assessment & Plan (03/13/2023 10:52 AM OYSTER SORTER): S/p liver transplant - Mr. Jesus is [...] (03/03/2021): Added automatically from request for surgery [id number] Assessment & Plan (10/18/2021 4:57 PM CDT): Good response to loco-regional therapy. Continue to monitor imaging studies on a regular basis. Encounter for pre-transplant evaluation for liver transplant 03/13/2023 Encounters Date Type Department Care Team Description 10/27/2024 Telephone [facility] Surgery [address] [facility] [address] [place] [phone] Jacob Griffith RMA 10/22/2024 Orders Only [facility] Surgery [address] [place] [address] Floor 5 [place] [address] Dayron Camara NP Lung nodule (Primary Dx) 10/21/2024 Orders Only [facility] Surgery [address] [place] [address] Floor 5 [place] [address] Dayron Camara NP Lung nodule (Primary Dx) 10/19/2024 11:39 AM CDT Anesthesia Event [facility] Operating Room 1 [place] [address] Devin Villar MD PhD Mitzi Griffith PORCELAIN TURNER 10/19/2024 11:35 AM CDT - 10/19/2024 2:45 PM CDT Surgery [facility] Operating Room 1 [place] [phone] Eva Funes MD XI ROBOTIC ASSISTED THORACOSCOPIC SURGERY LEFT UPPER LOBECTOMY 10/19/2024 7:30 AM CDT - 10/21/2024 9:05 PM CDT Hospital Encounter [address] [phone] Eva Funes MD Lung nodule Discharge Disposition: Discharge to home or self care 10/08/2024 8:30 AM CDT Pre-Admission Testing [facility] Center for Preoperative Assessment and Planning [facility] ([facility]) [address] [place] [address] Preoperative testing (Primary Dx) 10/08/2024 Orders Only [facility] Surgery [address] [facility] Floor 5 [place] [phone] Dayron Camara NP Gingivitis (Primary Dx) 10/07/2024 Documentation [facility] Transplant Liver [address] [facility] [address] -[phone] [place] [address] Linda Longo RN 10/07/2024 Results Follow-Up [facility] Transplant Liver [address] [facility] [address] [place] [address] Linda Longo RN Cytology 10/02/2024 9:17 AM CDT Anesthesia Event [facility] Interventional Pulmonology [address] [place] [phone] Dayron Mccall MD 10/02/2024 9:00 AM CDT - 10/02/2024 10:00 AM CDT Surgery [facility] Interventional Pulmonology [facility] [place] [address] Damian Monaco MD BRONCHOSOPY WITH ENDOBRONCHIAL ULTRASOUND WITH GUIDE - PERIPHERAL LESION(S) 10/02/2024 6:05 AM CDT - 10/02/2024 10:55 AM CDT Hospital Encounter [facility] Interventional Pulmonology [address] [place] [phone] Damian Monaco MD Abnormal chest CT Discharge Disposition: Discharge to home or self care 10/02/2024 Telephone [facility] Surgery [facility] Floor 5 [place] [phone] Dayron Camara NP 09/29/2024 Orders Only [facility] Transplant Liver [address] [place] [address] [place] [address] Mattie Giron RN HCC (hepatocellular carcinoma) (HCC); History of liver transplant (HCC); patent searcher (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) use of calcineurin inhibitor 09/24/2024 Telephone [facility] Transplant Liver [address] [place] [address] Mailstop -90-0 [place] [address] Mattie Giron RN 09/23/2024 Results Follow-Up [facility] Transplant Liver [address] [place] [address] 340 Mailstop -[phone] [place] [address] Mattie Giron, NITA PET/CT FDG Skull to Thigh 09/22/2024 12:23 PM CDT - 09/22/2024 11:59 PM CDT Hospital Encounter [facility] Pulmonary [address] [facility] [address] [place] [phone] Lung nodule Discharge Disposition: Discharge to home or self care 09/22/2024 9:03 AM CDT - 09/22/2024 11:59 PM CDT Hospital Encounter [facility] [address] [facility] [address] [place] [address] Discharge Disposition: Discharge to home or self care 09/22/2024 9:03 AM CDT - 09/22/2024 11:59 PM CDT Hospital Encounter [facility] - [facility] [address] [facility] Floor 8 [place] [address] Lung nodule Discharge Disposition: Discharge to home or self care 09/22/2024 Telephone [facility] Surgery [facility] Floor 5 [place] [address] Dayron Camara NP 09/15/2024 1:00 PM CDT Office Visit [facility] Surgery [facility] Floor 5 [place] [address] Eva Funes MD Lung nodule (Primary Dx); HCC (hepatocellular carcinoma) (HCC); History of liver transplant (HCC); Class 3 severe obesity due to excess calories with serious comorbidity and body mass index (BMI) of 40.0 to 44.9 in adult; Type 2 diabetes mellitus with other specified complication, unspecified whether xm1 tank driver insulin use (HCC) 09/11/2024 Orders Only [facility] Cardiothoracic Surgery [address] [facility] 8th Floor [address] Room [address] [place] [phone] Dayron Camara NP Lung nodule (Primary Dx) 09/07/2024 Telephone [facility] Transplant Liver [address] [facility] [address] Mail[address] [phone] [place] [address] Mattie Giron RN 09/04/2024 1:20 PM CDT Lab [facility] [address] [place] [address] HCC (hepatocellular carcinoma) (HCC); History of liver transplant (HCC); Lung nodule 09/04/2024 10:32 AM CDT - 09/04/2024 11:59 PM CDT Hospital Encounter [facility] Radiology [facility]) [address] [place] [address] Lorie Santoyo MD HCC (hepatocellular carcinoma) (HCC); History of liver transplant (HCC); Lung nodule Discharge Disposition: Discharge to home or self care 09/04/2024 Telephone [facility] Transplant Liver [address] [facility] [address] Mailstop -[phone] [place] [address] Mattie Giron RN 09/04/2024 Results Follow-Up [facility] Transplant Liver [address] [facility] [address] [phone] [place] [address] Chest W Contrast 09/04/2024 Orders Only [facility] Transplant Liver [address] [facility] [address] Mailstop -[phone] [place] [address] Mattie Giron RN HCC (hepatocellular carcinoma) (HCC) (Primary Dx) 09/01/2024 8:45 AM CDT - 09/01/2024 11:59 PM CDT [facility] [address] [place] [address] Tay Mathews MD History of liver transplant (HCC); HCC (hepatocellular carcinoma) (HCC); Liver lesion Discharge Disposition: Discharge to home or self care 09/01/2024 Telephone [facility] Transplant Liver [address] [facility] [address] Mail[address] [phone] [place] [address] Mattie Giron RN 09/01/2024 Telephone [facility] Transplant Liver [address] [facility] [address] Mailstop [phone] [place] [address] Mattie Giron RN 09/01/2024 Results Follow-Up [facility] Transplant Liver [address] [facility] [address] Mail[address] [phone] [place] [address] Mattie Giron RN MRI Abdomen Liver W WO Contrast from Last 3 Months Immunizations Immunization Administration [...] mellitus type II, n on insulin dependent (HCC) Diet and exercise controlled Esophageal varices (HCC) 04/24/2021 Formatt ing of this note might be different from the original. On nadolol, no SE A&P: no changes HCC (hepatocellular carcinoma) (HCC) 03/03/2021 Added automatically from request for surgery [id number] Family History Medical History Relation Name Comments [...] often do you attend chur ch or congregational services? More than 4 times per year 03/03/2022 Do you belong to any clubs o r organizations such as baptist groups, unions, fraternal or athletic groups, or [...] place to sleep or slept in a detention (including now)? No 03/03/2022 Personal Safety Answer [...] 10/19/2024 7:00 PM CDT Plan of Treatment Health Maintenance Due Date Last Done Comments Albumin Creatinine Ratio, Urine 1957 Colon Cancer Screening-Colonoscopy 1957 Depression Screening 1957 Dilated Eye Exam 1957 Foot Exam 1957 Pneumococcal vaccine 65+ (1 of 2 - PCV) 1976 Zoster Vaccine (1 of 2) 1976 Well Visit 65+ 2022 Prostate Cancer Screening-PSA 04/19/2023 04/19/2021 Influenza Vaccine (#1) 2024 01/26/2019, 2018 Hemoglobin A1C 04/09/2025 10/08/2024, 1207/2022, 06/18/2022, Additional history exists Lipid Panel 10/19/2025 10/19/2024, 03/22, 03/02/2022, Additional history exists eGFR 10/19/2025 10/19/2024, 08/20, 03/08/2022, Additional history exists Fall Risk Assessment 10/21/2025 10/21/2024 DTaP/Tdap/Td Vaccine (2 - Td or Tdap) 12/09/2026 12/09/2016 Hepatitis B Screening Completed 03/02/2022 , 06/22/2019, 01/20/2019, Additional history exists Hepatitis C Screening Completed 03/13/2023 , 03/13/2023, 04/09/2022, Additional history exists Medical Devices Implanted Type Area Sales Record Clerk Device Identifier Shelf Expiration Date Model / Serial / Lot [facility] Connequity Embosphere Prefill Saline Syringe Compressible Nonaggregate [id number] - [id number] Implanted:Qty: 1 on 08/18/2021 at [facility] [employer]ight 01/19/2022 [id number] / / [id number] Angio-Seal Vip 6fr Closere Device [id number] - [id number] Implanted:Qty: 1 on 08/18/2021 at [facility] TerINTERNET BUSINESS TRADER Bipin 05/22/2022 [id number] / / [id number] Procedures Procedure Name Priority Date/Time Associated Diagnosis [...] DEVICE Routine 10/19/2024 1 :12 PM CDT MS AN PROCEDURE PLACEHOLDER Routine 10/19/2024 12:09 PM CDT MS AN ELECTIVE ENDOTRACHEAL AIRWAY Routine 10/19/2024 12:09 PM CDT MS AN PROCEDURE PLACEHOLDER Routine 10/19/2024 12:09 PM [...] History of liver transplant (HCC) Lung nodule [id number], TUMOR MARKER Routine 09/04/2024 11:32 AM CDT [...] 04/09/2022 PSA SCREEN Routine 04/19/2021 7:30 AM OYSTER SORTER Encounter for pre-transplant evaluation for liver transplant [...] Tacrolimus level trough (10/21/2024 9:29 AM CDT) [facility] Signature Tacrolimus trough 7.6 ng/mL Comment: Interpretive Data Testing performed by liquid chromatography-tandem mass spectrometry. Therapeutic concentrations vary depending on type of transplanted organ and time elapsed since transplant. Typical trough concentrations range from 5-15 ng/mL. This test was developed and its performance characteristics determined by the [facility] Laboratory consistent with CLIA requirements. This test has not been cleared or approved by the [place] Food and Drug administration. Current interpretive data last reviewed 2019. Blood 10/21/2024 9:29 AM CDT 10/21/2024 10:01 AM CDT us Meryl Saldanaana Gar PORCELAIN TURNER LAB BLOOD ORDERABLES Fi nal Result [facility] Department [place] [address] * POCT glucose (10/19/2024 7:57 PM CDT) Glucose, POC 154 70 - 199 mg/dL Blood 10/19/2024 7:57 PM CDT 10/19/2024 7:57 PM CDT Eva Funes MD LAB POCT ORDERABLES - DE VICE Final Result Performing Organization Address City/[facility]/ZIP Co de Phone Number LEONILA [facility] Department [place] [address] * XR Chest 1 View (10/19/2024 7:29 [...] it. Electronically signed by: Linh Jones M.D. us Eva Funes MD IMG XR PROCEDURES Final [...] of Race in Diagnosing Kidney Disease, JASN 202). The CKD-EPI equation should not be used for patients with unstable renal function and has not been validated in children and those over 70. Current interpretive data was last reviewed 2021. Blood 10/19/2024 5:41 PM CDT 10/19/2024 5:54 PM CDT us Eva Funes MD LAB BLOOD ORDERABLES Fin al Result Performing Organization Address [facility] Co de Phone Number [facility] [place] [address] * aPTT (10/19/2024 5:41 PM CDT) aPTT [...] ORDERABLES Fin al Result Performing Organization Address [facility] [place] [address] * Protime-INR (10/19/2024 5:41 PM CDT) PT 11.0 9.7 - 13.0 sec INR 1.02 0.90 - 1.20 [facility] Comment: Interpretive data Oral anticoagulant therapeutic ranges: Venous thromboembolism prophylaxis or treatment: 2.0-3.0 CARDIOLOGY Standard range: 2.0-3.0 High-intensity range: 2.5-3.5 Refer to indication-specific guidelines for appropriate target ranges for prosthetic heart valve replacement. Current interpretive data was last revised on 2019. Blood 10/19/2024 5:41 PM CDT 10/19/2024 5:59 PM CDT Eva Funes MD LAB BLOOD ORDERABLES Fin al Result Performing Organization Address [facility] Co de Phone Number [facility] [place] [address] * (ABNORMAL) CBC without differential (10/19/2024 5:41 PM CDT) Pathologist [facility] WBC 14.55(H) 3.80 - 9.90 K/cumm Hgb 14.1 13.0 - 17.5 g/dL [facility] Hct 43.1 38.9 - 50.3 % [facility] Plt 129(L) 150 - 400 K/cumm [facility] MPV 11.0 9.1 - 12.3 fL [facility] RBC 4.99 4.30 - 5.80 M/cumm [facility] MCV 86.4 81.3 - 96.4 fL [facility] MCH 28.3 27.1 - 33.3 pg [facility] MCHC 32.7 32.3 - 35.7 g/dL [facility] RDW CV 13.9 11.1 - 14.9 % [facility] RDW SD 43.4 35.7 - 48.1 fL [facility] NRBC abs 0.00 0.00 - 0.01 K/cumm [facility] Blood 10/19/2024 5:41 PM CDT 10/19/2024 5:53 PM CDT Eva Funes MD LAB BLOOD ORDERABLES Fin al Result [facility] Department [place] [address] * (ABNORMAL) Lipid panel (10/19/2024 5:41 PM CDT) [facility] Cholesterol 195 30 - 199 mg/dL Comment: [...] revised on 2017. Triglycerides 164(H) <=149 mg/dL [facility] Comment: Interpretive Data Ages < or = [...] revised on 2017. HDL 41 >=40 mg/dL [facility] Comment: Interpretive Data Ages < or = [...] on 2017. LDL, calculated 125 <=129 mg/dL [facility] Comment: Interpretive Data Ages < or = [...] NCEP Expert Panel. Circulation 2004;110:227 3. Fernando Garcia al. AWNDA Cardiol. 2019August 20;5(5):540-548. doi: 10.1001/jamacardio.2020.0013 Current Interpretive Data was last revised on 2023. Non-HDL Cholesterol 154 mg/dL [facility] Comment: Interpretive Data Ages < or = [...] last revised on 2017. Chol/HDL ratio 5 [facility] Blood 10/19/2024 5:41 PM CDT 10/19/2024 5:54 PM CDT Narrative [facility] - 10/20/2024 11:30 AM CDT Reflex Eva Funes MD LAB BLOOD ORDERABLES Fin al Result [facility] Department [place] [address] * (ABNORMAL) Comprehensive metabolic panel (10/19/2024 5:41 PM CDT) Sodium 142 135 - 145 mmol/L Potassium, pl 5.3(H) 3.3 - 4.9 mmol/L [facility] Chloride 106 97 - 110 mmol/L [facility] CO2 26 22 - 32 mmol/L [facility] Anion gap 10 2 - 15 mmol/L [facility] BUN 23 6 - 25 mg/dL [facility] Creatinine 1.43(H) 0.80 - 1.30 mg/dL [facility] Glucose 169 70 - 199 mg/dL [facility] Comment: Interpretive Data Fasting glucose >/= 126 [...] 2022. Calcium 8.9 8.5 - 10.3 mg/dL [facility] Bilirubin, total 0.3 0.1 - 1.2 mg/dL [facility] Protein, pl 7.5 6.5 - 8.5 g/dL [facility] Albumin 4.5 3.5 - 5.0 g/dL [facility] Alk phos 93 40 - 130 Units/L [facility] ALT 26 7 - 55 Units/L [facility] AST 36 10 - 50 Units/L [facility] Blood 10/19/2024 5:41 PM CDT 10/19/2024 5:54 PM CDT Eva Funes MD LAB BLOOD ORDERABLES [facility] al Result [facility] Department [place] [address] * XR Chest 1 View - in [...] ORDERABLES - DE VICE Final Result LEONILA [facility] Department [place] [address] * POCT glucose (10/19/2024 3:15 PM CDT) Glucose, POC 170 70 - 199 mg/dL Blood 10/19/2024 3:15 PM CDT 10/19/2024 3:15 PM CDT Eva Funes MD LAB POCT ORDERABLES - DE VICE Final Result Performing Organization Address City/[facility] Co de Phone Number [facility] [place] [address] * POCT glucose (10/19/2024 1:12 PM CDT) Glucose, POC 156 70 - 199 mg/dL Blood 10/19/2024 1:12 PM CDT 10/19/2024 1:12 PM CDT Eva Funes MD LAB POCT ORDERABLES - DE VICE Final Result Performing Organization Address [facility] Co de Phone Number LEONILA [facility] [place] [address] * MS AN ELECTIVE ENDOTRACHEAL AIRWAY, MS AN PROCEDURE PLACEHOLDER (10/19/2024 12:09 PM CDT) [...] PhD ANESTHESIA ORDERABLES Katrin l Result * MS AN PROCEDURE PLACEHOLDER (10/19/2024 12:09 PM CDT) [...] 4 AM CDT 10/19/2024 10:34 AM CDT Eva Funes MD LAB POCT ORDERABLES - DE VICE Final Result [facility] Department [place] [address] * (ABNORMAL) Tacrolimus level trough (10/16/2024) SCRIBED Tacrolimus, trough 4.6(A) 5.0 - 20.0 [facility] Blood 10/16/2024 us Manpreet Cadet MD LAB BLOOD ORDERABLES Edit [place] [address], [facility] [place] [phone] * (ABNORMAL) CBC with auto differential (10/16/2024) [facility] SCRIBED WBC 8.4 4.8 - 10.8 K/cumm [facility] SCRIB Hemoglobin 15.1 12.4 - 15.3 g/dL [facility] Hematocrit 45.2(A) 37.0 - 45.0 % [facility] Platelets 141(A) 150 - 420 K/cumm [facility] SCRIB RBC [facility] Comment:- SCRIBED Neutrophils 61.0 50.0 70.0 [facility] Lymphocytes 30.6 18.0 42.0 [facility] SCRIB Monocytes 6.4 2.0 11.0 [facility] Eosinophils 1.1 1.0 6.0 [facility] SCRIB Basophils 0.5 0.0 1.0 [facility] Blood 10/16/2024 us Historical Provider MD LAB BLOOD ORDERABLES Edit ed Result - Final Performing Organization Address City/[facility]/ZIP Co de Phone Number [address] [phone] * Gamma GT (10/16/2024) [facility] SCRIBED GGT 19 15 - 73 [facility] Blood 10/16/2024 us Historical Provider MD LAB BLOOD ORDERABLES Edit ed Result - Final Performing Organization Address City/[facility]/ZIP Co de Phone Number [address] [phone] * (ABNORMAL) Comprehensive metabolic panel (10/16/2024) [facility] SCRIBED Sodium 142 137 - 145 mmol/L [facility] Potassium 4.4 3.4 - 5.0 mmol/L [facility] Chloride 110(A) 98 - 107 mmol/L [facility] Carbon Dioxide 25 22 - 30 mmol/L [facility] Urea Nitrogen (BUN) 15 9 - 20 mg/dl [facility] Creatinine 1.21 0.7 - 1.3 mg/dl [facility] Glucose 130(A) 65 - 110 mg/dl [facility] Calcium 9.4 8.4 - 10.2 mg/dl [facility] Bilirubin 0.8 0.2 - 1.3 mg/dl [facility] Plasma Protein 7.3 6.3 - 8.2 g/dl [facility] Albumin 4.6 3.5 - 5.1 g/dl [facility] Alkaline Phosphatase 76 38 - 126 Units/L [facility] Alanine Transaminase (ALT) 22 6 - 50 Units/L [facility] Aspartate Transaminase (AST) 28 17 - 59 Units/L [facility] Blood 10/16/2024 us Historical Provider LAB BLOOD ORDERABLES Katrin l Result Performing Organization Address City/State/[facility] de Phone Number [address] [phone] * TYPE AND SCREEN 14 DAY (10/08/2024 9:04 AM CDT) Sri, indirect Negative ABO Rh O Positive [facility] Blood 10/08/2024 9:04 AM CDT 10/08/2024 9:51 AM CDT Narrative LEONILA ANNA - 10/08/2024 11:26 AM CDT Is this test being ordered in advance for a procedure?->Yes Expected date of procedure:->10/19/24 Has the patient been transfused in the past 3 months?->No Steve Blandon NP LAB BLOOD BANK TEST ORDERABLES Final Result [facility]ONILA ANNA [facility] [place] [address] * (ABNORMAL) POCT hemoglobin A1c (10/08/2024 8:25 AM CDT) Hgb A1C, POC 5.9(H) 4.0 - 5.6 % Est Average Gluc POC 123 mg/dL [facility] Comment: The ADA recommends reporting an estimated Average Glucose (eAG) with all Hemoglobin A1c results using the equation derived from a study of 507 normal and diabetic adults. Minority populations were underrepresented and children were not included. (Diabetes Care 31:7627-1792, 2008). The eAG is not equivalent to a fasting glucose. Blood 10/08/2024 8:25 AM CDT 10/08/2024 8:25 AM CDT Eva Funes MD POINT OF CARE TEST ORDER MICAH Final Result Performing Organization Address [facility] Co de Phone Number [facility] Edouard [facility] [place] [address] * PD-L1 IHC 22C3 pharmDx, Keytruda (10/02/2024 3:18 PM CDT) PD-L1 IHC 22C3 Keytruda See scanned report Tissue 10/02/2024 3:18 PM CDT 10/07/2024 3:18 PM CDT Damian Monaco MD LAB PATHOLOGY ORDERABLE S Final Result Performing Organization Address City/[facility]/ZIP Co de Phone Number [facility] [address] [place] [address] * XR Chest 1 View (10/02/2024 10:25 [...] abnormality. Electronically signed by: James Christopher M.D. Damian Monaco MD IMG XR PROCEDURES Final Result * Cytology (10/02/2024 9:47 AM CDT) Fluid (Lung (Cytology)) 10/02/2024 9:47 AM CDT Narrative PATHOLOGY [facility] - 10/07/2024 9:48 AM CDT [address] [address] Tele: Manisha Ibrahim MD - Sprayer Automatic Spray Machine Note to Patients: This report may contain [...] explain the details. CYTOLOGY REPORT Patient Name: ROWDY JESUS Address: [place] [address], [place] [address] Gender: M : 1955 (Age: 69) Service: Surgery Location: [facility] Hospital #: [id number] Patient Type MBC SAME DAY SURGERY Taken: [...] not support PDF viewing, please refer to [employer] or the original report to view the [...] in CytoRich Red in a container labeled Rowdy Jesus. and ARCADIO are 20 ml of cloudy, [...] are appropriately reactive. Clerical Data Follows A; 68010, 42584`, 60444, 13701, 24855(6) REPORT IMAGES AND/OR SCANNED DOCUMENTS ONLY VIEWABLE IN PDF FORMAT The immunohistochemical test(s) cited in this report, if any, was developed and its performance characteristics determined by [facility] Pathology Department. It has not been cleared or approved by the U.S. Food and Drug Administration. The FDA has determined that such clearance or approval is not necessary. This test is used for clinical purposes. It should not be regarded as investigational or for research. [facility] Laboratory is certified under the Clinical Laboratory Improvement Amendments of 1988 (CLIA) as qualified to perform high complexity testing. Immunostains were performed on formalin-fixed paraffin embedded tissue using a polymer diaminobenzidine chromogen detection system. Antibodies used may include clone 1D5 (mouse monoclonal, estrogen receptor), clone [id number] (mouse monoclonal progesterone receptor), MIB-1 (mouse monoclonal, Ki- 67), and [id number] (rabbit polyclonal, c-kit). In the event that immunohistochemistry or special stains have been performed, attending physician has confirmed appropriateness of controls. Frozen section, operating room consultation, gross examination and dissection, and case sign out may have been performed in part or completely in the following laboratories: [facility], [facility]5 [facility], [place], [place] [address] [address], [address] [place] [address], [place] [address]. us Damian Monaco MD LAB CYTOLOGY ORDERABLES Final Result PATHOLOGY [facility] Laboratory Receiving [address] [place] [address] * Bronchoscopy (10/02/2024 7:39 AM CDT) Anatomical Region Laterality Modality Other Narrative Procedure Note Damian Monaco MD - 10/02/2024 7:39 AM CDT Interventional Pulmonology Patient Name: Rowdy Edin Procedure Date: 10/02/2024 7:39 AM Admit Type: Outpatient Room: [place] [address] Date of : 1955 Instrument Name: [id number] [...] be considered if clinically indicated. POC Performer [id number] LEONILA WEISS Blood 10/02/2024 7:05 AM CDT 10/02/2024 7:05 AM CDT Damian Monaco MD LAB POCT ORDERABLES - D EVICE Final Result [facility] [address] Department [place] [address] * Pulmonary Function Test - (09/22/2024 1:40 [...] [facility] TLC %PRE PRED 110 % [facility] DLCO PRE 23.7 ml/min/mmH g [facility] DLCO %PRE PRED 81 % [facility] Anatomical Region Laterality Modality PFT 09/22/2024 1:25 PM CDT Narrative 09/24/2024 11:43 AM CDT PFT performed at:->[facility] Adult PFT Lab- CAM-8D Procedure:->Complete/Full PFT Standard:->Spirometry, [...] and %HbO2 is age dependent. However, the [facility] Pulmonary Function Laboratory defines hypoxemia as a PaO2 <56 mm Hg or a %HbO2 <89%. Starting on April of 2024 the [facility] Pulmonary Function Laboratory utilizes race neutral GLI Global normative equations. us Dayron Turnerbarbara Camara [facility] PFT ORDERABLES Final Resul t * PET/CT [...] FDG-PET/CT IMAGING DATE OF STUDY: 09/22/2024 SCANNER: [facility] Artspacea (SQ1). This is a high-resolution scanner, which [...] obtained. The study was interpreted on the Arkeo workstation. The mean liver SUV (reported for quality lead purposes) is 2.7. The total scanned area [...] FDG-PET/CT IMAGING DATE OF STUDY: 09/22/2024 SCANNER: [facility] [employer] (SQ1). This is a high-resolution scanner, which [...] obtained. The study was interpreted on the Arkeo workstation. The mean liver SUV (reported for quality lead purposes) is 2.7. The total scanned area [...] by: Leonidas Grigsby M.D. us Dayron Camara [facility] IMG PET PROCEDURES Final Re sult * Tacrolimus level trough (09/21/2024) SCRIBED Tacrolimus, trough 5.4 5.0 - 20.0 [facility] Blood 09/21/2024 Historical Provider LAB BLOOD ORDERABLES Edit [place] [address], [facility] [place] [phone] * CBC with auto differential (09/21/2024) SCRIBED WBC 7.6 4.8 - 10.8 k/cumm [facility] SCRIBED Hemoglobin 15.1 12.4 - 15.3 g/dL [facility] SCRIBED Hematocrit 45.5 37.0 - 46.0 % [facility] SCRIBED Platelets 155 150 - 420 k/cumm [facility] SCRIBED Lymphocytes 22.5 18.0 - 42.0 % [facility] SCRIBED Monocytes 7.8 2.0 - 11.0 % [facility] SCRIBED Neutrophils 67.4 50.0 - 70.0 % [facility] SCRED Eosinophils 1.5 1.0 - 6.0 % [facility] SCRED Basophils 0.4 0.0 - 1.0 % [facility] Blood 09/21/2024 Historical Provider MD LAB BLOOD ORDERABLES Edit ed Result - Final Performing Organization Address [facility] Co de Phone Number [address] [phone] * Gamma GT (09/21/2024) SCRIBED GGT 22.1 15 - 73 [facility] Blood 09/21/2024 Historical Provider MD LAB BLOOD ORDERABLES Katrin l Result Performing Organization Address [facility] Co de Phone Number [address] [phone] * (ABNORMAL) Comprehensive metabolic panel (09/21/2024) [facility] Signature SCRIBED Sodium 139 137 - 145 mmol/L [facility] SCRIBED Potassium 4.2 3.4 - 5.0 mmol/L [facility] SCRIBED Chloride 108(A) 98 - 107 mmol/L [facility] SCRIBED Carbon Dioxide 14 9 - 20 mmol/L [facility] Urea Nitrogen (BUN) 14 9 - 20 mg/dl [facility] Creatinine 1.15 0.7 - 1.3 mg/dl [facility] Glucose 120(A) 65 - 110 mg/dl [facility] Calcium 9.5 8.4 - 10.2 mg/dl [facility] SCRIBED Bilirubin 0.9 0.2 - 1.3 mg/dl [facility] SCRIBED Plasma Protein 7.4 6.3 - 8.2 g/dl [facility] SCRIBED Albumin 4.5 3.5 - 5.1 g/dl [facility] SCRIBED Alkaline Phosphatase 78 38 - 125 Units/L [facility] SCRED Alanine Transaminase (ALT) 23 6 - 50 Units/L [facility] Aspartate Transaminase (AST) 28 17 - 59 Units/L [facility] Blood 09/21/2024 us Historical Provider LAB BLOOD ORDERABLES Katrin garcia Result [address] [phone] * eGFR (09/04/2024 11:32 AM CDT) eGFR [...] MD LAB BLOOD ORDERABLES Final Res ult [facility] Department [place] [address] * (ABNORMAL) Differential, auto (09/04/2024 11:32 AM CDT) Neutrophil abs 7.70(H) 1.50 - 6.50 K/cumm Imm gran abs 0.06 0.00 - 0.10 K/cumm [facility] Lymphocyte abs 1.25 0.80 - 3.30 K/cumm [facility] Monocyte abs 0.34 0.20 - 0.80 K/cumm [facility] Eosinophil abs 0.00 0.00 - 0.50 K/cumm [facility] Basophil abs 0.01 0.00 - 0.10 K/cumm [facility] Neutrophil pct 82.3 % [facility] Comment: Interpretive Data Percent cell count reference ranges are not reported, since discordance with absolute values may lead to misinterpretation of CBC data. Current Interpretive Data was last revised on 2017. Imm gran pct 0.6 % [facility] Comment: Interpretive Data Percent cell count reference ranges are not reported, since discordance with absolute values may lead to misinterpretation of CBC data. Current Interpretive Data was last revised on 2017. Lymphocyte pct 13.4 % [facility] Comment: Interpretive Data Percent cell count reference ranges are not reported, since discordance with absolute values may lead to misinterpretation of CBC data. Current Interpretive Data was last revised on 2017. Monocyte pct 3.6 % [facility] Comment: Interpretive Data Percent cell count reference ranges are not reported, since discordance with absolute values may lead to misinterpretation of CBC data. Current Interpretive Data was last revised on 2017. Eosinophil pct 0.0 % [facility] Comment: Interpretive Data Percent cell count reference ranges are not reported, since discordance with absolute values may lead to misinterpretation of CBC data. Current Interpretive Data was last revised on 2017. Basophil pct 0.1 % CERJOSE A [facility] Comment: Interpretive Data Percent cell count reference ranges are not reported, since discordance with absolute values may lead to misinterpretation of CBC data. Current Interpretive Data was last revised on 2017. Blood 09/04/2024 11:3 2 AM CDT 09/04/2024 11:59 AM CDT us Lorie Santoyo MD LAB BLOOD ORDERABLES Final Res ult Performing Organization Address City/[facility] Co de Phone Number [facility] Department [place] [address] * CBC with auto differential (09/04/2024 11:32 AM CDT) WBC 9.36 3.80 - 9.90 K/cumm Hgb 15.8 13.0 - 17.5 g/dL [facility] Hct 45.4 38.9 - 50.3 % [facility] Plt 151 150 - 400 K/cumm [facility] MPV 10.7 9.1 - 12.3 fL [facility] RBC 5.58 4.30 - 5.80 M/cumm [facility] MCV 81.4 81.3 - 96.4 fL [facility] MCH 28.3 27.1 - 33.3 pg [facility] MCHC 34.8 32.3 - 35.7 g/dL [facility] RDW CV 13.2 11.1 - 14.9 % [facility] RDW SD 38.5 35.7 - 48.1 fL [facility] NRBC abs 0.00 0.00 - 0.01 K/cumm [facility] Blood 09/04/2024 11:3 2 AM CDT 09/04/2024 11:59 AM CDT Narrative [facility] - 09/04/2024 12:06 PM CDT Please collect all four labs on 09/01/24 Lorie Santoyo MD LAB BLOOD ORDERABLES Final Res ult Performing Organization Address City/[facility]/ZIP Co de Phone Number CERNER [facility] Department [place] [address] * [id number], Tumor Marker (09/04/2024 11:32 AM CDT) alpha Fetoprotein 3.9 <=8.3 ng/mL Comment: Interpretive [...] >1 year 0.0 8.3 ng/ml References Tari Bonilla. et al. J. Ped Surg 1978;13:155-156 Jennifer S. et al. Clin Chem Lab Med 2018;57:783-797 Cynthia Aleman. et al. Clin Chem 2014;6082-0975. Current interpretive data was last revised 2021. Blood 09/04/2024 11:3 2 AM CDT 09/04/2024 12:20 PM CDT Narrative [facility] - 09/04/2024 1:07 PM CDT Please collect all four labs on 09/01/24 Lorie Santoyo MD LAB BLOOD ORDERABLES Final Res ult [facility] Department [place] [address] * Gamma GT (09/04/2024 11:32 AM CDT) Pathologist [facility] GGT 23 10 - 50 Units/L Blood 09/04/2024 11:3 2 AM CDT 09/04/2024 12:20 PM CDT Narrative [facility] - 09/04/2024 1:07 PM CDT Please collect all four labs on 09/01/24 us Lorie Santoyo MD LAB BLOOD ORDERABLES Final Res ult [facility] One [facility] Department [place] [address] * Comprehensive metabolic panel (09/04/2024 11:32 AM CDT) Sodium 141 135 - 145 mmol/L Potassium, pl 4.6 3.3 - 4.9 mmol/L [facility] Chloride 104 97 - 110 mmol/L [facility] CO2 27 22 - 32 mmol/L [facility] Anion gap 10 2 - 15 mmol/L [facility] BUN 16 6 - 25 mg/dL [facility] Creatinine 1.26 0.80 - 1.30 mg/dL [facility] Glucose 138 70 - 199 mg/dL [facility] Comment: Interpretive Data Fasting glucose >/= 126 [...] 2022. Calcium 10.3 8.5 - 10.3 mg/dL [facility] Bilirubin, total 0.5 0.1 - 1.2 mg/dL [facility] Protein, pl 8.2 6.5 - 8.5 g/dL [facility] Albumin 4.8 3.5 - 5.0 g/dL [facility] Alk phos 104 40 - 130 Units/L [facility] ALT 20 7 - 55 Units/L [facility] AST 24 10 - 50 Units/L [facility] Blood 09/04/2024 11:3 2 AM CDT 09/04/2024 12:20 PM CDT Narrative [facility] - 09/04/2024 1:07 PM CDT Please collect all four labs on 09/01/24 us Lorie Santoyo MD LAB BLOOD ORDERABLES Final Res ult [facility]A [place] [facility] Department [place] [address] * CT Chest W Contrast (09/04/2024 11:10 [...] it. Electronically signed by: Demetrio Nur M.D. us Lorie Santoyo MD IMG CT PROCEDURES Final [...] SCRIBED Tacrolimus, trough 4.1(A) 5.0 - 20.0 [facility] Blood 08/10/2024 Historical Provider LAB BLOOD ORDERABLES Edit ed Result - Final [facility] [address] [phone] * (ABNORMAL) CBC with auto differential (08/10/2024) [facility] SCRIB WBC 8.3 4.8 - 10.8 k/cumm [facility] Hemoglobin 15.0 12.4 - 15.3 g/dL [facility] Hematocrit 46.2(A) 37.0 - 46.0 % [facility] Platelets 133(A) 150 - 420 k/cumm [facility] Lymphocytes 24.2 18.0 - 42.0 % [facility] Monocytes 8.1 2.0 - 11.0 % [facility] Neutrophils 65.2 50.0 - 70.0 % [facility] Eosinophils 1.7 1.0 - 6.0 % [facility] Basophils 0.4 0.0 - 1.0 % [facility] Blood 08/10/2024 Historical Provider MD LAB BLOOD ORDERABLES Edit ed Result - Final Performing Organization Address City/[facility]/ZIP Co de Phone Number [address] [phone] * Gamma GT (08/10/2024) SCRIBED GGT 28 15 - 85 [facility] Blood 08/10/2024 Historical Provider MD LAB BLOOD ORDERABLES Katrin l Result [address] [phone] * (ABNORMAL) Comprehensive metabolic panel (08/10/2024) SCRIBED Sodium 143 136 - 145 mmol/L [facility] Potassium 3.9 3.5 - 5.1 mmol/L [facility] Chloride 104 98 - 108 mmol/L [facility] Carbon Dioxide 29 21 - 32 mmol/L [facility] Urea Nitrogen (BUN) 15 7 - 18 mg/dl [facility] Creatinine 1.31(A) 0.70 - 1.30 mg/dl [facility] Glucose 121(A) 70 - 99 mg/dl [facility] Calcium 9.3 8.5 - 10.1 mg/dl [facility] Bilirubin 0.7 0.00 - 1.00 mg/dl [facility] Plasma Protein 7.7 6.4 - 8.2 g/dl [facility] Albumin 4.1 3.4 - 5.0 g/dl [facility] Alkaline Phosphatase 107 46 - 116 Units/L [facility] Alanine Transaminase (ALT) 35 16 - 63 Units/L [facility] Aspartate Transaminase (AST) 20 15 - 37 Units/L [facility] Blood 08/10/2024 us Historical Provider LAB BLOOD ORDERABLES Katrin l Result [address] [phone] * Hepatitis C (HCV) RNA PCR, quantitative (04/09/2022) Pathologist [facility] SCRIBED HCV RNA <15 - - - IUnit/mL [facility] Comment:Not Detected Blood 04/09/2022 us Historical Provider LAB MICROBIOLOGY - GENERA L ORDERABLES Final Result [address] [place], [place] [address] [place] [address] * PSA screen (04/19/2021 7:30 AM OYSTER SORTER) PSA-Total 1.23 <=5.40 ng/mL [facility] Comment: Interpretive Data AGE SEX REFERENCE INTERVAL 0 minutes-150 years Female None 0 minutes-49 years Male None 50-59 years Male 0-3.90 60-69 years Male 0-5.40 70-79 years Male 0-6.20 80-150 years Male 0-6.20 Current interpretive data last revised 2017. Blood 04/19/2021 7:30 AM OYSTER SORTER 04/19/2021 8:16 AM OYSTER SORTER Tay Mathews MD LAB BLOOD ORDERABLES F inal Result Performing Organization Address City/State/[facility] Co de Phone Number [facility] One [facility] Department [place] [address] from Last 3 Months or Most Recently Relevant to Health Maintenance Insurance MEDICARE [facility] MEDICARE SUPPLEMENT MEDICARE [facility] MEDICARE SUPPLEMENT Advance Directives For more information, please contact: [phone] Documents on File Type Date Recorded Patient Deputy Director Of Public Works Expl anation ADVANCE DIRECTIVE 03/09/2022 11:07 AM [facility] OF PUBLIC ADDRESS SYSTEM INSTALLER-MEDICAL ADVANCE DIRECTIVE 02/15/2022 10:56 AM Maria Luz [...] 1:50 AM 01/07/2022 3:02 PM Care Teams Plastic Parts Fabricator Relationship Specialty Start Date End Date Charles Gilbert DO [address] [place] [address] PCP - General Family Medicine 10/02/22 Angie Kim MD Referring Physician Family Practice 03/02/21 La Chun MD [address] [place], [place] [id number] Resident Anesthesiology 03/02/22 Mattie Giron RN Wood Boat Builder Supervisor 03/05/22 Arelis Helm RN [address] [facility] [address] [place] [address] Secondary Coordinator 03/05/22 Benny Galarza MD [address] [place] [address] Gastroenterology 07/11/22
--- OUTSIDE RECORDS SUMMARY | 2024-10-28 11:58 | XMS_ITS | Encounter Summary ---
Author Organization [facility] Address [address] [place] [address] Phone Care Team Providers Care Roller Picker Name Role Phone Angie Kim MD Unavailable La Chun MD Unavailable [phone] Mattie Giron RN Unavailable [phone] Arelis Helm RN Unavailable [phone] Benny Galarza MD Unavailable [phone] Charles Gilbert DO Primary Care Provider Encounter Details Date Type Department Care Team (Late st Contact Info) Description 10/27/2024 Telephone [facility] [address] [facility] [address] [place] [address] Jacob Griffith RMA Social History Tobacco Use Types Packs/Day Years Used Date Smoking Tobacco: Never Passive Smoke Exposure: Never Smokeless Tobacco: Never Social Connection and Isolat ion Panel [NHANES] Answer Date Recorded In a typical week, how many times do you talk on the phone with family, friends, or neighbors? More than three times a week 03/03/2022 How often do you get togethe r with friends or relatives? More than three times a week 03/03/2022 How often do you attend chur or orthodox services? More than 4 times per year 03/03/2022 Do you belong to any clubs o r organizations such as sabianist groups, unions, fraternal or athletic groups, or [...] on file documented as of this encounter Miscellaneous Notes * Telephone Encounter - Jacob Griffith RMA - 10/27/2024 9:13 AM CDT Called pt about CXR no answer left message documented in this encounter Plan of Treatment Not on file documented as of this encounter Visit Diagnoses Not on filedocumented in this encounter Care Teams Roller Picker Relationship Specialty Start Date End Date Charles Gilbert DO [address] [place] [address] PCP - General Family Medicine 10/02/22 Angie Kim MD Referring Physician Family Practice 03/02/21 La Chun MD [address] [place] [address] Resident Anesthesiology 03/02/22 Mattie Giron RN Group Billing Coordinator 03/05/22 Arelis Helm RN [address] [facility] [address] [place] [address] Secondary Coordinator 03/05/22 Benny Galarza MD [address] [place] [address] Gastroenterology 07/11/22 documented as of this encounter
--- OUTSIDE RECORDS SUMMARY | 2024-10-28 11:58 | XMS_ITS | Encounter Summary ---
Author Organization [facility] Address [facility] [place] [address] Care Team Providers Care Harness Mender Name Role Phone Angie Kim MD Primary Care Provider +- [phone] Keyona Cardona NP Primary Care Provider + [phone] Danielito Rollins MD Primary Care Provider [phone] Encounter Details Date Type Department Care Team (Late st Contact Info) Description 05/24/2021 MyChart Message Enc [facility] Family Medicine - [place] [address] [place] [address] [place] [address] Angie Kim MD [address] [place] [address] blood test ordered by [facility]. Social History Tobacco Use Types Packs/Day Years Used Date Smoking Tobacco: Former Cigarettes 2014 Smokeless Tobacco: Never Alcohol Use Standard [...] CDT Gender Identity Male 05/12/2021 5:38 AM SHIPPING COORDINATOR Sexual Orientation Not on file COVID-19 Exposure Response Date Recorded In the last month, have you been in contact with someone who was confirmed or suspected to have Coronavirus / COVID-19? No / Unsure 05/18/2021 3:47 PM SHIPPING COORDINATOR documented as of this encounter Plan of Treatment Not on file documented as of this encounter Visit Diagnoses Not on filedocumented in this encounter Additional Health Concerns Infection Onset Date Last Indicated Resolved Time COVID-19 Rule Out 07/10/2021 07/10/2021 07/17/2021 12:32 AM CDT documented as of this encounter Care Teams Harness Mender Relationship Specialty Start Date End Date Angie Kim MD PCP - General FAMILY PRACTICE 04/04/18 06/03/22 Keyona Cardona NP PCP - General Nurse Practitioner Family 06/04/2209/20 Danielito Rollins MD [address] [place] [address] [place] [address] PCP - General FAMILY PRACTICE 10/06/22 10/08/22 documented as of this encounter
--- OUTSIDE RECORDS SUMMARY | 2024-10-28 11:58 | XMS_ITS ---
Author Organization [facility] [address] [facility] Address [address] [place] [address] Care Team Providers Care Microstrategy Reports Developer Name Role Phone Angie Kim MD Unavailable [phone] La Chun MD Unavailable [phone] Mattie Giron RN Unavailable + [phone] Arelis Helm RN Unavailable [phone] Benny Galarza MD Unavailable [phone] Charles Gilbert DO Primary Care Provider Transplant Episode Liver Recipient [facility] ([place], [place]) - [facility] Organ Received: Liver Transplanted on 03/02/2022 Marked as Active Follow-up on 03/02/2022 Reason: Transplanted at [facility] Liver CoordinatorMattie Giron RN Fax: N/A Email: N/A Douglas Organ Diagnosis Organ Primary Contributory Liver Primary [...] Fax Email Mattie Giron RN Liver Coordinator N/A N/A iKke Montoya MD Referring Physician [phone] N/A Events Post-Transplant Pre-Transplant Admitted: 03/02/2022 Referred: 01/01/2019 Transplanted: 03/02/2022 Evaluation began: 1 Discharged: 03/08/2022 Committee: 07/18/2021 Center waitlisted: 2
--- OUTSIDE RECORDS SUMMARY | 2024-10-28 11:58 | XMS_ITS | Clinical Summary ---
Author Organization [facility] Address [facility] [place] [address] Care Team Providers Care Mult Au Matic Operator Name Role Phone Unavailable Primary Care [...] complication, without long-term current use of insulin ([facility]) Please dispense one device for testing sugars once daily 1 kit 05/18/2021 Active fluconazole (DIFLUCAN) 150 MG tabletIndicatio ns:Yeast infection TAKE 1 TABLET BY MOUTH TODAY. REPEAT IN 72 HOURS NEEDED 2 tablet 01/22/2022 Active Microlet Lancets MiscIndications :Type 2 diabetes mellitus without complication, without long-term current use of insulin ([facility]) USE TO TEST BLOOD SUGAR DAILY 100 [...] complication, without long-term current use of insulin ([facility]) USE TO TEST ONCE DAILY 100 strip [...] if pressures at home go up Cirrhosis ([facility]) 04/24/2021 Overview (04/06/2022): Dr. 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[facility]) 04/24/2021 Overview (04/06/2022): Status post liver transplant, off nadolol Type 2 diabetes mellitus wit hout complication, without long-term current use of insulin ([facility]) 04/07/2018 Overview (04/06/2022): A1c trend: 6.2>6.2>5.4 Meds: [...] (BMI) of 40.0 to 44.9 in adult 04/07/2018 Overview (04/06/2022): Max weight 326, 263 [...] A&P: No changes Functional dyspepsia 09/30/2012 Immunizations Immunization Administration Dates Next Due Afluria 36 MONTHS+ [...] CDT Gender Identity Male 05/12/2021 5:38 AM PROJECT INSPECTOR Sexual Orientation Not on file Last Filed Vital Signs Vital Sign Reading Time Taken Comments Blood Pressure 116/82 02/27/2022 9:27 AM PROJECT INSPECTOR Pulse 53 02/27/2022 9:27 AM PROJECT INSPECTOR Temperature 36.9 C (98.5 F) 10/03/2021 9:48 AM CDT Respiratory Rate 16 02/27/2022 9:27 AM PROJECT INSPECTOR Oxygen Saturation 95% 02/27/2022 9:27 AM PROJECT INSPECTOR Inhaled Oxygen Concentration - - Weight 131.5 kg (290 lb) 02/27/2022 9:27 AM PROJECT INSPECTOR Height 188 cm (6' 2) 02/27/2022 9:27 AM PROJECT INSPECTOR Body Mass Index 37.23 02/27/2022 9:27 AM PROJECT INSPECTOR Plan of Treatment Health Maintenance Due Date Last Done Comments Kidney Health Evaluation 1957 COVID-19 Vaccine (#1) 1962 Diabetes: Retinopathy Eye Exam 1975 Pneumococcal Vaccine: 50+ Years (1 of 2 - PCV) 1976 Zoster Vaccines (1 of 2) 1976 Lipid Panel 09/17/2013 09/17/2012 RSV Immunization or 60+ Years (1 - Risk 60-74 years 1-dose series) 2017 Hemoglobin A1C 12/16/2022 06/18/2022, 02/20, 02/27/2022, Additional history exists PHQ-2 (Physician Herscher) 04/22/2024 DTaP, Tdap and Td Vaccines (3 [...] this topic Medical Devices Explanted Type Area Spa Supervisor Device Identifier Shelf Expiration Date Model / Serial / Lot Tissue Surgiflo 8ml - [id number] Explanted:Qty: 1 on 05/11/2019 by Rowdy Harmon MD at [facility] Right: Spine Lumbar [employer] 04/21/2020 [id number] / / [id number] Procedures Procedure Name Priority Date/Time Associated Diagnosis Comments OUTSIDE LAB (SCAN ORDER) Routine 06/18/2022 COLONOSCOPY Routine 07/24/2021 7:06 AM CDT LIPID PANEL Routine 09/17/2012 12:00 AM CDT from Last 3 Months or Most Recently Relevant to Health Maintenance Results * OUTSIDE LAB (SCAN) (06/18/2022) HGB A1C 5.5 % [facility] ONBASE 06/18/2022 [facility] Scanned SCANNING Final Resu lt [facility] ONBASE * Colonoscopy (07/24/2021 7:06 AM CDT) [...] Most Recently Relevant to Health Maintenance Insurance [facility]
--- OUTSIDE RECORDS SUMMARY | 2024-10-28 11:58 | XMS_ITS | Encounter Summary ---
Author Organization [facility] Address [address] [place] [address] Phone Care Team Providers Care Tire Retreader Name Role Phone Benny Galarza MD Primary Care Provider [phone] Angie Kim MD Unavailable Mojgan Leonardo RN Unavailable [phone] Miscellaneous, Not In File Primary Care Provider Unavailable Angie Kim MD Primary Care Provide r La Chun MD Unavailable [phone] Mattie Giron RN Unavailable [phone] Arelis Helm RN Unavailable [phone] Benny Galarza MD Unavailable [phone] Charles Gilbert DO Primary Care Provider Encounter [...] on filedocumented in this encounter Care Teams Tire Retreader Relationship Specialty Start Date End Date Benny Galarza MD [address] [place] [place] [address] PCP - General Gastroenterology 12/31/18 04/18/21 Miscellaneous, Not In File PCP - General 04/19/21 10/17/21 Angie Kim MD [address] [place] [place] [address] PCP - General Family Practice 10/18/21 10/01/22 Charles Gilbert DO [address] [place] [address] PCP - General Family Medicine 10/02/22 Angie Kim MD [address] [place] [address] Referring Physician Family Practice 03/02/21 Mojgan Leonardo RN [address] [facility] [address] [place], [place] [id number] Issuing Operator 03/03/2103/04 La Chun MD [address] [place] [address] Resident Anesthesiology 03/02/22 Mattie Giron RN Issuing Operator 03/05/22 Arelis Helm RN [address] [place], [place] [id number] Secondary Coordinator 03/05/22 Benny Galarza MD [address] [place] [place] [address] Gastroenterology 07/11/22 documented as of this encounter
--- OUTSIDE RECORDS SUMMARY | 2024-10-28 11:58 | XMS_ITS ---
Author Organization [place] [address] [facility] Address [address] [place] [address] Care Team Providers Care Special Services Supervisor Name Role Phone Angie Kim MD Unavailable La Chun MD Unavailable [phone] Mattie Giron RN Unavailable + [phone] Arelis Helm RN Unavailable [phone] Benny Galarza MD Unavailable [phone] Charles Gilbert DO Primary Care Provider Active Problems Patient Care Coordination No te Formatting of this note migh t be different from the original. 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 I [...] indicated. Assessment & Plan (03/13/2023 10:52 AM TRANSPORTATION PLANNING TECHNICIAN): S/p liver transplant - Mr. Jesus [...] 4,049 mGy 4,049 mGy 0 mGy DLP 2,248 mGycm 2,248 mGycm 0 mGycm Resolved Problems Problem Noted [...] (03/03/2021): Added automatically from request for surgery [id number] Assessment & Plan (10/18/2021 4:57 PM CDT): Good response to loco-regional therapy. Continue to monitor imaging studies on a regular basis. Encounter for pre-transplant evaluation for liver transplant 03/13/2023
--- OUTSIDE RECORDS SUMMARY | 2024-10-28 11:58 | XMS_ITS | Encounter Summary ---
Author Organization [facility] Address [address] [place] [address] Care Team Providers Care Plant Operator/Shift Supervisor Name Role Phone Angie Kim MD Unavailable [phone] La Chun MD Unavailable [phone] Mattie Giron RN Unavailable [phone] Arelis Helm RN Unavailable [phone] Benny Galarza MD Unavailable [phone] Charles Gilbert DO Primary Care Provider Encounter Details Date Type Department Care Team (Late st Contact Info) Description 10/07/2024 Results Follow-Up [facility] Transplant Liver [address] [facility] [address] 09[address]52-555 [place] [address] Linda Longo RN Cytology Social History Tobacco Use Types Packs/Day Years [...] week 03/03/2022 How often do you attend [facility] or scientologist services? More than 4 times per year 03/03/2022 Do you belong to any clubs o r organizations such as hindu groups, unions, fraternal or athletic groups, or [...] place to sleep or slept in a group home (including now)? No 03/03/2022 Personal Safety Answer Date Recorded Have you ever been in or are you currently in a harmful physical or emotional relationship or is someone making you feel afraid or unsafe? Denies 10/08/2024 Sex and Gender Information Value Date Recorded Sex Assigned at Not on file Legal Sex Male 8:26 AM CDT Gender Identity Not on file Sexual Orientation Not on file documented as of this encounter Functional Status * Audit-C Score Answer Date of Assessment Author 0 10/08/2024 8:01 AM KARENT Bozena Goldman RN * Question Answer Date of Assessment Author Q1: How often do you have a drink containing alcohol? Never 10/08/2024 8:01 AM CDT Bozena Goldman RN Q2: How many drinks containing alcohol do you have on a typical day when you are drinking? Patient does not drink 10/08/2024 8:01 AM KARENT Bozena Goldman RN Q3: How often do you have six or more drinks on one occasion? Never 10/08/2024 8:01 AM KARENT Bozena Goldman RN documented as of this encounter Plan of Treatment Not on file documented as of this encounter Visit Diagnoses Not on filedocumented in this encounter Care Teams Plant Operator/Shift Supervisor Relationship Specialty Start Date End Date Charles Gilbert DO [address] [place] [address] PCP - General Family Medicine 10/02/22 Angie Kim MD Referring Physician Family Practice 03/02/21 La Chun MD [address] [place] [address] Resident Anesthesiology 03/02/22 Mattie Giron, NITA Lofter 03/05/22 Arelis Helm RN [address] [place] [address] Secondary Coordinator 03/05/22 Benny Galarza MD [address] [place] [address] Gastroenterology 07/11/22 documented as of this encounter
== END 2024-10-28 11:52 | disposition home or self-care (01) ==
LOC: CHSLAB 12:00 → CHSIMG 12:00
PROVIDERS: PCP Family Medicine
DX: R91.1 Solitary pulmonary nodule (principal)
CPT/HCPCS: 71046

== ENCOUNTER 2024-10-29 09:30 | Outpatient (CLI) | payer MEDICARE, SELFPAY ==
--- NOTE | ~2024-10-29 | XR_ITS ---
EXAM/PROCEDURE: XR chest 2V - 10/29/2024 9:38 CDT HISTORY: 69 years old Male with Z90.2 - Acquired absence of lung [part of] drain tube leakag TECHNIQUE: Two view(s) of the chest. COMPARISON: None available. FINDINGS: LUNGS/ PLEURA: No focal consolidation. No appreciable pneumothorax or large pleural effusion. HEART/ MEDIASTINUM: Heart appears normal in size. BONES: No acute osseous abnormality. OTHER: Visualized upper abdomen is unremarkable. Elevation of left hemidiaphragm. Tortuous aorta. IMPRESSION: No acute process. Reviewed, dictated and finalized at location A. IMPRESSION: No acute process.
== END 2024-10-29 09:31 | disposition home or self-care (01) ==
LOC: CHSIMG 09:36
PROVIDERS: PCP Family Medicine; Visit Provider Family Medicine
DX: Z90.2 Acquired absence of lung [part of] (principal)
CPT/HCPCS: 71046

== ENCOUNTER 2024-11-19 16:09 | Outpatient (CLI) | payer MEDICARE, SELFPAY ==
--- NOTE | ~2024-11-19 | CT_ITS ---
EXAMINATION: CT diagnostic chest wo con DATE: 11/19/2024 16:34 INDICATION: Soft Tissue Infection s/p lobectomy TECHNIQUE: Computed tomography (CT) of the chest was performed without intravenous contrast. Addition al 3D reconstructions utilizing coronal maximum intensity projection (MIP) were performed. Automated exposure control and iterative reconstruction technique were employed. The dose-length product was 64 2.61 mGy-cm. COMPARISON: None FINDINGS: Moderate-sized dependently layering left pleural effusion. Postoperative changes at the left hilum li juliocesar related to partial left pneumonectomy likely involving the lingula and left upper lobe. There is mild mediastinal atelectasis/scarring in the remaining left lung. Minimal subcutaneous edema and a f ew tracts of stranding along the lateral left lower chest wall likely related to recent surgery. Calc ified left perihilar nodule and calcified left hilar and mediastinal lymph nodes consistent with old granulomatous disease. Right lung is clear. No pneumonia, pulmonary edema, pneumothorax or right-side d pleural effusion. Heart size is normal. Atherosclerotic coronary artery calcification. Aortic valve calcification. No pericardial effusion. Thoracic aorta is normal in caliber. No pathologically enlar ged thoracic lymphadenopathy. Mild to moderate thoracic spondylosis with chronic appearing mild anter ior wedging of a few lower thoracic vertebral bodies and multiple Schmorl's nodes involving the major ity the endplates in the mid to lower thoracic spine. Postoperative changes in the upper abdomen with multiple surgical clips about a hepatic segment of the inferior vena cava. Gallbladder is not visual ized and may be surgically absent. Partially visualized suture line along the splenic flexure of the colon. Numerous splenic calcifications consistent with old granulomatous disease. Mild bilateral gyne comastia. IMPRESSION: 1. Moderate-sized left pleural effusion with change of likely recent prior partial left pneumonectomy with associated postoperative changes along the lateral left lower chest wall. 2. No other acute cardiopulmonary disease. Reviewed, dictated and finalized at location A. IMPRESSION: 1. Moderate-sized left pleural effusion with change of likely recent prior part ial left pneumonectomy with associated postoperative changes along the lateral left lower chest wall. 2. No other acute cardiopulmonary disease.
--- OUTSIDE RECORDS SUMMARY | 2024-11-19 16:17 | XMS_ITS | Clinical Summary ---
Author Organization [facility] [employer] Address [address] [place] [address] Care Team Providers Care Contract Forester Name Role Phone Unavailable Primary Care Provider Unavailabl e Source Comments [facility] [employer],non-owned Affiliates and Associated Physician Practices is amultiple site organization consisting of ambulatory clinics and hospital sitesin [place], [place], [place] and [place]. This disclosure is being madepursuant to the Care Everywhere program and may not contain all information available regarding this patient. Last updated 18.[facility] [employer] Social History Tobacco Use Types Packs/Day Years Used Date Smoking Tobacco: Never Assessed Sex and Gender Information Value Date Recorded Sex Assigned at Not on file Legal Sex Male 6:21 AM EARLY CHILDHOOD EDUCATION COORDINATOR Gender Identity Not on file Sexual Orientation [...] season) 2023 DEPRESSION SCREENING 04/22/2024 INFLUENZA VACCINE (#1) 2024 Respiratory Syncytial Virus (RSV) Vaccine Pt: [...] topic Insurance MEDICARE ANTHEM MEDICARE ANTHEM MEDICARE [facility]
--- OUTSIDE RECORDS SUMMARY | 2024-11-19 16:17 | XMS_ITS | Encounter Summary ---
Author Organization [facility] Address [facility] [place] [address] Care Team Providers Care Weaver Narrow Fabrics Name Role Phone Angie Kim MD Primary Care Provider [phone]- [phone] Keyona Cardona NP Primary Care Provider + [phone] Danielito Rollins MD Primary Care Provider [phone] Encounter Details Date Type Department Care Team (Late st Contact Info) Description 09/18/[address] [address] [facility] Family Medicine [place] [address] [facility] [place] [address] Angie Kim MD [address] [place] [address] Metformin Social History Tobacco Use Types [...] CDT Gender Identity Male 05/12/2021 5:38 AM DEPUTY CHIEF SHERIFF Sexual Orientation Not on file documented as of this encounter Progress Notes * Nata Candelaria RN - 09/19/2021 11:03 AM CDTFrom: Rowdy Jesus To: Dr. Angie Silva Sent: 09/18/2021 8:20 PM CDT Subject: Metformin Bill needs a prescription for Metformin. He has an upcoming appointment with you, however, he had acall from [place] this morning, ended up going there, but [...] glucose documented in this encounter Care Teams Weaver Narrow Fabrics Relationship Specialty Start Date End Date Angie Kim MD PCP - General FAMILY PRACTICE 04/04/18 06/03/22 Keyona Cardona NP PCP - General Nurse Practitioner Family 06/04/2209/20 Danielito Rollins MD [address] [place] [address] [place] [address] PCP - General FAMILY PRACTICE 10/06/22 10/08/22 documented as of this encounter
--- OUTSIDE RECORDS SUMMARY | 2024-11-19 16:18 | XMS_ITS | Encounter Summary ---
Author Organization [facility] Address [address] [place] [address] Phone Care Team Providers Care Education Rn Name Role Phone Angie Kim MD Unavailable La Chun MD Unavailable Mattie Giron RN Unavailable [phone] Arelis Helm RN Unavailable [phone] Benny Galarza MD Unavailable [phone] Charles Gilbert DO Primary Care Provider Eva Funes MD Unavailable [phone] Simba Jaramillo MD PhD Unavailable [phone] Encounter Details Date Type Department Care Team (Late st Contact Info) Description 11/19/2024 Telephone [facility] [address] [facility] [address] [place] [address] Dayron Camara, CORE LOADER [address] [facility] [address] [place] [address] Social History Tobacco Use Types Packs/Day Years [...] often do you attend chur ch or gnosticist services? More than 4 times per year [...] place to sleep or slept in a senior care (including now)? No 03/03/2022 Personal Safety Answer [...] encounter Miscellaneous Notes * Telephone Encounter - Dayron Camara NP - 11/19/2024 2:04 PM CDT I spoke to the patient's today. She sent another updated picture of her 's port site. She is still concerned and the patient is very anxious over this. He has been on 3 different antibiotics. Comparing the pictures, it does not really look worse to me. She denies him having fevers but states that it is hurting more. We had discussed getting a CT scan if this was not improving. We willsee if we can get this set up locally. She indicated understanding. documented in this encounter Plan of Treatment Not on file documented as of this encounter Visit Diagnoses Not on filedocumented in this encounter Care Teams Education Rn Relationship Specialty Start Date End Date Charles Gilbert DO [address] [place] [address] PCP - General Family Medicine 10/02/22 Angie Kim MD Referring Physician Family Practice 03/02/21 La Chun MD Resident Anesthesiology 03/02/22 Mattie Giron RN Voip Technician 03/05/22 Arelis Helm RN [address] [facility] [address] [place] [address] Secondary Coordinator 03/05/22 Benny Galarza MD [address] [address] Gastroenterology 07/11/22 Eva Funes MD [facility] [address] [place] [address] Referring Physician Thoracic Surgery 11/12/24 Simba Jaramillo MD PhD [address] [place] [address] MEDICAL ONCOLOGY, [facility] [address] [place] [address] Medical Oncologist/Icing Mixer Medical Oncology 11/12/24 documented as of this encounter
--- OUTSIDE RECORDS SUMMARY | 2024-11-19 16:18 | XMS_ITS | Encounter Summary ---
Author Organization [facility] Address [address] [facility] [address] [place] [address] Phone Care Team Providers Care Mill And Coal Transport Operator Name Role Phone Angie Kim MD Unavailable [phone] La Chun MD Unavailable [phone] Mattie Giron RN Unavailable [phone] Arelis Helm RN Unavailable [phone] Benny Galarza MD Unavailable [phone] Charles Gilbert DO Primary Care Provider Eva Funes MD Unavailable [phone] Simba Jaramillo MD PhD Unavailable Reason for Visit * Reason Onset Date Comments CT SCAN APPOINTMENT 11/19/2024 Encounter Details Date Type Department Care Team (Late st Contact Info) Description 11/19/2024 Telephone [facility] Cardiothoracic Surgery [address] [facility] Advanced Medicine 8th Floor [address] Room [address] [place] [address] Eva Funes MD [address] [facility] 8233-08-21 [place] [address] CT SCAN APPOINTMENT Social History Tobacco Use Types Packs/Day Years [...] often do you attend chur ch or sabianism services? More than 4 times per year 03/03/2022 Do you belong to any clubs o r organizations such as yarsani groups, unions, fraternal or athletic groups, or [...] encounter Miscellaneous Notes * Telephone Encounter - Carlos Reina - 11/19/2024 3:16 PM CDT This pt was calling back to set up a CT scan tomorrow-11/20/[phone] documented in this encounter Plan of Treatment Not on file documented as of this encounter Visit Diagnoses Not on filedocumented in this encounter Care Teams Mill And Coal Transport Operator Relationship Specialty Start Date End Date Charles Gilbert DO [address] [place] [address] PCP - General Family Medicine 10/02/22 Angie Kim MD Referring Physician Family Practice 03/02/21 La Chun MD Resident Anesthesiology 03/02/22 Mattie Giron RN Advance Scout 03/05/22 Arelis Helm RN [address] [address] Secondary Coordinator 03/05/22 Benny Galarza MD [address] [place] [address] Gastroenterology 07/11/22 Eva Funes MD [facility] [address] [place] [address] Referring Physician Thoracic Surgery 11/12/24 Simba Jaramillo MD PhD [facility] MED[facility], [address] [address] Medical Oncologist/Windows Systems Admin Medical Oncology 11/12/24 documented as of this encounter
--- OUTSIDE RECORDS SUMMARY | 2024-11-19 16:18 | XMS_ITS ---
Author Organization [facility] [address] [facility] Address [address] [place] [address] Care Team Providers Care Cardiothoracic Physiotherapist Name Role Phone Angie Kim MD Unavailable La Chun MD Unavailable [phone] Mattie Giron RN Unavailable + [phone] Arleis Helm RN Unavailable [phone] Benny Galarza MD Unavailable [phone] Charles Gilbert Primary Care Provider Eva Funes MD Unavailable [phone] Simba Jaramillo MD PhD Unavailable [phone] Transplant Episode Liver Recipient [facility] ([place], [place]) - [facility] Organ Received: Liver Transplanted on 03/02/2022 Marked as Active Follow-up on 03/02/2022 Reason: Transplanted at [facility] Liver CoordinatorMattie Giron RN Fax: N/A Email: N/A [place] Organ Diagnosis Organ Primary Contributory Liver Primary [...] Fax Email Mattie Giron RN Liver Coordinator [phone] N/A N/A Kike Montoya MD Referring Physician [phone] N/A Events Post-Transplant Pre-Transplant Admitted: 03/02/2022 Referred: 01/01/2019 Transplanted: 03/02/2022 Evaluation began: 1 Discharged: 03/08/2022 Committee: 07/18/2021 Center waitlisted: 2
--- OUTSIDE RECORDS SUMMARY | 2024-11-19 16:18 | XMS_ITS | Clinical Summary ---
Author Organization [facility] Address [facility] [place] [address] Care Team Providers Care Still Operator Brandy Name Role Phone Unavailable Primary Care Provider [...] complication, without long-term current use of insulin ([facility]) Please dispense one device for testing sugars once daily 1 kit 05/18/2021 Active fluconazole (DIFLUCAN) 150 MG tabletIndicatio ns:Yeast infection TAKE 1 TABLET BY MOUTH TODAY. REPEAT IN 72 HOURS NEEDED 2 tablet 01/22/2022 Active Microlet Lancets MiscIndications :Type 2 diabetes mellitus without complication, without long-term current use of insulin ([facility]) USE TO TEST BLOOD SUGAR DAILY 100 [...] complication, without long-term current use of insulin ([facility]) USE TO TEST ONCE DAILY 100 strip [...] if pressures at home go up Cirrhosis ([facility]) 04/24/2021 Overview (04/06/2022): Dr. 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9 C (98.5 F) 10/03/2021 9:48 AM CDT Respiratory Rate 16 02/27/2022 9:27 AM WILDLIFE BIOLOGIST Oxygen Saturation 95% 02/27/2022 9:27 AM WILDLIFE BIOLOGIST Inhaled Oxygen Concentration - - Weight 131.5 kg (290 lb) 02/27/2022 9:27 AM WILDLIFE BIOLOGIST Height 188 cm (6' 2) 02/27/2022 9:27 AM WILDLIFE BIOLOGIST Body Mass Index 37.23 02/27/2022 9:27 AM WILDLIFE BIOLOGIST Plan of Treatment Health Maintenance Due Date [...] 12/16/2022 06/18/2022, 02/20, 02/27/2022, Additional history exists DTaP, Tdap and Td Vaccines (3 - [...] this topic Medical Devices Explanted Type Area Manager Immunology Device Identifier Shelf Expiration Date Model / Serial / Lot Tissue Surgiflo 8ml - [id number] Explanted:Qty: 1 on 05/11/2019 by Rowdy Harmon MD at [facility] Right: Spine Lumbar [employer] 04/21/2020 [id number] / / [id number] Procedures Procedure Name Priority Date/Time Associated Diagnosis Comments OUTSIDE LAB (SCAN ORDER) Routine 06/18/2022 COLONOSCOPY Routine 07/24/2021 7:06 AM CDT LIPID PANEL Routine 09/17/2012 12:00 AM CDT from Last 3 Months or Most Recently Relevant to Health Maintenance Results * OUTSIDE LAB (SCAN) (06/18/2022) HGB A1C 5.5 % [facility] 06/18/2022 [facility] Scanned SCANNING Final Resu lt [facility] * Colonoscopy (07/24/2021 7:06 AM CDT) Benny Galarza MD GI PROCEDURE ORDERABLES Final [...] Most Recently Relevant to Health Maintenance Insurance [facility]
--- OUTSIDE RECORDS SUMMARY | 2024-11-19 16:18 | XMS_ITS | Encounter Summary ---
Author Organization [facility] Address [address] [place] [address] Care Team Providers Care Dramatic Director Name Role Phone Angie Kim MD Unavailable [phone] La Chun MD Unavailable [phone] Mattie Giron RN Unavailable + [phone] Arelis Helm RN Unavailable [phone] Benny Galarza MD Unavailable [phone] Charles Gilbert DO Primary Care Provider Eva Funes MD Unavailable [phone] Simba Jaramillo MD PhD Unavailable [phone] Encounter Details Date Type Department Care Team (Late st Contact Info) Description 09/23/2024 Results Follow-Up [facility] Transplant Liver [address] [address] [address] [id number] [place] [address] Mattie Giron, RN PET/CT FDG Skull to Thigh Social [...] often do you attend chur ch or oriental orthodox services? More than 4 times per year 03/03/2022 Do you belong to any clubs o r organizations such as zoroastrianism groups, unions, fraternal or athletic groups, or [...] place to sleep or slept in a skilled nursing (including now)? No 03/03/2022 Personal Safety Answer [...] on filedocumented in this encounter Care Teams Dramatic Director Relationship Specialty Start Date End Date Charles Gilbert DO [address] [place] [address] PCP - General Family Medicine 10/02/22 Angie Kim MD Referring Physician Family Practice 03/02/21 La Chun MD Resident Anesthesiology 03/02/22 Mattie Giron, NITA Manager Customs 03/05/22 Arelis Helm, RN [address] [facility] [address] [place] [address] Secondary Coordinator 03/05/22 Benny Galarza MD [facility] [address] Gastroenterology 07/11/22 Eva Funes MD [facility] [address] [place] [address] Referring Physician Thoracic Surgery 11/12/24 Simba Jaramillo MD PhD [address] [place] [address] MEDICAL ONCOLOGY, [facility] [address] [place] [address] Medical Oncologist/Tobacco Shaker Medical Oncology 11/12/24 documented as of this encounter
--- OUTSIDE RECORDS SUMMARY | 2024-11-19 16:18 | XMS_ITS | Encounter Summary ---
Author Organization [facility] Address [address] [place] [address] Phone Care Team Providers Care Party Plan Salesperson Name Role Phone Angie Kim MD Unavailable aL Chun MD Unavailable [phone] Mattie Giron RN Unavailable [phone] Arelis Helm RN Unavailable [phone] Benny Galarza MD Unavailable [phone] Charles Gilbert DO Primary Care Provider Eva Funes MD Unavailable [phone] Simba Jaramillo MD PhD Unavailable Encounter Details Date Type Department Care Team (Late st Contact Info) Description 12/03/2023 Orders Only [facility] Ophthalmology [facility] Outpatient Health 6th [place] [address] Prieto Limon MD [facility] [address] [place] [address] Ptosis of right eyelid [...] How often do you attend chur or anabaptist services? More than 4 times per year 03/03/2022 Do you belong to any clubs o r organizations such as adventist groups, unions, fraternal or athletic groups, or [...] place to sleep or slept in a [place] health care facility (including now)? No 03/03/2022 Personal Safety Answer [...] eyelid documented in this encounter Care Teams Party Plan Salesperson Relationship Specialty Start Date End Date Charles Gilbert DO [address] [place] [address] PCP - General Family Medicine 10/02/22 Angie Kim MD Referring Physician Family Practice 03/02/21 La Chun MD Resident Anesthesiology 03/02/22 Mattie Giron, NITA Life Skills Coordinator 03/05/22 Arelis Helm, RN [address] [facility] [address] [place] [address] Secondary Coordinator 03/05/22 Benny Galarza MD [address] [address] Gastroenterology 07/11/22 Eva Funes MD [address] [facility] [address] [place] [address] Referring Physician Thoracic Surgery 11/12/24 Simba Jaramillo MD PhD [facility], [facility] [address] [place] [address] Medical Oncologist/Roving Hand Medical Oncology 11/12/24 documented as of this encounter
--- OUTSIDE RECORDS SUMMARY | 2024-11-19 16:18 | XMS_ITS | Encounter Summary ---
Author Organization [facility] Address [address] [place] [address] Phone Care Team Providers Care Regulatory Affairs Strategy Specialist Name Role Phone Angie Kim MD Unavailable [phone] La Chun MD Unavailable [phone] Mattie Giron RN Unavailable + [phone] Arelis Helm RN Unavailable [phone] Benny Galarza MD Unavailable [phone] Charles Gilbert DO Primary Care Provider Eva Funes MD Unavailable [phone] Simba Jaramillo MD PhD Unavailable Reason for Referral * MRI/CAT/PET Scan (Routine) - Authorized Specialty Diagnoses / Procedures Referred By Contac t Referred To Contact Radiology Diagnoses Soft tissue infection Procedures CT chest without contrast Dayron Camara NP [address] [place] [address] Phone: tel: fax: External Order Referral ID Status Reason Start Date Expiration Date V isits Requested Visits Authorized [id number] Authorized 11/19/2024 12/19/2025 1 1 Encounter Details Date Type Department Care Team (Late st Contact Info) Description 11/19/2024 Orders Only [facility] [address] [facility] Floor [address] [place] [address] Dayron Camara, LABOR RELATIONS SUPERVISOR [address] [place], [place] [id number] Soft tissue infection (Primary Dx) Social History Tobacco Use Types [...] often do you attend chur ch or christianity services? More than 4 times per year 03/03/2022 Do you belong to any clubs o r organizations such as yazidism groups, unions, fraternal or athletic groups, or [...] as of this encounter Plan of Treatment Scheduled Orders Name Type Priority Associated Diagnoses Orde r Schedule CT chest without contrast Imaging Schedule MARCELINO, Read MARCELINO (Appt Today, Awaiting Results) Soft tissue infection Expected: 11/19/2024, Expires: 11/19/2025 documented as of this encounter Visit Diagnoses Diagnosis Soft tissue infection- Primary Unspecified infectious and parasitic diseases documented in this encounter Care Teams Regulatory Affairs Strategy Specialist Relationship Specialty Start Date End Date Charles Gilbert DO [address] [place] [address] PCP - General Family Medicine 10/02/22 Angie Kim MD Referring Physician Family Practice 03/02/21 La Chun MD Resident Anesthesiology 03/02/22 Mattie Giron, NITA Flap Maker 03/05/22 Arelis Helm, RN [address] [facility] [address] [place] [address] Secondary Coordinator 03/05/22 Benny Galarza MD [address] [address] Gastroenterology 07/11/22 Eva Funes MD [address] [facility] [address] [place] [address] Referring Physician Thoracic Surgery 11/12/24 Simba Jaramillo MD PhD [facility]COL[facility], [facility] [address] [place] [address] Medical Oncologist/Terrazzo Layer Medical Oncology 11/12/24 documented as of this encounter
--- OUTSIDE RECORDS SUMMARY | 2024-11-19 16:18 | XMS_ITS | Encounter Summary ---
Author Organization [facility] Address [address] [place] [address] Care Team Providers Care Inward Toll Operator Name Role Phone Angie Kim MD Unavailable [phone] La Chun MD Unavailable [phone] Mattie Giron RN Unavailable + [phone] Arelis Helm RN Unavailable [phone] Benny Galarza MD Unavailable [phone] Charles Gilbert DO Primary Care Provider Eva Funes MD Unavailable [phone] Simba Jaramillo MD PhD Unavailable [phone] Encounter Details Date Type Department Care Team (Late st Contact Info) Description 10/07/2024 Results Follow-Up [facility] Transplant Liver [address] [address] [address] [phone] [place] [address] Linda Longo, RN Cytology Social History Tobacco Use Types [...] of Assessment Author 0 10/08/2024 8:01 AM CDT Bozena Goldman RN * Question Answer Date of Assessment Author Q1: How often do you have a drink containing alcohol? Never 10/08/2024 8:01 AM Bozena West RN Q2: How many drinks containing alcohol do you have on a typical day when you are drinking? Patient does not drink 10/08/2024 8:01 AM Bozena West RN Q3: How often do you have six or more drinks on one occasion? Never 10/08/2024 8:01 AM KARENT Bozena Goldman RN documented as of this encounter Plan of Treatment Not on file documented as of this encounter Visit Diagnoses Not on filedocumented in this encounter Care Teams Inward Toll Operator Relationship Specialty Start Date End Date Charles Gilbert DO [address] [place] [address] PCP - General Family Medicine 10/02/22 Angie Kim MD Referring Physician Family Practice 03/02/21 La Chun MD Resident Anesthesiology 03/02/22 Mattie Giron RN Room Maid 03/05/22 Arelis Helm RN [address] [address] Secondary Coordinator 03/05/22 Benny Galarza MD [address] [place] [address] Gastroenterology 07/11/22 Eva Funes MD [address] [facility] [address] [place] [address] Referring Physician Thoracic Surgery 11/12/24 Simba Jaramillo MD PhD [address] [facility] MEDICAL ONCOLOGY, [facility] [address] [place] [address] Medical Oncologist/Energy Efficiency Finance Manager Medical Oncology 11/12/24 documented as of this encounter
--- OUTSIDE RECORDS SUMMARY | 2024-11-19 16:18 | XMS_ITS | Clinical Summary ---
Author Organization [place] [id number] [facility] Address [address] [place] [address] Care Team Providers Care Spray I Painter Name Role Phone Angie Kim MD Unavailable La Chun MD Unavailable [phone] Mattie Giron RN Unavailable + [phone] Arelis Helm RN Unavailable [phone] Benny Galarza MD Unavailable [phone] Charles Gilbert DO Primary Care Provider Eva Funes MD Unavailable [phone] Simba Jaramillo MD PhD Unavailable Allergies Active Allergy Reactions Criticality Noted Date [...] 1 tablet nightly 0 12/09/19 19 Active blood-glucose meter misc 1 applicator 3 (three) times a day 1 meter 1 each 03/05/20 Active blood glucose diagnostic strip 1 strip TID with meals. Max 100 each 11 03/05/20 22 Active lancets 30 gauge misc 1 lancet TID with meals. Max of 100 each 1 03/05/[address] (PROTONIX) 40 mg EC tablet TAKE 1 TABLET (40MG TOTAL) BY MOUTH DAILY PLEASE CONTACT YOUR PRIMARY CARE PROVIDER FOR FUTURE REFILLS OF THE MEDICATION AND MANAGEMENT AND MONITORING OF ACID REFLUX 90 tablet 09/29/19 23 Active Additional Information Patient taking differently: No details specified, Informant: Self, Reported on 11/10/2024 senna-docusate (Senna Plus) 8.6-50 mg Take 1 tablet by mouth 2 (two) times a day as needed for constipation Please grape picker over the counter or contact PCP for future refills. Thanks! 60 tablet 07/19/19 24 Active Additional Information Patient taking differently:1 tablet oral 2 times daily PRN, constipation, Please grape picker over the counter or contact PCP for future refills. Thanks!,Indications: constipation, Informant: Self, Reported on 11/10/2024 NIFEdipine (NIFEdipine CC) 90 mg 24 hr [...] DOSE OF 5MG DAILY 30 tablet 09/05/19 25 Active Additional Information Patient taking differently: No details specified, Informant: Self, Reported on 11/10/2024 Envarsus XR 4 mg tablet extended release 24 hr TAKE ONE TABLET BY MOUTH EVERY DAY. TAKE WITH ONE 1MG TABLET FOR TOTAL DAILY DOSE OF 5MG 30 tablet 09/05/19 25 Active Additional Information Patient taking differently: No details specified, Informant: Self, Reported on 11/10/2024 polyethylene glycol (MIRALAX) 17 gram packetIndicati ons:constipati [...] as needed for pain 10/22/19 25 Active gabapentin (NEURONTIN) 300 mg capsuleIndicat ions:Restless Legs Syndrome Take 1 capsule (300 mg total) by mouth 3 (three) times a day 90 capsule 10/30/19 25 2024 Active traMADoL (ULTRAM) 50 mg tabletIndicati ons:Post-op pain Take 1 tablet (50 mg total) by mouth every 8 (eight) hours as needed for pain 21 tablet 11/11/19 25 Active aspirin 81 mg enteric coated tablet Take 1 tablet (81 mg total) by mouth daily 30 tablet 11 03/05/20 22 2024 Discontinued(P atient Reported) mycophenolate sodium DR (MYFORTIC) 360 mg EC tabletIndicati ons:HCC (hepatocellula r carcinoma) (HCC),History of liver transplant (HCC),manager long term care (current) use of calcineurin inhibitor Take 1 tablet (360 mg total) by mouth daily 90 tablet 3 09/30/19 25 2024 Discontinued cyclobenzaprin e (FLEXERIL) 5 mg tablet Take 1 tablet (5 mg total) by mouth 3 (three) times a day as needed for muscle spasms 30 tablet 10/22/19 25 2024 Discontinued(R eorder) oxyCODONE (ROXICODONE) 5 mg immediate release tabletIndicati ons:Pain Take 1 tablet (5 mg total) by mouth every 4 (four) hours as needed for pain 20 tablet 10/22/19 25 2024 Discontinued(R eorder) cyclobenzaprin e (FLEXERIL) 5 mg tabletIndicati ons:Muscle spasm Take 1 tablet (5 mg total) by mouth 3 (three) times a day as needed for muscle spasms 42 tablet 10/23/19 25 2024 Discontinued(P atient Reported) oxyCODONE (ROXICODONE) 5 mg immediate release tabletIndicati ons:Pain Take 1 tablet (5 mg total) by mouth every 4 (four) hours as needed for pain for up to 7 days 42 tablet 10/23/19 [address] (MYFORTIC) 360 mg EC tabletIndicati ons:HCC (hepatocellula r carcinoma) (HCC),History of liver transplant (HCC),assisted (current) use of calcineurin inhibitor Take 1 tablet (360 mg total) by mouth daily 90 tablet 3 11/11/19 25 2024 Active Problems Patient Care Coordination No te Formatting of this note migh t be different from the original. Labs at [facility] (starting 03/12) Option 6 FAX: Best fax per lab is [phone] alt fax [phone] This is a 69 year old male [...] and discussion. Problem Noted Date Diagnosed Date Malignant neoplasm of upper lobe of left lung Acute pain 10/19/2024 Assessment & Plan (10/21/2024 11:05 AM CDT): S/p robotic assisted lobectomy - PO multimodal - d/c AEROPHYSICIST GERD (gastroesophageal reflux disease) Assessment & Plan [...] afternoon if chest tube output does not grape picker - fat challenge, monitor chest tube [...] UOP Assessment & Plan (03/11/2024 10:13 AM AOC PLANS INTELLIGENCE OFFICER CHIEF): Multifactorial; in part secondary to use of [...] management Assessment & Plan (03/11/2024 10:13 AM AOC PLANS INTELLIGENCE OFFICER CHIEF): He has excellent allograft function. I saw [...] indicated. Assessment & Plan (03/13/2023 10:52 AM AOC PLANS INTELLIGENCE OFFICER CHIEF): S/p liver transplant - Mr. Jesus is [...] (03/03/2021): Added automatically from request for surgery [id number] Assessment & Plan (10/18/2021 4:57 PM CDT): Good response to loco-regional therapy. Continue to monitor imaging studies on a regular basis. Encounter for pre-transplant evaluation for liver transplant 03/13/2023 Encounters Date Type Department Care Team Description 11/19/2024 Telephone [facility] Cardiothoracic Surgery [address] [facility] Medicine 8th Floor [address] [place] [phone] SCAN APPOINTMENT 11/19/2024 Telephone [facility] Surgery [address] [facility] Floor 5 [place] [address] Dayron Camara NP 11/19/2024 Orders Only [facility] Surgery [address] [facility] Floor 5 [place] [address] Dayron Camara NP Soft tissue infection (Primary Dx) 11/13/2024 Telephone [facility] Transplant Liver [address] [facility] [address] Mailstop [phone] [place] [address] Tasneem Morfin 11/12/2024 Orders Only [facility] Surgery [address] [facility] [address] [place] [phone] Eva Funes MD Lung nodule (Primary Dx) 11/12/2024 Telephone [facility] Surgery [address] [facility] [address] [place] [address] Jacob Griffith RMA 11/10/2024 1:15 PM CDT Office Visit [facility] Surgery [address] [facility] Floor 5 [place] [phone] Eva Funes MD Lung nodule (Primary Dx); HCC (hepatocellular carcinoma) (HCC); History of liver transplant (HCC); assisted (current) use of calcineurin inhibitor; Class 3 severe obesity due to excess calories with serious comorbidity and body mass index (BMI) of 40.0 to 44.9 in adult; Type 2 diabetes mellitus with other specified complication, unspecified whether shelter insulin use (HCC) 11/10/2024 12:49 PM CDT - 11/10/2024 11:59 PM CDT Hospital Encounter [facility] [place] - Diagnostic Imaging [address] [facility] Floor 8 [place] [address] Lung nodule Discharge Disposition: Discharge to home or self care 11/10/2024 Orders Only [facility] Surgery [address] [facility] Floor 5 [place] [phone] Dayron Camara NP Squamous cell carcinoma of left lung (HCC) (Primary Dx) 11/09/2024 Telephone [facility] Surgery [address] [facility] [address] [place] [address] Jacob Griffith RMA 10/29/2024 12:33 PM CDT - 10/29/2024 11:59 PM CDT Hospital Encounter [facility] [address] [place] [address] Discharge Disposition: Discharge to home or self care 10/29/2024 12:23 PM CDT - 10/29/2024 11:59 PM CDT Hospital Encounter [facility]) [address] [place] [address] Discharge Disposition: Discharge to home or self care 10/29/2024 Orders Only [facility] and [facility] Transplant Liver [address] [facility] [address] Mailstop [phone] [place] [address] Mattie Giron RN 10/29/2024 Orders Only [facility] Surgery [address] [facility] Floor 5 [place] [phone] Dayron Camara NP Nerve pain (Primary Dx) 10/29/2024 Telephone [facility] Surgery [address] [facility] Floor 5 [place] [address] Dayron Camara NP 10/29/2024 Results Follow-Up [facility] and [facility] Transplant Liver [address] [facility] [address] Mailstop [phone] [place] [address] Mattie Giron RN Surgical pathology 10/27/2024 Telephone [facility] Surgery [address] [facility] [address] [place] [phone] Jacob Griffith RMA 10/22/2024 Orders Only [facility] Surgery [facility] Floor 5 [place] [phone] Dayron Camara NP Lung nodule (Primary Dx) 10/21/2024 Orders Only [facility] Surgery [address] [facility] Floor 5 [place] [address] Dayron Camara NP Lung nodule (Primary Dx) 10/19/2024 11:39 AM CDT Anesthesia Event [facility] Operating Room 1 [place] [address] Devin Villar MD PhD Mitzi Griffith, RECEIVING COORDINATOR 10/19/2024 11:35 AM CDT - 10/19/2024 2:45 PM CDT Surgery [facility] Operating Room 1 [place] [address] Eva Funes MD XI ROBOTIC ASSISTED THORACOSCOPIC SURGERY LEFT UPPER LOBECTOMY 10/19/2024 7:30 AM CDT - 10/21/2024 9:05 PM CDT Hospital Encounter [address] [address] Eva Funes MD Lung nodule Discharge Disposition: Discharge to home or self care 10/08/2024 8:30 AM CDT Pre-Admission Testing [facility] for Preoperative Assessment and Planning [place] [facility] ([facility]) [address] [place] [address] Preoperative testing (Primary Dx) 10/08/2024 Orders Only [facility] Surgery [address] [facility] Floor 5 [place] [phone] Dayron Camara NP Gingivitis (Primary Dx) 10/07/2024 Documentation [facility] and [facility] Transplant Liver [address] [facility] [address] Mailstop [phone] [place] [address] Linda Longo RN 10/07/2024 Results Follow-Up [facility] and [facility] Transplant Liver [address] [facility] [address] Mailstop [phone] [place] [address] Linda Longo RN Cytology 10/02/2024 9:17 AM CDT Anesthesia Event [facility] Interventional Pulmonology [address] [place] [phone] Dayron Mccall MD 10/02/2024 9:00 AM CDT - 10/02/2024 10:00 AM CDT Surgery [facility] [address] [place] [phone] Damian Monaco MD BRONCHOSOPY WITH ENDOBRONCHIAL ULTRASOUND WITH GUIDE - PERIPHERAL LESION(S) 10/02/2024 6:05 AM CDT - 10/02/2024 10:55 AM CDT Hospital Encounter [facility] Inter[facility] Pulmonology [address] [place] [phone] Damian Monaco MD Abnormal chest CT Discharge Disposition: Discharge to home or self care 10/02/2024 Telephone [facility] Surgery [facility] Floor 5 [place] [phone] Dayron Camara NP 09/29/[address] [facility] Transplant Liver [address] [facility] [address] Mailstop [phone] [place] [address] Mattie Giron RN HCC (hepatocellular carcinoma) (HCC); History of liver transplant (HCC); assisted (current) use of calcineurin inhibitor 09/24/2024 Telephone [facility] and [facility] Transplant Liver [address] [facility] [address]01 Mailstop [phone] [place] [address] Mattie Giron RN 09/23/2024 Results Follow-Up [facility] Transplant Liver [address] [facility] [address] Mailstop [phone] [place] [address] Mattei Giron RN PET/CT FDG Skull to Thigh 09/22/2024 12:23 PM CDT - 09/22/2024 11:59 PM CDT Hospital Encounter [facility] Pulmonary [address] [facility] [address] [place] [address] Lung nodule Discharge Disposition: Discharge to home or self care 09/22/2024 9:03 AM CDT - 09/22/2024 11:59 PM CDT Hospital Encounter [facility] - PET [address] [facility] Floor 8 [place] [address] Discharge Disposition: Discharge to home or self care 09/22/2024 9:03 AM CDT - 09/22/2024 11:59 PM CDT Hospital Encounter [facility] [place] - PET [address] [facility] Floor 8 [place] [address] Lung nodule Discharge Disposition: Discharge to home or self care 09/22/2024 Telephone [facility] Surgery [address] [place] [address] Floor 5 [place] [phone] Dayron Camara NP 09/15/2024 1:00 PM CDT Office Visit [facility] Surgery [address] [place] [address] Floor 5 [place] [phone] Eva Funes MD Lung nodule (Primary Dx); HCC (hepatocellular carcinoma) (HCC); History of liver transplant (HCC); Class 3 severe obesity due to excess calories with serious comorbidity and body mass index (BMI) of 40.0 to 44.9 in adult; Type 2 diabetes mellitus with other specified complication, unspecified whether shelter insulin use (HCC) 09/11/2024 Orders Only [facility] Cardiothoracic Surgery [address] [place] [address] Advanced Medicine 8th Floor [address] Room [phone] [place] [address] Dayron Camara NP Lung nodule (Primary Dx) 09/07/[address] [facility] Transplant Liver [address] [place] [address] Mailstop [phone] [place] [address] Mattie Giron RN 09/04/2024 1:20 PM CDT Lab [facility] [address] [place] [phone] HCC (hepatocellular carcinoma) (HCC); History of liver transplant (HCC); Lung nodule 09/04/2024 10:32 AM CDT - 09/04/2024 11:59 PM CDT Hospital [facility] [address] [place] [address] Lorie Santoyo MD HCC (hepatocellular carcinoma) (HCC); History of liver transplant (HCC); Lung nodule Discharge Disposition: Discharge to home or self care 09/04/[address] [facility] Transplant Liver [address] [place] [address] Mailstop [phone] [place] [address] Mattie Giron RN 09/04/2024 Results Follow-Up [facility] Transplant Liver [address] [place] [address] Mailstop [phone] [place] [address] Mattie Giron, NITA CT Chest W Contrast 09/04/[address] [facility] Transplant Liver [address] [place] [address] 340 Mailstop [phone] [place] [address] Mattie Giron RN HCC (hepatocellular carcinoma) (HCC) (Primary Dx) 09/01/2024 8:45 AM CDT - 09/01/2024 11:59 PM CDT Hospital Encounter [facility] [address] [place] [phone] Tay Mathews MD History of liver transplant (HCC); HCC (hepatocellular carcinoma) (HCC); Liver lesion Discharge Disposition: Discharge to home or self care 09/01/[address] [facility] Transplant Liver [address] [facility] [address] Mailstop [phone] [place] [address] Mattie Giron, NITA 09/01/[address] [facility] Transplant Liver [address] [facility] [address] Mailstop [phone] [place] [address] Mattie Giron, NITA 09/01/2024 Results Follow-Up [facility] Transplant Liver [address] [facility] [address] Mailstop [phone] [place] [address] Mattie Giron, NITA MRI Abdomen Liver W WO Contrast from [...] REPAIR 11/20/2023 Left Left internal ptosis repair (Maamari) MICRODISCECTOMY 04/22/2019 - 05/22/2019 BLEPHAROPTOSIS REPAIR 02/13/2024 [...] 03/03/2021 Added automatically from request for surgery [id number] Family History Medical History Relation Name Comments [...] often do you attend chur ch or jew services? More than 4 times per year 03/03/2022 Do you belong to any clubs o r organizations such as christian groups, unions, fraternal or athletic groups, or [...] place to sleep or slept in a retirement (including now)? No 03/03/2022 Personal Safety Answer [...] Sign Reading Time Taken Comments Blood Pressure 112/72 11/10/2024 1:16 PM CDT Pulse 99 11/10/2024 1:16 PM CDT Temperature 36.4 C (97.5 F) 11/10/2024 1:16 PM CDT Respiratory Rate 18 11/10/2024 1:16 PM CDT Oxygen Saturation 94% 11/10/2024 1:16 PM CDT Inhaled Oxygen Concentration - - Weight 127.9 kg (282 lb) 11/10/2024 1:16 PM CDT Height 188 cm (6' 2) 11/10/2024 1:16 PM CDT Body Mass Index 36.21 11/10/2024 1:16 PM CDT Plan of Treatment Health Maintenance [...] 2024 01/26/2019, 2018 Hemoglobin A1C 04/09/2025 10/08/2024, 12/07/2022, 06/18/2022, Additional history exists Lipid Panel 10/19/2025 10/19/2024, 03/22, 03/02/2022, Additional history exists eGFR 10/19/2025 10/19/2024, 08/20, 03/08/2022, Additional history exists Fall Risk Assessment 10/21/2025 10/21/2024 DTaP/Tdap/Td Vaccine (2 - Td or Tdap) 12/09/2026 12/09/2016 Hepatitis B Screening Completed 03/02/2022 , 06/22/2019, 01/20/2019, Additional history exists Hepatitis C Screening Completed 03/13/2023 , 03/13/2023, 04/09/2022, Additional history exists Medical Devices Implanted Type Area Piano Professor Device Identifier Shelf Expiration Date Model / Serial / Lot [facility] [employer] Prefill Saline Syringe Compressible Nonaggregate [id number] - [id number] Implanted:Qty: 1 on 08/18/2021 at [facility] [employer] 01/19/2022 [id number] / / [id number] Angio-Seal Vip 6fr Closere Device [id number] - [id number] Implanted:Qty: 1 on 08/18/2021 at [facility] [employer] 05/22/2022 [id number] / / [id number] Procedures Procedure Name Priority Date/Time Associated Diagnosis Comments XR CHEST PA LATERAL 2 VIEWS Schedule Routine, Read Routine (OP Routine) 11/10/2024 1:05 PM CDT Lung nodule TACROLIMUS LEVEL, TROUGH Routine 11/09/2024 CBC WITH AUTO DIFFERENTIAL Routine 11/09/2024 GAMMA GT Routine 11/09/2024 COMPREHENSIVE METABOLIC PANEL Routine 11/09/2024 XR TRANSFER OF OUTSIDE FILMS Routine 10/29/2024 12:33 PM CDT Diagnosis unknown XR TRANSFER OF OUTSIDE FILMS Routine 10/29/2024 12:23 PM CDT Diagnosis unknown XR CHEST PA LATERAL 2 VIEWS Timed [...] DEVICE Routine 10/19/2024 1 :12 PM CDT SURGICAL PATHOLOGY Routine 10/19/2024 12 :35 PM CDT Lung nodule MA AN PROCEDURE PLACEHOLDER Routine 10/19/2024 12:09 PM CDT MA AN ELECTIVE ENDOTRACHEAL AIRWAY Routine 10/19/2024 12:09 PM CDT MA AN PROCEDURE PLACEHOLDER Routine 10/19/2024 12:09 PM [...] History of liver transplant (HCC) Lung nodule [id number], TUMOR MARKER Routine 09/04/2024 11:32 AM CDT [...] (HCC) HCC (hepatocellular carcinoma) (HCC) Liver lesion HEPATITIS C RNA, QUANTITATIVE, PCR Routine 04/09/2022 PSA SCREEN Routine 04/19/2021 7:30 AM AOC PLANS INTELLIGENCE OFFICER CHIEF Encounter for pre-transplant evaluation for liver transplant Hepatocellular carcinoma (HCC) from Last 3 Months or Most Recently Relevant to Health Maintenance Results * X-ray chest 2 views (11/10/2024 1:05 PM CDT) Anatomical Region Laterality Modality Body, Chest N/A Digital Radiogra phy 11/10/2024 1:44 PM CDT Impressions 11/10/2024 1:48 PM CDT The current study is compared with the prior radiograph dated 10/21/2024. Status post left upper lobectomy the left hemidiaphragm is more elevated than on this prior study in this patient is status post left upper lobectomy. Its uncertain whether there is a subpulmonic effusion or this is all volume loss due to the recent surgery. Dr. Lukas Lopez (radiology fellow) previewed the study and reviewed and/or edited this written report. Dictated by: Meryl Peterson M.D. The radiology attending physician has personally reviewed this study, and had reviewed and/or edited this written report and agrees with it. Electronically signed by: Linh Jones M.D. Narrative 11/10/2024 1:48 PM CDT EXAMINATION: 2 view chest radiograph Procedure Note Linh Jones MD - 11/10/2024 EXAMINATION: 2 view chest radiograph IMPRESSION: The current study is compared with the prior radiograph dated 10/21/2024. Status post left upper lobectomy the left hemidiaphragm is more elevated than on this prior study in this patient is status post left upper lobectomy. Its uncertain whether there is a subpulmonic effusion or this is all volume loss due to the recent surgery. Dr. Lukas Lopez (radiology fellow) previewed the study and reviewed and/or edited this written report. Dictated by: Meryl Peterson M.D. The radiology attending physician has personally reviewed this study, and had reviewed and/or edited this written report and agrees with it. Electronically signed by: Linh Jones M.D. Dayron Camara RECEIVING COORDINATOR IMG XR PROCEDURES Final Res ult * (ABNORMAL) Tacrolimus level trough (11/09/2024) [facility] SCRIB Tacrolimus, trough 3.4(A) 5 - 20 [facility] Blood 11/09/2024 Historical Provider LAB BLOOD ORDERABLES Edit ed Result - Final [facility] [address] [place] [address], [place] [phone] * (ABNORMAL) CBC with auto differential (11/09/2024) [facility] Signature SCRIBED WBC 9.1 4.8 - 10.8 K/cumm [facility] SCRIBED Hemoglobin 14.8 12.4 - 15.3 g/dL [facility] SCRIBED Hematocrit 44.8 37.0 - 46.0 % [facility] SCRIBED Platelets 212 150 - 420 K/cumm [facility] SCRIBED RBC [facility] Comment:- SCRIBED Neutrophils 58.6 50.0 - 70.0 % [facility] Lymphocytes 24.1 18.0 - 42.0 % [facility] SCRIBED Monocytes 8.4 2.0 - 11.0 % [facility] SCRIBED Eosinophils 7.5(A) 1.0 - 6.0 % [facility] SCRIBED Basophils 1.0 0.0 - 1.0 % [facility] Blood 11/09/2024 Historical Provider MD LAB BLOOD ORDERABLES Edit ed Result - Final Performing Organization Address [facility] Co de Phone Number [address] [phone] * Gamma GT (11/09/2024) SCRIBED GGT 19 15 - 73 [facility] Blood 11/09/2024 Historical Provider MD LAB BLOOD ORDERABLES Katrin l Result Performing Organization Address [facility] Co de Phone Number [address] [phone] * Comprehensive metabolic panel (11/09/2024) SCRIBED Sodium 139 137 - 145 mmol/L [facility] SCRIB Potassium 4.9 3.4 - 5.0 mmol/L [facility] Chloride 106 98 - 107 mmol/L [facility] SCRIB Carbon Dioxide 30 22 - 30 mmol/L [facility] Urea Nitrogen (BUN) 18 9 - 20 mg/dl [facility] Creatinine 1.28 0.7 - 1.3 mg/dl [facility] Glucose 110 65 - 110 mg/dl [facility] Calcium 9.3 8.4 - 10.2 mg/dl [facility] Bilirubin 0.7 0.2 - 1.3 mg/dl [facility] Plasma Protein 6.9 6.3 - 8.2 g/dl [facility] Albumin 4.2 3.5 - 5.1 g/dl [facility] Alkaline Phosphatase 99 38 - 126 Units/L [facility] Alanine Transaminase (ALT) 33 6 - 50 Units/L [facility] Aspartate Transaminase (AST) 32 17 - 59 Units/L [facility] Blood 11/09/2024 us Historical Provider LAB BLOOD ORDERABLES Katrin l Result Performing Organization Address City/[facility]/ZIP Co de Phone Number [address] [phone] * XR Outside Reference (10/29/2024 12:33 PM CDT) Impressions [id number] - 10/29/2024 12:33 PM CDT These images are for Reference purposes only and have not been reviewed by [facility]. There will be no report generated by a [facility]iologist. Narrative [facility] - 10/29/2024 12:33 PM CDT EXAMINATION: Images For Reference Purposes Only Eva Funes MD IMG XR PROCEDURES Final Result [facility] * XR Outside Reference (10/29/2024 12:23 PM CDT) Impressions [facility]ACS[facility] - 10/29/2024 12:23 PM CDT These images are for Reference purposes only and have not been reviewed by [facility]. There will be no report generated by a [facility]iologist. Narrative [facility] - 10/29/2024 12:23 PM CDT EXAMINATION: Images For Reference Purposes Only Eva Funes MD IMG XR PROCEDURES Final Result [facility] * XR Chest Pa Lateral 2 Views [...] signed by: Raudel Silva M.D. Erasto Antonio RECEIVING COORDINATOR IMG XR PROCEDURES Final Resul t * Tacrolimus level trough (10/21/2024 9:29 AM CDT) Tacrolimus trough 7.6 ng/mL Comment: Interpretive Data Testing performed by liquid chromatography-tandem mass spectrometry. Therapeutic concentrations vary depending on type of transplanted organ and time elapsed since transplant. Typical trough concentrations range from 5-15 ng/mL. This test was developed and its performance characteristics determined by the [facility] consistent with CLIA requirements. This test has not been cleared or approved by the US Food and Drug administration. Current interpretive data last reviewed 2019. Blood 10/21/2024 9:29 AM CDT 10/21/2024 10:01 AM CDT Meryl Gar NP LAB BLOOD ORDERABLES Fi nal Result [facility] [email or web address] [address] * POCT glucose (10/19/2024 7:57 PM CDT) Glucose, POC 154 70 - 199 mg/dL Blood 10/19/2024 7:57 PM CDT 10/19/2024 7:57 PM CDT Eva Funes MD LAB POCT ORDERABLES - DE VICE Final Result [facility] [email or web address] [address] * XR Chest 1 View (10/19/2024 7:29 [...] * (ABNORMAL) eGFR (10/19/2024 5:41 PM CDT) [facility] eGFR 54(L) >=60 mL/min/1. 73 m2 Comment: [...] ORDERABLES Fin al Result Performing Organization Address City/[facility] Co de Phone Number [facility] [email or web address] [address] * aPTT (10/19/2024 5:41 PM CDT) aPTT 31 28 - 38 sec Comment: Interpretive Data Heparin therapeutic range: 66.0 - 100.0 seconds. Range based on correlation with therapeutic heparin activity range of 0.3 - 0.7 Units/mL. Current interpretive data was last revised on 2023. Blood 10/19/2024 5:41 PM CDT 10/19/2024 5:59 PM CDT us Eva Funes MD LAB BLOOD ORDERABLES Fin al Result Performing Organization Address City/[facility] Co de Phone Number [facility] [email or web address] [address] * Protime-INR (10/19/2024 5:41 PM CDT) PT 11.0 9.7 - 13.0 sec INR 1.02 0.90 - 1.20 [facility] Comment: Interpretive data Oral anticoagulant therapeutic ranges: Venous thromboembolism prophylaxis or treatment: 2.0-3.0 CARDIOLOGY Standard range: 2.0-3.0 High-intensity range: 2.5-3.5 Refer to indication-specific guidelines for appropriate target ranges for prosthetic heart valve replacement. Current interpretive data was last revised on 2019. Blood 10/19/2024 5:41 PM CDT 10/19/2024 5:59 PM CDT Eva Funes MD LAB BLOOD ORDERABLES Fin al Result [facility] [place] [address] * (ABNORMAL) CBC without differential (10/19/2024 5:41 PM CDT) WBC 14.55(H) 3.80 - 9.90 K/cumm Hgb 14.1 13.0 - 17.5 g/dL [facility] Hct 43.1 38.9 - 50.3 % [facility] Plt 129(L) 150 - 400 K/cumm [facility] MPV 11.0 9.1 - 12.3 fL [facility] RBC 4.99 4.30 - 5.80 M/cumm [facility] MCV 86.4 81.3 - 96.4 fL [facility] MCH 28.3 27.1 - 33.3 pg [facility] MCHC 32.7 32.3 - 35.7 g/dL [facility] RDW CV 13.9 11.1 - 14.9 % [facility] RDW SD 43.4 35.7 - 48.1 fL [facility] NRBC abs 0.00 0.00 - 0.01 K/cumm [facility] Blood 10/19/2024 5:41 PM CDT 10/19/2024 5:53 PM CDT Eva Funes MD LAB BLOOD ORDERABLES Fin al Result [facility] [place] [address] * (ABNORMAL) Lipid panel (10/19/2024 5:41 PM [...] revised on 2017. Triglycerides 164(H) <=149 mg/dL [facility] Comment: Interpretive Data Ages < or = [...] revised on 2017. HDL 41 >=40 mg/dL [facility] Comment: Interpretive Data Ages < or = [...] on 2017. LDL, calculated 125 <=129 mg/dL [facility] Comment: Interpretive Data Ages < [...] NCEP Expert Panel. Circulation 2004;110:227 3. Fernando Richadrs et al. WANDA Cardiol. 2019August 20;5(5):540-548. doi: 10.1001/jamacardio.2020.0013 Current Interpretive Data was last revised on 2023. Non-HDL Cholesterol 154 mg/dL [facility] Comment: Interpretive Data Ages < [...] last revised on 2017. Chol/HDL ratio 5 [facility] Blood 10/19/2024 5:41 PM CDT 10/19/2024 5:54 PM CDT Narrative [facility] - 10/20/2024 11:30 AM CDT Reflex Eva Funes MD LAB BLOOD ORDERABLES Fin al Result [facility] [place] [address] * (ABNORMAL) Comprehensive metabolic panel (10/19/2024 5:41 PM CDT) Sodium 142 135 - 145 mmol/L Potassium, pl 5.3(H) 3.3 - 4.9 mmol/L [facility] Chloride 106 97 - 110 mmol/L [facility] CO2 26 22 - 32 mmol/L [facility] Anion gap 10 2 - 15 mmol/L [facility] BUN 23 6 - 25 mg/dL [facility] Creatinine 1.43(H) 0.80 - 1.30 mg/dL [facility] Glucose 169 70 - 199 mg/dL [facility] Comment: Interpretive Data Fasting glucose [...] 2022. Calcium 8.9 8.5 - 10.3 mg/dL [facility] Bilirubin, total 0.3 0.1 - 1.2 mg/dL [facility] Protein, pl 7.5 6.5 - 8.5 g/dL [facility] Albumin 4.5 3.5 - 5.0 g/dL [facility] Alk phos 93 40 - 130 Units/L [facility] ALT 26 7 - 55 Units/L [facility] AST 36 10 - 50 Units/L [facility] Blood 10/19/2024 5:41 PM CDT 10/19/2024 5:54 PM CDT us Eva Funes MD LAB BLOOD ORDERABLES Fin al Result [facility] [place] [address] * XR Chest 1 View - in [...] DE VICE Final Result Performing Organization Address [facility] Co ky Phone Number [facility] [email or web address] [address] * POCT glucose (10/19/2024 3:15 PM CDT) Glucose, POC 170 70 - 199 mg/dL Blood 10/19/2024 3:15 PM CDT 10/19/2024 3:15 PM CDT Eva Funes MD LAB POCT ORDERABLES - DE VICE Final Result Performing Organization Address [facility] Phone Number [facility] [email or web address] [address] * POCT glucose (10/19/2024 1:12 PM CDT) Glucose, POC 156 70 - 199 mg/dL Blood 10/19/2024 1:12 PM CDT 10/19/2024 1:12 PM CDT Eva Funes MD LAB POCT ORDERABLES - DE VICE Final Result Performing Organization Address [facility] [place] [address] * Surgical pathology (10/19/2024 12:35 PM CDT) Tissue (Lymph Node, Single excision) 10/19/2024 12:35 PM CDT Tissue specimen (specimen) (Lymph Node, Single excision) 10/19/2024 12:39 PM CDT Tissue specimen (specimen) (Lymph Node, Single excision) 10/19/2024 12:55 PM CDT Comment:For research Tissue specimen (specimen) (Lymph Node, Single excision) 10/19/2024 2:09 PM CDT Tissue specimen (specimen) (Lymph Node, Single excision) 10/19/2024 2:11 PM CDT Tissue specimen (specimen) (Lymph Node, Single excision) 10/19/2024 2:34 PM CDT Tissue specimen (specimen) (Lymph Node, Single excision) 10/19/2024 3:43 PM CDT Tissue specimen (specimen) (Lymph Node, Single excision) 10/19/2024 3:54 PM CDT Tissue specimen (specimen) (Lymph Node, Single excision) 10/19/2024 4:02 PM CDT Comment:For research Tissue specimen (specimen) (Lung - Total / Lobe / Segment Resection non-tumor) 10/19/2024 4:07 PM CDT Comment:For research Tissue specimen (specimen) (Lymph Node, Single excision) 10/19/2024 4:24 PM CDT Tissue specimen (specimen) (Lymph Node, Single excision) 10/19/2024 4:25 PM CDT Tissue specimen (specimen) (Lymph Node, Single excision) 10/19/2024 4:27 PM CDT Narrative PATHOLOGY [facility] - 10/28/2024 3:30 PM CDT EPIC results best viewed via link to PDF [facility] of [place] [address] Note to Patients: This report may contain [...] can answer questions and explain the details. SURGICAL PATHOLOGY REPORT FINAL Patient Name: ROWDY JESUS Gender: M : 1955 (Age: 69) Address: [address] [address] Hospital #: [id number] Taken:10/19/2024 Received:10/19/2024 Reported: 10/28/2024 Patient Type: [facility] Inpatient Service: Cardiothoracic Location: [facility] 0074 Physician(s): Antoine Palacios MD Josh Buschling, D.O. Diagnosis: J. Lung, left upper lobe, lobectomy - Invasive squamous cell carcinoma, moderately differentiated - Tumor measures 4.1 cm in greatest dimension - Visceral pleural invasion absent - Negative for lymphovascular space invasion - Bronchial, vascular, and parenchymal resection margins all negative for malignancy - Three hilar lymph nodes are negative for malignancy (0/3) - Extensive associated obstructive pneumonia, and mild emphysema in non-tumor lung - See synoptic A. Lymph node, level 9 packet, excision - No evidence of malignancy in two lymph nodes (0/2) B. Lymph node, level 9 B, excision - No evidence of malignancy in one lymph node (0/1) C. Lymph node, level 10L excision (including CFR1) - No evidence of malignancy in one lymph node (0/1) D. Lymph nde, level 11L, excision - No evidence of malignancy in one lymph node (0/1) E. Lymph node, level 11L B, excision: - No evidence of malignancy in one lymph node (0/1) F. Lymph node, level 12L excision: - No evidence of malignancy in one lymph node (0/1) G. Lymph node, level 5/6 packet, excision - Benign fibroadipose tissue, with no evidence of malignancy - No lymph node identified H. Lymph node, level 7, excision - Benign fibroadipose tissue, with no evidence of malignancy - No lymph node identified I. Lymph node, level 6, excision - No evidence of malignancy in one lymph node (0/1) K. Lymph node, level 12 B, excision - Benign fibroadipose tissue, with no evidence of malignancy - No lymph node identified L. Lymph node, level 13, excision - No evidence of malignancy in one lymph node (0/1) - Calcified granuloma; AFB and GMS stains negative for acid-fast and fungal organisms M. Lymph node, level 12 C, excision - No evidence of malignancy in one lymph node (0/1) fece/10/26/2024 09:00 By this signature, I attest that the above diagnosis is based upon my personal examination of the slides(and/or other material indicated in the diagnosis). Charlie Curiel MD Report Electronically Reviewed and Signed Out By Charlie Curiel MD 10/28/2024 15:30:54 Intraoperative Consultation: Frozen Section Diagnosis CFR1: L10 lymph node - No evidence of malignancy By Monique Gibson M.D., Charlie Curiel MD Gross Consultation C: Received fresh for research and labeled with the patient's identifiers and L10 lymph node'' is a 1.6 x 0.8 x 0.2 cm piece of lymph node. The specimen is bisected and half is frozen. CFR1 By Monique Gibson M.D. I personally examined the relevant preparation(s) or a microscopic image of the relevant preparation(s) for the specimen(s) while the surgical procedure was still underway and rendered or confirmed the diagnosis(es) Report Electronically reviewed and Signed out by Charlie Curiel MD (C) Microscopic Description and Comment: Microscopic examination substantiates the above cited diagnosis. AFB and GMS stains (with appropriate staining controls) were performed on a calcified/necrotizing granuloma from the level 13 lymph node specimen (part L), and are negative for acid-fast and fungal organisms. Permanent sections confirm the frozen section diagnoses Jose Lee M.D. History: The patient is a 69-year-old man with a history of a liver transplant, and a left upper lobe lung carcinoma favoring squamous carcinoma ([id number]). Operative procedure: Video assisted thoracoscopic surgery lobectomy, with mediastinal lymph node sampling. Specimen(s) Received: A: Level 9 lymph node packet B: Level 9 B lymph node C: Level 10 lymph node D: Level 11 lymph node E: Level 11 B lymph node F: Level 12 lymph node G: Level 5/6 lymph node packet H: Level 7 lymph node I: Level 6 lymph node J: Left upper lobe K: Level 12 B lymph node L: Level 13 lymph node M: Level 12 C lymph node Gross Description: Received in 13 formalin jars labeled with the patient's identifiers. A. Labeled L9 lymph node packet this is a 0.9 x 1.4 x 0.6 cm piece of soft tissue which is admitted entirely in cassette A1. Jar 0. B. Labeled L9 B lymph node this is a 0.9 x 1.5 x 0.5 cm piece of soft tissue which is submitted entirely in cassette B1. jar 0. C. Labeled L10 lymph node this is a 1.5 x 0.8 x 0.3 cm piece of soft tissue which is submitted entirely in cassettes C2. Also in the container there is a frozen section remnant in a cassette labeled C1 fr 1. Jar 0. D. Labeled L11 lymph node this is a 2.2 x 1 x 1.1 cm piece of soft tissue which is submitted bisected and entirely in cassette D1. Jar 0 E. Labeled L11 B lymph node this is a 0.5 x 1 x 0.4 cm piece of soft tissue which is submitted entirely in cassette E1. Jar 0. F. Labeled L12 lymph node this is a 1 x 1.3 x 0.7 cm piece of soft tissue which is submitted entirely in cassette F1. Jar 0. G. Labeled L5/6 lymph node packet this is a 1.5 x 0.9 x 0.8 cm piece of tissue which is submitted entirely in cassette G1. Jar 0. H. Labeled L7 lymph node this is a 0.9 x 0.5 x 0.4 cm piece of tissue which is submitted entirely in cassette H1. Jar 0. I. Labeled L6 lymph node tissue taken for research this is a 1 x 0.5 x 0.6 cm piece of tissue which is submitted entirely in cassette I1. Jar 0. J. Labeledleft upper lobe this is a 26.5 x 14.5 x 4 cm left upper lobe. A piece of tissue has been taking over a mass and also over uninvolved tissue. There is a pleural puckering which is inked blue. Hilar staple line is removed and underlying parenchyma is inked in black. Serial sectioning reveals a mass measures 4.1 x 3.6 x 3.5 cm located 3.5 cm from the hilar margins. The background parenchyma is unremarkable. Sections submitted labeled: J1 Bronchial margins J2 Vascular margins J3 Three hilar lymph nodes J4-J5 Tumor in relation to pleura J6-J7 [employer] sections of the tumor J8 Property [employer] Officer section of uninvolved parenchyma Jar 3. K. Labeled L12 B lymph node this is a 0.5 by 0.5 x 0.4 cm piece of tissue which is submitted entirely in cassette K 1. Jar 0. L. Labeled L13 lymph node this is a 1.6 x 1.3 x 0.8 cm piece of tissue which is bisected and submitted entirely in cassette L1. Jar 0. M. Labeled L12 C lymph node this is a 0.5 x 0.4 x 0.3 cm piece of tissue which is submitted entirely in cassette M1. Jar 0. 10/20/2024 16:42 Gross Resident:Mckayla Jacob M.D., PhD PA(s): Jose Lee M.D. CANCER CASE SUMMARY FOR TUMORS OF THE LUNG Procedure: Lobectomy Specimen laterality: Left Synchronous Tumors: Not applicable Tumor site: Upper lobe Tumor size: Greatest dimension: 4.1 cm Tumor focality: Single focus Histologic type: Invasive squamous cell carcinoma, keratinizing Histologic grade: G2: Moderately differentiated Spread Through Air Spaces: Not identified Visceral pleura invasion: Not identified Lymphovascular Invasion: Not identified Direct Invasion of Adjacent Structures: No adjacent structures (not applicable) Margins: All margins are uninvolved by carcinoma Closest Margin(s) to Invasive Carcinoma: Bronchial 3.5 Closest Margin(s) to Invasive Carcinoma: Vascular 3.5 Distance of invasive carcinoma from closest margin: 3.5 cm Bronchial Margin: Uninvolved by invasive carcinoma Bronchial Margin: Uninvolved by carcinoma in situ Vascular Margin: Uninvolved by carcinoma Parenchymal Margin: Uninvolved by invasive carcinoma Treatment effect: No known presurgical therapy Regional lymph nodes: Lymph Node(s) from Prior Procedures: No known prior lymph node sampling performed Lymph Node Examination: All regional lymph nodes negative for tumor Number of lymph nodes involved: 0 Michelle Site(s) Examined: Number of lymph nodes examined: 13 Central Michelle Stations Examined- 7: Subcarinal Left Michelle Stations Examined- 5: Subaortic/aortopulmonary (AP)/AP window Left Michelle Stations Examined- 6: Para-aortic (ascending aorta or phrenic) Left Michelle Stations Examined- 9L: Pulmonary ligament Left Michelle Stations Examined- 10L: Hilar Left Michelle Stations Examined- 11L: Interlobar Left Michelle Stations Examined- 12L: Lobar Left Michelle Stations Examined- 13L: Segmental Left Michelle Stations Examined- Nodes from lobectomy Distant Metastasis: Distant site(s) involved, if applicable (select all that apply) Not applicable Pathologic Stage Classification (pTNM, AJCC 8th Edition): TNM Descriptors: Not Applicable Primary tumor (pT): pT2: Tumor >3 cm but =5 cm or having any of the following features pT2b: Tumor >4 cm, but <=5 cm in greatest dimension pN Category: pN0: No regional lymph node metastasis pM Category: Not applicable - pM cannot be determined from the submitted specimen(s) Additional pathologic findings: Inflammation: Calcified/hyalinized granulomas Emphysema Obstructive pneumonia The pathologic stage assigned here should be regarded as provisional, and may change after integration of clinical data not provided with this specimen. CAP VERSION: Lung 4.3.0.1 By this signature, I attest that the above diagnosis is based upon my personal examination of the slides(and/or other material). Addenda/Procedures The performance characteristics of some immunohistochemical stains, fluorescence in-situ hybridization tests and immunophenotyping by flow cytometry cited in this report (if any) were determined by the Surgical Pathology and Flow Cytometry Departments at [facility] as part of an ongoing quality review specialist program and in compliance with federally mandated regulations drawn from the Clinical Laboratory Improvement Act of 1988 (CLIA '88). Some of these tests rely on the use of analyte specific reagents and are subject to specific labeling requirements by the US Food and Drug Administration. Such diagnostic tests may only be performed in a facility that is certified by the Department of Health and Human Services as a high complexity laboratory under CLIA '88. The FDA has determined that such clearance or approval is not necessary. This test is used for clinical purposes. It should not be regarded as investigational or for research. Nevertheless, federal rules concerning the medical use of analyte specific reagents require that the following disclaimer be attached to the report: This test was developed and its performance characteristics determined by the Surgical Pathology and Flow Cytometry Departments of [facility]. It has not been cleared or approved by the U. S. Food and Drug Administration. IMAGES AND SCANNED DOCUMENTS, IF INCLUDED, ONLY VIEWABLE IN PDF VERSION OF REPORT Eva Funes MD LAB PATHOLOGY ORDERABLES Final Result PATHOLOGY [facility] [address]rd Floor [place], [place] [phone] * MA AN ELECTIVE ENDOTRACHEAL AIRWAY, MA AN PROCEDURE PLACEHOLDER (10/19/2024 12:09 PM CDT) Narrative Mueth, Ruth, BSN - 10/19/2024 12:09 PM CDT Ruth [...] with: silk tape Number of attempts: 1 Pravin Valente MD PhD ANESTHESIA ORDERABLES Katrin l Result * MA AN PROCEDURE PLACEHOLDER (10/19/2024 12:09 PM CDT) [...] patient tolerated procedure well with no complications Pravin Valente MD PhD ANESTHESIA ORDERABLES Katrin l Result * POCT glucose (10/19/2024 10:34 AM CDT) Glucose, POC 108 70 - 199 mg/dL Blood 10/19/2024 10:3 4 AM CDT 10/19/2024 10:34 AM CDT us Eva Funes MD LAB POCT ORDERABLES - DE VICE Final Result LEONILA [facility] [place] [address] * (ABNORMAL) Tacrolimus level trough (10/16/2024) SCRIBED Tacrolimus, trough 4.6(A) 5.0 - 20.0 [facility] Blood 10/16/2024 us Historical Provider LAB BLOOD ORDERABLES Edit ed Result - Final [address] [phone] * (ABNORMAL) CBC with auto differential (10/16/2024) SCRIBED WBC 8.4 4.8 - 10.8 K/cumm [facility] Hemoglobin 15.1 12.4 - 15.3 g/dL [facility] Hematocrit 45.2(A) 37.0 - 45.0 % [facility] Platelets 141(A) 150 - 420 K/cumm [facility] RBC [facility] Comment:- SCRIBED Neutrophils 61.0 50.0 70.0 [facility] Lymphocytes 30.6 18.0 42.0 [facility] Monocytes 6.4 2.0 11.0 [facility] SCRIBED Eosinophils 1.1 1.0 6.0 [facility] SCRIBED Basophils 0.5 0.0 1.0 [facility] Blood 10/16/2024 us Historical Provider MD LAB BLOOD ORDERABLES Edit ed Result - Final Performing Organization Address City/[facility]/ZIP Co de Phone Number [address] [phone] * Gamma GT (10/16/2024) SCRIBED GGT 19 15 - 73 [facility] Blood 10/16/2024 us Historical Provider MD LAB BLOOD ORDERABLES Edit ed Result - Final Performing Organization Address [facility] Co de Phone Number [address] [phone] * (ABNORMAL) Comprehensive metabolic panel (10/16/2024) [facility] Signature SCRIBED Sodium 142 137 - 145 mmol/L [facility] SCRIBED Potassium 4.4 3.4 - 5.0 mmol/L [facility] SCRIBED Chloride 110(A) 98 - 107 mmol/L [facility] SCRIBED Carbon Dioxide 25 22 - 30 mmol/L [facility] SCRIBED Urea Nitrogen (BUN) 15 9 - 20 mg/dl [facility] SCRIBED Creatinine 1.21 0.7 - 1.3 mg/dl [facility] SCRIBED Glucose 130(A) 65 - 110 mg/dl [facility] SCRIBED Calcium 9.4 8.4 - 10.2 mg/dl [facility] SCRIBED Bilirubin 0.8 0.2 - 1.3 mg/dl [facility] SCRIBED Plasma Protein 7.3 6.3 - 8.2 g/dl [facility] SCRIBED Albumin 4.6 3.5 - 5.1 g/dl [facility] SCRIB Alkaline Phosphatase 76 38 - 126 Units/L [facility] SCRIBED Alanine Transaminase (ALT) 22 6 - 50 Units/L [facility] SCRIB Aspartate Transaminase (AST) 28 17 - 59 Units/L [facility] Blood 10/16/2024 Historical Provider MD LAB BLOOD ORDERABLES Katrin l Result [address] [phone] * TYPE AND SCREEN 14 DAY (10/08/2024 9:04 AM CDT) Sri, indirect Negative ABO Rh O Positive [facility] Blood 10/08/2024 9:04 AM CDT 10/08/2024 9:51 AM CDT Narrative [facility] - 10/08/2024 11:26 AM CDT Is this test being ordered in advance for a procedure?->Yes Expected date of procedure:->10/19/24 Has the patient been transfused in the past 3 months?->No Steve Blandon NP LAB BLOOD BANK TEST ORDERABLES Final Result Performing Organization Address [facility] Co de Phone Number [facility] [place] [address] * (ABNORMAL) POCT hemoglobin A1c (10/08/2024 8:25 AM CDT) Hgb A1C, POC 5.9(H) 4.0 - 5.6 % Est Average Gluc POC 123 mg/dL [facility] Comment: The ADA recommends reporting an estimated Average Glucose (eAG) with all Hemoglobin A1c results using the equation derived from a study of 507 normal and diabetic adults. Minority populations were underrepresented and children were not included. (Diabetes Care 31:7986-6714, 2008). The eAG is not equivalent to a fasting glucose. Blood 10/08/2024 8:25 AM CDT 10/08/2024 8:25 AM CDT Eva Funes MD POINT OF CARE TEST ORDER MICAH Final Result Performing Organization Address City/[facility]/ZIP Co de Phone Number LEONILA [facility] [place] [address] * PD-L1 IHC 22C3 pharmDx, Keytruda (10/02/2024 3:18 PM CDT) PD-L1 IHC 22C3 Keytruda See scanned report Tissue 10/02/2024 3:18 PM CDT 10/07/2024 3:18 PM CDT Damian Monaco MD LAB PATHOLOGY ORDERABLE S Final Result Performing Organization Address City/[facility]/ZIP Co de Phone Number LEONILA [facility] [address] Department [place] [address] * XR Chest 1 View (10/02/2024 10:25 [...] (Cytology)) 10/02/2024 9:47 AM CDT Narrative PATHOLOGY [facility] - 10/07/2024 9:48 AM CDT [address] [address] Tele: Manisha Ibrahim MD - Earth Mover Note to Patients: This report may contain [...] CYTOLOGY REPORT Patient Name: ROWDY JESUS Address: [place] [address] Gender: M : 1955 (Age: 69) Service: Surgery Location: [facility] Hospital #: [id number] Patient Type [facility] SAME DAY SURGERY Taken: 10/02/2024 Reported: 10/07/2024 [...] not support PDF viewing, please refer to [facility] or the original report to view the [...] are appropriately reactive. Clerical Data Follows A; [id number], 37086`, 76594, 83825, 71246(6) REPORT IMAGES AND/OR SCANNED DOCUMENTS ONLY VIEWABLE IN PDF FORMAT The immunohistochemical test(s) cited in this report, if any, was developed and its performance characteristics determined by [facility] Pathology Department. It has not been cleared or approved by the U.S. Food and Drug Administration. The FDA has determined that such clearance or approval is not necessary. This test is used for clinical purposes. It should not be regarded as investigational or for research. [facility] is certified under the Clinical Laboratory Improvement Amendments of 1988 (CLIA) as qualified to perform high complexity testing. Immunostains were performed on formalin-fixed paraffin embedded tissue using a polymer diaminobenzidine chromogen detection system. Antibodies used may include clone [id number] (mouse monoclonal, estrogen receptor), clone [id number] (mouse monoclonal progesterone receptor), MIB-1 (mouse monoclonal, Ki- 67), and [id number] (rabbit polyclonal, c-kit). In the event that immunohistochemistry or special stains have been performed, attending physician has confirmed appropriateness of controls. Frozen section, operating room consultation, gross examination and dissection, and case sign out may have been performed in part or completely in the following laboratories: [facility], [facility], [address] [place] [address]. Damian Monaco MD LAB CYTOLOGY ORDERABLES Final Result PATHOLOGY [facility] Laboratory Receiving [address] [place] [address] * Bronchoscopy (10/02/2024 7:39 AM CDT) Anatomical Region Laterality Modality Other Narrative Procedure Note Damian Monaco MD - 10/02/2024 7:39 AM CDT Interventional Pulmonology Patient Name: Rowdy Jesus Procedure Date: 10/02/2024 7:39 AM Admit Type: Outpatient Room: [facility] IP 1 Date of : 1955 Instrument Name: [id number] Gender: Male Note Status: Finalized Procedure: Bronchoscopy [...] * POCT glucose (10/02/2024 7:05 AM CDT) [facility] Glucose, POC 126 70 - 199 mg/dL Comment: For Glucose values <35 mg/dl when Hematocrit is >60 mg/dl,the test may not accurately detect significant hypoglycemia,and testing in the Laboratory should be considered if clinically indicated. POC Performer [id number] [facility] Blood 10/02/2024 7:05 AM CDT 10/02/2024 7:05 AM CDT Damian Monaco MD LAB POCT ORDERABLES - D EVICE Final Result [facility] [address] Department [place] [address] * Pulmonary Function Test - (09/22/2024 1:40 PM CDT) FVC PRE 4.[address] [facility] FVC %PRE PRED 94 % [facility] FEV1 PRE 3.09 L [facility] FEV1 %PRE PRED 86 % [facility] FEV1/FVC PRE 69.4 % [facility] FRC PL PRE 5.29 L [facility] FRC PL %PRE PRED 128 % [facility] RV PRE 3.[address] [facility] RV %PRE PRED 152 % [facility] TLC PRE 8.54 L [facility] TLC %PRE PRED 110 % [facility] DLCO PRE 23.7 ml/min/mmH g [facility] DLCO %PRE PRED 81 % [facility] Anatomical Region Laterality Modality PFT 09/22/2024 1:25 PM CDT Narrative 09/24/2024 11:43 AM CDT PFT performed at:->[facility] Adult PFT Lab- CAM-8D Procedure:->Complete/Full PFT Standard:->Spirometry, [...] and %HbO2 is age dependent. However, the [facility] Pulmonary Function Laboratory defines hypoxemia as a PaO2 <56 mm Hg or a %HbO2 <89%. Starting on April of 2024 the [facility] Pulmonary Function Laboratory utilizes race neutral [...] FDG-PET/CT IMAGING DATE OF STUDY: 09/22/2024 SCANNER: [facility] [employer] (SQ1). This is a high-resolution scanner, which [...] obtained. The study was interpreted on the [employer] workstation. The mean liver SUV (reported for air quality consultant purposes) is 2.7. The total scanned area [...] FDG-PET/CT IMAGING DATE OF STUDY: 09/22/2024 SCANNER: [facility] [employer] (SQ1). This is a high-resolution scanner, which [...] obtained. The study was interpreted on the [employer] workstation. The mean liver SUV (reported for air quality consultant purposes) is 2.7. The total scanned area [...] by: Leonidas Grigsby M.D. us Dayron Camara RECEIVING COORDINATOR IMG PET PROCEDURES Final Re sult * Tacrolimus level trough (09/21/2024) SCRIBED Tacrolimus, trough 5.4 5.0 - 20.0 [facility] Blood 09/21/2024 us Historical Provider LAB BLOOD ORDERABLES Edit ed Result - Final [address] [phone] * CBC with auto differential (09/21/2024) SCRIBED WBC 7.6 4.8 - 10.8 k/cumm [facility] Hemoglobin 15.1 12.4 - 15.3 g/dL [facility] Hematocrit 45.5 37.0 - 46.0 % [facility] Platelets 155 150 - 420 k/cumm [facility] Lymphocytes 22.5 18.0 - 42.0 % [facility] SCRIB Monocytes 7.8 2.0 - 11.0 % [facility] Neutrophils 67.4 50.0 - 70.0 % [facility] Eosinophils 1.5 1.0 - 6.0 % [facility] SCRIBED Basophils 0.4 0.0 - 1.0 % [facility] Blood 09/21/2024 us Historical Provider LAB BLOOD ORDERABLES Edit ed Result - Final Performing Organization Address City/[facility]/ZIP Co de Phone Number [address] [phone] * Gamma GT (09/21/2024) SCRIBED GGT 22.1 15 - 73 [facility] Blood 09/21/2024 us Historical Provider LAB BLOOD ORDERABLES Katrin l Result Performing Organization Address City/[facility]/ZIP Co de Phone Number [address] [phone] * (ABNORMAL) Comprehensive metabolic panel (09/21/2024) [facility] SCRIBED Sodium 139 137 - 145 mmol/L [facility] Potassium 4.2 3.4 - 5.0 mmol/L [facility] Chloride 108(A) 98 - 107 mmol/L [facility] Carbon Dioxide 14 9 - 20 mmol/L [facility] SCRED Urea Nitrogen (BUN) 14 9 - 20 mg/dl [facility] Creatinine 1.15 0.7 - 1.3 mg/dl [facility] Glucose 120(A) 65 - 110 mg/dl [facility] SCRED Calcium 9.5 8.4 - 10.2 mg/dl [facility] Bilirubin 0.9 0.2 - 1.3 mg/dl [facility] Plasma Protein 7.4 6.3 - 8.2 g/dl [facility] Albumin 4.5 3.5 - 5.1 g/dl [facility] Alkaline Phosphatase 78 38 - 125 Units/L [facility] Alanine Transaminase (ALT) 23 6 - 50 Units/L [facility] Aspartate Transaminase (AST) 28 17 - 59 Units/L [facility] Blood 09/21/2024 us Historical Provider LAB BLOOD ORDERABLES Katrin l Result Performing Organization Address City/[facility]/ZIP Co de Phone Number [address] [phone] * eGFR (09/04/2024 11:32 AM CDT) eGFR [...] MD LAB BLOOD ORDERABLES Final Res ult [facility] [place] [address] * (ABNORMAL) Differential, auto (09/04/2024 11:32 AM CDT) Pathologist [facility] Neutrophil abs 7.70(H) 1.50 - 6.50 K/cumm Imm gran abs 0.06 0.00 - 0.10 K/cumm [facility] Lymphocyte abs 1.25 0.80 - 3.30 K/cumm [facility] Monocyte abs 0.34 0.20 - 0.80 K/cumm [facility] Eosinophil abs 0.00 0.00 - 0.50 K/cumm [facility] Basophil abs 0.01 0.00 - 0.10 K/cumm [facility] Neutrophil pct 82.3 % [facility] Comment: Interpretive Data Percent cell count reference ranges are not reported, since discordance with absolute values may lead to misinterpretation of CBC data. Current Interpretive Data was last revised on 2017. Imm gran pct 0.6 % [facility] Comment: Interpretive Data Percent cell count reference ranges are not reported, since discordance with absolute values may lead to misinterpretation of CBC data. Current Interpretive Data was last revised on 2017. Lymphocyte pct 13.4 % [facility] Comment: Interpretive Data Percent cell count reference ranges are not reported, since discordance with absolute values may lead to misinterpretation of CBC data. Current Interpretive Data was last revised on 2017. Monocyte pct 3.6 % [facility] Comment: Interpretive Data Percent cell count reference ranges are not reported, since discordance with absolute values may lead to misinterpretation of CBC data. Current Interpretive Data was last revised on 2017. Eosinophil pct 0.0 % [facility] Comment: Interpretive Data Percent cell count reference ranges are not reported, since discordance with absolute values may lead to misinterpretation of CBC data. Current Interpretive Data was last revised on 2017. Basophil pct 0.1 % [facility] Comment: Interpretive Data Percent cell count reference ranges are not reported, since discordance with absolute values may lead to misinterpretation of CBC data. Current Interpretive Data was last revised on 2017. Blood 09/04/2024 11:3 2 AM CDT 09/04/2024 11:59 AM CDT us Lorie Santoyo MD LAB BLOOD ORDERABLES Final Res ult [facility] [place] [address] * CBC with auto differential (09/04/2024 11:32 AM CDT) WBC 9.36 3.80 - 9.90 K/cumm Hgb 15.8 13.0 - 17.5 g/dL [facility] Hct 45.4 38.9 - 50.3 % [facility] Plt 151 150 - 400 K/cumm [facility] MPV 10.7 9.1 - 12.3 fL [facility] RBC 5.58 4.30 - 5.80 M/cumm [facility] MCV 81.4 81.3 - 96.4 fL [facility] MCH 28.3 27.1 - 33.3 pg [facility] MCHC 34.8 32.3 - 35.7 g/dL [facility] RDW CV 13.2 11.1 - 14.9 % [facility] RDW SD 38.5 35.7 - 48.1 fL [facility] NRBC abs 0.00 0.00 - 0.01 K/cumm [facility] Blood 09/04/2024 11:3 2 AM CDT 09/04/2024 11:59 AM CDT Narrative [facility] - 09/04/2024 12:06 PM CDT Please collect all four labs on 09/01/24 us Lorie Santoyo MD LAB BLOOD ORDERABLES Final Res ult [facility] [place] [address] * [id number], Tumor Marker (09/04/2024 11:32 AM CDT) alpha [...] >1 year 0.0 8.3 ng/ml References Tari Flynn al. J. Ped Surg 1978;13:155-156 Jennifer S. et al. Clin Chem Lab Med 2018;57:783-797 Cynthia Ron et al. Clin Chem 2014;0754-0128. Current interpretive data was last revised 2021. Blood 09/04/2024 11:3 2 AM CDT 09/04/2024 12:20 PM CDT Narrative [facility] - 09/04/2024 1:07 PM CDT Please collect all four labs on 09/01/24 us Lorie Santoyo MD LAB BLOOD ORDERABLES Final Res ult Performing Organization Address [facility] Co de Phone Number [facility] [place] [address] * Gamma GT (09/04/2024 11:32 AM CDT) Pathologist [facility] GGT 23 10 - 50 Units/L Blood 09/04/2024 11:3 2 AM CDT 09/04/2024 12:20 PM CDT Narrative [facility] - 09/04/2024 1:07 PM CDT Please collect all four labs on 09/01/24 Lorie Santoyo MD LAB BLOOD ORDERABLES Final Res ult Performing Organization Address [facility] de Phone Number [facility] [place] [address] * Comprehensive metabolic panel (09/04/2024 11:32 AM CDT) [facility] Sodium 141 135 - 145 mmol/L Potassium, pl 4.6 3.3 - 4.9 mmol/L [facility] Chloride 104 97 - 110 mmol/L [facility] CO2 27 22 - 32 mmol/L [facility] Anion gap 10 2 - 15 mmol/L [facility] BUN 16 6 - 25 mg/dL [facility] Creatinine 1.26 0.80 - 1.30 mg/dL [facility] Glucose 138 70 - 199 mg/dL [facility] Comment: Interpretive Data Fasting glucose [...] 2022. Calcium 10.3 8.5 - 10.3 mg/dL [facility] Bilirubin, total 0.5 0.1 - 1.2 mg/dL [facility] Protein, pl 8.2 6.5 - 8.5 g/dL [facility] Albumin 4.8 3.5 - 5.0 g/dL [facility] Alk phos 104 40 - 130 Units/L [facility] ALT 20 7 - 55 Units/L [facility] AST 24 10 - 50 Units/L [facility] Blood 09/04/2024 11:3 2 AM CDT 09/04/2024 12:20 PM CDT Narrative [facility] - 09/04/2024 1:07 PM CDT Please collect all four labs on 09/01/24 us Lorie Santoyo MD LAB BLOOD ORDERABLES Final Res ult [facility] [place] [address] * CT Chest W Contrast (09/04/2024 11:10 [...] PROCEDURES Jayjay armando Result - Final * Hepatitis C (HCV) RNA PCR, quantitative (04/09/2022) Pathologist [facility] SCRIBED HCV RNA <15 - - - IUnit/mL [facility] Comment:Not Detected Blood 04/09/2022 Historical Provider LAB MICROBIOLOGY - GENERA L ORDERABLES Final Result [address] [phone] * PSA screen (04/19/2021 7:30 AM AOC PLANS INTELLIGENCE OFFICER CHIEF) Pathologist [facility] PSA-Total 1.23 <=5.40 ng/mL [facility]ON[facility] Comment: Interpretive Data AGE SEX REFERENCE INTERVAL 0 minutes-150 years Female None 0 minutes-49 years Male None 50-59 years Male 0-3.90 60-69 years Male 0-5.40 70-79 years Male 0-6.20 80-150 years Male 0-6.20 Current interpretive data last revised 2017. Blood 04/19/2021 7:30 AM AOC PLANS INTELLIGENCE OFFICER CHIEF 04/19/2021 8:16 AM AOC PLANS INTELLIGENCE OFFICER CHIEF Tay Mathews MD LAB BLOOD ORDERABLES F inal Result [facility] [place] [address] from Last 3 Months or Most Recently Relevant to Health Maintenance Insurance MEDICARE [facility] MEDICARE SUPPLEMENT MEDICARE [facility] MEDICARE SUPPLEMENT Advance Directives For more information, please contact: [phone] Documents on File Type Date Recorded Patient Property And Supply Officer Expl anation ADVANCE DIRECTIVE 03/09/2022 11:07 AM POW ER OF PROGRAM CLINICIAN-MEDICAL ADVANCE DIRECTIVE 02/15/2022 10:56 AM W_[email or web address] ADVANCE DIRECTIVE 04/19/2021 1:26 PM [...] 1:50 AM 01/07/2022 3:02 PM Care Teams Spray I Painter Relationship Specialty Start Date End Date Charles Gilbert DO [address] [place] [address] PCP - General Family Medicine 10/02/22 Angie Kim MD Referring Physician Family Practice 03/02/21 La Chun MD Resident Anesthesiology 03/02/22 Mattie Giron, NITA Petroleum Analyst 03/05/22 Arelis Helm RN [address] [facility] [address] [place] [address] Secondary Coordinator 03/05/22 Benny Galarza MD [facility] [address] Gastroenterology 07/11/22 Eva Funes MD [address] [place] [address] [place] [place] [address] Referring Physician Thoracic Surgery 11/12/24 Simba Jaramillo MD PhD [address] [place] [address] MEDICAL ONCOLOGY, [facility] [address] [place] [address] Medical Oncologist/Outreach Team Member Medical Oncology 11/12/24
--- OUTSIDE RECORDS SUMMARY | 2024-11-19 16:18 | XMS_ITS | Encounter Summary ---
Author Organization [facility] Address [facility] [place] [address] Care Team Providers Care C D Still Operator Name Role Phone Angie Kim MD Primary Care Provider [phone] Keyona Cardona NP Primary Care Provider [phone] Danielito Rollins MD Primary Care Provider [phone] Encounter Details Date Type Department Care Team (Late st Contact Info) Description 05/24/2021 MyChart Message Enc [facility] Family Medicine - [place] [address] [place] [address] [place] [address] Angie Kim MD [address] [place] [phone] blood test ordered by [facility]. Social History Tobacco Use Types Packs/Day [...] CDT Gender Identity Male 05/12/2021 5:38 AM TERMINAL COMPUTER OPERATOR Sexual Orientation Not on file COVID-19 Exposure Response Date Recorded In the last month, have you been in contact with someone who was confirmed or suspected to have Coronavirus / COVID-19? No / Unsure 05/18/2021 3:47 PM TERMINAL COMPUTER OPERATOR documented as of this encounter Plan of Treatment Not on file documented as of this encounter Visit Diagnoses Not on filedocumented in this encounter Additional Health Concerns Infection Onset Date Last Indicated Resolved Time COVID-19 Rule Out 07/10/2021 07/10/2021 07/17/2021 12:32 AM CDT documented as of this encounter Care Teams C D Still Operator Relationship Specialty Start Date End Date Angie Kim MD PCP - General FAMILY PRACTICE 04/04/18 06/03/22 Keyona Cardona NP PCP - General Nurse Practitioner Family 06/04/2209/20 Danielito Rollins MD [address] [place] [address] [place] [address] PCP - General FAMILY PRACTICE 10/06/22 10/08/22 documented as of this encounter
--- OUTSIDE RECORDS SUMMARY | 2024-11-19 16:18 | XMS_ITS | Encounter Summary ---
Author Organization [facility] Address [address] [place] [address] Phone Care Team Providers Care Pickers Material Handlers Name Role Phone Benny Galarza MD Primary Care Provider [phone] Angie Kim MD Unavailable Mojgan Leonardo RN Unavailable [phone] Miscellaneous, Not In File Primary Care Provider Unavailable Angie Kim MD Primary Care Provide r La Chun MD Unavailable [phone] Mattie Giron RN Unavailable + [phone] Arelis Helm RN Unavailable [phone] Benny Galarza MD Unavailable [phone] Charles Gilbert DO Primary Care Provider Eva Funes MD Unavailable [phone] Simba Jaramillo MD PhD Unavailable Encounter Details [...] encounter Results * SCAN - LABS (02/18/2020) Provider Scanning Final Result documented in this encounter Visit Diagnoses Not on filedocumented in this encounter Care Teams Pickers Material Handlers Relationship Specialty Start Date End Date Benny Galarza MD [address] [place] [address] PCP - General Gastroenterology 12/31/18 04/18/21 Miscellaneous, Not In File PCP - General 04/19/21 10/17/21 Angie Kim MD [address] [place] [address] PCP - General Family Practice 10/18/21 10/01/22 Charles Gilbert DO [address] [place] [address] PCP - General Family Medicine 10/02/22 Angie Kim MD [address] [place] [address] Referring Physician Family Practice 03/02/21 Mojgan Leonardo, NITA [address] [address] Lock Stitch Channeler 03/03/2103/04 La Chun MD Resident Anesthesiology 03/02/22 Mattie Giron RN Lock Stitch Channeler 03/05/22 Arelis Helm RN [address] [facility] [address] [place] [address] Secondary Coordinator 03/05/22 Benny Galarza MD [address] [place] [address] Gastroenterology 07/11/22 Eva Funes MD [address] [facility] [address] [place] [address] Referring Physician Thoracic Surgery 11/12/24 Simba Jaramillo MD PhD [address] [facility], [facility] [address] [place] [address] Medical Oncologist/Residential Mortgage Underwriter Medical Oncology 11/12/24 documented as of this encounter
--- OUTSIDE RECORDS SUMMARY | 2024-11-19 16:18 | XMS_ITS ---
Author Organization [place] [id number] [facility] Address [address] [place] [address] Care Team Providers Care Food Assembler Kitchen Name Role Phone Angie Kim MD Unavailable La Chun MD Unavailable [phone] Mattie Giron RN Unavailable [phone] Arelis Helm RN Unavailable [phone] Benny Galarza MD Unavailable [phone] Charles Gilbert DO Primary Care Provider Eva Funes MD Unavailable [phone] Simba Jaramillo MD PhD Unavailable [phone] Active Problems Patient Care Coordination No te Formatting of this note migh t be different from the original. Labs at [facility] (starting 03/12) Option 6 FAX: Best fax per lab is [phone] alt fax [phone] This is a 69 year old male [...] assisted lobectomy - PO multimodal - d/c MEDICAL BILLER GERD (gastroesophageal reflux disease) Assessment & Plan [...] afternoon if chest tube output does not picker/puller - fat challenge, monitor chest tube out [...] UOP Assessment & Plan (03/11/2024 10:13 AM SITE PLANNER): Multifactorial; in part secondary to use of [...] management Assessment & Plan (03/11/2024 10:13 AM SITE PLANNER): He has excellent allograft function. I saw [...] indicated. Assessment & Plan (03/13/2023 10:52 AM SITE PLANNER): S/p liver transplant - Mr. Jesus is [...] (03/03/2021): Added automatically from request for surgery [id number] Assessment & Plan (10/18/2021 4:57 PM CDT): Good response to loco-regional therapy. Continue to monitor imaging studies on a regular basis. Encounter for pre-transplant evaluation for liver transplant 03/13/2023
--- OUTSIDE RECORDS SUMMARY | 2024-11-19 16:18 | XMS_ITS | Encounter Summary ---
Author Organization [facility] Address [address] [place] [address] Care Team Providers Care Concrete Mixer Loader Truck Mounted Name Role Phone Angie Kim MD Unavailable [phone] Mojgan Leonardo RN Unavailable [phone] Angie Kim MD Primary Care Provide r La Chun MD Unavailable [phone] Mattie Giron RN Unavailable [phone] Arelis Helm RN Unavailable Benny Galarza MD Unavailable [phone] Charles Gilbert DO Primary Care Provider Eva Funes MD Unavailable Simba Jaramillo MD PhD Unavailable Encounter Details Date Type Department Care Team (Late st Contact Info) Description 02/06/2022 Orders Only [facility] [place] [facility] Surgeon [address] [place], [place] [id number] Randal Weinstein MD [address] [place], [place] [id number] Pre-operative exam (Primary Dx) Social History Tobacco [...] examination documented in this encounter Care Teams Concrete Mixer Loader Truck Mounted Relationship Specialty Start Date End Date Angie Kim MD PCP - General Family Practice 10/18/21 10/01/22 Charles Gilbert DO [address] [place] [address] PCP - General Family Medicine 10/02/22 Angie Kim MD Referring Physician Family Practice 03/02/21 Mojgan Leonardo, NITA [address] [address] Sharepoint Developer 03/03/2103/04 La Chun MD [address] [facility] [address] [place] [address] Resident Anesthesiology 03/02/22 Mattie Giron RN Sharepoint Developer 03/05/22 Arelis Helm RN [address] [address] Secondary Coordinator 03/05/22 Benny Galarza MD [address] [place] [address] Gastroenterology 07/11/22 Eva Funes MD [facility] [address] [place] [address] Referring Physician Thoracic Surgery 11/12/24 Simba Jaramillo MD PhD [address] [place] [address] MEDICAL ONCOLOGY, [facility] [address] [place] [address] Medical Oncologist/Laboratory Assistant Medical Oncology 11/12/24 documented as of this encounter
--- OUTSIDE RECORDS SUMMARY | 2024-11-19 16:18 | XMS_ITS | Referral Summary ---
Author Organization [facility] [address] [facility] Address [address] [place] [address] Care Team Providers Care Asset Card Clerk Name Role Phone Angie Kim MD Unavailable La Chun MD Unavailable [phone] Mattie Giron RN Unavailable [phone] Arelis Hlem RN Unavailable [phone] Benny Galarza MD Unavailable [phone] Charles Gilbert DO Primary Care Provider Eva Funes MD Unavailable [phone] Simba Jaramillo MD PhD Unavailable Encounters Date Type Department Care Team Description 11/19/2024 Telephone [facility] Cardiothoracic Surgery [address] [facility] Advanced Medicine 8th Floor [address] [place] [address] SCAN APPOINTMENT 11/19/2024 Telephone [facility] Surgery [address] [facility] Floor 5 [place] [address] Dayron Camara NP 11/19/2024 Orders Only [facility] Surgery [address] [facility] Floor 5 [place] [address] Dayron Camara NP Soft tissue infection (Primary Dx) 11/13/2024 Telephone [facility] and [facility] Transplant Liver [address] [facility] [address] Mailstop [phone] [place] [address] Tasneem Morfin 11/12/2024 Orders Only [facility] Surgery [address] [facility] [address] [place] [address] Eva Funes MD Lung nodule (Primary Dx) 11/12/2024 Telephone [facility] Surgery [address] [facility] [address] [place] [address] Jacob Griffith RMA 11/10/2024 Orders Only [facility] Surgery [address] [facility] Floor 5 [place] [address] Dayron Camara NP Squamous cell carcinoma of left lung (HCC) (Primary Dx) 11/10/2024 12:49 PM CDT - 11/10/2024 11:59 PM CDT Hospital Encounter [facility] - Diagnostic Imaging [address] [facility] Floor 8 [place] [address] Lung nodule Discharge Disposition: Discharge to home or self care 11/10/2024 1:15 PM CDT Office Visit [facility] Surgery [address] [place] [address] Floor 5 [place] [address] Eva Funes MD Lung nodule (Primary Dx); HCC (hepatocellular carcinoma) (HCC); History of liver transplant (HCC); 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 [address] [place] [address] Jacob Griffith RMA 10/29/2024 Orders Only [facility] and [facility] Transplant Liver [address] [facility] [address] Mailstop [phone] [place] [address] Mattie Giron RN 10/29/2024 Orders Only [facility] Surgery [facility] Floor 5 [place] [address] Dayron Camara NP Nerve pain (Primary Dx) 10/29/2024 12:33 PM CDT - 10/29/2024 11:59 PM CDT Hospital Encounter [facility] [address] [place] [address] Discharge Disposition: Discharge to home or self care 10/29/2024 12:23 PM CDT - 10/29/2024 11:59 PM CDT Hospital Encounter [facility]) [address] [place] [address] Discharge Disposition: Discharge to home or self care 10/29/2024 Telephone [facility] Surgery [facility] Floor 5 [place] [address] Dayron Camara NP 10/29/2024 Results Follow-Up [facility] and [facility] Transplant Liver [address] [facility] [address] Mailstop [phone] [place] [address] Mattie Giron RN Surgical pathology 10/27/2024 Telephone [facility] Surgery [address] [facility] [address] [place] [phone] Jacob Griffith RMA 10/22/2024 Orders Only [facility] Surgery [facility] Floor 5 [place] [address] Dayron Camara NP Lung nodule (Primary Dx) 10/21/2024 Orders Only [facility] Surgery [facility] Floor 5 [place] [address] Dayron Camara NP Lung nodule (Primary Dx) 10/19/2024 7:30 AM CDT - 10/21/2024 9:05 PM CDT Hospital Encounter [facility] 1 [place] [address] Eva Funes MD Lung nodule Discharge Disposition: Discharge to home or self care 10/19/2024 11:35 AM CDT - 10/19/2024 2:45 PM CDT Surgery [facility] Operating Room 1 [place] [address] Eva Funes MD XI ROBOTIC ASSISTED THORACOSCOPIC SURGERY LEFT UPPER LOBECTOMY 10/19/2024 11:39 AM CDT Anesthesia Event [facility] Operating Room 1 [place] [address] Devin Villar MD PhD Mitzi Griffith NP 10/08/2024 Orders Only [facility] Surgery [facility] 5 [place] [address] Dayron Camara NP Gingivitis (Primary Dx) 10/08/2024 8:30 AM CDT Pre-Admission Testing [facility] for Preoperative [facility] [place] [facility] ([facility]) [address] [place] [address] Preoperative testing (Primary Dx) 10/07/2024 Documentation [facility] and [facility] Transplant Liver [address] [facility] [address] Mailstop [phone] [place] [address] Linda Longo, NITA 10/07/2024 Results Follow-Up [facility] and [facility] Transplant Liver [address] [facility] [address] Mailstop [phone] [place] [address] Linda Longo RN Cytology 10/02/2024 Telephone [facility] Surgery [facility] 5 [place] [address] Dayron Camara NP 10/02/2024 9:17 AM CDT Anesthesia Event [facility] Interventional Pulmonology [address] [place] [phone] Dayron Mccall MD 10/02/2024 9:00 AM CDT - 10/02/2024 10:00 AM CDT Surgery [facility] Interventional Pulmonology [address] [place] [phone] Damian Monaco MD BRONCHOSOPY WITH ENDOBRONCHIAL ULTRASOUND WITH GUIDE - PERIPHERAL LESION(S) 10/02/2024 6:05 AM CDT - 10/02/2024 10:55 AM CDT Hospital Encounter [facility] Interventional Pulmonology [address] [place] [address] Damian Monaco MD Abnormal chest CT Discharge Disposition: Discharge to home or self care 09/29/2024 Orders Only [facility] and [facility] Transplant Liver [address] [place] [address] 340 Mailstop -[phone] [place] [address] Mattie Giron, NITA HCC (hepatocellular carcinoma) (HCC); History of liver transplant (HCC); 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 09/24/2024 Telephone [facility] and [facility] Transplant Liver [address] [place] [address] 340 Mailop [phone] [place] [address] Mattie Giron RN 09/23/2024 Results Follow-Up [facility] and [facility] Transplant Liver [address] [place] [address] 340 Mailstop [phone] [place] [address] Mattie Giron, NITA PET/CT FDG Skull to Thigh 09/22/2024 Telephone [facility] Surgery [address] [facility] Floor 5 [place] [address] Dayron Camara NP 09/22/2024 12:23 PM CDT - 09/22/2024 11:59 PM CDT Hospital Encounter [facility] Pulmonary [address] [facility] [address] [place] [address] Lung nodule Discharge Disposition: Discharge to home or self care 09/22/2024 9:03 AM CDT - 09/22/2024 11:59 PM CDT Hospital Encounter [facility] - PET [address] [facility] Floor 8 [place] [address] Discharge Disposition: Discharge to home or self care 09/22/2024 9:03 AM CDT - 09/22/2024 11:59 PM CDT Hospital Encounter [facility] - PET [address] [facility] Floor 8 [place] [address] Lung nodule Discharge Disposition: Discharge to home or self care 09/15/2024 1:00 PM CDT Office Visit [facility] Surgery [address] [facility] Floor 5 [place] [phone] Eva Funes MD Lung nodule (Primary Dx); HCC (hepatocellular carcinoma) (HCC); History of liver transplant (HCC); Class 3 severe obesity due to excess calories with serious comorbidity and body mass index (BMI) of 40.0 to 44.9 in adult; Type 2 diabetes mellitus with other specified complication, unspecified whether skilled nursing insulin use (HCC) 09/11/2024 Orders Only [facility] Cardiothoracic Surgery [address] [facility] Advanced Medicine 8th Floor [address] Room [address] [address] Dayron Camara NP Lung nodule (Primary Dx) 09/07/2024 Telephone [facility] Transplant Liver [address] [place] [address] 3401 Mailstop [phone] [place] [address] Mattie Giron, NITA 09/04/2024 Telephone [facility] Transplant Liver [address] [place] [address] Mailstop [phone] [place] [address] Mattie Giron, NITA 09/04/2024 Results Follow-Up [facility] Transplant Liver [address] [place] [address] 3401 Mailstop [phone] [place] [address] Mattie Giron, NITA CT Chest W Contrast 09/04/2024 1:20 PM CDT Lab [facility] ([facility]) [address] [place] [phone] HCC (hepatocellular carcinoma) (HCC); History of liver transplant (HCC); Lung nodule 09/04/2024 Orders Only [facility] Transplant Liver [address] [facility] 3401 Mailstop [phone] [place] [address] Mattie Giron RN HCC (hepatocellular carcinoma) (HCC) (Primary Dx) 09/04/2024 10:32 AM CDT - 09/04/2024 11:59 PM CDT Hospital Encounter [facility]) [address] [place] [address] Lorie Santoyo MD HCC (hepatocellular carcinoma) (HCC); History of liver transplant (HCC); Lung nodule Discharge Disposition: Discharge to home or self care 09/01/2024 Telephone [facility] and [facility] Transplant Liver [address] [facility] 340 Mailstop -[phone] [place] [address] Mattie Giron RN 09/01/2024 Telephone [facility] and [facility] Transplant Liver [address] [facility] 340 Mailstop -[phone] [place] [address] Mattie Giron RN 09/01/2024 Results Follow-Up [facility] and [facility] Transplant Liver [address] [facility] 340 Mailstop [phone] [place] [address] Mattie Giron RN MRI Abdomen Liver W WO Contrast 09/01/2024 8:45 AM CDT - 09/01/2024 11:59 PM CDT Hospital Encounter [facility]) [address] [place] [address] Tay Mathews MD History of liver transplant [...] TID with meals. Max 100 each 03/05/20 Active lancets 30 gauge [...] a day as needed for constipation Please fern picker over the counter or contact PCP for future refills. Thanks! 60 tablet 07/19/19 24 Active Additional Information Patient taking differently:1 tablet oral 2 times daily PRN, constipation, Please fern picker over the counter or contact PCP [...] DOSE OF 5MG DAILY 30 tablet 11 09/05/19 25 Active Additional Information Patient taking differently: No details specified, Informant: Self, Reported on 11/10/2024 Envarsus XR 4 mg tablet extended release 24 hr TAKE ONE TABLET BY MOUTH EVERY DAY. 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 Labs at [facility] (starting 03/12) Option 6 FAX: Best fax per lab is [phone] alt fax [phone] This is a 69 year old male [...] assisted lobectomy - PO multimodal - d/c INSURANCE FOLLOW UP REPRESENTATIVE GERD (gastroesophageal reflux disease) Assessment & Plan [...] afternoon if chest tube output does not fern picker - fat challenge, monitor chest tube [...] UOP Assessment & Plan (03/11/2024 10:13 AM INTERNATIONAL FREIGHT FORWARDER): Multifactorial; in part secondary to use of [...] management Assessment & Plan (03/11/2024 10:13 AM INTERNATIONAL FREIGHT FORWARDER): He has excellent allograft function. I saw [...] indicated. Assessment & Plan (03/13/2023 10:52 AM INTERNATIONAL FREIGHT FORWARDER): S/p liver transplant - Mr. Jesus is [...] (03/03/2021): Added automatically from request for surgery [id number] Assessment & Plan (10/18/2021 4:57 PM CDT): [...] week 03/03/2022 How often do you attend [facility] or restorationist services? More than 4 times per year 03/03/2022 Do you belong to any clubs o r organizations such as faith groups, unions, fraternal or athletic groups, or [...] 11/10/2024 1:16 PM CDT Plan of Treatment Not on file Medical Devices Implanted Type Area Outside Cutter Hand Device Identifier Shelf Expiration Date Model / Serial / Lot [facility] Second Porch Embosphere Prefill Saline Syringe Compressible Nonaggregate [id number] - [id number] Implanted:Qty: 1 on 08/18/[address] [facility] [employer] 01/19/2022 [id number] / / [id number] Angio-Seal Vip 6fr Closere Device [id number] - [id number] Implanted:Qty: 1 on 08/18/[address] [facility] [employer] 05/22/2022 [id number] / / [id number] Procedures Procedure Name Priority Date/Time Associated Diagnosis [...] 10/19/2024 12 :35 PM CDT Lung nodule RI AN PROCEDURE PLACEHOLDER Routine 10/19/2024 12:09 PM CDT RI AN ELECTIVE ENDOTRACHEAL AIRWAY Routine 10/19/2024 12:09 PM CDT RI AN PROCEDURE PLACEHOLDER Routine 10/19/2024 12:09 PM [...] History of liver transplant (HCC) Lung nodule [id number], TUMOR MARKER Routine 09/04/2024 11:32 AM CDT [...] 04/09/2022 PSA SCREEN Routine 04/19/2021 7:30 AM INTERNATIONAL FREIGHT FORWARDER Encounter for pre-transplant evaluation for liver transplant [...] Electronically signed by: Linh Jones M.D. us Dayron Camara SHOE SPRAYER IMG XR PROCEDURES Final Res ult * (ABNORMAL) Tacrolimus level trough (11/09/2024) [facility] Tacrolimus, trough 3.4(A) 5 - 20 [facility] Blood 11/09/2024 us Historical Provider LAB BLOOD ORDERABLES Edit ed Result - Final Performing Organization Address City/State/[facility] Co de Phone Number [address] [phone] * (ABNORMAL) CBC with auto differential (11/09/2024) [facility] SCRIB WBC 9.1 4.8 - 10.8 K/cumm [facility] SCRBANNER Hemoglobin 14.8 12.4 - 15.3 g/dL [facility] Hematocrit 44.8 37.0 - 46.0 % [facility] Platelets 212 150 - 420 K/cumm [facility] RBC COMMUNIT [facility] Comment:- SCRIBED Neutrophils 58.6 50.0 - 70.0 % [facility] Lymphocytes 24.1 18.0 - 42.0 % [facility] SCRBANNER Monocytes 8.4 2.0 - 11.0 % [facility] SCRIB Eosinophils 7.5(A) 1.0 - 6.0 % [facility] SCRIB Basophils 1.0 0.0 - 1.0 % [facility] Blood 11/09/2024 us Historical Provider MD LAB BLOOD ORDERABLES Edit ed Result - Final Performing Organization Address [facility] Co de Phone Number [address] [phone] * Gamma GT (11/09/2024) SCRIBED GGT 19 15 - 73 [facility] Blood 11/09/2024 us Historical Provider MD LAB BLOOD ORDERABLES Katrin l Result Performing Organization Address [facility] de Phone Number [address] [phone] * Comprehensive metabolic panel (11/09/2024) SCRIBED Sodium 139 137 - 145 mmol/L [facility] SCRIBED Potassium 4.9 3.4 - 5.0 mmol/L [facility] SCRIBED Chloride 106 98 - 107 mmol/L [facility] SCRIBED Carbon Dioxide 30 22 - 30 mmol/L [facility] SCRED Urea Nitrogen (BUN) 18 9 - 20 mg/dl [facility] SCRIBED Creatinine 1.28 0.7 - 1.3 mg/dl [facility] SCRIBED Glucose 110 65 - 110 mg/dl [facility] SCRIBED Calcium 9.3 8.4 - 10.2 mg/dl [facility] SCRIBED Bilirubin 0.7 0.2 - 1.3 mg/dl [facility] SCRED Plasma Protein 6.9 6.3 - 8.2 g/dl [facility] SCRIBED Albumin 4.2 3.5 - 5.1 g/dl [facility] SCRIBED Alkaline Phosphatase 99 38 - 126 Units/L [facility] SCRIBED Alanine Transaminase (ALT) 33 6 - 50 Units/L [facility] SCRIBED Aspartate Transaminase (AST) 32 17 - 59 Units/L [facility] Blood 11/09/2024 Manpreet Provider LAB BLOOD ORDERABLES Katrin l Result Performing Organization Address [facility] de Phone Number [facility] [address] [place] [address], [facility] [phone] * XR Outside Reference (10/29/2024 12:33 PM CDT) Impressions [email or web address] - 10/29/2024 12:33 PM CDT These images are for Reference purposes only and have not been reviewed by [facility] Radiology. There will be no report generated by a [facility] Radiologist. Narrative [facility]_PACS[facility] - 10/29/2024 12:33 PM CDT EXAMINATION: Images For Reference Purposes Only Eva Funes MD IMG XR PROCEDURES Final Result Performing Organization Address [facility] de Phone Number [email or web address] * XR Outside Reference (10/29/2024 12:23 PM CDT) Impressions [email or web address] - 10/29/2024 12:23 PM CDT These images are for Reference purposes only and have not been reviewed by [facility] Radiology. There will be no report generated by a [facility] Radiologist. Narrative [email or web address] - 10/29/2024 12:23 PM CDT EXAMINATION: Images For Reference Purposes Only Eva Funes MD IMG XR PROCEDURES Final Result Performing Organization Address [facility] de Phone Number [email or web address] * XR Chest Pa Lateral 2 [...] and its performance characteristics determined by the [facility] Laboratory consistent with CLIA requirements. This test has not been cleared or approved by the [place] Food and Drug administration. Current interpretive data last reviewed 2019. Blood 10/21/2024 9:29 AM CDT 10/21/2024 10:01 AM CDT Meryl Caridad Gar SHOE SPRAYER LAB BLOOD ORDERABLES Fi nal Result Performing Organization Address City/[facility]/ZIP Co de Phone Number [facility] Department [place] [address] * POCT glucose (10/19/2024 7:57 PM CDT) [facility] Signature Glucose, POC 154 70 - 199 mg/dL Blood 10/19/2024 7:57 PM CDT 10/19/2024 7:57 PM CDT Eva Funes MD LAB POCT ORDERABLES - DE VICE Final Result Performing Organization Address [facility] Phone Number [facility] [place] [address] * XR Chest 1 View (10/19/2024 7:29 [...] and agrees with it. Electronically signed by: Lnih Jones M.D. Narrative 10/20/2024 9:06 AM CDT [...] 5:41 PM CDT 10/19/2024 5:54 PM CDT Result [facility] Eva Funes MD LAB BLOOD ORDERABLES Fin al Result Performing Organization Address [facility] de Phone Number [facility] [place] [address] * aPTT (10/19/2024 5:41 PM CDT) aPTT 31 28 - 38 sec Comment: Interpretive Data Heparin therapeutic range: 66.0 - 100.0 seconds. Range based on correlation with therapeutic heparin activity range of 0.3 - 0.7 Units/mL. Current interpretive data was last revised on 2023. Blood 10/19/2024 5:41 PM CDT 10/19/2024 5:59 PM CDT Result [facility] Eva Funes MD LAB BLOOD ORDERABLES Fin al Result Performing Organization Address [facility] de Phone Number [facility] [place] [address] * Protime-INR (10/19/2024 5:41 PM CDT) PT 11.0 9.7 - 13.0 sec INR 1.02 0.90 - 1.20 [facility] Comment: Interpretive data Oral anticoagulant therapeutic ranges: Venous thromboembolism prophylaxis or treatment: 2.0-3.0 CARDIOLOGY Standard range: 2.0-3.0 High-intensity range: 2.5-3.5 Refer to indication-specific guidelines for appropriate target ranges for prosthetic heart valve replacement. Current interpretive data was last revised on 2019. Blood 10/19/2024 5:41 PM CDT 10/19/2024 5:59 PM CDT Result [facility] Eva Funes MD LAB BLOOD ORDERABLES Fin al Result Performing Organization Address [facility] de Phone Number [facility] Department [place] [address] * (ABNORMAL) CBC without differential (10/19/2024 5:41 PM CDT) [facility] WBC 14.55(H) 3.80 - 9.90 K/cumm Hgb 14.1 13.0 - 17.5 g/dL [facility] Hct 43.1 38.9 - 50.3 % [facility] Plt 129(L) 150 - 400 K/cumm [facility] MPV 11.0 9.1 - 12.3 fL [facility] RBC 4.99 4.30 - 5.80 M/cumm [facility] MCV 86.4 81.3 - 96.4 fL [facility] MCH 28.3 27.1 - 33.3 pg [facility] MCHC 32.7 32.3 - 35.7 g/dL [facility] RDW CV 13.9 11.1 - 14.9 % [facility] RDW SD 43.4 35.7 - 48.1 fL [facility] NRBC abs 0.00 0.00 - 0.01 K/cumm [facility] Blood 10/19/2024 5:41 PM CDT 10/19/2024 5:53 PM CDT Eva Funes MD LAB BLOOD ORDERABLES Fin al Result Performing Organization Address [facility] de Phone Number [facility] Department [place] [address] * (ABNORMAL) Lipid panel (10/19/2024 5:41 PM CDT) Pathologist [facility] Cholesterol 195 30 - 199 mg/dL Comment: [...] revised on 2017. Triglycerides 164(H) <=149 mg/dL [facility] Comment: Interpretive Data Ages < or = [...] revised on 2017. HDL 41 >=40 mg/dL [facility] Comment: Interpretive Data Ages < or = [...] on 2017. LDL, calculated 125 <=129 mg/dL [facility] Comment: Interpretive Data Ages < or = 19 years Acceptable: <110 mg/dL Borderline high: 110-129 mg/dL High: >or= 130 mg/dL Ages > or = 20 years Optimal: <100 mg/dL Near optimal: 100-129 mg/dL Borderline high: 130-159 mg/dL High: >160 mg/dL Calculated using the King LDL-C estimating equation. This equation was implemented on 2023. Prior to this date LDL-C was estimated using the Friedewald equation. Literature References: 1. Expert Panel on Integrated Guidelines for Cardiovascular Health and Risk Reduction in Children and Adolescents. Pediatrics 2011;128:S213 2. NCEP Expert Panel. Circulation 2004;110:227 3. Fernando M et al. WANDA Cardiol. 2020 August 20;5(5):540-548. doi: 10.1001/jamacardio.2020.0013 Current Interpretive Data was last revised on 2023. Non-HDL Cholesterol 154 mg/dL [facility] Comment: Interpretive Data Ages < or = [...] last revised on 2017. Chol/HDL ratio 5 [facility] Blood 10/19/2024 5:41 PM CDT 10/19/2024 5:54 PM CDT Narrative [facility] - 10/20/2024 11:30 AM CDT Reflex Eva Funes MD LAB BLOOD ORDERABLES Fin al Result [facility] Department [place] [address] * (ABNORMAL) Comprehensive metabolic panel (10/19/2024 5:41 PM CDT) Sodium 142 135 - 145 mmol/L Potassium, pl 5.3(H) 3.3 - 4.9 mmol/L [facility] Chloride 106 97 - 110 mmol/L [facility] CO2 26 22 - 32 mmol/L [facility] Anion gap 10 2 - 15 mmol/L [facility] BUN 23 6 - 25 mg/dL [facility] Creatinine 1.43(H) 0.80 - 1.30 mg/dL [facility] Glucose 169 70 - 199 mg/dL [facility] Comment: Interpretive Data Fasting glucose >/= 126 [...] 2022. Calcium 8.9 8.5 - 10.3 mg/dL [facility] Bilirubin, total 0.3 0.1 - 1.2 mg/dL [facility] Protein, pl 7.5 6.5 - 8.5 g/dL [facility] Albumin 4.5 3.5 - 5.0 g/dL [facility] Alk phos 93 40 - 130 Units/L [facility] ALT 26 7 - 55 Units/L [facility] AST 36 10 - 50 Units/L [facility] Blood 10/19/2024 5:41 PM CDT 10/19/2024 5:54 PM CDT Eva Funes MD LAB BLOOD ORDERABLES Fin al Result [facility] Department [place] [address] * XR Chest 1 View - in [...] * POCT glucose (10/19/2024 5:18 PM CDT) [facility] Signature Glucose, POC 164 70 - 199 mg/dL Blood 10/19/2024 5:18 PM CDT 10/19/2024 5:18 PM CDT Eva Funes MD LAB POCT ORDERABLES - DE VICE Final Result [facility] Department [place] [address] * POCT glucose (10/19/2024 3:15 PM CDT) Glucose, POC 170 70 - 199 mg/dL Blood 10/19/2024 3:15 PM CDT 10/19/2024 3:15 PM CDT Eva Funes MD LAB POCT ORDERABLES - DE VICE Final Result Performing Organization Address [facility] Phone Number [facility] [place] [address] * POCT glucose (10/19/2024 1:12 PM CDT) Glucose, POC 156 70 - 199 mg/dL Blood 10/19/2024 1:12 PM CDT 10/19/2024 1:12 PM CDT Eva Funes MD LAB POCT ORDERABLES - DE VICE Final Result Performing Organization Address [facility] [place] [address] * Surgical pathology (10/19/2024 12:35 PM CDT) [...] excision) 10/19/2024 4:27 PM CDT Narrative PATHOLOGY [facility] - 10/28/2024 3:30 PM CDT EPIC results best viewed via link to PDF [facility] Eusebia Ramirez Laboratory [place] [address] Note to Patients: This report may contain [...] REPORT FINAL Patient Name: ROWDY JESUS Gender: Susie : 1955 (Age: 69) Address: [address] Hospital #: [id number] Taken:10/19/2024 Received:10/19/2024 Reported: 10/28/2024 Patient Type: [facility] Inpatient Service: Cardiothoracic Location: 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 Operative procedure: Video assisted thoracoscopic surgery lobectomy, [...] J4-J5 Tumor in relation to pleura J6-J7 [employer] sections of the tumor J8 [employer] section of uninvolved parenchyma Jar 3. K. [...] Surgical Pathology and Flow Cytometry Departments at [facility] as part of an ongoing quality [...] Surgical Pathology and Flow Cytometry Departments of [facility]. It has not been cleared or approved by the U. S. Food and Drug Administration. IMAGES AND SCANNED DOCUMENTS, IF INCLUDED, ONLY VIEWABLE IN PDF VERSION OF REPORT Eva Funes MD LAB PATHOLOGY ORDERABLES Final Result PATHOLOGY [facility] 3rd Floor [place], [place] [phone] * RI AN ELECTIVE ENDOTRACHEAL AIRWAY, RI AN PROCEDURE PLACEHOLDER (10/19/2024 12:09 PM CDT) Narrative Ruth Bauman BSN - 10/19/2024 12:09 PM CDT Ruth Bauamn BSN 10/19/2024 12:10 PM Airway Patient location: [...] PhD ANESTHESIA ORDERABLES Katrin l Result * RI AN PROCEDURE PLACEHOLDER (10/19/2024 12:09 PM CDT) [...] ORDERABLES - DE VICE Final Result [facility] Department [place] [address] * (ABNORMAL) Tacrolimus level trough (10/16/2024) SCRIBED Tacrolimus, trough 4.6(A) 5.0 - 20.0 [facility] Blood 10/16/2024 Historical Provider LAB BLOOD ORDERABLES Edit ed Result - Final Performing Organization Address City/[facility]/ZIP Co de Phone Number [address] [phone] * (ABNORMAL) CBC with auto differential (10/16/2024) SCRIBED WBC 8.4 4.8 - 10.8 K/cumm [facility] SCRIB Hemoglobin 15.1 12.4 - 15.3 g/dL [facility] Hematocrit 45.2(A) 37.0 - 45.0 % [facility] SCRBANNER Platelets 141(A) 150 - 420 K/cumm [facility] SCRIB RBC [facility] Comment:- SCRIBED Neutrophils 61.0 50.0 70.0 [facility] SCR[facility]NER Lymphocytes 30.6 18.0 42.0 [facility] SCRIB Monocytes 6.4 2.0 11.0 [facility] SCRIBED Eosinophils 1.1 1.0 6.0 [facility] SCRIB Basophils 0.5 0.0 1.0 [facility] Blood 10/16/2024 us Historical Provider LAB BLOOD ORDERABLES Edit ed Result - Final Performing Organization Address City/[facility]/ZIP Co de Phone Number [address] [phone] * Gamma GT (10/16/2024) SCRIBED GGT 19 15 - 73 [facility] Blood 10/16/2024 Historical Provider LAB BLOOD ORDERABLES Edit ed Result - Final [facility] [address] [place] [address], [facility] [phone] * (ABNORMAL) Comprehensive metabolic panel (10/16/2024) [facility] Signature SCRIBED Sodium 142 137 - 145 mmol/L [facility] Potassium 4.4 3.4 - 5.0 mmol/L [facility] Chloride 110(A) 98 - 107 mmol/L [facility] Carbon Dioxide 25 22 - 30 mmol/L [facility] SCRED Urea Nitrogen (BUN) 15 9 - 20 mg/dl [facility] SCRED Creatinine 1.21 0.7 - 1.3 mg/dl [facility] SCRIBED Glucose 130(A) 65 - 110 mg/dl [facility] SCRIBED Calcium 9.4 8.4 - 10.2 mg/dl [facility] SCRIBED Bilirubin 0.8 0.2 - 1.3 mg/dl [facility] SCRED Plasma Protein 7.3 6.3 - 8.2 g/dl [facility] Albumin 4.6 3.5 - 5.1 g/dl [facility] SCRED Alkaline Phosphatase 76 38 - 126 Units/L [facility] Alanine Transaminase (ALT) 22 6 - 50 Units/L [facility] SCRED Aspartate Transaminase (AST) 28 17 - 59 Units/L [facility] Blood 10/16/2024 us Historical Provider LAB BLOOD ORDERABLES Katrin l Result [facility] [address] [place] [address], [facility] [phone] * TYPE AND SCREEN 14 DAY (10/08/2024 9:04 AM CDT) Pathologist [facility] Sri, indirect Negative ABO Rh O Positive [facility] Blood 10/08/2024 9:04 AM CDT 10/08/2024 9:51 AM CDT Narrative [facility] - 10/08/2024 11:26 AM CDT Is this test being ordered in advance for a procedure?->Yes Expected date of procedure:->10/19/24 Has the patient been transfused in the past 3 months?->No Steve Blandon NP LAB BLOOD BANK TEST ORDERABLES Final Result Performing Organization Address [facility] de Phone Number [facility] [place] [address] * (ABNORMAL) POCT hemoglobin A1c (10/08/2024 8:25 AM CDT) [facility] Hgb A1C, POC 5.9(H) 4.0 - 5.6 % Est Average Gluc POC 123 mg/dL [facility] Comment: The ADA recommends reporting an estimated Average Glucose (eAG) with all Hemoglobin A1c results using the equation derived from a study of 507 normal and diabetic adults. Minority populations were underrepresented and children were not included. (Diabetes Care 31:9516-0902, 2008). The eAG is not equivalent to a fasting glucose. Blood 10/08/2024 8:25 AM CDT 10/08/2024 8:25 AM CDT Eva Funes MD POINT OF CARE TEST ORDER MICAH Final Result Performing Organization Address [facility] Co de Phone Number [facility] [place] [address] * PD-L1 IHC 22C3 pharmDx, Keytruda (10/02/2024 3:18 PM CDT) PD-L1 IHC 22C3 Keytruda See scanned report Tissue 10/02/2024 3:18 PM CDT 10/07/2024 3:18 PM CDT Damian Monaco MD LAB PATHOLOGY ORDERABLE S Final Result [facility] [address] Department [place] [address] * XR Chest 1 View (10/02/2024 10:25 [...] (Cytology)) 10/02/2024 9:47 AM CDT Narrative PATHOLOGY [facility] - 10/07/2024 9:48 AM CDT [address] [address] Tele: Manisha Ibrahim MD - Business Development Engineer Note to Patients: This report may contain [...] CYTOLOGY REPORT Patient Name: ROWDY JESUS Address: [place] [address] Gender: M : 1955 (Age: 69) Service: Surgery Location: [facility] Hospital #: [id number] Patient Type MBC SAME DAY SURGERY Taken: [...] not support PDF viewing, please refer to [employer] or the original report to view the [...] are appropriately reactive. Clerical Data Follows A; [id number], 02679`, 84487, 15780, 20879(6) REPORT IMAGES AND/OR SCANNED DOCUMENTS ONLY VIEWABLE IN PDF FORMAT The immunohistochemical test(s) cited in this report, if any, was developed and its performance characteristics determined by [facility] Pathology Department. It has not been cleared or approved by the U.S. Food and Drug Administration. The FDA has determined that such clearance or approval is not necessary. This test is used for clinical purposes. It should not be regarded as investigational or for research. [facility] Laboratory is certified under the Clinical Laboratory Improvement Amendments of 1988 (CLIA) as qualified to perform high complexity testing. Immunostains were performed on formalin-fixed paraffin embedded tissue using a polymer diaminobenzidine chromogen detection system. Antibodies used may include clone 1D5 (mouse monoclonal, estrogen receptor), clone [id number] (mouse monoclonal progesterone receptor), MIB-1 (mouse monoclonal, Ki- 67), and [id number] (rabbit polyclonal, c-kit). In the event that immunohistochemistry or special stains have been performed, attending physician has confirmed appropriateness of controls. Frozen section, operating room consultation, gross examination and dissection, and case sign out may have been performed in part or completely in the following laboratories: [facility], [facility], [place], [place] [address] [place] [address], [address] [facility], [place] [address]. us Damian Monaco MD LAB CYTOLOGY ORDERABLES Final Result PATHOLOGY [facility] Laboratory Receiving [address] [place] [address] * Bronchoscopy (10/02/2024 7:39 AM CDT) Anatomical Region Laterality Modality Other Narrative Procedure Note Damian Monaco MD - 10/02/2024 7:39 AM CDT Interventional Pulmonology Patient Name: Rowdy Jesus Procedure Date: 10/02/2024 7:39 AM Admit Type: Outpatient Room: [facility] 1 Date of : 1955 Instrument Name: [id number] [...] 0 Note Initiated On: 10/02/2024 7:39 AM us Damian Monaco MD ENDOSCOPY PROCEDURES Fi nal Result * POCT glucose (10/02/2024 7:05 AM CDT) Glucose, POC 126 70 - 199 mg/dL Comment: For Glucose values <35 mg/dl when Hematocrit is >60 mg/dl,the test may not accurately detect significant hypoglycemia,and testing in the Laboratory should be considered if clinically indicated. POC Performer [id number] [facility] Blood 10/02/2024 7:05 AM CDT 10/02/2024 7:05 AM CDT Damian Monaco MD LAB POCT ORDERABLES - D EVICE Final Result [facility] [address] Department [place] [address] * Pulmonary Function Test - (09/22/2024 1:40 PM CDT) [facility] FVC PRE 4.45 L [facility] FVC %PRE PRED 94 % [facility] FEV1 PRE 3.09 L [facility] FEV1 %PRE PRED 86 % [facility] FEV1/FVC PRE 69.4 % [facility] FRC PL PRE 5.[address] [facility] FRC PL %PRE PRED 128 % [facility] RV PRE 3.94 L [facility] RV %PRE PRED 152 % [facility] TLC PRE 8.54 L [facility] TLC %PRE PRED 110 % [facility] DLCO PRE 23.7 ml/min/mmH g [facility] DLCO %PRE PRED 81 % [facility] Anatomical Region Laterality Modality PFT 09/22/2024 1:25 PM CDT Narrative 09/24/2024 11:43 AM CDT PFT performed at:->[facility] Adult PFT Lab- [id number] Procedure:->Complete/Full PFT [...] and %HbO2 is age dependent. However, the [facility] Pulmonary Function Laboratory defines hypoxemia as a PaO2 <56 mm Hg or a %HbO2 <89%. Starting on April of 2024 the [facility] Pulmonary Function Laboratory utilizes race neutral GLI Global normative equations. us Dayron Camara SHOE SPRAYER PFT ORDERABLES Final Resul t * PET/CT [...] FDG-PET/CT IMAGING DATE OF STUDY: 09/22/2024 SCANNER: [employer] (SQ1). This is a high-resolution scanner, which [...] obtained. The study was interpreted on the [employer] workstation. The mean liver SUV (reported for aircraft quality control inspector purposes) is 2.7. The total scanned area [...] FDG-PET/CT IMAGING DATE OF STUDY: 09/22/2024 SCANNER: [facility] [employer] (SQ1). This is a high-resolution scanner, which [...] obtained. The study was interpreted on the [employer] workstation. The mean liver SUV (reported for aircraft quality control inspector purposes) is 2.7. The total scanned area [...] it. Electronically signed by: Leonidas Grigsby M.D. Dayron Camara SHOE SPRAYER IMG PET PROCEDURES Final Re sult * Tacrolimus level trough (09/21/2024) Pathologist [facility] SCRIBED Tacrolimus, trough 5.4 5.0 - 20.0 [facility] Blood 09/21/2024 Historical Provider LAB BLOOD ORDERABLES [place] [address], [facility] [phone] * CBC with auto differential (09/21/2024) SCRIBED WBC 7.6 4.8 - 10.8 k/cumm [facility] SCRIB Hemoglobin 15.1 12.4 - 15.3 g/dL [facility] Hematocrit 45.5 37.0 - 46.0 % [facility] Platelets 155 150 - 420 k/cumm [facility] Lymphocytes 22.5 18.0 - 42.0 % [facility] Monocytes 7.8 2.0 - 11.0 % [facility] Neutrophils 67.4 50.0 - 70.0 % [facility] Eosinophils 1.5 1.0 - 6.0 % [facility] Basophils 0.4 0.0 - 1.0 % [facility] Blood 09/21/2024 Historical Provider MD LAB BLOOD ORDERABLES Edit ed Result - Final Performing Organization Address City/[facility]/ZIP Co de Phone Number [address] [phone] * Gamma GT (09/21/2024) [facility] SCRIBED GGT 22.1 15 - 73 [facility] Blood 09/21/2024 us Historical Provider MD LAB BLOOD ORDERABLES Katrin l Result Performing Organization Address City/[facility]/ZIP Co de Phone Number [address] [phone] * (ABNORMAL) Comprehensive metabolic panel (09/21/2024) [facility] SCRIBED Sodium 139 137 - 145 mmol/L [facility] Potassium 4.2 3.4 - 5.0 mmol/L [facility] Chloride 108(A) 98 - 107 mmol/L [facility] Carbon Dioxide 14 9 - 20 mmol/L [facility] Urea Nitrogen (BUN) 14 9 - 20 mg/dl [facility] Creatinine 1.15 0.7 - 1.3 mg/dl [facility] Glucose 120(A) 65 - 110 mg/dl [facility] Calcium 9.5 8.4 - 10.2 mg/dl [facility] Bilirubin 0.9 0.2 - 1.3 mg/dl [facility] Plasma Protein 7.4 6.3 - 8.2 g/dl [facility] Albumin 4.5 3.5 - 5.1 g/dl [facility] Alkaline Phosphatase 78 38 - 125 Units/L [facility] Alanine Transaminase (ALT) 23 6 - 50 Units/L [facility] Aspartate Transaminase (AST) 28 17 - 59 Units/L [facility] Blood 09/21/2024 us Historical Provider LAB BLOOD ORDERABLES Katrin garcia Result Performing Organization Address City/State/[facility] [place] [address], [facility] [phone] * eGFR (09/04/2024 11:32 AM CDT) eGFR [...] MD LAB BLOOD ORDERABLES Final Res ult [facility] Department [place] [address] * (ABNORMAL) Differential, auto (09/04/2024 11:32 AM CDT) Neutrophil abs 7.70(H) 1.50 - 6.50 K/cumm Imm gran abs 0.06 0.00 - 0.10 K/cumm [facility] Lymphocyte abs 1.25 0.80 - 3.30 K/cumm [facility] Monocyte abs 0.34 0.20 - 0.80 K/cumm [facility] Eosinophil abs 0.00 0.00 - 0.50 K/cumm [facility] Basophil abs 0.01 0.00 - 0.10 K/cumm [facility] Neutrophil pct 82.3 % [facility] Comment: Interpretive Data Percent cell count reference ranges are not reported, since discordance with absolute values may lead to misinterpretation of CBC data. Current Interpretive Data was last revised on 2017. Imm gran pct 0.6 % [facility] Comment: Interpretive Data Percent cell count reference ranges are not reported, since discordance with absolute values may lead to misinterpretation of CBC data. Current Interpretive Data was last revised on 2017. Lymphocyte pct 13.4 % [facility] Comment: Interpretive Data Percent cell count reference ranges are not reported, since discordance with absolute values may lead to misinterpretation of CBC data. Current Interpretive Data was last revised on 2017. Monocyte pct 3.6 % [facility] Comment: Interpretive Data Percent cell count reference ranges are not reported, since discordance with absolute values may lead to misinterpretation of CBC data. Current Interpretive Data was last revised on 2017. Eosinophil pct 0.0 % [facility] Comment: Interpretive Data Percent cell count reference ranges are not reported, since discordance with absolute values may lead to misinterpretation of CBC data. Current Interpretive Data was last revised on 2017. Basophil pct 0.1 % [facility] Comment: Interpretive Data Percent cell count reference ranges are not reported, since discordance with absolute values may lead to misinterpretation of CBC data. Current Interpretive Data was last revised on 2017. Blood 09/04/2024 11:3 2 AM CDT 09/04/2024 11:59 AM CDT us Lorie Santoyo MD LAB BLOOD ORDERABLES Final Res ult [facility] Department [place] [address] * CBC with auto differential (09/04/2024 11:32 AM CDT) WBC 9.36 3.80 - 9.90 K/cumm Hgb 15.8 13.0 - 17.5 g/dL [facility] Hct 45.4 38.9 - 50.3 % [facility] Plt 151 150 - 400 K/cumm [facility] MPV 10.7 9.1 - 12.3 fL [facility] RBC 5.58 4.30 - 5.80 M/cumm [facility] MCV 81.4 81.3 - 96.4 fL [facility] MCH 28.3 27.1 - 33.3 pg [facility] MCHC 34.8 32.3 - 35.7 g/dL [facility] RDW CV 13.2 11.1 - 14.9 % [facility] RDW SD 38.5 35.7 - 48.1 fL [facility] NRBC abs 0.00 0.00 - 0.01 K/cumm [facility] Blood 09/04/2024 11:3 2 AM CDT 09/04/2024 11:59 AM CDT Narrative [facility] - 09/04/2024 12:06 PM CDT Please collect all four labs on 09/01/24 Lorie Santoyo MD LAB BLOOD ORDERABLES Final Res ult Performing Organization Address [facility] de Phone Number [facility] Department [place] [address] * Tsago-[id number], Tumor Marker (09/04/2024 11:32 AM CDT) alpha [...] 2018;57:[id number] Cynthia Ron et al. Clin Chem 2014;7509-9622. Current interpretive data was last revised 2021. Blood 09/04/2024 11:3 2 AM CDT 09/04/2024 12:20 PM CDT Narrative [facility] - 09/04/2024 1:07 PM CDT Please collect all four labs on 09/01/24 us Lorie Santoyo MD LAB BLOOD ORDERABLES Final Res ult Performing Organization Address [facility]/ZIP Co de Phone Number [facility] Department [place] [address] * Gamma GT (09/04/2024 11:32 AM CDT) Pathologist [facility] GGT 23 10 - 50 Units/L Blood 09/04/2024 11:3 2 AM CDT 09/04/2024 12:20 PM CDT Narrative [facility] - 09/04/2024 1:07 PM CDT Please collect all four labs on 09/01/24 us Lorie Santoyo MD LAB BLOOD ORDERABLES Final Res ult [facility] [place] [address] * Comprehensive metabolic panel (09/04/2024 11:32 AM CDT) Pathologist [facility] Sodium 141 135 - 145 mmol/L Potassium, pl 4.6 3.3 - 4.9 mmol/L [facility] Chloride 104 97 - 110 mmol/L [facility] CO2 27 22 - 32 mmol/L [facility] Anion gap 10 2 - 15 mmol/L [facility] BUN 16 6 - 25 mg/dL [facility] Creatinine 1.26 0.80 - 1.30 mg/dL [facility] Glucose 138 70 - 199 mg/dL [facility] Comment: Interpretive Data Fasting glucose >/= 126 [...] 2022. Calcium 10.3 8.5 - 10.3 mg/dL [facility] Bilirubin, total 0.5 0.1 - 1.2 mg/dL [facility] Protein, pl 8.2 6.5 - 8.5 g/dL [facility] Albumin 4.8 3.5 - 5.0 g/dL [facility] Alk phos 104 40 - 130 Units/L [facility] ALT 20 7 - 55 Units/L [facility] AST 24 10 - 50 Units/L [facility] Blood 09/04/2024 11:3 2 AM CDT 09/04/2024 12:20 PM CDT Narrative [facility] - 09/04/2024 1:07 PM CDT Please collect all four labs on 09/01/24 us Lorie Santoyo MD LAB BLOOD ORDERABLES Final Res ult [facility] Department [place] [address] * CT Chest W Contrast (09/04/2024 11:10 [...] Hepatitis C (HCV) RNA PCR, quantitative (04/09/2022) SCRIBED HCV RNA <15 - - - IUnit/mL [facility] Comment:Not Detected Blood 04/09/2022 Historical Provider LAB MICROBIOLOGY - GENERA L ORDERABLES Final Result Performing Organization Address City/[facility]/ZIP Co de Phone Number [facility] [address]árez[place], [place] [address] [facility] [phone] * PSA screen (04/19/2021 7:30 AM INTERNATIONAL FREIGHT FORWARDER) PSA-Total 1.23 <=5.40 ng/mL [facility] Comment: Interpretive Data AGE SEX REFERENCE INTERVAL 0 minutes-150 years Female None 0 minutes-49 years Male None 50-59 years Male 0-3.90 60-69 years Male 0-5.40 70-79 years Male 0-6.20 80-150 years Male 0-6.20 Current interpretive data last revised 2017. Blood 04/19/2021 7:30 AM INTERNATIONAL FREIGHT FORWARDER 04/19/2021 8:16 AM INTERNATIONAL FREIGHT FORWARDER Tay Mathews MD LAB BLOOD ORDERABLES F inal Result Performing Organization Address City/[facility] Co de Phone Number [facility] Department [place] [address] from Last 3 Months or Most Recently Relevant to Health Maintenance Insurance MEDICARE [facility] MEDICARE SUPPLEMENT MEDICARE [facility] MEDICARE SUPPLEMENT Advance Directives For more information, please contact: [phone] Documents on File Type Date Recorded Patient Precision Instrument And Tool Maker Expl anation ADVANCE DIRECTIVE 03/09/2022 11:07 AM [facility] OF LAST MODEL MAKER-MEDICAL ADVANCE DIRECTIVE 02/15/2022 10:56 AM Maria Luz atkins [email or web address] ADVANCE DIRECTIVE 04/19/2021 1:26 PM Will santos Edin [email or web address] * Full Code (Latest Code Status [...] 1:50 AM 01/07/2022 3:02 PM Care Teams Asset Card Clerk Relationship Specialty Start Date End Date Charles Gilbert DO [address] [place] [address] PCP - General Family Medicine 10/02/22 Angie Kim MD Referring Physician Family Practice 03/02/21 La Chun MD Resident Anesthesiology 03/02/22 Mattie Giron RN Pipefitter Helper 03/05/22 Arelis Helm RN [address] [address] Secondary Coordinator 03/05/22 Benny Galarza MD [facility] [address] Gastroenterology 07/11/22 Eva Funes MD [address] [facility] [address] [place] [place] [address] Referring Physician Thoracic Surgery 11/12/24 Simba Jaramillo MD PhD [facility]8 [facility], [place] [id number] Medical Oncologist/Agriculture Teacher Medical Oncology 11/12/24
--- OUTSIDE RECORDS SUMMARY | 2024-11-19 16:18 | XMS_ITS | Encounter Summary ---
Author Organization [facility] Healthcare Address [address] [place] [address] Care Team Providers Care Computer Numerical Control Machinist Name Role Phone Angie Kim MD Unavailable [phone] La Chun MD Unavailable [phone] Mattie Giron RN Unavailable [phone] Arelis Helm RN Unavailable [phone] Benny Galarza MD Unavailable [phone] Charles Gilbert DO Primary Care Provider Eva Funes MD Unavailable [phone] Simba Jaramillo MD PhD Unavailable [phone] Encounter Details Date Type Department Care Team (Late st Contact Info) Description 10/29/2024 Results Follow-Up [facility] Transplant Liver [address] [address] Mailstop [id number] [place] [address] Mattie Giron, RN Surgical pathology Social History Tobacco Use Types Packs/Day Years [...] often do you attend chur ch or uatsdin services? More than 4 times per year [...] place to sleep or slept in a half-way (including now)? No 03/03/2022 Personal Safety Answer [...] on filedocumented in this encounter Care Teams Computer Numerical Control Machinist Relationship Specialty Start Date End Date Charles Gilbert DO [address] [place] [address] PCP - General Family Medicine 10/02/22 Angie Kim MD Referring Physician Family Practice 03/02/21 La Chun MD Resident Anesthesiology 03/02/22 Mattie Giron, RN Cadastral Engineer 03/05/22 Arelis Helm, RN [address] [facility] [address] [place], [place] [id number] Secondary Coordinator 03/05/22 Benny Galarza MD [facility] [address] Gastroenterology 07/11/22 Eva Funes MD [address] [facility] [address] ADULT THORACIC [place], [place] [id number] Referring Physician Thoracic Surgery 11/12/24 Simba Jaramillo MD PhD [facility]8 [facility], [facility] [address] [place] [address] Medical Oncologist/School Supervisor Medical Oncology 11/12/24 documented as of this encounter
== END 2024-11-19 16:10 | disposition home or self-care (01) ==
PROVIDERS: PCP Family Medicine
DX: L08.9 Local infection of the skin and subcutaneous tissue, unspecified (principal); J90 Pleural effusion, not elsewhere classified
CPT/HCPCS: 71250

== ENCOUNTER 2024-12-14 07:18 | Outpatient (RCR) | payer MEDICARE, SELFPAY ==
[2024-09-21 08:47] LABS: Hematocrit 45.5 % (37.0-46.0); Hemoglobin 15.1 g/dL (12.4-15.3); Immature Granulocyte Percent A 0.4 % (0.0-0.0); Lymphocytes Absolute Auto 1.70 K/mm3 (1.10-4.50); Mean Corpuscular HGB Conc 33.2 g/dL (32-36); Mean Corpuscular Hemoglobin 28.2 pg (27.0-31.0); Mean Corpuscular Volume 84.9 fL (78.0-102.0); Nucleated Red Blood Cells Absolute Auto 0.00 K/mm3 (0.00-0.00); Nucleated Red Blood Cells Perc 0.0 % (0-0.0); Platelet Count Result 155 K/mm3 (150-420); Red Blood Count 5.36 M/mm3 (4.70-6.10); White Blood Count 7.6 K/mm3 (4.8-10.8)
[2024-09-21 09:16] LABS: Alanine Aminotransferase 23 U/L (6-50); Albumin Level 4.5 g/dL (3.5-5.1); Alkaline Phosphatase 78 U/L (38-126); Anion Gap 5 mmol/L (4-12); Aspartate Amino Transferase 28 U/L (17-59); Bilirubin,Total 0.9 mg/dL (0.2-1.3); Blood Urea Nitrogen 14 mg/dL (9-20); Calcium 9.5 mg/dL (8.4-10.2); Carbon Dioxide 26 mmol/L (22-30); Chloride 108 mmol/L (98-107); Estimated Glomerular Filt Rate > 60; Glucose 120 mg/dL (65-110); Osmolality Calculated 289 mOsm/kg (285-295); Potassium 4.2 mmol/L (3.4-5.0); Sodium 139 mmol/L (137-145); Total Protein 7.4 g/dL (6.3-8.2)
[2024-09-21 10:04] LABS: GGT 22.1 U/L (15-73)
[2024-09-22 14:18] LABS: Tacrolimus Prograf. 5.4 mcg/L
[2024-10-16 08:07] LABS: Hematocrit 45.2 % (37.0-46.0); Hemoglobin 15.1 g/dL (12.4-15.3); Immature Granulocyte Percent A 0.4 % (0.0-0.0); Lymphocytes Absolute Auto 2.57 K/mm3 (1.10-4.50); Mean Corpuscular HGB Conc 33.4 g/dL (32-36); Mean Corpuscular Hemoglobin 28.4 pg (27.0-31.0); Mean Corpuscular Volume 85.1 fL (78.0-102.0); Nucleated Red Blood Cells Absolute Auto 0.00 K/mm3 (0.00-0.00); Nucleated Red Blood Cells Perc 0.0 % (0-0.0); Platelet Count Result 141 K/mm3 (150-420); Red Blood Count 5.31 M/mm3 (4.70-6.10); White Blood Count 8.4 K/mm3 (4.8-10.8)
[2024-10-16 08:25] LABS: Anion Gap 7 mmol/L (4-12); Blood Urea Nitrogen 15 mg/dL (9-20); Carbon Dioxide 25 mmol/L (22-30); Chloride 110 mmol/L (98-107); Estimated Glomerular Filt Rate 60; Glucose 130 mg/dL (65-110); Potassium 4.4 mmol/L (3.4-5.0); Sodium 142 mmol/L (137-145)
[2024-10-16 08:26] LABS: Alanine Aminotransferase 22 U/L (6-50); Albumin Level 4.6 g/dL (3.5-5.1); Alkaline Phosphatase 76 U/L (38-126); Aspartate Amino Transferase 28 U/L (17-59); Bilirubin,Total 0.8 mg/dL (0.2-1.3); Calcium 9.4 mg/dL (8.4-10.2); Osmolality Calculated 296 mOsm/kg (285-295); Total Protein 7.3 g/dL (6.3-8.2)
[2024-10-16 09:36] LABS: GGT 19 U/L (15-73)
[2024-10-19 15:04] LABS: Tacrolimus Prograf. 4.6 mcg/L
[2024-11-09 08:53] LABS: Hematocrit 44.8 % (37.0-46.0); Hemoglobin 14.8 g/dL (12.4-15.3); Immature Granulocyte Percent A 0.4 % (0.0-0.0); Lymphocytes Absolute Auto 2.20 K/mm3 (1.10-4.50); Mean Corpuscular HGB Conc 33.0 g/dL (32-36); Mean Corpuscular Hemoglobin 28.3 pg (27.0-31.0); Mean Corpuscular Volume 85.7 fL (78.0-102.0); Nucleated Red Blood Cells Absolute Auto 0.00 K/mm3 (0.00-0.00); Nucleated Red Blood Cells Perc 0.0 % (0-0.0); Platelet Count Result 212 K/mm3 (150-420); Red Blood Count 5.23 M/mm3 (4.70-6.10); White Blood Count 9.1 K/mm3 (4.8-10.8)
[2024-11-09 09:18] LABS: Alanine Aminotransferase 33 U/L (6-50); Albumin Level 4.2 g/dL (3.5-5.1); Alkaline Phosphatase 99 U/L (38-126); Anion Gap 3 mmol/L (4-12); Aspartate Amino Transferase 32 U/L (17-59); Bilirubin,Total 0.7 mg/dL (0.2-1.3); Blood Urea Nitrogen 18 mg/dL (9-20); Calcium 9.3 mg/dL (8.4-10.2); Carbon Dioxide 30 mmol/L (22-30); Chloride 106 mmol/L (98-107); Estimated Glomerular Filt Rate 56; Glucose 110 mg/dL (65-110); Osmolality Calculated 290 mOsm/kg (285-295); Potassium 4.9 mmol/L (3.4-5.0); Sodium 139 mmol/L (137-145); Total Protein 6.9 g/dL (6.3-8.2)
[2024-11-09 09:25] LABS: GGT 19 U/L (15-73)
[2024-11-11 18:08] LABS: Tacrolimus (FK506), Blood 3.4 ng/mL (5.0-20.0)
[2024-11-30 08:09] LABS: Hematocrit 46.1 % (37.0-46.0); Hemoglobin 15.2 g/dL (12.4-15.3); Immature Granulocyte Percent A 0.4 % (0.0-0.0); Lymphocytes Absolute Auto 2.68 K/mm3 (1.10-4.50); Mean Corpuscular HGB Conc 33.0 g/dL (32-36); Mean Corpuscular Hemoglobin 28.3 pg (27.0-31.0); Mean Corpuscular Volume 85.7 fL (78.0-102.0); Nucleated Red Blood Cells Absolute Auto 0.00 K/mm3 (0.00-0.00); Nucleated Red Blood Cells Perc 0.0 % (0-0.0); Platelet Count Result 146 K/mm3 (150-420); Red Blood Count 5.38 M/mm3 (4.70-6.10); White Blood Count 7.9 K/mm3 (4.8-10.8)
[2024-11-30 08:43] LABS: Alanine Aminotransferase 30 U/L (6-50); Albumin Level 4.8 g/dL (3.5-5.1); Alkaline Phosphatase 89 U/L (38-126); Anion Gap 7 mmol/L (4-12); Aspartate Amino Transferase 32 U/L (17-59); Bilirubin,Total 0.6 mg/dL (0.2-1.3); Blood Urea Nitrogen 15 mg/dL (9-20); Calcium 9.8 mg/dL (8.4-10.2); Carbon Dioxide 27 mmol/L (22-30); Chloride 107 mmol/L (98-107); Estimated Glomerular Filt Rate 58; Glucose 126 mg/dL (65-110); Osmolality Calculated 294 mOsm/kg (285-295); Potassium 4.2 mmol/L (3.4-5.0); Sodium 141 mmol/L (137-145); Total Protein 7.6 g/dL (6.3-8.2)
[2024-12-01 11:09] LABS: GGT 20 IU/L (0-65)
[2024-12-03 04:07] LABS: Tacrolimus (FK506), Blood 3.0 ng/mL (5.0-20.0)
[2024-12-14 07:36] LABS: Hematocrit 45.8 % (37.0-46.0); Hemoglobin 15.1 g/dL (12.4-15.3); Immature Granulocyte Percent A 0.5 % (0.0-0.0); Lymphocytes Absolute Auto 2.41 K/mm3 (1.10-4.50); Mean Corpuscular HGB Conc 33.0 g/dL (32-36); Mean Corpuscular Hemoglobin 28.2 pg (27.0-31.0); Mean Corpuscular Volume 85.4 fL (78.0-102.0); Nucleated Red Blood Cells Absolute Auto 0.00 K/mm3 (0.00-0.00); Nucleated Red Blood Cells Perc 0.0 % (0-0.0); Platelet Count Result 153 K/mm3 (150-420); Red Blood Count 5.36 M/mm3 (4.70-6.10); White Blood Count 8.5 K/mm3 (4.8-10.8)
[2024-12-14 08:19] LABS: Alanine Aminotransferase 26 U/L (6-50); Albumin Level 4.8 g/dL (3.5-5.1); Alkaline Phosphatase 85 U/L (38-126); Anion Gap 10 mmol/L (4-12); Aspartate Amino Transferase 31 U/L (17-59); Bilirubin,Total 0.6 mg/dL (0.2-1.3); Blood Urea Nitrogen 18 mg/dL (9-20); Calcium 10.0 mg/dL (8.4-10.2); Carbon Dioxide 27 mmol/L (22-30); Chloride 105 mmol/L (98-107); Estimated Glomerular Filt Rate 53; Glucose 139 mg/dL (65-110); Osmolality Calculated 297 mOsm/kg (285-295); Potassium 4.0 mmol/L (3.4-5.0); Sodium 142 mmol/L (137-145); Total Protein 7.6 g/dL (6.3-8.2)
[2024-12-14 08:27] LABS: GGT 22.5 U/L (15-73)
[2024-12-17 18:08] LABS: Tacrolimus (FK506), Blood 4.3 ng/mL (5.0-20.0)
== END 2024-12-20 23:59 | disposition home or self-care (01) ==
LOC: CHSLAB 07:18
PROVIDERS: PCP Family Medicine; Visit Provider Internal Medicine Gastroenterology
DX: Z94.4 Liver transplant status (principal)
CPT/HCPCS: 36415; 80053; 80197; 82977; 85025

== ENCOUNTER 2025-03-22 07:57 | Outpatient (RCR) | payer MEDICARE, SELFPAY ==
[2025-01-11 07:58] LABS: Hematocrit 45.9 % (37.0-46.0); Hemoglobin 15.0 g/dL (12.4-15.3); Immature Granulocyte Percent A 0.5 % (0.0-0.0); Lymphocytes Absolute Auto 2.21 K/mm3 (1.10-4.50); Mean Corpuscular HGB Conc 32.7 g/dL (32-36); Mean Corpuscular Hemoglobin 28.0 pg (27.0-31.0); Mean Corpuscular Volume 85.8 fL (78.0-102.0); Nucleated Red Blood Cells Absolute Auto 0.00 K/mm3 (0.00-0.00); Nucleated Red Blood Cells Perc 0.0 % (0-0.0); Platelet Count Result 158 K/mm3 (150-420); Red Blood Count 5.35 M/mm3 (4.70-6.10); White Blood Count 10.2 K/mm3 (4.8-10.8)
--- OUTSIDE RECORDS SUMMARY | 2025-01-11 08:02 | XMS_ITS | Clinical Summary ---
Author Organization [place] [id number] [facility] Address [address] [place] [address] Care Team Providers Care Complex Case Manager Name Role Phone Angie Kim MD Unavailable [phone] La Chun MD Unavailable [phone] Mattie Giron RN Unavailable [phone] Arelis Helm RN Unavailable [phone] Benny Galarza MD Unavailable [phone] Charles Gilbert DO Primary Care Provider Eva Funes MD Unavailable [phone] Simba Jaramillo MD PhD Unavailable Allergies Active [...] bactrim Medications ALPRAZolam (XANAX) 0.25 mg tabletIndicatio ns:anxiety,Slee p Take 0.5 tablets (0.125 mg total) by mouth nightly 0.5 tablet - 1 tablet nightly 0 9 Active blood-glucose meter misc 1 applicator 3 [...] OF ACID REFLUX 90 tablet 3 Active senna-docusate (Senna Plus) 8.6-50 mg Take 1 tablet by mouth 2 (two) times a day as needed for constipation Please cotton picker operator over the counter or contact PCP for future refills. Thanks! 60 tablet 4 Active NIFEdipine (NIFEdipine CC) 90 [...] TOTAL DOSE OF 5MG DAILY 30 tablet 5 Active Envarsus XR 4 mg tablet extended release 24 hr TAKE ONE TABLET BY MOUTH EVERY DAY. TAKE WITH ONE 1MG TABLET FOR TOTAL DAILY DOSE OF 5MG 30 tablet 5 Active polyethylene glycol (MIRALAX) 17 gram packetIndicatio ns:constipation Take 1 packet (17 g total) by mouth daily as needed for constipation Pt reports he typically takes every am Active magnesium oxide 500 mg capsuleIndicati ons:Supplement Take 1 tablet by mouth nightly Active acetaminophen 500 mg capsuleIndicati ons:Pain Take 2 capsules (1,000 mg total) by mouth every 6 (six) hours as needed for pain 5 Active gabapentin (NEURONTIN) 300 mg capsuleIndicati ons:Restless Legs Syndrome Take 1 capsule (300 mg total) by mouth 3 (three) times a day 90 capsule 5 Active diphenhydrAMINE (BENADRYL) 50 mg capsule Take 1 capsule (50 mg total) by mouth once for 1 dose I hour prior to CT scan 1 capsule 5 Active predniSONE (DELTASONE) 50 mg tablet Take 1 tablet 13 hour, 7 hours and [address] scan 3 tablet 5 Active cefpodoxime (VANTIN) 200 mg tablet Take 1 tablet (200 mg total) by mouth 5 Active clotrimazole-be tamethasone (LOTRISONE) cream APPLY TOPICALLY TO THE AFFECTED AREA TWICE DAILY FOR 2 WEEKS 5 Active traMADoL (ULTRAM) 50 mg tabletIndicatio ns:Post-op pain,Post-opera tive pain Take 1 tablet (50 mg total) by mouth every 8 (eight) hours as needed for pain for up to 21 doses 21 tablet 5 Active naloxone (NARCAN) 4 mg/actuation spray,non-aeros olIndications:O pioid Toxicity Administer 1 spray into affected nostril(s) as needed for opioid reversal or respiratory depression for up to 2 doses Call 911. Administer a single spray in one nostril. Repeat every 3 minutes as needed if no or minimal response. 2 each 5 Active Active Problems Patient Care Coordination No te Formatting of this note migh t be different from the original. 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 I saw [...] indicated. Assessment & Plan (03/13/2023 10:52 AM CROSSBOW MAKER): S/p liver transplant - Mr. Jesus is [...] (03/03/2021): Added automatically from request for surgery [id number] Assessment & Plan (10/18/2021 4:57 PM CDT): Good response to loco-regional therapy. Continue to monitor imaging studies on a regular basis. Encounter for pre-transplant evaluation for liver transplant 03/13/2023 Encounters Date Type Department Care Team Description 11/26/2024 Telephone [facility] [facility] [address] [place] [address] Bev Espinoza 11/24/2024 2:00 PM CDT Office Visit [facility] Medicine [facility] Floor 5 [place] [address] Eva Funes MD Cellulitis, unspecified cellulitis site (Primary Dx) 11/24/2024 12:51 PM CDT - 11/24/2024 11:59 PM CDT Hospital Encounter [facility] - Diagnostic Imaging [address] [facility] Floor 8 [place] [address] Lung nodule Discharge Disposition: Discharge to home or self care 11/24/2024 11:00 AM CDT [facility] [address] [facility] [address] [place] [address] Simba Jaramillo MD PhD Malignant neoplasm of upper lobe of left lung (HCC) (Primary Dx); Squamous cell carcinoma of left lung (HCC) 11/24/2024 Telephone [facility] Medicine Oncology [address] [facility] Floor 5 [place] [address] Damaris Saleh NP 11/20/2024 1:10 PM CDT - 11/20/2024 11:59 PM CDT Hospital Encounter [facility] ([facility]) [address] [place] [address] Discharge Disposition: Discharge to home or self care 11/20/2024 Telephone [facility] Medicine Surgery [address] [facility] Floor 5 [place] [address] Dayron Camara NP 11/19/2024 Telephone [facility] Medicine Cardiothoracic Surgery [address] [facility] 8th Floor [phone] [place] [address] SCAN APPOINTMENT 11/19/2024 Telephone [facility] Medicine Surgery [address] [facility] Floor 5 [place] [address] Dayron Camara NP 11/19/2024 Orders Only [facility] Medicine Surgery [address] [facility] Floor 5 [place] [address] Dayron Camara NP Soft tissue infection (Primary Dx) 11/13/[address] [facility] Transplant Liver [address] [facility] [address] Mailstop [phone] [place] [address] Tasneem Morfin 11/12/2024 Orders Only [facility] Medicine Surgery [address] [facility] [address] [place] [address] Eva Funes MD Lung nodule (Primary Dx) 11/12/2024 [facility] [address] [facility] [address] [place] [address] Jacob Griffith RMA 11/10/2024 1:15 PM CDT [facility] [address] [facility] Floor 5 [place] [address] Eva Funes MD Lung nodule (Primary Dx); HCC (hepatocellular carcinoma) (HCC); History of liver transplant (HCC); half-way (current) use of calcineurin inhibitor; Class 3 severe obesity due to excess calories with serious comorbidity and body mass index (BMI) of 40.0 to 44.9 in adult; Type 2 diabetes mellitus with other specified complication, unspecified whether manager long term care insulin use (HCC) 11/10/2024 12:49 PM CDT - 11/10/2024 11:59 PM CDT Hospital Encounter [facility] - Diagnostic Imaging [address] [facility] Floor 8 [place] [address] Lung nodule Discharge Disposition: Discharge to home or self care 11/10/2024 Orders Only [facility] Floor 5 [place] [address] Dayron Camara NP Squamous cell carcinoma of left lung (HCC) (Primary Dx) 11/09/2024 [facility]phone [facility] [address] [facility] [address] [place] [address] Jacob Griffith RMA 10/29/2024 12:33 PM CDT - 10/29/2024 11:59 PM CDT Hospital Encounter [facility] ([facility]) [address] [place] [address] Discharge Disposition: Discharge to home or self care 10/29/2024 12:23 PM CDT - 10/29/2024 11:59 PM CDT Hospital Encounter [facility]) [address] [place] [address] Discharge Disposition: Discharge to home or self care 10/29/[address] [facility] Transplant Liver [address] [facility] [address] Mailstop [phone] [place] [address] Mattie Giron, NITA 10/29/2024 Orders Only [facility] Medicine Surgery [address] [facility] Floor 5 [place] [address] Dayron Camara NP Nerve pain (Primary Dx) 10/29/2024 Telephone [facility] Medicine Surgery [address] [facility] 5 [place] [address] Dayron Camara NP 10/29/2024 Results Follow-Up [facility] Transplant Liver [address] [facility] [address] Mailstop [phone] [place] [address] Mattie Giron, frog or oyster farmworker pathology 10/27/2024 [facility]phone [facility] [address] [facility] [address] [place] [address] Jacob Griffith RMA 10/22/2024 Orders Only [facility] 5 [place] [address] Dayron Camara NP Lung nodule (Primary Dx) 10/21/2024 Orders Only [facility] [address] [facility] 5 [place] [address] Dayron Camara NP Lung nodule (Primary Dx) 10/19/2024 11:39 AM CDT Anesthesia Event [facility] Operating Room 1 [place] [address] Devin Villar MD PhD Mitzi Griffith, K [employer]CHO[employer] PRINCIPAL 10/19/2024 11:35 AM CDT - 10/19/2024 2:45 PM CDT Surgery [facility] Operating Room [address] [place] [address] Eva Funes MD XI ROBOTIC ASSISTED THORACOSCOPIC SURGERY LEFT UPPER LOBECTOMY 10/19/2024 7:30 AM CDT - 10/21/2024 9:05 PM CDT Hospital Encounter [facility] [address] [place] [address] Eva Funes MD Lung nodule Discharge Disposition: Discharge to home or self care from Last 3 Months Immunizations Immunization Administration [...] 04/22/2019 - 05/22/2019 BLEPHAROPTOSIS REPAIR 02/13/2024 Right LOBECTOMY 10/19/2024 Medical History Medical History Date Comments Hepatitis C GERD (gastroesophageal reflu x disease) Type 2 diabetes mellitus Cirrhosis (HCC) Low back pain Obesity Sleep apnea uses cpap ninoska e Ptosis of left eyelid ARCADIO - Foll ows with Dr. Limon Diabetes mellitus type II, n on insulin dependent (HCC) Diet and exercise controlled Esophageal varices 04/24/2021 On nadolol, no SE A&P: no changes HCC (hepatocellular carcinoma) 03/03/2021 A dded automatically from request for surgery [id number] Hypertension Family History Medical History Relation Name Comments Cancer Father Damon Jesus Cancer Maternal Grandmother Cancer Mother Christina Jesus Lung cancer Mother Christina Jesus Cystic fibrosis Other 1 Cancer Other 2 host of uncles 11 uncles all of different cancers Breast cancer Sister Anesthesia problems Neg Hx Relation Name Status Comments Father Damon Jesus Maternal Grandmother Mother Christina Jesus Other 1 Other 2 host of uncles Alive Sister Social History Tobacco Use Types Packs/Day Years Used Date Smoking Tobacco: Never Passive Smoke Exposure: Never Smokeless Tobacco: Never Tobacco Cessation:Counseling Given: Not Answered Social Connection and Isolation Panel Answer Date Recorded In a typical week, how many times do you talk on the phone with family, friends, or neighbors? More than three times a week 03/03/2022 How often do you get togethe r with friends or relatives? More than three times a week 03/03/2022 How often do you attend chur ch or buddhist services? More than 4 times per year 03/03/2022 Do you belong to any clubs o r organizations such as uatsdin groups, unions, fraternal or athletic groups, or school groups? Yes 03/03/2022 How often do you attend meet ings of the clubs or organizations you belong to? More than 4 times per year 03/03/2022 Are you , , di vorced, , never , or living with a partner? 03/03/2022 AUDIT-C Answer Date Recorded Q1: How often do you have a drink containing alcohol? Never 11/24/2024 Q2: How many drinks containi ng alcohol do you have on a typical day when you are drinking? Patient does not drink Q3: How often do you have si x or more drinks on one occasion? Never 11/24/2024 Overall Financial Resource Strain (CARDIA) Answe r [...] Sign Reading Time Taken Comments Blood Pressure 131/80 11/24/2024 11:03 AM CDT Pulse 82 11/24/2024 11:03 AM CDT Temperature 36.6 C (97.8 F) 11/24/2024 11:03 AM CDT Respiratory Rate 19 11/24/2024 11:0 3 AM CDT Oxygen Saturation 97% 11/24/2024 11: 03 AM CDT Inhaled Oxygen Concentration - - Weight 126.3 kg (278 lb 7.1 oz) 025 11:03 AM CDT Height 187 cm (6' 1.62) 11/24/2024 11: 03 AM CDT Body Mass Index 36.12 11/24/2024 11:03 AM CDT Plan of Treatment Upcoming Encounters Date Type Department Care Team (Late st Contact Info) Description 01/19/2025 9:45 AM CDT Hospital Encounter [address] [address] Health Maintenance Due Date Last Done Comments Albumin Creatinine Ratio, Urine 1957 Colon Cancer Screening-Colonoscopy 1957 Depression Screening 1957 Dilated Eye Exam 1957 Foot Exam 1957 Pneumococcal vaccine 65+ (1 of 2 - PCV) 1976 Zoster Vaccine (1 of 2) 1976 Well Visit 65+ 2022 Prostate Cancer Screening-PSA 04/19/2023 04/19/2021 Influenza Vaccine (#1) 2024 01/26/2019, 2018 Hemoglobin A1C 04/09/2025 10/08/2024, 12/0 07/2022, 06/18/2022, Additional history exists Lipid Panel 10/19/2025 10/19/2024, 03/22, 03/02/2022, Additional history exists eGFR 10/19/2025 10/19/2024, 08/20, 03/08/2022, Additional history exists Fall Risk Assessment 10/21/2025 10/21/2024 DTaP/Tdap/Td Vaccine (2 - Td or Tdap) 12/09/2026 12/09/2016 Hepatitis B Screening Completed 03/02/2022 , 06/22/2019, 01/20/2019, Additional history exists Hepatitis C Screening Completed 03/13/2023 , 03/13/2023, 04/09/2022, Additional history exists Medical Devices Implanted Type Area Photographer Assistant Device Identifier Shelf Expiration Date Model / Serial / Lot [facility] [employer] Prefill Saline Syringe Compressible Nonaggregate [id number] - [id number] Implanted:Qty: 1 on 08/18/2021 at [facility] [employer] 01/19/2022 [id number] / / [id number] Angio-Seal Vip 6fr Closere Device [id number] - [id number] Implanted:Qty: 1 on 08/18/2021 at [facility] [employer] 05/22/2022 [id number] / / [id number] Procedures Procedure Name Priority Date/Time Associated Diagnosis Comments TACROLIMUS LEVEL, TROUGH Routine 12/14/2024 CBC WITH AUTO DIFFERENTIAL Routine 12/14/2024 GAMMA GT Routine 12/14/2024 COMPREHENSIVE METABOLIC PANEL Routine 12/14/2024 TACROLIMUS LEVEL, TROUGH Routine 11/30/2024 GAMMA GT Routine 11/30/2024 CBC WITH AUTO DIFFERENTIAL Routine 11/30/2024 COMPREHENSIVE METABOLIC PANEL Routine 11/30/2024 XR CHEST PA LATERAL 2 VIEWS Schedule Routine, Read Routine (OP Routine) 11/24/2024 12:59 PM CDT Lung nodule [facility] DNA AND RNA SOLID TUMOR Routine 11/24/2024 11:55 AM CDT Malignant neoplasm of upper lobe of left lung (HCC) CT BODY OUTSIDE REFERENCE Routine 11/20/2024 1:10 PM CDT XR CHEST PA LATERAL 2 VIEWS Schedule [...] 10/19/2024 12 :35 PM CDT Lung nodule GA AN PROCEDURE PLACEHOLDER Routine 10/19/2024 12:09 PM CDT GA AN ELECTIVE ENDOTRACHEAL AIRWAY Routine 10/19/2024 12:09 PM CDT GA AN PROCEDURE PLACEHOLDER Routine 10/19/2024 12:09 PM CDT DISSECTION LYMPH NODE 10/19/2024 11:42 AM CDT Lung nodule VIDEO ASSISTED THORACOSCOPIC SURGERY LOBECTOMY - LAPAROSCOPIC ROBOTIC ASSISTED 10/19/2024 11:42 AM CDT Lung nodule POCT GLUCOSE DEVICE Routine 10/19/2024 1 0:34 AM CDT TACROLIMUS LEVEL, TROUGH Routine 10/16/2024 GAMMA GT Routine 10/16/2024 COMPREHENSIVE METABOLIC PANEL Routine 10/16/2024 CBC WITH AUTO DIFFERENTIAL Routine 10/16/2024 POCT HEMOGLOBIN A1C Routine 10/08/2024 8 :25 AM CDT HEPATITIS C RNA, QUANTITATIVE, PCR Routine 04/09/2022 PSA SCREEN Routine 04/19/2021 7:30 AM CROSSBOW MAKER Encounter for pre-transplant evaluation for liver transplant Hepatocellular carcinoma (HCC) from Last 3 Months or Most Recently Relevant to Health Maintenance Results * (ABNORMAL) Tacrolimus level trough (12/14/2024) [facility] SCRIB Tacrolimus, trough 4.3(A) 5.0 - 20.0 [facility] Blood 12/14/2024 us Historical Provider LAB BLOOD ORDERABLES Edit ed Result - Final Performing Organization Address City/State/[facility] [place] [address], [facility] [phone] * (ABNORMAL) CBC with auto differential (12/14/2024) [facility] SCRIB WBC 8.5 4.8 - 10.8 K/cumm [facility] SCRIB Hemoglobin 15.1 12.4 - 15.3 g/dL [facility] Hematocrit 45.8 37.0 - 46.0 % [facility] Platelets 153 150 - 420 K/cumm [facility] RBC 5.36 4.70 - 6.10 M/cumm [facility] SCRIBED Neutrophils 60.0 NONE % [facility] SCRIB Lymphocytes 28.2 NONE % [facility] SCRIBED Monocytes 8.3 NONE % [facility] SCRED Eosinophils 2.5 NONE % [facility] Basophils 0.5 NONE % [facility] Blood 12/14/2024 Historical Provider MD LAB BLOOD ORDERABLES Edit ed Result - Final Performing Organization Address [facility]/ZIP Co de Phone Number [address] [phone] * Gamma GT (12/14/2024) [facility] SCRIBED GGT 22.5 15 - 73 [facility] Blood 12/14/2024 us Historical Provider LAB BLOOD ORDERABLES Katrin l Result Performing Organization Address [facility] Co de Phone Number [address] [phone] * (ABNORMAL) Comprehensive metabolic panel (12/14/2024) [facility] Sodium 142 137 - 145 mmol/L [facility] Potassium 4.0 3.4 - 5.0 mmol/L [facility] Chloride 105 98 - 107 mmol/L [facility] Carbon Dioxide 27 22 - 30 mmol/L [facility] Urea Nitrogen (BUN) 18 9 - 20 mg/dl [facility] Creatinine 1.34(A) 0.7 - 1.3 mg/dl [facility] Glucose 139(A) 65 - 110 mg/dl [facility] Calcium 10 8.4 - 10.2 mg/dl [facility] Bilirubin 0.6 0.2 - 1.3 mg/dl [facility] Plasma Protein 7.6 6.3 - 8.2 g/dl [facility] SCRIB Albumin 4.8 3.5 - 5.1 g/dl [facility] SCRIBED Alkaline Phosphatase 85 38 - 126 Units/L [facility] SCRED Alanine Transaminase (ALT) 26 6 - 50 Units/L [facility] Aspartate Transaminase (AST) 31 17 - 59 Units/L [facility] Blood 12/14/2024 Historical Provider MD LAB BLOOD ORDERABLES Katrin l Result Performing Organization Address City/[facility]/ZIP Co de Phone Number [address] [phone] * (ABNORMAL) Tacrolimus level trough (11/30/2024) S[facility] Tacrolimus, trough 3.0(A) 5.0 - 20.0 [facility] Blood 11/30/2024 us Historical Provider MD LAB BLOOD ORDERABLES Edit ed Result - Final Performing Organization Address City/[facility]/[place] [address], [facility] [phone] * (ABNORMAL) CBC with auto differential (11/30/2024) S[facility]IB[facility] WBC 7.9 4.8 - 10.8 K/cumm [facility] SCRIBED Hemoglobin 15.2 12.4 - 15.3 g/dL [facility] Hematocrit 46.1(A) 37.0 - 46.0 % [facility] SCRIB Platelets 146(A) 150 - 420 K/cumm [facility] SCRIBED RBC [facility] Comment:- SCRIBED Neutrophils 49.5(A) 50.0 - 70.0 % [facility] SCRIBED Lymphocytes 34.1 18.0 - 42.0 % [facility] SCR[facility]ED Monocytes 9.3 2.0 - 11.0 % [facility] SCRIBED Eosinophils 6.1(A) 1.0 - 6.0 % [facility] SCRIBED Basophils 0.6 0.0 - 1.0 % [facility] Blood 11/30/2024 Historical Provider MD LAB BLOOD ORDERABLES Edit ed Result - Final Performing Organization Address City/[facility]/ZIP Co de Phone Number [address] [phone] * Gamma GT (11/30/2024) S[facility]IB[facility] GGT 20 0 - 65 [facility] Blood 11/30/2024 Historical Provider MD LAB BLOOD ORDERABLES Edit ed Result - Final Performing Organization Address [facility]/ZIP Co de Phone Number [address] [phone] * (ABNORMAL) Comprehensive metabolic panel (11/30/2024) [facility] SCRIBED Sodium 141 137 - 145 mmol/L [facility] SCRIBED Potassium 4.2 3.4 - 5.0 mmol/L [facility] Chloride 107 98 - 107 mmol/L [facility] Carbon Dioxide 27 22 - 30 mmol/L [facility] Urea Nitrogen (BUN) 15 9 - 20 mg/dl [facility] Creatinine 1.25 0.7 - 1.3 mg/dl [facility] Glucose 126(A) 65 - 110 mg/dl [facility] Calcium 9.8 8.4 - 10.2 mg/dl [facility] Bilirubin 0.6 0.2 - 1.3 mg/dl [facility] Plasma Protein 7.6 6.3 - 8.2 g/dl [facility] Albumin 4.8 3.5 - 5.1 g/dl [facility] Alkaline Phosphatase 89 38 - 126 Units/L [facility] Alanine Transaminase (ALT) 30 6 - 50 Units/L [facility] Aspartate Transaminase (AST) 32 17 - 59 Units/L [facility] Blood 11/30/2024 Historical Provider LAB BLOOD ORDERABLES Edit ed Result - Final Performing Organization Address City/State/[facility] Co de Phone Number [address] [phone] * X-ray chest 2 views (11/24/2024 12:59 PM CDT) Anatomical Region Laterality Modality Body, Chest N/A Digital Radiogra phy 11/24/2024 1:21 PM CDT Impressions 11/24/2024 1:21 PM CDT Comparison exam is dated 11/10/2024. The patient is status post left lower lobectomy. Volume loss of the left hemithorax with elevation of the left hemidiaphragm is again identified. The right lung is well-expanded and clear. Compared to the prior exam, there has been no change. Electronically signed by: Howard Grullon M.D. Narrative 11/24/2024 1:21 PM CDT EXAMINATION: 2 view chest radiograph Procedure Note Howard Grullon MD - 11/24/2024 EXAMINATION: 2 view chest radiograph IMPRESSION: Comparison exam is dated 11/10/2024. The patient is status post left lower lobectomy. Volume loss of the left hemithorax with elevation of the left hemidiaphragm is again identified. The right lung is well-expanded and clear. Compared to the prior exam, there has been no change. Electronically signed by: Howard Grullon M.D. Dayron Camara K [employer] SCHOOL PRINCIPAL IMG XR PROCEDURES Final Res ult * [facility] DNA and RNA - Tumor Only (11/24/2024 11:55 AM CDT) Reason for Study To identify somatic and germline mutations relevant to patient's cancer. 12/16/2024 9:08 AM CDT [facility] Genetic Diseases Assessed Cancer 12/16/2024 9:08 AM CDT [facility] Description of Ranges of DNA Sequences Examined 648 gene panel 12/16/2024 9:08 AM CDT [facility] Overall Interpretation positive 12/16/2024 9:08 AM CDT [facility] MSI Stable 12/16/2024 9:08 AM CDT [facility] TMB 5.8 m/MB 12/16/2024 9:08 AM CDT [facility] [email or web address] 12/16/2024 9:08 AM CDT [facility] Comment:[facility] link Pertinent Negatives EGFR, KRAS, BRAF, ALK, ROS1, RET, MET, ERBB2 (HER2) 12/16/2024 9:08 AM CDT [facility] Trial Count 3 12/16/2024 9:08 AM CDT [facility]: Clinical Trial Match 1 Clinical Trial NCT ID: [id number] Clinical Trial Title: TAPUR: Testing the Use of Food and Drug Administration (FDA) Approved Drugs That Target a Specific Abnormality in a Tumor Gene in People With Advanced Stage Cancer Clinical Trial URL: [email or web address] Clinical Phase: Phase 2 Clinical Trial Matches: FGFR1 amplification Clinical Trial Distance and Location: [address] [place], [place] 12/16/2024 9:08 AM CDT [facility] [facility]: Clinical Trial Match 2 Clinical Trial NCT ID: [id number] Clinical Trial Title: Lvqye-ea-Muxyd Trial of DS-2243a in Participants With Advanced Solid Tumors Clinical Trial URL: [email or web address] Clinical Phase: Phase 1 Clinical Trial Distance and Location: [address], [place] 12/16/2024 9:08 AM CDT [facility]: Clinical Trial Match 3 Clinical Trial NCT ID: [id number] Clinical Trial Title: Safety and Preliminary Anti-Tumor Activity of LYDIA-430 in Advanced Hepatocellular Carcinoma and Other Solid Tumors With Activating FGF/FGFR Pathway Aberrations Clinical Trial URL: [email or web address] Clinical Phase: Phase 1 Clinical Trial Matches: FGFR1 amplification Clinical Trial Distance and Location: [address], [place] 12/16/2024 9:08 AM CDT [facility] xR Result 1 NEGATIVE Negative - This report is being issued to report the results of gene rearrangement and altered splicing analysis from RNA sequencing. No gene rearrangements nor reportable altered splicing events were identified from RNA sequencing. 12/16/2024 9:08 AM CDT [facility] Germline Variant Note No normal sample was received, therefore tumor/normal matched analysis was not performed. 12/16/2024 9:08 AM CDT [facility] Treatment Implications Note No reportable treatment options found. 12/16/2024 9:08 AM CDT [facility] HLA-A Typing A*02:01,A*25:01 9:08 AM CDT [facility] HLA-B Typing B*18:01,B*27:05 9:08 AM CDT [facility] HLA-C Typing C*02:02,C*12:03 9:08 AM CDT [facility] HLA-A Ambiguous Alleles No 12/16/2024 9:08 AM CDT [facility] HLA-B Ambiguous Alleles No 12/16/2024 9:08 AM CDT [facility] HLA-C Ambiguous Alleles No 12/16/2024 9:08 AM CDT [facility] HLA-A Sample Type Tumor Only 025 9:08 AM CDT [facility] HLA-B Sample Type Tumor Only 025 9:08 AM CDT [facility] HLA-C Sample Type Tumor Only 025 9:08 AM CDT [facility] Tissue specimen (specimen) 11/24/2024 11:55 AM CDT 11/28/2024 1:48 PM CDT Narrative This result has genomic variants that were not included in this document. us Simba Jaramillo MD PhD LAB GENETIC TESTING E dited Result - Final Performing Organization Address City/[facility] Co de Phone Number [facility] [address] [facility], [address] [place] [address] [facility] [address] [facility], [address] [place] [address] * CT Body Outside Reference (11/20/2024 1:10 PM CDT) Impressions [facility] - 11/20/2024 1:10 PM CDT These images are for Reference purposes only and have not been reviewed by [facility] Radiology. There will be no report generated by a [facility] Radiologist. Narrative [facility] - 11/20/2024 1:10 PM CDT EXAMINATION: Images For Reference Purposes Only us Eva Funes MD IMG CT PROCEDURES Final Result Performing Organization Address [facility] Co de Phone Number [facility] * X-ray chest 2 views (11/10/2024 1:05 [...] by: Linh Jones M.D. us Dayron Camara K [employer] IMG XR PROCEDURES Final Res ult * (ABNORMAL) Tacrolimus level trough (11/09/2024) SCRIBED Tacrolimus, trough 3.4(A) 5 - 20 [facility] Blood 11/09/2024 Historical Provider LAB BLOOD ORDERABLES Edit ed Result - Final [facility] [address] [phone] * (ABNORMAL) CBC with auto differential (11/09/2024) SCRIBED WBC 9.1 4.8 - 10.8 K/cumm [facility] SCRIB Hemoglobin 14.8 12.4 - 15.3 g/dL [facility] Hematocrit 44.8 37.0 - 46.0 % [facility] Platelets 212 150 - 420 K/cumm [facility] RBC [facility] Comment:- SCRIBED Neutrophils 58.6 50.0 - 70.0 % [facility] Lymphocytes 24.1 18.0 - 42.0 % [facility] SCRIB Monocytes 8.4 2.0 - 11.0 % [facility] Eosinophils 7.5(A) 1.0 - 6.0 % [facility] Basophils 1.0 0.0 - 1.0 % [facility] Blood 11/09/2024 Historical Provider LAB BLOOD ORDERABLES Edit ed Result - Final [address] [phone] * Gamma GT (11/09/2024) SCRIBED GGT 19 15 - 73 [facility] Blood 11/09/2024 Result [facility] Historical Provider LAB BLOOD ORDERABLES Katrin l Result [facility] [address] [phone] * Comprehensive metabolic panel (11/09/2024) SCRIBED Sodium 139 137 - 145 mmol/L [facility] Potassium 4.9 3.4 - 5.0 mmol/L [facility] Chloride 106 98 - 107 mmol/L [facility] Carbon Dioxide 30 22 - 30 mmol/L [facility] Urea Nitrogen (BUN) 18 9 - 20 mg/dl [facility] Creatinine 1.28 0.7 - 1.3 mg/dl [facility] Glucose 110 65 - 110 mg/dl [facility] Calcium 9.3 8.4 - 10.2 mg/dl [facility] Bilirubin 0.7 0.2 - 1.3 mg/dl [facility] Plasma Protein 6.9 6.3 - 8.2 g/dl [facility] Albumin 4.2 3.5 - 5.1 g/dl [facility] Alkaline Phosphatase 99 38 - 126 Units/L [facility] Alanine Transaminase (ALT) 33 6 - 50 Units/L [facility] Aspartate Transaminase (AST) 32 17 - 59 Units/L [facility] Blood 11/09/2024 us Historical Provider LAB BLOOD ORDERABLES [place] [address], [facility] [phone] * XR Outside Reference (10/29/2024 12:33 PM CDT) Impressions [facility] - 10/29/2024 12:33 PM CDT These images are for Reference purposes only and have not been reviewed by [facility] Radiology. There will be no report generated by a [facility] Radiologist. Narrative [facility] - 10/29/2024 12:33 PM CDT EXAMINATION: Images For Reference Purposes Only Eva Funes MD IMG XR PROCEDURES Final Result Performing Organization Address [facility] de Phone Number [facility] * XR Outside Reference (10/29/2024 12:23 PM CDT) Impressions [facility] - 10/29/2024 12:23 PM CDT These images are for Reference purposes only and have not been reviewed by [facility] Radiology. There will be no report generated by a [facility] Radiologist. Narrative [facility] - 10/29/2024 12:23 PM CDT EXAMINATION: Images For Reference Purposes Only Eva Funes MD IMG XR PROCEDURES Final Result Performing Organization Address [facility] de Phone Number [facility] * XR Chest [...] it. Electronically signed by: Raudel Silva M.D. Ersato Antonio NP IMG XR PROCEDURES Final Resul t * Tacrolimus level trough (10/21/2024 9:29 AM CDT) Tacrolimus trough 7.6 ng/mL Comment: Interpretive Data Testing performed by liquid chromatography-tandem mass spectrometry. Therapeutic concentrations vary depending on type of transplanted organ and time elapsed since transplant. Typical trough concentrations range from 5-15 ng/mL. This test was developed and its performance characteristics determined by the [facility] consistent with CLIA requirements. This test has not been cleared or approved by the [place] Food and Drug administration. Current interpretive data last reviewed 2019. Blood 10/21/2024 9:29 AM CDT 10/21/2024 10:01 AM CDT Meryl Gar NP LAB BLOOD ORDERABLES Fi nal Result [facility] Department [place] [address] * POCT glucose (10/19/2024 7:57 PM CDT) Glucose, POC 154 70 - 199 mg/dL Blood 10/19/2024 7:57 PM CDT 10/19/2024 7:57 PM CDT Eva Funes MD LAB POCT ORDERABLES - DE VICE Final Result [facility] Department [place] [address] * XR Chest 1 View (10/19/2024 7:29 [...] MD LAB BLOOD ORDERABLES Fin al Result [facility] Department of Laboratories [place], [place] [id number] * aPTT (10/19/2024 5:41 PM CDT) aPTT [...] ORDERABLES Fin al Result Performing Organization Address [facility] [place] [address] * Protime-INR (10/19/2024 5:41 PM CDT) Pathologist [facility] PT 11.0 9.7 - 13.0 sec INR 1.02 0.90 - 1.20 [facility] Comment: Interpretive data Oral anticoagulant therapeutic ranges: Venous thromboembolism prophylaxis or treatment: 2.0-3.0 CARDIOLOGY Standard range: 2.0-3.0 High-intensity range: 2.5-3.5 Refer to indication-specific guidelines for appropriate target ranges for prosthetic heart valve replacement. Current interpretive data was last revised on 2019. Blood 10/19/2024 5:41 PM CDT 10/19/2024 5:59 PM CDT Eva Funes MD LAB BLOOD ORDERABLES Fin al Result Performing Organization Address [facility] [place] [address] * (ABNORMAL) CBC without differential (10/19/2024 5:41 PM CDT) WBC 14.55(H) 3.80 - 9.90 K/cumm Hgb 14.1 13.0 - 17.5 g/dL [facility] Hct 43.1 38.9 - 50.3 % [facility] Plt 129(L) 150 - 400 K/cumm [facility] MPV 11.0 9.1 - 12.3 fL [facility] RBC 4.99 4.30 - 5.80 M/cumm [facility] MCV 86.4 81.3 - 96.4 fL [facility] MCH 28.3 27.1 - 33.3 pg [facility] MCHC 32.7 32.3 - 35.7 g/dL [facility] RDW CV 13.9 11.1 - 14.9 % [facility] RDW SD 43.4 35.7 - 48.1 fL [facility] NRBC abs 0.00 0.00 - 0.01 K/cumm [facility] Blood 10/19/2024 5:41 PM CDT 10/19/2024 5:53 PM CDT Eva Funes MD LAB BLOOD ORDERABLES Fin al Result [facility] Department [place] [address] * (ABNORMAL) Lipid panel (10/19/2024 5:41 PM [...] revised on 2017. Triglycerides 164(H) <=149 mg/dL [facility] Comment: Interpretive Data Ages < or = [...] on 2017. HDL 41 >=40 mg/dL [facility] Comment: Interpretive Data Ages < or [...] on 2017. LDL, calculated 125 <=129 mg/dL [facility] Comment: Interpretive Data Ages < or [...] 3. Fernando Richards et al. WANDA Cardiol. 2019August 20;5(5):540-548. doi: 10.1001/jamacardio.2020.0013 Current Interpretive Data was last revised on 2023. Non-HDL Cholesterol 154 mg/dL [facility] Comment: Interpretive Data Ages < or [...] last revised on 2017. Chol/HDL ratio 5 [facility] Blood 10/19/2024 5:41 PM CDT 10/19/2024 5:54 PM CDT Narrative [facility] - 10/20/2024 11:30 AM CDT Reflex Eva Funes MD LAB BLOOD ORDERABLES Fin al Result [facility] Department [place] [address] * (ABNORMAL) Comprehensive metabolic panel (10/19/2024 5:41 PM CDT) Sodium 142 135 - 145 mmol/L Potassium, pl 5.3(H) 3.3 - 4.9 mmol/L [facility] Chloride 106 97 - 110 mmol/L [facility] CO2 26 22 - 32 mmol/L [facility] Anion gap 10 2 - 15 mmol/L [facility] BUN 23 6 - 25 mg/dL [facility] Creatinine 1.43(H) 0.80 - 1.30 mg/dL [facility] Glucose 169 70 - 199 mg/dL [facility] Comment: Interpretive Data Fasting glucose >/= 126 [...] 2022. Calcium 8.9 8.5 - 10.3 mg/dL [facility] Bilirubin, total 0.3 0.1 - 1.2 mg/dL [facility] Protein, pl 7.5 6.5 - 8.5 g/dL [facility] Albumin 4.5 3.5 - 5.0 g/dL [facility] Alk phos 93 40 - 130 Units/L [facility] ALT 26 7 - 55 Units/L [facility] AST 36 10 - 50 Units/L [facility] Blood 10/19/2024 5:41 PM CDT 10/19/2024 5:54 PM CDT Eva Funes MD LAB BLOOD ORDERABLES Fin al Result [facility] Department [place] [address] * XR Chest 1 View - in [...] it. Electronically signed by: Linh Jones M.D. vEa Funes MD IMG XR PROCEDURES Final Result * POCT glucose (10/19/2024 5:18 PM CDT) Glucose, POC 164 70 - 199 mg/dL Blood 10/19/2024 5:18 PM CDT 10/19/2024 5:18 PM CDT Eva Funes MD LAB POCT ORDERABLES - DE VICE Final Result Performing Organization Address [facility] Co de Phone Number [facility] [place] [address] * POCT glucose (10/19/2024 3:15 PM CDT) Glucose, POC 170 70 - 199 mg/dL Blood 10/19/2024 3:15 PM CDT 10/19/2024 3:15 PM CDT Eva Funes MD LAB POCT ORDERABLES - DE VICE Final Result Performing Organization Address City/[facility] Co de Phone Number [facility] [place] [address] * POCT glucose (10/19/2024 1:12 PM CDT) Glucose, POC 156 70 - 199 mg/dL Blood 10/19/2024 1:12 PM CDT 10/19/2024 1:12 PM CDT Eva Funes MD LAB POCT ORDERABLES - DE VICE Final Result [facility] Department [place] [address] * Surgical pathology (10/19/2024 12:35 PM CDT) [...] excision) 10/19/2024 4:27 PM CDT Narrative PATHOLOGY [facility] - 10/28/2024 3:30 PM CDT EPIC results best viewed via link to PDF [facility] [place] [address] Note to Patients: This report may contain [...] explain the details. SURGICAL PATHOLOGY REPORT FINAL WITH ADDENDUM Patient Name: CASTILLO JESUS Gender: Susie : 1955 (Age: 69) Address: [place] [id number] Hospital #: [id number] Taken:10/19/2024 Received:10/19/2024 Reported: 10/28/2024 Patient Type: [facility] Inpatient Service: Cardiothoracic Location: [place] [address] Physician(s): Antoine Palacios MD Josh Buschling, D.O. Brett H. Herzog, M.D. Diagnosis: J. 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 Operative procedure: Video assisted thoracoscopic surgery lobectomy, [...] J4-J5 Tumor in relation to pleura J6-J7 Food And Beverage Checker sections of the tumor J8 Food And Beverage Checker section of uninvolved parenchyma Jar 3. K. [...] submitted entirely in cassette M1. Jar 0. /10/20/2024 16:42 Gross Resident:Mckayla Jacob M.D., PhD PA(s): [...] tumor Number of lymph nodes involved: 0 Corrine Site(s) Examined: Number of lymph nodes examined: 13 Central Corrine Stations Examined- 7: Subcarinal Left Corrine Stations Examined- 5: Subaortic/aortopulmonary (AP)/AP window Left Corrine Stations Examined- 6: Para-aortic (ascending aorta or phrenic) Left Corrine Stations Examined- 9L: Pulmonary ligament Left Corrine Stations Examined- 10L: Hilar Left Corrine Stations Examined- 11L: Interlobar Left Corrine Stations Examined- 12L: Lobar Left Corrine Stations Examined- 13L: Segmental Left Corrine Stations Examined- Nodes from lobectomy Distant Metastasis: [...] examination of the slides(and/or other material). Addenda/Procedures Addendum Ordered:11/25/2024Status:Signed OutAddendum Complete:11/25/2024y:Bo Bernal M.D.Addendum Signed Out:11/26/2024 Addendum Comment A request for Molecular Archived Tissue Testing was received, which is to be performed on tissue from the attached case. The report, slides and blocks for the case were retrieved from archives. The pathologist whose signature appears below reviewed the original pathology report, examined H&E slides, and selected the blocks appropriate to the specifications of the ordered molecular analysis. Materials were forwarded to [facility] where the xT test will be performed. An addendum report will be issued when the results of this molecular test are available. By this signature, I attest that the above diagnosis is based upon my personal examination of the slides(and/or other material indicated in the diagnosis). Bo Bernal M.D.Report Electronically Reviewed and Signed Out By Bo Bernal M.D. 11/26/2024 08:48:30 Addendum Ordered:12/16/2024Status:Signed OutAddendum Complete:12/16/2024y:Huma Elaine MD PhDAddendum Signed Out:12/16/2024 Addendum Diagnosis A digital scan of the original reference lab report will begin on page two of this addendum. This testing was ordered at the request of Dr. Simba Jaramillo. Block #J7 was selected, and sent for the testing referenced below. By this signature, I attest that the above diagnosis is based upon my personal examination of the slides(and/or other material indicated in the diagnosis). Arielle Elaine MD PhDReport Electronically Reviewed and Signed Out By Arielle Elaine MD PhD 12/16/2024 22:19:00 The xT 595 test was performed at [address], [address], [place] [address]. The performance characteristics of some immunohistochemical stains, fluorescence in-situ hybridization tests and immunophenotyping by flow cytometry cited in this report (if any) were determined by the Surgical Pathology and Flow Cytometry Departments at [facility] as part of an ongoing air quality engineer program and in compliance with federally mandated [...] Surgical Pathology and Flow Cytometry Departments of [facility]. It has not been cleared or approved by the U. S. Food and Drug Administration. IMAGES AND SCANNED DOCUMENTS, IF INCLUDED, ONLY VIEWABLE IN PDF VERSION OF REPORT us Eva Funes MD LAB PATHOLOGY ORDERABLES Final Result PATHOLOGY [facility] 3rd Floor [place], [place] [phone] * GA AN ELECTIVE ENDOTRACHEAL AIRWAY, GA AN PROCEDURE PLACEHOLDER (10/19/2024 12:09 PM CDT) [...] PhD ANESTHESIA ORDERABLES Katrin l Result * GA AN PROCEDURE PLACEHOLDER (10/19/2024 12:09 PM CDT) [...] ORDERABLES - DE VICE Final Result [facility] Department [place] [address] * (ABNORMAL) Tacrolimus level trough (10/16/2024) SCRIBED Tacrolimus, trough 4.6(A) 5.0 - 20.0 [facility] Blood 10/16/2024 Manpreet Provider LAB BLOOD ORDERABLES Edit ed Result - Final [address] [phone] * (ABNORMAL) CBC with auto differential (10/16/2024) SCRIBED WBC 8.4 4.8 - 10.8 K/cumm [facility] SCRIBED Hemoglobin 15.1 12.4 - 15.3 g/dL [facility] SCRIB Hematocrit 45.2(A) 37.0 - 45.0 % [facility] SCRIB Platelets 141(A) 150 - 420 K/cumm [facility] SCRIBED RBC [facility] Comment:- SCRIBED Neutrophils 61.0 50.0 70.0 [facility] Lymphocytes 30.6 18.0 42.0 [facility] SCRED Monocytes 6.4 2.0 11.0 [facility] SCRED Eosinophils 1.1 1.0 6.0 [facility] SCRED Basophils 0.5 0.0 1.0 [facility] Blood 10/16/2024 us Historical Provider MD LAB BLOOD ORDERABLES Edit ed Result - Final Performing Organization Address City/[facility]/ZIP Co de Phone Number [facility] [address] [phone] * Gamma GT (10/16/2024) SCRIBED GGT 19 15 - 73 [facility] Blood 10/16/2024 us Historical Provider MD LAB BLOOD ORDERABLES Edit ed Result - Final Performing Organization Address [facility] [place] [address], [facility] [phone] * (ABNORMAL) Comprehensive metabolic panel (10/16/2024) SCRIBED Sodium 142 137 - 145 mmol/L [facility] SCRIBED Potassium 4.4 3.4 - 5.0 mmol/L [facility] SCRIB Chloride 110(A) 98 - 107 mmol/L [facility] SCRIBED Carbon Dioxide 25 22 - 30 mmol/L [facility] SCRIB Urea Nitrogen (BUN) 15 9 - 20 mg/dl [facility] SCRIB Creatinine 1.21 0.7 - 1.3 mg/dl [facility] Glucose 130(A) 65 - 110 mg/dl [facility] Calcium 9.4 8.4 - 10.2 mg/dl [facility] Bilirubin 0.8 0.2 - 1.3 mg/dl [facility] Plasma Protein 7.3 6.3 - 8.2 g/dl [facility] Albumin 4.6 3.5 - 5.1 g/dl [facility] Alkaline Phosphatase 76 38 - 126 Units/L [facility] Alanine Transaminase (ALT) 22 6 - 50 Units/L [facility] Aspartate Transaminase (AST) 28 17 - 59 Units/L [facility] Blood 10/16/2024 Manpreet Cadet MD LAB BLOOD ORDERABLES Katrin l Result Performing Organization Address City/[facility]/ZIP Co de Phone Number [address] [phone] * (ABNORMAL) POCT hemoglobin A1c (10/08/2024 8:25 AM CDT) Hgb A1C, POC 5.9(H) 4.0 - 5.6 % Est Average Gluc POC 123 mg/dL [facility] Comment: The ADA recommends reporting an estimated Average Glucose (eAG) with all Hemoglobin A1c results using the equation derived from a study of 507 normal and diabetic adults. Minority populations were underrepresented and children were not included. (Diabetes Care 31:4719-7741, 2008). The eAG is not equivalent to a fasting glucose. Blood 10/08/2024 8:25 AM CDT 10/08/2024 8:25 AM CDT Eva Funes MD POINT OF CARE TEST ORDER MICAH Final Result [facility] Department [place] [address] * Hepatitis C (HCV) RNA PCR, quantitative (04/09/2022) SCRIBED HCV RNA <15 - - - IUnit/mL [facility] Comment:Not Detected Blood 04/09/2022 [facility] Provider LAB MICROBIOLOGY - GENERA L ORDERABLES Final Result Performing Organization Address [facility] Co de Phone Number [facility] [address] [phone] * PSA screen (04/19/2021 7:30 AM CROSSBOW MAKER) PSA-Total 1.23 <=5.40 ng/mL [facility] Comment: Interpretive Data AGE SEX REFERENCE INTERVAL 0 minutes-150 years Female None 0 minutes-49 years Male None 50-59 years Male 0-3.90 60-69 years Male 0-5.40 70-79 years Male 0-6.20 80-150 years Male 0-6.20 Current interpretive data last revised 2017. Blood 04/19/2021 7:30 AM [employer]OSSBOW MAKER 04/19/2021 8:16 AM [employer] MAKER Tay Mathews MD LAB BLOOD ORDERABLES F inal Result Performing Organization Address [facility] Co de Phone Number [facility] [place] [address] from Last 3 Months or Most Recently Relevant to Health Maintenance Insurance MEDICARE [facility] MEDICARE SUPPLEMENT MEDICARE [facility] MEDICARE SUPPLEMENT Advance Directives For more information, please contact: [phone] Documents on File Type Date Recorded Patient Food And Beverage Checker Expl anation ADVANCE DIRECTIVE 03/09/2022 11:07 AM [facility] OF IT PROJECT MANAGER-MEDICAL ADVANCE DIRECTIVE 02/15/2022 10:56 AM Maria Luz [...] 1:50 AM 01/07/2022 3:02 PM Care Teams Complex Case Manager Relationship Specialty Start Date End Date Charles Gilbert DO [address] [place] [address] PCP - General Family Medicine 10/02/22 Angie Kim MD Referring Physician Family Practice 03/02/21 La Chun MD Resident Anesthesiology 03/02/22 Mattie Giron, NITA Grocery Cashier 03/05/22 Arelis Helm, RN [address] [address] Secondary Coordinator 03/05/22 Benny Galarza MD [facility] [address] Gastroenterology 07/11/22 Eva Funes MD [facility] [address] [place] [address] Referring Physician Thoracic Surgery 11/12/24 Simba Jaramillo MD PhD [address] [place] [address] MEDICAL ONCOLOGY, [address] [address] Medical Oncologist/Rn Assessment Medical Oncology 11/12/24
--- OUTSIDE RECORDS SUMMARY | 2025-01-11 08:02 | XMS_ITS | Clinical Summary ---
Author Organization [facility] Address [facility] [place] [address] Care Team Providers Care Armhole Baster Jumpbasting Name Role Phone Unavailable Primary Care Provider [...] without long-term current use of insulin ([facility]) Please dispense one device for testing sugars once daily 1 kit 05/18/2021 Active fluconazole (DIFLUCAN) 150 MG tabletIndicatio ns:Yeast infection TAKE 1 TABLET BY MOUTH TODAY. REPEAT IN 72 HOURS NEEDED 2 tablet 01/22/2022 Active Microlet Lancets MiscIndications :Type 2 diabetes mellitus without complication, without long-term current use of insulin ([facility]) USE TO TEST BLOOD SUGAR DAILY 100 [...] without long-term current use of insulin ([facility]) USE TO TEST ONCE DAILY 100 strip [...] pressures at home go up Cirrhosis ([facility]) 04/24/2021 Overview (04/06/2022): Dr. 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 1 month status post liver transplant On Bactrim and valganciclovir for prophylaxis On prednisone, tacrolimus, mycophenolate On Protonix while on prednisone A&P: Discussed being cautious given his new immune state, follow-up per 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[facility]) 04/24/2021 Overview (04/06/2022): Status post liver transplant, off nadolol Type 2 diabetes mellitus wit hout complication, without long-term current use of insulin ([facility]) 04/07/2018 Overview (04/06/2022): A1c trend: 6.2>6.2>5.4 Meds: [...] CDT Gender Identity Male 05/12/2021 5:38 AM MEMBERSHIP ADMINISTRATOR Sexual Orientation Not on file Last Filed Vital Signs Vital Sign Reading Time Taken Comments Blood Pressure 116/82 02/27/2022 9:27 AM MEMBERSHIP ADMINISTRATOR Pulse 53 02/27/2022 9:27 AM MEMBERSHIP ADMINISTRATOR Temperature 36.9 C (98.5 F) 10/03/2021 9:48 AM CDT Respiratory Rate 16 02/27/2022 9:27 AM MEMBERSHIP ADMINISTRATOR Oxygen Saturation 95% 02/27/2022 9:27 AM MEMBERSHIP ADMINISTRATOR Inhaled Oxygen Concentration - - Weight 131.5 kg (290 lb) 02/27/2022 9:27 AM MEMBERSHIP ADMINISTRATOR Height 188 cm (6' 2) 02/27/2022 9:27 AM MEMBERSHIP ADMINISTRATOR Body Mass Index 37.23 02/27/2022 9:27 AM MEMBERSHIP ADMINISTRATOR Plan of Treatment Health Maintenance Due Date [...] this topic Medical Devices Explanted Type Area Superintendent Compressor Stations Device Identifier Shelf Expiration Date Model / Serial / Lot Tissue Surgiflo 8ml - [id number] Explanted:Qty: 1 on 05/11/2019 by Rowdy Harmon MD at [facility] Right: Spine Lumbar [employer] 04/21/2020 [id number] / / [id number] Procedures Procedure Name Priority Date/Time Associated Diagnosis Comments OUTSIDE LAB (SCAN ORDER) Routine 06/18/2022 COLONOSCOPY Routine 07/24/2021 7:06 AM CDT LIPID PANEL Routine 09/17/2012 12:00 AM CDT from Last 3 Months or Most Recently Relevant to Health Maintenance Results * OUTSIDE LAB (SCAN) (06/18/2022) HGB A1C 5.5 % [facility] ONBASE 06/18/2022 [facility] Scanned SCANNING Final Resu lt [facility] ON[facility] * Colonoscopy (07/24/2021 7:06 [...] Most Recently Relevant to Health Maintenance Insurance [facility]
--- OUTSIDE RECORDS SUMMARY | 2025-01-11 08:02 | XMS_ITS ---
Author Organization [place] [id number] [facility] Address [address] [place] [address] Care Team Providers Care Generation Mechanic Helper Name Role Phone Angie Kim MD Unavailable La Chun MD Unavailable [phone] Mattie Giron RN Unavailable [phone] Arelis Helm RN Unavailable [phone] Benny Galarza MD Unavailable [phone] Charles Gilbert DO Primary Care Provider Eva Funes MD Unavailable [phone] Simba Jaramillo MD PhD Unavailable Active Problems Patient Care Coordination No te Formatting of this note migh t be different from the original. Labs at [facility] (starting 03/12) Option 6 FAX: Best fax per lab is [phone] alt fax [phone] This is a 69 year old male [...] assisted lobectomy - PO multimodal - d/c DISBURSEMENT CLERK GERD (gastroesophageal reflux disease) Assessment & [...] afternoon if chest tube output does not last picker - fat challenge, monitor chest tube [...] UOP Assessment & Plan (03/11/2024 10:13 AM IT INTERN): Multifactorial; in part secondary to use of [...] management Assessment & Plan (03/11/2024 10:13 AM IT INTERN): He has excellent allograft function. I saw [...] indicated. Assessment & Plan (03/13/2023 10:52 AM IT INTERN): S/p liver transplant - Mr. Jesus is [...] (03/03/2021): Added automatically from request for surgery [id number] Assessment & Plan (10/18/2021 4:57 PM CDT): Good response to loco-regional therapy. Continue to monitor imaging studies on a regular basis. Encounter for pre-transplant evaluation for liver transplant 03/13/2023
--- OUTSIDE RECORDS SUMMARY | 2025-01-11 08:02 | XMS_ITS | Encounter Summary ---
Author Organization [facility] Address Critical access hospital[address] [place] [address] Care Team Providers Care Student Admissions Clerk Name Role Phone Angie Kim MD Primary Care Provider [phone]- [phone] Keyona Cardona NP Primary Care Provider [phone] Danielito Rollins MD Primary Care Provider [phone] Encounter Details Date Type Department Care Team (Late st Contact Info) Description 05/24/2021 MyChart Message Enc [facility] Medical Group Family Medicine - [place] [address] [place] [address] [place] [address] Angie Kim MD [address] [place] [phone] blood test ordered by [facility]. Social History Tobacco Use Types Packs/Day [...] CDT Gender Identity Male 05/12/2021 5:38 AM LACE MENDER Sexual Orientation Not on file COVID-19 Exposure Response Date Recorded In the last month, have you been in contact with someone who was confirmed or suspected to have Coronavirus / COVID-19? No / Unsure 05/18/2021 3:47 PM LACE MENDER documented as of this encounter Plan of Treatment Not on file documented as of this encounter Visit Diagnoses Not on filedocumented in this encounter Additional Health Concerns Infection Onset Date Last Indicated Resolved Time COVID-19 Rule Out 07/10/2021 07/10/2021 07/17/2021 12:32 AM CDT documented as of this encounter Care Teams Student Admissions Clerk Relationship Specialty Start Date End Date Angie Kim MD PCP - General FAMILY PRACTICE 04/04/18 06/03/22 Keyona Cardona NP PCP - General Nurse Practitioner Family 06/04/2209/20 Danielito Rollins MD [address] [place] [address] [place] [address] PCP - General FAMILY PRACTICE 10/06/22 10/08/22 documented as of this encounter
--- OUTSIDE RECORDS SUMMARY | 2025-01-11 08:02 | XMS_ITS | Encounter Summary ---
Author Organization [facility] Address [address] [place] [address] Phone Care Team Providers Care Coo & Co Founder Name Role Phone Angie Kim MD Unavailable La Chun MD Unavailable [phone] Mattie Giron RN Unavailable [phone] Arelis Helm RN Unavailable [phone] Benny Galarza MD Unavailable [phone] Charles Gilbert DO Primary Care Provider Eva Funes MD Unavailable [phone] Simba Jaramillo MD PhD Unavailable Encounter Details Date Type Department Care Team (Late st [facility] Info) Description 12/03/2023 Orders Only [facility] Medicine Ophthalmology [facility] Outpatient Health 6th [place] [address] Prieto Limon MD [address] [facility] [address] [place] [address] Ptosis of right eyelid (Primary Dx) Social History Tobacco Use Types Packs/Day Years Used Date Smoking Tobacco: Never Smokeless Tobacco: Former Chew Quit: 04/20/1998 Social Connection and Isolation Panel Answer Date Recorded In a typical week, how many times do you talk on the phone with family, friends, or neighbors? More than three times a week 03/03/2022 How often do you get togethe r with friends or relatives? More than three times a week 03/03/2022 How often do you attend chur ch or lutheran services? More than 4 times per year 03/03/2022 Do you belong to any clubs o r organizations such as taoist groups, unions, fraternal or athletic groups, or [...] place to sleep or slept in a residential (including now)? No 03/03/2022 Personal Safety Answer [...] as of this encounter Plan of Treatment Upcoming Encounters Date Type Department Care Team (Late st Contact Info) Description 01/19/2025 9:45 AM CDT Hospital Encounter [address] [address] documented as of this encounter Procedures Procedure [...] eyelid documented in this encounter Care Teams Coo & Co Founder Relationship Specialty Start Date End Date Charles Gilbert DO [address] [place] [address] PCP - General Family Medicine 10/02/22 Angie Kim MD Referring Physician Family Practice 03/02/21 La Chun MD Resident Anesthesiology 03/02/22 Mattie Giron, NITA Electric Screw Driver Operator 03/05/22 Arelis Helm RN [address] [facility] [address] [place] [address] Secondary Coordinator 03/05/22 Benny Galarza MD [facility] [address] Gastroenterology 07/11/22 Eva Funes MD [facility]4 [facility] [address] AD[place] [address] Referring Physician Thoracic Surgery 11/12/24 Simba Jaramillo MD PhD [facility] MEDICAL ONCOLOGY, [facility] [address] [place] [address] Medical Oncologist/Upsetting Machine Operator Medical Oncology 11/12/24 documented as of this encounter
--- OUTSIDE RECORDS SUMMARY | 2025-01-11 08:02 | XMS_ITS | Encounter Summary ---
Author Organization [facility] Address [facility] [place] [address] Care Team Providers Care Safe And Vault Mechanic Name Role Phone Angie Kim MD Primary Care Provider [phone] Keyona Cardona NP Primary Care Provider [phone] Danielito Rollins MD Primary Care Provider [phone] Encounter Details Date Type Department Care Team (Late st Contact Info) Description 09/18/2021 MyCFP Completet Message Enc [facility] Medical Group Family Medicine [place] [id number] [facility] [place] [address] Angie Kim MD [address] [place] [phone] Metformin Social History Tobacco Use Types [...] CDT Gender Identity Male 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 Angie Silva Sent: 09/18/2021 8:20 PM CDT Subject: Metformin Bill needs a prescription for Metformin. He has an upcoming appointment with you, however, he had acall from [place] this morning, ended up going there, but [...] glucose documented in this encounter Care Teams Safe And Vault Mechanic Relationship Specialty Start Date End Date Angie Kim MD PCP - General FAMILY PRACTICE 04/04/18 06/03/22 Keyona Cardona NP PCP - General Nurse Practitioner Family 06/04/2209/20 Danielito Rollins MD [address] [place] [address] [place] [address] PCP - General FAMILY PRACTICE 10/06/22 10/08/22 documented as of this encounter
--- OUTSIDE RECORDS SUMMARY | 2025-01-11 08:02 | XMS_ITS ---
Author Organization [facility] [address] [facility] Address [address] [place] [address] Care Team Providers Care Scale Agent Name Role Phone Angie Kim MD Unavailable La Chun MD Unavailable [phone] Mattie Giron RN Unavailable [phone] Arelis Helm RN Unavailable [phone] Benny Galarza MD Unavailable [phone] Charles Gilbert DO Primary Care Provider Eva Funes MD Unavailable [phone] Simba Jaramillo MD PhD Unavailable [phone] Transplant Episode Liver Recipient [facility] ([place], [place]) - [facility] Organ Received: Liver Transplanted on 03/02/2022 Marked as Active Follow-up on 03/02/2022 Reason: Transplanted at [facility] Liver CoordinatorMattie Giron RN Fax: N/A Email: N/A [place] Organ Diagnosis Organ Primary Contributory Liver Primary [...] Fax Email Mattie Giron RN Liver Coordinator [phone] N/A N/A Kike Montoya MD Referring Physician [phone] N/A Events Post-Transplant Pre-Transplant Admitted: 03/02/2022 Referred: 01/01/2019 Transplanted: 03/02/2022 Evaluation began: 1 Discharged: 03/08/2022 Committee: 07/18/2021 Center waitlisted: 2
--- OUTSIDE RECORDS SUMMARY | 2025-01-11 08:02 | XMS_ITS | Encounter Summary ---
Author Organization [facility] Address [address] [place] [address] Care Team Providers Care Oxyacetylene Cutter Name Role Phone Angie Kim MD Unavailable Mojgan Leonardo RN Unavailable [phone] Angie Kim MD Primary Care Provide r La Chun MD Unavailable [phone] Mattie Giron RN Unavailable [phone] Arelis Helm RN Unavailable [phone] Benny Galarza MD Unavailable [phone] Charles Gilbert DO Primary Care Provider Eva Funes MD Unavailable [phone] Simba Jaramillo MD PhD Unavailable Encounter Details Date Type Department Care Team (Late st Contact Info) Description 02/06/2022 Orders Only LOC[facility]IN [facility] Surgeon [address] [place], [place] [id number] Randal Weinstein MD [address] [place], [place] [id number] Pre-operative exam (Primary Dx) Social History Tobacco [...] Description 01/19/2025 9:45 AM CDT Hospital Encounter [facility] [address] [place] [address] documented as of this encounter Visit Diagnoses Diagnosis Pre-operative exam- Primary Unspecified pre-operative examination documented in this encounter Care Teams Oxyacetylene Cutter Relationship Specialty Start Date End Date Angie Kim MD PCP - General Family Practice 10/18/21 10/01/22 Charles Gilbert DO [address] [place] [address] PCP - General Family Medicine 10/02/22 Angie Kim MD Referring Physician Family Practice 03/02/21 Mojgan Leonardo RN [address] [address] Christmas Tree Contractor 03/03/2103/04 La Chun MD [address] [address] Resident Anesthesiology 03/02/22 Mattie Giron RN Christmas Tree Contractor 03/05/22 Arelis Helm RN [address] [place] [address] Secondary Coordinator 03/05/22 Benny Galarza MD [address] [address] Gastroenterology 07/11/22 Eva Funes MD [facility]0 [facility] [address] [place] [address] Referring Physician Thoracic Surgery 11/12/24 Simba Jaramillo MD PhD [facility]8 [facility] MEDICAL ONCOLOGY, [facility] [address] [place] [address] Medical Oncologist/Fork Lift Technician Medical Oncology 11/12/24 documented as of this encounter
--- OUTSIDE RECORDS SUMMARY | 2025-01-11 08:02 | XMS_ITS | Encounter Summary ---
Author Organization [facility] Address [address] [place] [address] Phone Care Team Providers Care Rheologist Name Role Phone Benny Galarza MD Primary Care Provider [phone] Angie Kim MD Unavailable Mojgan Leonardo RN Unavailable [phone] Miscellaneous, Not In File Primary Care Provider Unavailable Angie Kim MD Primary Care Provide r La Chun MD Unavailable [phone] Mattie Giron RN Unavailable [phone] Arelis Helm RN Unavailable [phone] Benny Galarza MD Unavailable [phone] Charles Gilbert DO Primary Care Provider Eva Funes MD Unavailable [phone] Simba Jaramillo MD PhD Unavailable [phone] Encounter Details Date Type Department Care Team [...] Description 01/19/2025 9:45 AM CDT Hospital Encounter [facility] [address] [place] [address] documented as of this encounter Procedures Procedure Name Priority Date/Time Associated Diagnosis Comments SCAN - LABS 02/18/2020 documented in this encounter Results * SCAN - LABS (02/18/2020) us Provider Scanning Final Result documented in this encounter Visit Diagnoses Not on filedocumented in this encounter Care Teams Rheologist Relationship Specialty Start Date End Date Benny Galarza MD [address] [place] [address] PCP - General Gastroenterology 12/31/18 04/18/21 Miscellaneous, Not In File PCP - General 04/19/21 10/17/21 Angie Kim MD [address] [place] [address] PCP - General Family Practice 10/18/21 10/01/22 Charles Gilbert DO [address] [place] [address] PCP - General Family Medicine 10/02/22 Angie Kim MD [address] [place] [address] Referring Physician Family Practice 03/02/21 Mojgan Leonardo, NITA [address] [facility] [address] [place] [address] Business Development Representative 03/03/2103/04 La Chun MD Resident Anesthesiology 03/02/22 Mattie Giron, NITA Business Development Representative 03/05/22 Arelis Helm, RN [address] [facility] [address] [place] [address] Secondary Coordinator 03/05/22 Benny Galarza MD [address] [address] Gastroenterology 07/11/22 Eva Funes MD [address] [facility] [address] [place] [address] Referring Physician Thoracic Surgery 11/12/24 Simba Jaramillo MD PhD [facility]8 [facility] MEDICAL ONCOLOGY, [facility] [address] [place] [address] Medical Oncologist/Gas Regulator Repairer Medical Oncology 11/12/24 documented as of this encounter
--- OUTSIDE RECORDS SUMMARY | 2025-01-11 08:02 | XMS_ITS | Clinical Summary ---
Author Organization [facility] Address [address] [place] [address] Care Team Providers Care Overcaster Name Role Phone Unavailable Primary Care Provider Unavailabl e Source Comments [facility],non-owned Affiliates and Associated Physician Practices is amultiple site organization consisting of ambulatory clinics and hospital sitesin [place], [place], [place] and [place]. This disclosure is being madepursuant to the Care Everywhere program and may not contain all information available regarding this patient. 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
[2025-01-11 08:19] LABS: Alanine Aminotransferase 25 U/L (6-50); Albumin Level 4.7 g/dL (3.5-5.1); Alkaline Phosphatase 77 U/L (38-126); Anion Gap 11 mmol/L (4-12); Aspartate Amino Transferase 29 U/L (17-59); Bilirubin,Total 0.7 mg/dL (0.2-1.3); Blood Urea Nitrogen 21 mg/dL (9-20); Calcium 10.1 mg/dL (8.4-10.2); Carbon Dioxide 26 mmol/L (22-30); Chloride 105 mmol/L (98-107); Estimated Glomerular Filt Rate 54; Glucose 134 mg/dL (65-110); Osmolality Calculated 299 mOsm/kg (285-295); Potassium 4.6 mmol/L (3.4-5.0); Sodium 142 mmol/L (137-145); Total Protein 8.6 g/dL (6.3-8.2)
[2025-01-11 08:52] LABS: GGT 21 U/L (15-73)
[2025-01-14 16:08] LABS: Tacrolimus (FK506), Blood 3.2 ng/mL (5.0-20.0)
[2025-02-08 07:34] LABS: Hematocrit 44.8 % (37.0-46.0); Hemoglobin 14.8 g/dL (12.4-15.3); Immature Granulocyte Percent A 0.7 % (0.0-0.0); Lymphocytes Absolute Auto 2.16 K/mm3 (1.10-4.50); Mean Corpuscular HGB Conc 33.0 g/dL (32-36); Mean Corpuscular Hemoglobin 28.1 pg (27.0-31.0); Mean Corpuscular Volume 85.2 fL (78.0-102.0); Nucleated Red Blood Cells Absolute Auto 0.00 K/mm3 (0.00-0.00); Nucleated Red Blood Cells Perc 0.0 % (0-0.0); Platelet Count Result 154 K/mm3 (150-420); Red Blood Count 5.26 M/mm3 (4.70-6.10); White Blood Count 8.1 K/mm3 (4.8-10.8)
[2025-02-08 08:51] LABS: Alanine Aminotransferase 24 U/L (6-50); Albumin Level 4.6 g/dL (3.5-5.1); Alkaline Phosphatase 86 U/L (38-126); Anion Gap 8 mmol/L (4-12); Aspartate Amino Transferase 29 U/L (17-59); Bilirubin,Total 0.6 mg/dL (0.2-1.3); Blood Urea Nitrogen 14 mg/dL (9-20); Calcium 9.7 mg/dL (8.4-10.2); Carbon Dioxide 28 mmol/L (22-30); Chloride 106 mmol/L (98-107); Estimated Glomerular Filt Rate 53; Glucose 137 mg/dL (65-110); Osmolality Calculated 296 mOsm/kg (285-295); Potassium 4.3 mmol/L (3.4-5.0); Sodium 142 mmol/L (137-145); Total Protein 8.2 g/dL (6.3-8.2)
[2025-02-08 09:46] LABS: GGT 24 U/L (15-73)
[2025-02-11 06:07] LABS: Tacrolimus (FK506), Blood 4.7 ng/mL (5.0-20.0)
[2025-03-08 08:00] LABS: Hematocrit 44.5 % (37.0-46.0); Hemoglobin 14.8 g/dL (12.4-15.3); Immature Granulocyte Percent A 0.4 % (0.0-0.0); Lymphocytes Absolute Auto 2.53 K/mm3 (1.10-4.50); Mean Corpuscular HGB Conc 33.3 g/dL (32-36); Mean Corpuscular Hemoglobin 28.3 pg (27.0-31.0); Mean Corpuscular Volume 85.1 fL (78.0-102.0); Nucleated Red Blood Cells Absolute Auto 0.00 K/mm3 (0.00-0.00); Nucleated Red Blood Cells Perc 0.0 % (0-0.0); Platelet Count Result 151 K/mm3 (150-420); Red Blood Count 5.23 M/mm3 (4.70-6.10); White Blood Count 10.2 K/mm3 (4.8-10.8)
[2025-03-08 08:22] LABS: Alanine Aminotransferase 34 U/L (6-50); Albumin Level 4.9 g/dL (3.5-5.1); Alkaline Phosphatase 89 U/L (38-126); Anion Gap 12 mmol/L (4-12); Aspartate Amino Transferase 31 U/L (17-59); Blood Urea Nitrogen 22 mg/dL (9-20); Calcium 9.3 mg/dL (8.4-10.2); Carbon Dioxide 27 mmol/L (22-30); Chloride 106 mmol/L (98-107); Estimated Glomerular Filt Rate 44; Glucose 139 mg/dL (65-110); Osmolality Calculated 305 mOsm/kg (285-295); Potassium 4.2 mmol/L (3.4-5.0); Sodium 145 mmol/L (137-145); Total Protein 7.6 g/dL (6.3-8.2)
[2025-03-08 08:37] LABS: GGT 25 U/L (15-73)
[2025-03-08 17:30] LABS: Bilirubin,Total 0.3 mg/dL (0.2-1.3)
[2025-03-10 22:07] LABS: Tacrolimus (FK506), Blood 2.1 ng/mL (5.0-20.0)
[2025-03-22 08:14] LABS: Hematocrit 44.0 % (37.0-46.0); Hemoglobin 14.6 g/dL (12.4-15.3); Immature Granulocyte Percent A 0.5 % (0.0-0.0); Lymphocytes Absolute Auto 2.50 K/mm3 (1.10-4.50); Mean Corpuscular HGB Conc 33.2 g/dL (32-36); Mean Corpuscular Hemoglobin 28.2 pg (27.0-31.0); Mean Corpuscular Volume 84.9 fL (78.0-102.0); Nucleated Red Blood Cells Absolute Auto 0.00 K/mm3 (0.00-0.00); Nucleated Red Blood Cells Perc 0.0 % (0-0.0); Platelet Count Result 152 K/mm3 (150-420); Red Blood Count 5.18 M/mm3 (4.70-6.10); White Blood Count 9.9 K/mm3 (4.8-10.8)
[2025-03-22 09:41] LABS: Alanine Aminotransferase 27 U/L (6-50); Albumin Level 4.7 g/dL (3.5-5.1); Alkaline Phosphatase 88 U/L (38-126); Anion Gap 9 mmol/L (4-12); Aspartate Amino Transferase 32 U/L (17-59); Bilirubin,Total 0.7 mg/dL (0.2-1.3); Blood Urea Nitrogen 21 mg/dL (9-20); Calcium 9.6 mg/dL (8.4-10.2); Carbon Dioxide 29 mmol/L (22-30); Chloride 105 mmol/L (98-107); Estimated Glomerular Filt Rate 48; Glucose 128 mg/dL (65-110); Osmolality Calculated 301 mOsm/kg (285-295); Potassium 4.3 mmol/L (3.4-5.0); Sodium 143 mmol/L (137-145); Total Protein 7.4 g/dL (6.3-8.2)
[2025-03-22 09:48] LABS: GGT 24 U/L (15-73)
[2025-03-27 01:07] LABS: Tacrolimus (FK506), Blood 4.5 ng/mL (5.0-20.0)
== END 2025-04-11 23:59 | disposition home or self-care (01) ==
LOC: CHSLAB 07:57
PROVIDERS: PCP Family Medicine; Visit Provider Internal Medicine Gastroenterology
DX: Z94.4 Liver transplant status (principal)
CPT/HCPCS: 36415; 80053; 80197; 82977; 85025

== ENCOUNTER 2025-04-08 10:24 | Outpatient (CLI) | payer MEDICARE, SELFPAY ==
--- NOTE | ~2025-04-08 | XR_ITS ---
Examination: XR chest 2V Clinical History: R05.9 - Cough, unspecified Comparison: 10/29/2024 Technique: PA and Lateral Findings: Cardiomediastinal silhouette normal size and configuration. Left lower lobe atelectasis. No acute bony abnormality. IMPRESSION: 1. Left lower lobe atelectasis. Reviewed, dictated and finalized at location [facility]. [facility]
--- OUTSIDE RECORDS SUMMARY | 2025-04-08 13:06 | XMS_ITS | Clinical Summary ---
Author Organization [employer] [facility] Address [address] [place] [address] Care Team Providers Care Grade Checker Name Role Phone Pcp, No Primary Care Provider [phone] Social History Tobacco Use Types Packs/Day Years Used Date Smoking Tobacco: Never Assessed Sex and Gender Information Value Date Recorded Sex Assigned at Not on file Legal Sex Male 9:12 AM EDT Gender Identity Not on file Sexual Orientation Not on file Plan of Treatment Not on file Medical Devices Not on file Insurance [facility] Care Teams Grade Checker Relationship Specialty Start Date End Date Pcp, No PCP - General Family Medicine 09/03/20
--- OUTSIDE RECORDS SUMMARY | 2025-04-08 13:06 | XMS_ITS | Clinical Summary ---
Author Organization [facility] [employer] Address [address] [place] [address] Care Team Providers Care System Analyst Name Role Phone Unavailable Primary Care Provider Unavailabl e Source Comments [facility] [employer],non-owned Affiliates and Associated Physician Practices is amultiple site organization consisting of ambulatory clinics and hospital sitesin [place], [place], [place] and [place]. This disclosure is being madepursuant to the Care Everywhere program and may not contain all information available regarding this patient. Last updated 18.[facility] [employer] Social History Tobacco Use Types Packs/Day Years Used Date Smoking Tobacco: Never Assessed Sex and Gender Information Value Date Recorded Sex Assigned at Not on file Legal Sex Male 6:21 AM NUTRITION INTERN Gender Identity Not on file Sexual Orientation [...] DEPRESSION SCREENING 04/22/2024 COVID-19 VACCINE (1 - 2024-2 6 season) 2024 INFLUENZA VACCINE (#1) 2024 Respiratory [...] age to complete this topic Insurance MEDICARE MEDICARE MEDICARE
== END 2025-04-08 10:25 | disposition home or self-care (01) ==
LOC: CHSIMG 12:01
PROVIDERS: PCP Family Medicine; Visit Provider Family Medicine
DX: R05.9 Cough, unspecified (principal); J98.11 Atelectasis
CPT/HCPCS: 71046